=== PATIENT | female | born 1965 | race Caucasian/White ===

== ENCOUNTER 2019-06-12 09:33 | Emergency (ER) | payer BC, SELFPAY | END 2019-06-12 10:02 | LOC: ER 09:38 | PROVIDERS: Emergency Provider Physician Assistant; PCP Naturopath | DX: Z53.21 Procedure and treatment not carried out due to patient leaving prior to being seen by health care provider (principal) ==

== ENCOUNTER 2019-11-11 18:08 | Emergency (ER) | payer BC, SELFPAY ==
[2019-11-11 18:13] VITALS: BP 128/69; PULSE 74; RESP 18; TEMP 36.8; O2SAT 98
--- NOTE | 2019-11-11 18:30 | DI.RAD_ITS ---
EXAM: XR KNEE RT 3V AP,LAT,FELA CLINICAL HISTORY: swelling, pain, no trauma, ttp lateral. TECHNIQUE: 2D digital imaging was performed. COMPARISON: CR CHEST 2 VIEWS PA,LAT from 01/24/2014 FINDINGS: BONES: No acute fracture is present. No bony destructive lesion is seen. JOINTS: The knee is normally aligned. Trace joint effusion. Very mild degenerative changes character ized by mild periarticular spurring. SOFT TISSUE: Normal. IMPRESSION: No acute abnormality. DATA REPOSITORY: RADIATION DOSE DELIVERED:
[2019-11-11] MEDS: Acetaminophen 325 MG TAB 650 MG PO (18:50)
--- NOTE | 2019-11-11 18:51 | ED.GENADUL_ITS ---
Discharge Plan Disposition Patient Disposition: HOME Discharge Details Chief Complaint: Orthopedic Clinical Impression: Effusion of right knee, Pain in lateral portion of right knee Primary Care Provider: Herminio Hernandez ED Provider: Perfecto Kaba Home Meds and New Rx's Prescriptions: Continued metformin 500 mg tablet extended release 24 hr 500 mg PO BID RF: 0 magnesium glycinate 100 mg Tablet 100 mg PO DAILY RF: 0 thyroid (pork) [[place] Thyroid] 15 mg tablet 15 mg PO DAILY RF: 0 thyroid (pork) [[place] Thyroid] 30 mg tablet 30 mg PO DAILY RF: 0 omega 4-kxj-poz-fish oil [Fish Oil] 1,000 mg (120 mg-180 mg) Capsule 2 cap PO DAILY RF: 0 Lumigan 0.01 % drops 1 drp ophthalmic (eye) HS RF: 0 Discharge Instructions Instructions: Knee Pain (ED), Iliotibial Band Syndrome (ED) Additional Instructions: Wear knee splint and use crutches. Rest over the next 1 week. Please take acetaminophen (tylenol) - 650mg every 6 hours by mouth as needed for pain. If pain persist, please follow-up with orthopedics. Please contact your primary care physician to arrange follow-up. Return to the ER for any worsening or new concerning symptoms. Referrals: [facility] [Provider Group] Discharge Data Discharge Date/Time-TO BE ENTERED AT DEPARTURE: 11/11/19 20:05 Medical Decision Making 1899??54-year-old female here with 2 days of atraumatic right lateral knee pain and distal IT pain and tenderness. No inflammatory changes other than trace knee effusion present. Patient does have history remote meniscal tear requiring surgery. Suspect IT band syndrome. Patient declined NSAIDs noting prior side effects. I will give Tylenol 650 mg orally. Consider bony abnormality including potential arthritis status post remote meniscectomy and anomalous knee tendon removal. --X-ray of the right knee was reviewed and interpreted by radiology: IMPRESSION: Early degenerative changes with probable trace joint effusion. Knee brace applied. Crutches provided. Patient advised to rest over next week and if pain persists, follow-up orthopedics. HPI General Mode of arrival: ambulatory . Date/Time Provider Initiated Documentation: 11/11/19 18:22 . Limitations to Documentation: no limitations . Information obtained by: patient . HPI Narrative: 54-year-old female with history of remote meniscal tear and surgery presents with chief complaint of right knee pain. Patient notes that yesterday morning she woke up with pain in her lateral right knee. Pain was initially mild. She had no injury to the area. Pain persisted through the day and when she woke up this morning pain was much worse. Pain is moderate. Pain is worse with any movement of the knee. Pa in is localized to her lateral knee and spreads anteriorly and also lateral distal thigh. She has no associated fever or rash. Patient does note that her ankles feel swollen bilaterally the past couple days. No calf pain. Related Data Home Medications Medication Instructions Recorded Confirmed Lumigan 1 drp OPHTHALMIC (EYE) HS 11/11/19 11/11/19 magnesium glycinate 100 mg PO DAILY 11/11/19 11/11/19 metformin 500 mg PO BID 11/11/19 11/11/19 omega 6-voz-xur-fish oil [Fish Oil] 2 cap PO DAILY 11/11/19 11/11/19 thyroid (pork) [[place] Thyroid] 15 mg PO DAILY 11/11/19 11/11/19 thyroid (pork) [[place] Thyroid] 30 mg PO DAILY 11/11/19 11/11/19 Allergies Allergy/AdvReac Type Severity Reaction Status Date / Time ampicillin [Ampicillin] Allergy Severe Unverified 11/11/19 18:21 gluten AdvReac Unverified 07/25/12 15:28 dairy Allergy Mild Uncoded 07/25/12 15:28 General Stated Complaint: Orthopedic LEXI: 4 Review of Systems Constitutional Constitutional: Denies fever(s) Cardiovascular Cardiovascular: Denies dyspnea Respiratory Respiratory: Denies dyspnea Musculoskeletal Musculoskeletal: Reports as per HPI Integumentary/Breasts Skin/Breast: Denies rash [facility] Medical History (Updated 11/11/19 @ 20:02 by Perfceto Kaba MD) Sleep apnea (Acute) Social History Smoking/Tobacco Use Status: Former Tobacco Use Alcohol Intake: current Alcohol Intake frequency: a few times a week Alcohol type: hard liquor Drug use: Occasionally Details: diazapam/clonipine--old rxs Do you feel safe at home: Yes Do you feel safe in your relationship?: Yes Exam Const General: cooperative and no acute distress HENMT Mouth: moist mucous membranes Neck Neck: trachea midline and supple Resp Effort & Inspection: normal respiratory effort and no respiratory distress Cardio Jugular venous pressure: no JVD Rate: regular rate and not tachycardic Rhythm: regular rhythm GI Palpation: soft, not firm, no guarding, no masses, not rigid and nontender Skin General skin exam: no rashes or lesions noted Neuro General: patient alert, patient awake, patient oriented x3 and tone normal Extrem General: no calf tenderness and edema Laterality: bilateral (Trace nonpitting edema ankles) Right lower extremity: hip/thigh Details: tenderness Location: other (Lateral distal thigh); no swelling and no unusual warmth and knee Details: tenderness Location: of the lateral joint line and other (Tender lateral knee with trace effusion); no unusual warmth Psych Appearance: grossly normal Mental Status: mental status grossly normal Course Vital Signs Vital signs: Vital Signs Temperature 36.8 C 11/11/19 18:13 Pulse 74 11/11/19 18:13 Respiratory Rate 18 11/11/19 18:13 Blood Pressure 128/69 11/11/19 18:13 Pulse Oximetry 98 11/11/19 18:13 Temperature 36.8 C 11/11/19 18:13 Temperature Source Temporal Artery Scan 11/11/19 18:13 Pulse 74 11/11/19 18:13 Respiratory Rate 18 11/11/19 18:13 Respiratory Effort Non-Labored 11/11/19 18:19 Blood Pressure 128/69 11/11/19 18:13 Blood Pressure Position Supine 11/11/19 18:13 Pulse Oximetry 98 11/11/19 18:13 Oxygen Delivery Method Room Air 11/11/19 18:13 Oxygen Flow Rate 0 11/11/19 18:13 Pain Level 6 11/11/19 18:13
[2019-11-11 19:03] LABS: Anion Gap 7.1 mmol/L (3-11); BUN 19 mg/dL (7-18); CO2 27.9 mmol/L (21.0-32.0); Calcium 9.1 mg/dL (8.5-10.1); Chloride 104 mmol/L (98-107); Glucose 131 mg/dL (74-106); Potassium 3.7 mmol/L (3.5-5.1); Sodium 139 mmol/L (136-145)
--- NOTE | 2019-11-11 19:07 | DI.VRAD_ITS ---
PROCEDURE INFORMATION: Exam: XR Right Knee Exam date and time: 11/11/2019 7:00 PM Age: 54 years old Clinical indication: Other: Swelling, pain, no trauma, ttp lateral TECHNIQUE: Imaging protocol: XR Right knee. Views: 3 views. COMPARISON: No relevant prior studies available. FINDINGS: Bones/joints: Possible trace joint effusion. There are early degenerative changes with minimal hypertrophic spurring. Overall joint spaces appear well preserved. Soft tissues: Normal. IMPRESSION: Early degenerative changes with probable trace joint effusion. Dictated and Authenticated by: Letitia Jenkins MD. Ordering:ESTRELLITA Grove MD
[2019-11-11 19:16] LABS: TSH (W/Ref FT4) 1.66 uIU/mL (0.36-3.74)
[2019-11-11 19:39] VITALS: BP 123/81; PULSE 68; RESP 14; TEMP 36.2; O2SAT 99
== END 2019-11-11 20:05 | disposition home or self-care (01) ==
PROVIDERS: Emergency Provider Student in an Organized Health Care Education/Training Program; PCP Naturopath
DX: M25.461 Effusion, right knee (principal); M76.31 Iliotibial band syndrome, right leg
CPT/HCPCS: 29505; 36415; 73562; 80048; 99284; 84443; E0114; L1810

== ENCOUNTER 2019-12-03 08:26 | Outpatient (CLI) | payer BC, SELFPAY ==
[2019-12-05 17:04] LABS: Patient Race White; SARS-CoV-2 RNA Undetected (Undetected); SARS-CoV-2 Specimen Source Nasopharynx
== END 2019-12-03 08:46 ==
PROVIDERS: Naturopath; PCP Naturopath; Visit Provider Naturopath
DX: Z11.59 Encounter for screening for other viral diseases (principal)
CPT/HCPCS: U0003

== ENCOUNTER 2020-02-09 04:42 | Outpatient (CLI) | payer BC, SELFPAY ==
[2020-02-09 08:05] LABS: Hemoglobin A1C 5.4 % (<5.7)
[2020-02-09 08:50] LABS: ALT 49 U/L (14-59); AST 25 U/L (15-37); Albumin 3.9 g/dL (3.4-5.0); Alkaline Phosphatase 97 U/L (46-116); Anion Gap 7.5 mmol/L (3-11); BUN 14 mg/dL (7-18); Bilirubin, Total 0.5 mg/dL (0.2-1.0); CO2 30.5 mmol/L (21.0-32.0); CREATININE 0.74 mg/dL (0.55-1.02); Calculated LDL 107 mg/dL (<100); Chloride 105 mmol/L (98-107); Cholesterol 196 mg/dL (<200); Glucose 94 mg/dL (74-106); HDL Cholesterol 74 mg/dL (40-60); Potassium 4.4 mmol/L (3.5-5.1); Sodium 143 mmol/L (136-145); T4 7.6 ug/mL (4.7-13.3); TSH 1.62 uIU/mL (0.36-3.74); Total Protein 6.8 g/dL (6.4-8.2); Triglyceride 75 mg/dL (<150)
[2020-02-18 17:16] LABS: ANA Interpretation 0.3 U (Negative)
[2020-02-18 17:17] LABS: T3,Free 4.2 pg/mL (2.8-4.4)
[2020-02-18 17:24] LABS: Insulin 17.2 mcIU/mL (2.6-24.9)
== END 2020-02-09 05:02 ==
PROVIDERS: PCP Naturopath; Visit Provider Naturopath
DX: E03.9 Hypothyroidism, unspecified (principal); Z13.1 Encounter for screening for diabetes mellitus; Z13.220 Encounter for screening for lipoid disorders; R76.8 Other specified abnormal immunological findings in serum
CPT/HCPCS: 36415; 80053; 80061; 83036; 83525; 84436; 84443; 84481; 86038

== ENCOUNTER 2020-04-17 11:07 | Outpatient (CLI) | payer BC, SELFPAY ==
[2020-04-18 12:37] LABS: COVID-19 RT-PCR UVMMC Result Negative (Negative)
== END 2020-04-17 11:27 ==
PROVIDERS: PCP Naturopath; Visit Provider Naturopath
DX: Z20.822 Contact with and (suspected) exposure to COVID-19 (principal)
CPT/HCPCS: U0003

== ENCOUNTER 2020-05-01 04:26 | Outpatient (CLI) | payer BC, SELFPAY ==
[2020-05-01 18:00] LABS: Vitamin D 25 Total 75.6 ng/ml (30-100)
[2020-05-01 18:05] LABS: Vitamin B12 556 pg/mL (193-986)
== END 2020-05-01 04:46 ==
PROVIDERS: PCP Naturopath; Visit Provider Internal Medicine Sleep Medicine
DX: E67.3 Hypervitaminosis D (principal); R53.83 Other fatigue
CPT/HCPCS: 36415; 82306; 82607

== ENCOUNTER 2020-07-05 03:38 | Outpatient (CLI) | payer BC, SELFPAY ==
[2020-07-05 13:48] LABS: Iron 93 ug/dL (50-170); Total Iron Binding Capacity 336 ug/dL (250-450); Transferrin Sat 28 % (15-50)
[2020-07-05 14:00] LABS: Ferritin 72 ng/mL (8-252)
== END 2020-07-05 03:39 | disposition home or self-care (01) ==
LOC: LBO 03:38
PROVIDERS: PCP Naturopath; Visit Provider Naturopath
DX: E83.110 Hereditary hemochromatosis (principal)
CPT/HCPCS: 36415; 82728; 83540; 83550

== ENCOUNTER 2020-08-11 03:24 | Outpatient (CLI) | payer BC, SELFPAY ==
[2020-08-11 13:16] LABS: Abs Immature Grans 0.01 10^3/uL (0.0-0.06); Absolute Basophil Count 0.05 10^3/uL (0.0-0.2); Absolute Eosinophil Count 0.06 10^3/uL (0.0-0.7); Absolute Lymphocyte Count 1.37 10^3/uL (1.2-3.4); Absolute Monocyte Count 0.41 10^3/uL (0.1-0.8); Absolute Neutrophil Count 1.59 10^3/uL (1.2-6.7); Basophils % 1.4; Eosinophils % 1.7; HCT 44.4 % (36.0-46.0); HGB 14.4 g/dL (11.2-15.7); Immature Grans % 0.3; Lymphocytes % 39.3; MCHC 32.4 % (32.0-36.0); MCV 89.5 fL (80-95); MPV 12.3 fL (8.0-11.0); Monocytes % 11.7; Neutrophils % 45.6; Nucleated RBC 0 %; Platelet Count 240 10^3/uL (130-400); RBC 4.96 10^6/uL (3.93-5.22); RDW 13.1 % (11.7-14.6); RDW-SD 42.7 fL; WBC 3.49 10^3/uL (4.4-10.8)
[2020-08-11 14:19] LABS: Ferritin 45 ng/mL (8-252)
== END 2020-08-11 03:25 | disposition home or self-care (01) ==
LOC: LBO 03:29
PROVIDERS: PCP Naturopath; Visit Provider Internal Medicine Hematology & Oncology
DX: E83.110 Hereditary hemochromatosis (principal)
CPT/HCPCS: 36415; 82728; 85025

== ENCOUNTER 2020-10-11 03:39 | Outpatient (CLI) | payer BC, SELFPAY ==
[2020-10-11 10:43] LABS: Abs Immature Grans 0.01 10^3/uL (0.0-0.06); Absolute Basophil Count 0.03 10^3/uL (0.0-0.2); Absolute Eosinophil Count 0.04 10^3/uL (0.0-0.7); Absolute Lymphocyte Count 1.36 10^3/uL (1.2-3.4); Absolute Monocyte Count 0.32 10^3/uL (0.1-0.8); Absolute Neutrophil Count 2.17 10^3/uL (1.2-6.7); Basophils % 0.8; HGB 14.3 g/dL (11.2-15.7); Immature Grans % 0.3; Lymphocytes % 34.6; MCH 28.4 pg (27.0-33.0); MCHC 32.5 % (32.0-36.0); MCV 87.5 fL (80-95); MPV 12.3 fL (8.0-11.0); Monocytes % 8.1; Neutrophils % 55.2; Nucleated RBC 0 %; Platelet Count 185 10^3/uL (130-400); RBC 5.03 10^6/uL (3.93-5.22); RDW 13.2 % (11.7-14.6); RDW-SD 42.5 fL; WBC 3.93 10^3/uL (4.4-10.8)
[2020-10-11 11:57] LABS: Ferritin 47 ng/mL (8-252)
== END 2020-10-11 03:40 | disposition home or self-care (01) ==
LOC: LBO 03:40
PROVIDERS: PCP Naturopath; Visit Provider Internal Medicine Hematology & Oncology
DX: E83.110 Hereditary hemochromatosis (principal)
CPT/HCPCS: 36415; 82728; 85025

== ENCOUNTER 2020-12-06 04:07 | Outpatient (CLI) | payer BC, SELFPAY ==
[2020-12-06 10:38] LABS: Absolute Basophil Count 0.04 10^3/uL (0.0-0.2); Absolute Eosinophil Count 0.06 10^3/uL (0.0-0.7); Absolute Lymphocyte Count 1.26 10^3/uL (1.2-3.4); Absolute Monocyte Count 0.29 10^3/uL (0.1-0.8); Absolute Neutrophil Count 1.93 10^3/uL (1.2-6.7); Basophils % 1.1; Eosinophils % 1.7; HCT 43.8 % (36.0-46.0); HGB 14.2 g/dL (11.2-15.7); Lymphocytes % 35.2; MCH 28.2 pg (27.0-33.0); MCHC 32.4 % (32.0-36.0); MCV 87.1 fL (80-95); MPV 12.5 fL (8.0-11.0); Monocytes % 8.1; Neutrophils % 53.9; Nucleated RBC 0 %; Platelet Count 191 10^3/uL (130-400); RBC 5.03 10^6/uL (3.93-5.22); RDW 14.3 % (11.7-14.6); RDW-SD 45.3 fL; WBC 3.58 10^3/uL (4.4-10.8)
[2020-12-06 11:35] LABS: Ferritin 65 ng/mL (8-252)
== END 2020-12-06 04:08 | disposition home or self-care (01) ==
LOC: LBO 04:07
PROVIDERS: PCP Naturopath; Visit Provider Internal Medicine Hematology & Oncology
DX: E83.110 Hereditary hemochromatosis (principal)
CPT/HCPCS: 36415; 82728; 85025

== ENCOUNTER 2021-01-23 03:36 | Outpatient (CLI) | payer BC, SELFPAY ==
[2021-01-23 12:33] LABS: Abs Immature Grans 0.01 10^3/uL (0.0-0.06); Absolute Basophil Count 0.04 10^3/uL (0.0-0.2); Absolute Eosinophil Count 0.05 10^3/uL (0.0-0.7); Absolute Lymphocyte Count 1.23 10^3/uL (1.2-3.4); Absolute Monocyte Count 0.37 10^3/uL (0.1-0.8); Absolute Neutrophil Count 3.65 10^3/uL (1.2-6.7); Basophils % 0.7; Eosinophils % 0.9; HCT 42.6 % (36.0-46.0); HGB 13.7 g/dL (11.2-15.7); Immature Grans % 0.2; MCHC 32.2 % (32.0-36.0); MCV 90.3 fL (80-95); MPV 12.7 fL (8.0-11.0); Monocytes % 6.9; Neutrophils % 68.3; Nucleated RBC 0 %; Platelet Count 193 10^3/uL (130-400); RBC 4.72 10^6/uL (3.93-5.22); RDW 13.9 % (11.7-14.6); RDW-SD 46.5 fL; WBC 5.35 10^3/uL (4.4-10.8)
[2021-01-23 13:27] LABS: Ferritin 70 ng/mL (8-252)
== END 2021-01-23 03:37 | disposition home or self-care (01) ==
LOC: LBO 03:36
PROVIDERS: PCP Naturopath; Visit Provider Internal Medicine Hematology & Oncology
DX: E83.110 Hereditary hemochromatosis (principal)
CPT/HCPCS: 36415; 82728; 85025

== ENCOUNTER 2021-02-14 03:30 | Outpatient (CLI) | payer BC, SELFPAY ==
[2021-02-14 08:05] LABS: Absolute Basophil Count 0.04 10^3/uL (0.0-0.2); Absolute Lymphocyte Count 0.84 10^3/uL (1.2-3.4); Absolute Monocyte Count 0.47 10^3/uL (0.1-0.8); Absolute Neutrophil Count 2.42 10^3/uL (1.2-6.7); Eosinophils % 2.6; Lymphocytes % 21.7; MCHC 31.7 % (32.0-36.0); MCV 91.3 fL (80-95); MPV 12.2 fL (8.0-11.0); Monocytes % 12.1; Neutrophils % 62.6; Nucleated RBC 0 %; Platelet Count 175 10^3/uL (130-400); RBC 4.49 10^6/uL (3.93-5.22); RDW 13.7 % (11.7-14.6); RDW-SD 46.9 fL; WBC 3.87 10^3/uL (4.4-10.8)
[2021-02-14 09:01] LABS: Hemoglobin A1C 5.3 % (<5.7)
[2021-02-14 09:10] LABS: ALT 24 U/L (14-59); AST 15 U/L (15-37); Albumin 4.4 g/dL (3.4-5.0); Alkaline Phosphatase 118 U/L (46-116); Anion Gap 8.5 mmol/L (3-11); BUN 17 mg/dL (7-18); Bilirubin, Total 0.5 mg/dL (0.2-1.0); CO2 30.5 mmol/L (21.0-32.0); CREATININE 0.9 mg/dL (0.55-1.02); Calcium 9.1 mg/dL (8.5-10.1); Calculated LDL 90 mg/dL (<100); Chloride 103 mmol/L (98-107); Cholesterol 178 mg/dL (<200); Glucose 101 mg/dL (74-106); HDL Cholesterol 80 mg/dL (40-60); Potassium 4.4 mmol/L (3.5-5.1); Sodium 142 mmol/L (136-145); Total Protein 7.5 g/dL (6.4-8.2); Triglyceride 41 mg/dL (<150)
[2021-02-14 09:12] LABS: Ferritin 79 ng/mL (8-252)
[2021-02-14 17:09] LABS: Estradiol <12 pg/mL (See Note); Progesterone 0.4 ng/mL (See Table)
[2021-02-14 17:12] LABS: T3,Free 4.4 pg/mL (2.8-5.3)
[2021-02-14 17:33] LABS: LH 33.3 mIU/mL (See Note)
[2021-02-14 17:34] LABS: FSH 51.9 mIU/mL (See Note)
[2021-02-19 13:51] LABS: Estradiol, Mass Spectrometry <10 pg/mL; Estrone 29 pg/mL
[2021-02-19 14:42] LABS: ANA Interpretation Positive (Negative); ANA Titer Pattern 1:80 Homogeneous
== END 2021-02-14 03:31 | disposition home or self-care (01) ==
LOC: LBO 03:30
PROVIDERS: Internal Medicine Hematology & Oncology; PCP Naturopath; Visit Provider Naturopath
DX: E03.9 Hypothyroidism, unspecified (principal); Z13.1 Encounter for screening for diabetes mellitus; Z13.220 Encounter for screening for lipoid disorders; M25.50 Pain in unspecified joint; R61 Generalized hyperhidrosis; E88.81 Metabolic syndrome and other insulin resistance; E83.110 Hereditary hemochromatosis
CPT/HCPCS: 36415; 80053; 80061; 82670; 82679; 82728; 83001; 83002; 83036; 83525; 84144; 84436; 84443; 84481; 85025; 86038

== ENCOUNTER 2021-03-09 01:14 | Outpatient (CLI) | payer BC, SELFPAY ==
[2021-03-09 13:22] LABS: Abs Immature Grans 0.01 10^3/uL (0.0-0.06); Absolute Basophil Count 0.04 10^3/uL (0.0-0.2); Absolute Lymphocyte Count 1.58 10^3/uL (1.2-3.4); Absolute Monocyte Count 0.45 10^3/uL (0.1-0.8); Absolute Neutrophil Count 3.23 10^3/uL (1.2-6.7); Basophils % 0.7; Eosinophils % 1.8; HCT 43.1 % (36.0-46.0); HGB 13.8 g/dL (11.2-15.7); Immature Grans % 0.2; Lymphocytes % 29.2; MCH 29.1 pg (27.0-33.0); MCV 90.9 fL (80-95); MPV 11.9 fL (8.0-11.0); Monocytes % 8.3; Neutrophils % 59.8; Nucleated RBC 0 %; Platelet Count 223 10^3/uL (130-400); RBC 4.74 10^6/uL (3.93-5.22); WBC 5.41 10^3/uL (4.4-10.8)
[2021-03-09 15:23] LABS: Ferritin 38 ng/mL (8-252)
== END 2021-03-09 01:15 | disposition home or self-care (01) ==
LOC: LBO 01:14
PROVIDERS: PCP Naturopath; Visit Provider Internal Medicine Hematology & Oncology
DX: E83.110 Hereditary hemochromatosis (principal)
CPT/HCPCS: 36415; 82728; 85025

== ENCOUNTER 2021-04-18 02:09 | Outpatient (CLI) | payer BC, SELFPAY ==
[2021-04-18 08:00] LABS: Absolute Basophil Count 0.04 10^3/uL (0.0-0.2); Absolute Eosinophil Count 0.06 10^3/uL (0.0-0.7); Absolute Lymphocyte Count 1.34 10^3/uL (1.2-3.4); Absolute Monocyte Count 0.35 10^3/uL (0.1-0.8); Absolute Neutrophil Count 1.89 10^3/uL (1.2-6.7); Basophils % 1.1; Eosinophils % 1.6; HCT 39.3 % (36.0-46.0); HGB 12.7 g/dL (11.2-15.7); Lymphocytes % 36.4; MCH 28.7 pg (27.0-33.0); MCHC 32.3 % (32.0-36.0); MCV 88.7 fL (80-95); MPV 12.3 fL (8.0-11.0); Monocytes % 9.5; Neutrophils % 51.4; Nucleated RBC 0 %; Platelet Count 198 10^3/uL (130-400); RBC 4.43 10^6/uL (3.93-5.22); RDW 13.3 % (11.7-14.6); RDW-SD 43.8 fL; WBC 3.68 10^3/uL (4.4-10.8)
[2021-04-18 09:39] LABS: Ferritin 24 ng/mL (8-252)
== END 2021-04-18 02:10 | disposition home or self-care (01) ==
LOC: LBO 02:09
PROVIDERS: Internal Medicine Hematology & Oncology; PCP Naturopath; Visit Provider Naturopath
DX: E83.110 Hereditary hemochromatosis (principal)
CPT/HCPCS: 36415; 82728; 85025

== ENCOUNTER 2021-05-07 03:55 | Outpatient (CLI) | payer BC, SELFPAY ==
[2021-05-07 07:18] LABS: Absolute Basophil Count 0.04 10^3/uL (0.0-0.2); Absolute Eosinophil Count 0.06 10^3/uL (0.0-0.7); Absolute Lymphocyte Count 1.14 10^3/uL (1.2-3.4); Absolute Monocyte Count 0.31 10^3/uL (0.1-0.8); Basophils % 1.3; Lymphocytes % 37.4; MCH 28.3 pg (27.0-33.0); MCHC 31.7 % (32.0-36.0); MCV 89.3 fL (80-95); MPV 12.2 fL (8.0-11.0); Monocytes % 10.2; Neutrophils % 49.1; Nucleated RBC 0 %; Platelet Count 189 10^3/uL (130-400); RBC 4.59 10^6/uL (3.93-5.22); RDW 13.5 % (11.7-14.6); RDW-SD 44.2 fL; WBC 3.05 10^3/uL (4.4-10.8)
[2021-05-07 08:36] LABS: Ferritin 33 ng/mL (8-252)
== END 2021-05-07 03:56 | disposition home or self-care (01) ==
PROVIDERS: PCP Naturopath; Visit Provider Internal Medicine Hematology & Oncology
DX: E83.110 Hereditary hemochromatosis (principal)
CPT/HCPCS: 36415; 82728; 85025

== ENCOUNTER 2021-05-23 01:43 | Outpatient (CLI) | payer BC, SELFPAY ==
[2021-05-23 07:28] LABS: Abs Immature Grans 0.02 10^3/uL (0.0-0.06); Absolute Basophil Count 0.04 10^3/uL (0.0-0.2); Absolute Eosinophil Count 0.07 10^3/uL (0.0-0.7); Absolute Lymphocyte Count 1.17 10^3/uL (1.2-3.4); Absolute Monocyte Count 0.34 10^3/uL (0.1-0.8); Eosinophils % 1.8; HCT 41.8 % (36.0-46.0); HGB 13.6 g/dL (11.2-15.7); Immature Grans % 0.5; Lymphocytes % 30.5; MCH 28.9 pg (27.0-33.0); MCHC 32.5 % (32.0-36.0); MCV 88.9 fL (80-95); MPV 12.1 fL (8.0-11.0); Monocytes % 8.9; Neutrophils % 57.3; Nucleated RBC 0 %; Platelet Count 195 10^3/uL (130-400); RDW 13.7 % (11.7-14.6); RDW-SD 44.8 fL; WBC 3.84 10^3/uL (4.4-10.8)
[2021-05-23 17:37] LABS: Ferritin 22 ng/mL (10-291)
== END 2021-05-23 01:44 | disposition home or self-care (01) ==
LOC: LBO 01:43
PROVIDERS: Internal Medicine Hematology & Oncology; PCP Naturopath; Visit Provider Naturopath
DX: E83.110 Hereditary hemochromatosis (principal)
CPT/HCPCS: 36415; 82728; 85025

== ENCOUNTER 2021-07-23 13:07 | Outpatient (CLI) | payer BC, SELFPAY ==
[2021-07-23 11:52] LABS: Abs Immature Grans 0.01 10^3/uL (0.0-0.06); Absolute Basophil Count 0.04 10^3/uL (0.0-0.2); Absolute Eosinophil Count 0.06 10^3/uL (0.0-0.7); Absolute Lymphocyte Count 1.51 10^3/uL (1.2-3.4); Absolute Monocyte Count 0.35 10^3/uL (0.1-0.8); Absolute Neutrophil Count 1.78 10^3/uL (1.2-6.7); Basophils % 1.1; Eosinophils % 1.6; HCT 39.3 % (36.0-46.0); HGB 12.7 g/dL (11.2-15.7); Immature Grans % 0.3; Lymphocytes % 40.3; MCH 29.4 pg (27.0-33.0); MCHC 32.3 % (32.0-36.0); MPV 11.6 fL (8.0-11.0); Monocytes % 9.3; Neutrophils % 47.4; Platelet Count 186 10^3/uL (130-400); RBC 4.32 10^6/uL (3.93-5.22); RDW 14.2 % (11.7-14.6); RDW-SD 47.7 fL; WBC 3.75 10^3/uL (4.4-10.8)
[2021-07-23 13:04] LABS: Ferritin 82 ng/mL (8-252)
== END 2021-07-23 13:08 | disposition home or self-care (01) ==
LOC: LBO 13:08
PROVIDERS: PCP Naturopath; Visit Provider Internal Medicine Hematology & Oncology
DX: E83.110 Hereditary hemochromatosis (principal)
CPT/HCPCS: 36415; 82728; 85025

== ENCOUNTER 2021-09-05 03:45 | Outpatient (CLI) | payer BC, SELFPAY ==
[2021-09-05 12:41] LABS: Absolute Basophil Count 0.05 10^3/uL (0.0-0.2); Absolute Eosinophil Count 0.06 10^3/uL (0.0-0.7); Absolute Lymphocyte Count 1.31 10^3/uL (1.2-3.4); Absolute Monocyte Count 0.33 10^3/uL (0.1-0.8); Basophils % 1.4; Eosinophils % 1.7; HCT 43.2 % (36.0-46.0); HGB 14.2 g/dL (11.2-15.7); MCH 29.9 pg (27.0-33.0); MCHC 32.9 % (32.0-36.0); MCV 91 fL (80-95); Monocytes % 9.6; Neutrophils % 49.3; Platelet Count 189 10^3/uL (130-400); RBC 4.75 10^6/uL (3.93-5.22); RDW 13.2 % (11.7-14.6); RDW-SD 44.3 fL; WBC 3.45 10^3/uL (4.4-10.8)
[2021-09-05 13:06] LABS: Ferritin 64 ng/mL (8-252)
== END 2021-09-05 03:46 | disposition home or self-care (01) ==
LOC: LBO 03:45
PROVIDERS: PCP Naturopath; Visit Provider Naturopath
DX: E83.110 Hereditary hemochromatosis (principal)
CPT/HCPCS: 36415; 82728; 85025

== ENCOUNTER 2021-10-16 01:55 | Outpatient (CLI) | payer BC, SELFPAY ==
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
--- OUTSIDE RECORDS SUMMARY | 2021-10-16 02:00 | XMS_ITS | Encounter Summary ---
:[address] [facility] Address [address] [place] [address] Care Team Providers Name Role Phone Zaira Rodriguez MD Unavailable Charo Finn MD Unavailable Herminio Hernandez ND Primary Care Provider Reason for Visit Reason Comments Therapeutic Phlebotomy Phleb/Hydration Encounter Details Date Type Department Care Team Description 07/23/2021 Nurse Only [facility] - Heredit nagi hemochromatosis [facility] [place] (HCC-CMS) (HCC) (Primary Dx) Infusion [address] [place] [address] Social History Tobacco Use Types Packs/Day Years [...] making decisions? documented as of this encounter Progress Notes Patricia Escoto RN - 07/23/2021 1530 EDT Nabila is here for a phlebotomy today. Ferritin is currently 82. She has noticed some itching above hereyes but other than that is asymptomatic. One unit easily obtained from left AC. She was also hydrated with 500mls NS and took a bottle of water with her. She felt well upon leaving. She will return in6 weeks for a phlebotomy with labs prior. I encouraged her to call with any questions or concerns, PATRICIA ESCOTO RN documented in this encounter Plan of Treatment Upcoming Encounters Date Type Specialty Care Team Description 10/18/2021 Nurse Only Infusion Therapy documented as of this encounter Visit Diagnoses Diagnosis Hereditary hemochromatosis (HCC-CMS) (HC C) - Primary Hereditary hemochromatosis documented in this encounter Administered Medications Inactive Administered Medications - up to 3 most recent administrations Medication Order MAR Action Action Date Dose Rate Site sodium chloride 0.9 % (NS) New Bag 07/23/2021 16:00 EDT 500 mL 999 mL/hr infusion at 999 mL/hr, 500 mL, intravenous, CONTINUOUS, Starting on 07/23/21 at 1630, Until Fri07/23/21 at 1630, Routine documented in this encounter Orders Medications Ordered That Might Not Have Count Last Ord ered Date First Ordered Date Been Administered sodium chloride 0.9 % (NS) infusion 1 07/23/2021 documented in this encounter Care Teams Manager Relationship Relationship Specialty Start Date End Date Herminio Hernandez ND PCP - General 08/19/16 [address] [place] [address] Zaira Rodriguez MD Referring Provider Gynecology 07/29/16 [address] [facility] [address], [address] [place] [address] Charo Finn MD Medical Oncology 07/29/16 [address] [facility], [address] [place] [phone] documented as of this encounter
--- OUTSIDE RECORDS SUMMARY | 2021-10-16 02:00 | XMS_ITS | Encounter Summary ---
:1965 Author Organization [facility] Address [address] [place] [address] Care Team Providers Name Role Phone Zaira Rodriguez MD Unavailable Charo Finn MD Unavailable Herminio Hernandez ND Primary Care Provider Reason for Visit Reason Onset Date Comments Appointment Related 08/18/2020 Encounter Details Date Type Department Care Team Description 08/18/2020 Telephone [facility] - Charo Finn MD Appointment Related [facility] [place] & [address] [facility], Oncology [address] [facility] [address] [place] [address] [place], [place] [phone] (Wo rk) Social History Tobacco Use [...] this encounter Miscellaneous Notes Telephone Encounter - Macarena Diaz RN - 08/18/2020 1521 EDT Nabila has been scheduled to see Stephanie Huerta APRN on Monday 08/21, followed by infusion for a phlebotomy. Amenable to date/time. MACARENA DIAZ RN elephone Encounter - Bert Alcala RN - 08/18/2020 0935 EDT Ok to schedule with EO or SH (discussed with EO) elephone Encounter - Gloria Esteves - 08/18/2020 0911 EDT PT called and is scheduled with Aakash Leung on 09/20 and possible phelb, she just had blood work done and believes she need to be scheduled before then. Dr. Finn has nothing available before. Should she R/S with Mary or Stephanie? Please advise, thank you documented in this encounter Plan of Treatment Upcoming Encounters Date Type Specialty Care Team Description 10/18/2021 Nurse Only Infusion Therapy documented as of this encounter Visit Diagnoses Not on filedocumented in this encounter Care Teams Horticultural Manager Relationship Specialty Start Date End Date Herminio Hernandez ND PCP - General 08/19/16 [address] [place], [place] [address] Zaiar Rodriguez MD Referring Provider Gynecology 07/29/16 [address] [facility] [address]A, [address] [place] [address] Charo Finn MD Medical Oncology 07/29/[address] [place] [address], [address] [place] [phone] documented as of this encounter
--- OUTSIDE RECORDS SUMMARY | 2021-10-16 02:00 | XMS_ITS | Encounter Summary ---
:1965 Author Organization [facility] Address [address] [place] [address] Care Team Providers Name Role Phone Zaira Rodriguez MD Unavailable Charo Finn MD Unavailable Herminio Hernandez ND Primary Care Provider Reason for Visit Reason Comments Follow-up Therapeutic phlebotomy Encounter Details Date Type Department Care Team Description 01/31/2021 Office Visit [facility] - Lorena Vazquez history of breast cancer (Primary Dx); [facility] [place] [facility] Hereditary hemochromatosis (HCC-CMS) (HC C); Hematology & [address] [facility], Pruritus Oncology [address] [facility] [address] [place] [phone] Social History Tobacco Use Types Packs/Day Years [...] at Date Recorded Female 12/04/2020 9:27 EDT COVID-19 Exposure Response Date Recorded In the last month, have you been in contact with No / Unsure 01/31/2021 15:27 EDT someone who was confirmed or suspected to have Coronavirus / COVID-19? documented as of this encounter Last Filed Vital Signs Vital Sign Reading Time Taken Comments Blood Pressure 104/62 01/31/2021 1525 EDT Pulse 99 01/31/2021 1525 EDT Temperature - - Respiratory Rate - - Oxygen Saturation 78% 01/31/2021 1525 EDT Inhaled Oxygen Concentration - - Weight - - Height - - Body Mass Index - - documented in this encounter Functional Status Functional Status Response [...] documented as of this encounter Progress Notes Lorena Vazquez, LEILANI - 01/31/2021 1530 EDT CC: Chief Complaint Patient presents with ??? Follow-up Therapeutic phlebotomy Hematology History: Hemochromatosis. On phlebotomy treatments. ?? Oncology History: September 2013 Right breast cancer - 10/15 Mammo Right breast Cat 4; Left Cat 1. - 10/25 Right breast biopsy = adenocarcinoma. - 11/09 lumpectomy [id number], ER/IA +, Her2/joy amplified. - December 31, 2013: Chemotherapy with cyclophosphamide, Taxotere, and Herceptin every 3 weeks x4. - May 2014: Tamoxifen + Herceptin. Stop tamoxifen after completing 5 years. Hematology History: ?? Subjective: Nabila is here for a therapeutic phlebotomy in the setting of hemachromatosis. Review of Systems: All 10 systems have been reviewed and are negative except for the mentioned above. Medications: Current Outpatient Medications Medication ??? ARMOUR THYROID 15 mg tablet ??? bimatoprost (LUMIGAN) 0.01 % ophthalmic drops ??? buPROPion (WELLBUTRIN XL) 300 mg XL tablet ??? Magnesium Gluconate 27 mg magnesium (500 mg) tablet ??? Magnesium Glycinate 100 mg tablet ??? metFORMIN (GLUCOPHAGE-XR) 500 mg ER tablet ??? OMEGA 0-IRN-PGL-FISH OIL ORAL ??? thyroid, Pork, (ARMOUR THYROID) 30 mg tablet ??? travoprost (TRAVATAN Z) 0.004 % ophthalmic solution ??? TURMERIC (CURCUMIN MISC) No current facility-administered medications for this visit. Objective: VS: BP 104/62 Pulse 99 SpO2 (!) 78% Social History Socioeconomic History ??? Marital status: Spouse name: Not on file ??? Number of children: Not on file ??? Years of education: Not on file ??? Highest education level: Not on file Occupational History ??? Not on file Tobacco Use ??? Smoking status: Never Smoker ??? Smokeless tobacco: Never Used Vaping Use ??? Vaping Use: Never used Substance and Sexual Activity ??? Alcohol use: Yes ??? Drug use: Not Currently ??? Sexual activity: Not Currently Partners: Male Comment: - no IC for 17 years Other Topics Concern ??? Not on file Social History Narrative Feels safe at home. Social Determinants of Health Financial Resource Strain: ??? Difficulty of Paying Living Expenses: Not on file Food Insecurity: ??? Worried About Running Out of Food in the Last Year: Not on file ??? Ran Out of Food in the Last Year: Not on file Transportation Needs: ??? Lack of Transportation (Medical): Not on file ??? Lack of Transportation (Non-Medical): Not on file Physical Activity: ??? Days of Exercise per Week: Not on file ??? Minutes of Exercise per Session: Not on file Stress: ??? Feeling of Stress : Not on file Social Connections: ??? Frequency of Communication with Friends and Family: Not on file ??? Frequency of Social Gatherings with Friends and Family: Not on file ??? Attends Jainism Services: Not on file ??? Active Member of Clubs or Organizations: Not on file ??? Attends Club or Organization Meetings: Not on file ??? Marital Status: Not on file Physical Exam: General appearance: Adult female in NAD. Skin: Skin color, temperature normal. No rashes or lesions. HENT: Sclera anicteric. No facial pallor. Lungs: clear to auscultation bilaterally, good inspiratory effort Heart: regular rate and rhythm, S1, S2 normal, no murmur, click, rub or gallop. Abdomen: Extremities: Lymph nodes: No palpable cervical or supraclavicular adenopathy. Neuro: Alert and oriented x3. Normal affect. Normal gait. Performance Status:0 Data Review: Labs: Reviewed outside labs. Assessment/Plan: Nabila is a 55 yo female with hemachromatosis and h/o right breast cancer. She remains stable on therapeutic phlebotomies with a goal of Ferritin <50. Ferritin 70 and symptomatic with pruritis. Proceed with phlebotomy today. She will have labs q 6 weeks and provider visit q 3 months. 25 minutes in face to face contact with 20 minutes counseling side effect and treatment management. 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 documented in this encounter Plan of Treatment Upcoming Encounters Date Type Specialty Care Team Description 10/18/2021 Nurse Only Infusion Therapy documented as of this encounter Visit Diagnoses Diagnosis Personal history of breast cancer - Prim nagi Personal history of malignant neoplasm o f breast Hereditary hemochromatosis (HCC-CMS) (HC C) Hereditary hemochromatosis Pruritus Unspecified pruritic disorder documented in this encounter Care Teams Instructional Support Services Director Relationship Specialty Start Date End Date Herminio Hernandez ND PCP - General 08/19/16 [address] [place], [place] [id number] Zaira Rodriguez MD Referring Provider Gynecology 07/29/16 [address] [facility] [address] [place] [address] Charo Finn MD Medical Oncology 07/29/16 [address] [facility] [address] [place] [phone] documented as of this encounter
--- OUTSIDE RECORDS SUMMARY | 2021-10-16 02:00 | XMS_ITS | Encounter Summary ---
:1965 Author Organization [facility] Address [address] [place] [address] Care Team Providers Name Role Phone Zaira Rodriguez MD Unavailable Charo Finn MD Unavailable Herminio Hernandez ND Primary Care Provider Encounter Details Date Type Department Care Team Description 02/14/2021 Lab Requisition [facility] Outr Resulting Lab, Pathology & Laboratory Provider [facility] [address] [place] [address] Social History Tobacco Use Types Packs/Day Years [...] / COVID-19? documented as of this encounter Functional Status [...] making decisions? documented as of this encounter Plan of Treatment Upcoming Encounters Date Type Specialty Care Team Description 10/18/2021 Nurse Only Infusion Therapy documented as of this encounter Procedures Procedure Name Priority Date/Time Associated Comments Diagnosis PROGESTERONE Routine 02/14/2021 7:53 Results for this EST procedure are i n the results section. INSULIN Routine 02/14/2021 7:53 Results for this EST procedure are i n the results section. ESTRADIOL, ADULTS Routine 02/14/2021 7:53 Results for this EST procedure are i n the results section. ANTI NUCLEAR AB Routine 02/14/2021 7:53 Results f or this (ARCADIO), IFA EST procedure are i n the results section. T3 FREE Routine 02/14/2021 7:53 Results for this EST procedure are i n the results section. LH Routine 02/14/2021 7:53 Results for this EST procedure are i n the results section. FSH Routine 02/14/2021 7:53 Results for this EST procedure are i n the results section. documented in this encounter Results T3 FREE (02/14/2021 7:53 EST) Pathologist Sig nature T3, Free 4.4 2.8 - 5.3 pg/mL [facility] LABORA TORY SERVICES Specimen Blood - Venous blood (substance) Performing Organization Address City/State/ZIP Code Phon e Number [facility] [address] [place] [address] SERVICES LH (02/14/2021 7:53 EST) Luteinizing Hormone 33.3 See Note [facility] Comment: mIU/mL CENTER LABORATORY NOTE: SERVICES Female Reference Ranges: Pre-Pubertal: ?<6.0 mIU/mL Menstruating: Follicular Phase(-12 to -4 days: ??1.9 - 12.5 mIU/mL Midcycle(-3 to +2 days): ?8.7 - 76.3 mIU/ mL Luteal Phase(+4 to +12 days): ? 0.5 - 16.9 mIU/mL Post Menopausal: 15.9 - 54.0 mIU/mL Specimen Blood - Venous blood (substance) Performing Organization Address City/State/ZIP Code Phon e Number [facility] [address] [place] [address] SERVICES FSH (02/14/2021 7:53 EST) Pathologist Sig nature FSH 51.9 See Note mIU/mL [facility] [place] SERVICES Specimen Blood - Venous blood (substance) Narrative [facility] SERVICES - 02/14/2021 17:29 EST NOTE: Female FSH Reference Ranges (>= 13 Menst ruating): PHYSIOLOGICAL STATUS ? REFE RENCE RANGE ? ---- Follicular (-12 to -4 days): ?? 2.5 - 1 0.2 mIU/mL Midcycle (-3 to +2 days): ?3.4 - 33.4 mIU/mL Luteal (+4 to +12 days): ? 1.5 - 9.1 mIU/mL Postmenopausal: ? 23.0 - 116.3 mIU/mL Reference Ranges for female patients <13 years old have not been established. Performing Organization Address [facility]/ZIP Code Phon e Number [facility] [address] [place] [address] SERVICES PROGESTERONE (02/14/2021 7:53 EST) Progesterone 0.4 See Table [facility] Comment: ng/mL LABORATORY Female Reference Ranges: SERVICES PHYSIOLOGICAL STATUS ?EXPECTED RANGE ? >= 18 Yrs Menstruating: (Non-) Follicular Phase: ? <= 1.4 ng/mL Luteal Phase: ? 3.3 - 25.6 ng/mL Mid-luteal Phase: ? 4.4 - 28.0 ng/mL Postmenopausal: ? <= 0.7 ng/mL : -------- First Trimester: ?11.2 - 90.0 ng/mL Second Trimester: ? 25.6 - 89.4 ng/mL Third Trimester: ?48.4 - 422.5ng/mL For ectopic , consult a pathologist Reference Ranges for female patients <18 years o ld have not been established. Specimen Blood - Venous blood (substance) Performing Organization Address City/[facility] Code Phon e Number [facility] [address] [place] [address] SERVICES INSULIN (02/14/2021 7:53 EST) Pathologist Sig nature Insulin 9.0 <29.0 uIU/mL [facility] Comment: LABORATORY SERVICES Displayed Reference Range applies to fasting specimens only. Specimen Blood - Venous blood (substance) Performing Organization Address [facility]/ZIP [facility] Phon e Number [facility] [address] [place] [address] SERVICES ESTRADIOL, ADULTS (02/14/2021 7:53 EST) Estradiol <12 See Note pg/mL [facility] Comment: LABORATORY SERVICES NOTE: FEMALE REFERENCE RANGES: MENSTRUATING ? By cycle day relative to LH peak Follicular ?(-12 to -4 days) ??20-144 pg/mL Midcycle ?(-3 to +2 days) ?? 64-357 pg/mL Luteal ?(+4 t0 +12 days) ??56-214 pg/mL POSTMENOPAUSAL ?<32 pg/mL *Cross reactivity with Fulve strant could lead to a falsely elevated estradiol result in patients treated with this drug. Specimen Blood - Venous blood (substance) Performing Organization Address [facility] Phon e Number [facility] [address] [place] [address] SERVICES (ABNORMAL) ANTI NUCLEAR AB (ARCADIO), IFA (02/14/2021 7:53 EST) ARCADIO Interpretation Positive (A) Negative [facility] SERVICES ARCADIO Titer and Pattern 1:[address] Homogeneous [facility] [address] LABORATORY SERVICES Specimen Blood - Venous blood (substance) Narrative [facility] SERVICES - 02/19/2021 14:37 EST Results were obtained with the INOVA NOV A Lite HEp-2 ARCADIO Kit by indirect immunofluorescence. Performing Organization Address [facility] Phon e Number [facility] [address] [place] [address] SERVICES documented in this encounter Visit Diagnoses Not on filedocumented in this encounter Care Teams Molder Fitting Relationship Specialty Start Date End Date Herminio Hernandez ND PCP - General 08/19/16 [address] [place] [address] Zaira Rodriguez MD Referring Provider Gynecology 07/29/16 [address] [facility] [address] [place] [address] Charo Finn MD Medical Oncology 07/29/16 [address] [facility] [address] [place] [phone] documented as of this encounter
--- OUTSIDE RECORDS SUMMARY | 2021-10-16 02:00 | XMS_ITS | Encounter Summary ---
:1965 Author Organization [facility] Address [address] [place] [address] Care Team Providers Name Role Phone Zaira Rodriguez MD Unavailable Charo Finn MD Unavailable Herminio Hernandez ND Primary Care Provider Reason for Visit Reason Comments New Patient Visit FBSE, spot on left leg, left arm and scalp Encounter Details Date Type Department Care Team Description 09/13/2020 Office Visit [facility] Sridevi High MD Seborrheic keratoses (Primary Dx); Dermatology - Main [address] [place] [address] [place] [id number] [place] [address], [place] [phone] (Wo rk) Social History Tobacco Use Types [...] been in contact with No / Unsure 08/21/2020 15:00 EDT someone who was confirmed or suspected [...] making decisions? documented as of this encounter Patient Instructions Patient InstructionsShSridevi krueger MD - 09/13/2020 10:50 EDT SUN PROTECTION AND SUN SCREENS IF YOU OR YOUR CHILD IS GETTING A SUNTAN DESPITE USING SUNSCREEN, THEY ARE STILL GETTING TOO MUCH SUN! YOU WILL NEED TO USE COVER-UP CLOTHING AND KEEP THEM OUT OF THE SUN! Most of a person's lifetime sun exposure occurs before the age of 18. Skin cancer can be prevented. Protect yourself and your child from the sun. Avoiding the sun is the best protection. Repeated and prolonged exposure to sunlight greatly increases your risk of all types of skin cancer.In addition, chronic sun exposure is the major cause of wrinkles, spotty, and unhealthy appearing skin. It???s important to have a healthy and active lifestyle and we encourage you to continue this. However, some common sense guidelines will help to keep your skin safe. ?? Avoid the hot mid-day sun (10 AM to 2 PM). Try to schedule your outdoor activities for mobility specialist or early evening. ?? Make clothing a regular part of protection. Keep your shirt on - wear long sleeves and a wide brimmed hat. ?? Be especially careful when on the water, snow, or sand, as sunlight is reflected upwards from these surfaces. ?? Don???t forget your eyes and lips! Wear sunglasses - sun exposure increases your risk for cataracts. Wear lip balm with an SPF. ?? Make sure your children practice good sun protection. Early sun damage increases their risk of developing skin cancer. ?? Wear a sunscreen. We recommend using a sunscreen with both UVA and UVB protection and a SPF of atleast 30. If you sunburn more easily or are in more intense sun, you will need a higher SPF. A ???waterproof?? sunscreen is usually good for about 2 hours, even if you???re swimming. A sunscreen should be reapplied every 2 hours and after swimming. Remember to put sunscreen on your ears and lips. There are many lip balms available with sunscreen. For more information about sun protection, skin cancer, and all skin topics, visit: www.skincancer.org and www.aad.org Sunscreens: Sunlight is made up of different wavelengths, some of which we can see as the various colors of therainbow, or ???visible?? light. UVA and UVB are invisible wavelengths, which penetrate into the skin and in excess amounts, cause injury. When the injury is severe, skin cells and become inflamed and we see sunburn. UVB causes sunburn more quickly than UVA and most sunscreens are targeted towardsthis wavelength. Tanning while wearing sunscreen may mean that primarily UVA light is reaching the skin. This is the same UVA light that is used in tanning beds and is responsible for causing wrinkles,brown spots and melanoma. For this reason, we recommend that you don???t use tanning beds and that you use sunscreen with both UVA and UVB protection (Broad Spectrum). Some recommended sunscreen brands: --THERE ARE MANY GOOD SUNSCREEN BRANDS. MAKE SURE YOUR SUNSCREEN IS LABELED BROAD SPECTRUM AND HASAN SPF 30 OR HIGHER. --For sensitive skin, babies, lupus, dermatomyositis, and porphyria cutanea tarda, look for sunscreens that contain Zinc Oxide & Titanium Dioxide. These are often labeled baby or sensitive. They will apply whiter but are more gentle. Some specific sunscreen brands: ?? Blue Lizard ?? Coppertone ?? Neutrogena ?? Bull Frog ?? Banana Boat ?? Aveeno ?? Tizo ?? Kayla MADRIGAL Recommended resources for sun protective clothing and hats: ?? http://www.Binfire.Apps4All ?? http://www.[employer]atus [employer]aceuticals.Apps4All ?? Http://www.ShareMeme.Apps4All ?? Https://[employer] Enterprises.Apps4All ?? Https://ListRunner.Apps4All documented in this encounter Progress Notes Sridevi High MD - 09/13/2020 1050 EDT Dermatology Outpatient Visit Note Dermatologic History: No specialty comments available. Last Dermatology office visit: New patient visit SUBJECTIVE Ms. Evans is a 55 y.o. female who presents for Chief Complaint Patient presents with ??? New Patient Visit FBSE, spot on left leg, left arm and scalp She says that she has a spot on her right parietal scalp that she frequently scratches while she watches TV. She also has two spots on her left arm that are new. She also has a spot on her left leg which is new. She has family history of skin cancer but is unsure if anyone has had melanoma. She has noother concerns today with her skin. OBJECTIVE Ms. Evans has fair skin, Brown hair. Cutaneous Cutaneous full body examination was performed. was performed. The examination was significant for: - Trunk/extremities: sparse garcia to brown waxy stuck-on papules Photo-distribution: diffuse actinic injury, mottled pigmentation and many 1-3 mm garcia-colored symmetric macules ASSESSMENT/PLAN - Seborrheic keratoses: Patient was reassured of the benign nature of these lesions and that no treatment is required (including her areas of concern on the left arm and the left leg). The spot on the right scalp is also probably an seborrheic keratosis but could be a nevus. Either way, it is benign in appearance. - Sun-damaged skin: The nature of sun-induced photo-aging and skin cancers is discussed. Sun avoidance, protective clothing, and the use of at least 50-SPF, broad-spectrum OTC sunscreens is advised. Recommended that the patient observe closely for non-healing, painful, growing, or otherwise changing skin lesions and to call if such occurs. The ABCDEs and ugly duckling rule of melanoma screening were reviewed with the patient. Problem(s): Low: (2 or more self-limited or minor problems) Data: Straightforward. Minimal or none Risk: Low. Low risk of morbidity from additional diagnostic testing or treatment. OTC drugs. Final based on 2 of 3 from the above elements. MDM: Low 40083/31616 She will f/u as planned or in the interim should problems arise. Return for the development of new or changing skin lesions or skin check in about 3 years. Sridevi High MD 09/13/2020 11:06 Monica hendricks MA - 09/13/2020 1050 EDT Review of Systems Constitutional: Negative for fatigue, fever and unexpected weight change. HENT: Negative for mouth sores. Eyes: Negative for pain. Respiratory: Negative for cough and shortness of breath. Cardiovascular: Negative for chest pain and palpitations. Gastrointestinal: Negative for abdominal pain, blood in stool, constipation, diarrhea, nausea and vomiting. Genitourinary: Negative for dysuria, frequency and hematuria. Musculoskeletal: Negative for myalgias, joint swelling, arthralgias and muscle stiffness in the morning. Skin: Negative for rash. Neurological: Negative for numbness and headaches. Endo/Heme/Allergies: Does not bruise/bleed easily. Psychiatric/Behavioral: Negative for sleep disturbance. The patient is not nervous/anxious. MONICA BARRETT MA 09/13/2020 11:00 documented in this encounter Plan of Treatment Upcoming Encounters Date Type Specialty Care Team Description 10/18/2021 Nurse Only Infusion Therapy documented as of this encounter Visit Diagnoses Diagnosis Seborrheic keratoses - Primary Sun-damaged skin Other dermatitis due to solar radiation documented in this encounter Care Teams Photolithographic Stripper Relationship Specialty Start Date End Date Herminio Hernandez ND PCP - General 08/19/16 [address] [place], [place] [id number] Zaira Rodriguez MD Referring Provider Gynecology 07/29/[address] [place] [address]-[address], [address] [place] [address] Charo Finn MD Medical Oncology 07/29/[address] [place] [address], [facility] [address] [place] [address] documented as of this encounter
--- OUTSIDE RECORDS SUMMARY | 2021-10-16 02:00 | XMS_ITS | Encounter Summary ---
:[address] [facility] Address [address] [place] [address] Care Team Providers Name Role Phone Zaira Rodriguez MD Unavailable Charo Finn MD Unavailable Herminio Hernandez ND Primary Care Provider Encounter Details Date Type Department Care Team Description 05/24/2021 Phlebotomy Only [facility], [facility] Phlebotomy hemochroma [facility] - ([facility]) ( [facility]) Outpatient Phlebotomy Drawing [address] [place] [address] Social History Tobacco Use Types [...] encounter Procedures Procedure Name Priority Date/Time Associated Diagnosis Comme nts FERRITIN Routine 05/24/2021 14:27 Hereditary Results for this EST hemochromatosis procedure ar e in ([facility] (HCC) the results section. documented in this encounter Results FERRITIN (05/24/2021 14:27 EST) Pathologist Sig nature Ferritin 22 11 - 264 ng/mL [facility] Specimen Blood - Venous blood (substance) Narrative [facility] - 022 16:29 EST The results of this assay can be falsely lowered due to the consumption of Biotin. Performing Organization Address City/State/ZIP Code Phon e Number [facility] [address] [place] [address] documented in this encounter Visit Diagnoses Diagnosis Hereditary hemochromatosis (HCC-CMS) (HC C) Hereditary hemochromatosis documented in this encounter Care Teams Securities Adviser Relationship Specialty Start Date End Date Herminio Hernandez ND PCP - General 08/19/16 [address] [place], [place] [address] Zaira Rodriguez MD Referring Provider Gynecology 07/29/16 [address] [facility], [address] [place] [address] Charo Finn MD Medical Oncology 07/29/16 [address] [facility], [facility] [address] [place] [phone] documented as of this encounter
--- OUTSIDE RECORDS SUMMARY | 2021-10-16 02:00 | XMS_ITS | Encounter Summary ---
:[address] [facility] Address [address] [place] [address] Care Team Providers Name Role Phone Zaira Rodriguez MD Unavailable Charo Finn MD Unavailable Herminio Hernandez ND Primary Care Provider Reason for Visit Reason Comments Laser Treatment Encounter Details Date Type Department Care Team Description 10/13/2020 Office Visit [facility] Jonatan Thurston Telangi ectasia Dermatology - [facility] MD Malvin (Primary Dx) [place] [address] [place] [address] [facility] [address] [place] [address] (Wo rk) Social History Tobacco Use Types [...] as of this encounter Patient Instructions Patient InstructionsJonatan Thurston MD - 10/13/2020 11:00 EDT VASCULAR LASER (VBEAM) PATIENT INSTRUCTIONS Care instructions are to be followed throughout the course of your treatment. Failure to follow these instructions may diminish the effectiveness of your laser treatment or lead to an adverse outcome. WHAT DOES THE VBEAM TREAT? The Vbeam (vascular) laser is ideal for treating blood vessels and unwanted redness. This includes port wine stains, broken blood vessels (telangiectasia), angiomas and rosacea. WHAT IS THE PROCEDURE LIKE? Treatments are mildly to moderately uncomfortable. There is no lingering pain with this procedure. The laser does not break the surface of the skin. The skin cannot be numbed prior to treatment as thisdiminishes the effectiveness of the laser. WHAT SHOULD BE AVOIDED BEFORE AND AFTER THE LASER TREATMENT? You cannot have treatment if you are garcia, as the garcia will block the laser, and it will not work. Youshould not garcia or go in the sun for one week after the treatment as this can result in unwanted discoloration. Avoid saunas, hot tubs, or any form of high heat on the face for 24 hours after your procedure. HOW OFTEN WILL I NEED TREATMENT? Most patients receive 1-3 treatments, by 4-6 weeks and then receive a single, maintenance treatment every 6-12 months. EXPECTATIONS AND CARE OF THE LASER TREATED AREA: ??? BRUISING is common for treatment of port wine stains, flushing and angiomas. It will resolve in 7-10 days. This is called purpura. ??? SWELLING is common for treatment of blood vessels and rosacea. This is worst for the first threedays and on the face can make the eyes very puffy. ??? Apply Vaseline to the treated area 2-3 times a day for 7-10 days. ??? After showering gently pat the area dry. Do not rub with a towel or washcloth. ??? Use Tylenol as per auto phone installer recommendations for discomfort. ??? Use an ice pack or frozen vegetables wrapped in a soft cloth and applied to the treated area for10 minutes per hour if needed. PRECAUTIONS TO TAKE FOLLOWING YOUR LASER TREATMENT: ??? Avoid pressure from tight clothes. Example: if the treated area is on the neck, do not wear a turtleneck while purpura is present. ??? Avoid contact sports or excessive sweating during the time the purpura is present. ??? Avoid rubbing the treated area with a face cloth. Gently pat the area dry promptly after washing. CONTACT YOUR LASER PHYSICIAN IF ANY OF THE FOLLOWING OCCUR: ?? The treated area has purulent drainage (pus containing discharge) ?? The treated area becomes tender/painful ?? You develop a fever and/or chills Please call our office [phone] or if you have any questions or concerns documented in this encounter Progress Notes Jonatan Thurston MD - 10/13/2020 1100 EDT V-BEAM PULSED DYE LASER OPERATIVE REPORT Laser ID# [id number] PATIENT INFORMATION: Nabila Evans : MRN: [id number] SURGEON: Jonatan Thurston MD I personally performed the procedure CAPTAIN ASSISTANT: Cathi The risks and benefits of treatment with the pulsed dye laser were discussed carefully with the patient or patient???s guardian. Risks of pulsed dye laser treatment including but not limited to pain, immediate purpura, transient and prolonged hyperpigmentation, hypopigmentation, the need for multiple treatments, a slight risk of scarring, and inadequate cosmetic result were discussed prior to proceeding with treatment. The patient or guardian voiced an understanding of these risks and, following formal written consent, underwent the procedure as described below: DETAILS: LASER SITE A DIAGNOSIS: Telangectasia PROCEDURE: V-beam Pulse Dye Laser 595 nm LOCATION: right and left cheek, nose and chin ANESTHESIA: None Treatment Number: 1 Procedure: The patient was brought to the laser suite. Protective eyewear was utilized at all times. Following appropriate anesthesia, as indicated, the lesion was treated with the January V-beam pulsed dye [id number] with the following settings, using dynamic cooling: Spot Size: 3x10 mm Fluence: 14 . 0 Joules / cm2 Pulse Duration: 20 miliseconds Pulse Stacking: No Surface area treated: 50.0 cm2 Following the procedure, the treated area was lightly covered with petrolatum. Appropriate absorption noted Jonatan Thurston MD Chief of Dermatology [facility] documented in this encounter Plan of Treatment Upcoming Encounters Date Type Specialty Care Team Description 10/18/2021 Nurse Only Infusion Therapy documented as of this encounter Visit Diagnoses Diagnosis Telangiectasia - Primary Other and unspecified capillary diseases documented in this encounter Care Teams Drafting Clerk Relationship Specialty Start Date End Date Herminio Hernandez ND PCP - General 08/19/16 [facility] [place], [place] [address] Zaira Rodriguez MD Referring Provider Gynecology 07/29/[address] [place] [address] [facility], [address] [place] [address] Charo Finn MD Medical Oncology 07/29/[address] [place] [address], [facility] [place] [address] documented as of this encounter
--- OUTSIDE RECORDS SUMMARY | 2021-10-16 02:00 | XMS_ITS | Encounter Summary ---
:1965 Author Organization [facility] Address [address] [place] [address] Care Team Providers Name Role Phone Zaira Rodriguez MD Unavailable Charo Finn MD Unavailable Herminio Hernandez ND Primary Care Provider Reason for Visit Reason Comments Follow-up Encounter Details Date Type Department Care Team Description 10/12/[address] [facility] - Adela Finn neoplasm of upper-inner quadrant of right breast in female, estrogen receptor positive (HCC- CMS) (Primary Dx); [facility] Adult MD Charo Hereditary hemochromatosis (HCC-CMS) Hematology & [address] [facility], Oncology MOB-B [address] [facility] [address] [place], [place] [phone] Social History Tobacco Use Types Packs/Day Years [...] 9:27 EDT documented as of this encounter Last Filed Vital Signs Vital Sign Reading Time Taken Comments Blood Pressure 118/80 10/12/2020 1413 EDT Pulse 65 10/12/2020 1413 EDT Temperature - - Respiratory Rate - - Oxygen Saturation 98% 10/12/2020 1413 EDT Inhaled Oxygen Concentration - - Weight [...] documented as of this encounter Progress Notes Charo Finn MD - 10/12/2020 1400 EDT Follow up Note Hematology History: Hemochromatosis. On phlebotomy treatments. Oncology History: September 2013 Right breast cancer - 10/15 Mammo Right breast Cat 4; Left Cat 1. - 10/25 Right breast biopsy = adenocarcinoma. - 11/09 lumpectomy [id number], ER/WA +, Her2/joy amplified. - December 31, 2013: Chemotherapy with cyclophosphamide, Taxotere, and Herceptin every 3 weeks x4. - May 2014: Tamoxifen + Herceptin. Stop tamoxifen after completing 5 years. Interim History: Patient returns for follow-up. She denies any complaints today. Had blood work at [facility] yesterday. Review of Systems: Tenderness in the axilla and inferior aspect of the breast since surgeryAll 10 systems have been reviewed and are negative except for the mentioned above. Medications: Current Outpatient Medications Medication Sig Dispense Refill Last Dose ??? ARMOUR THYROID 15 mg tablet Take 15 mg by mouth daily. Taking ??? bimatoprost (LUMIGAN) 0.01 % ophthalmic drops Apply to eye. Taking ??? buPROPion (WELLBUTRIN XL) 150 mg XL tablet Take 150 mg by mouth daily. Taking ??? buPROPion (WELLBUTRIN XL) 300 mg XL tablet Take 300 mg by mouth every morning. Taking ??? Magnesium Gluconate 27 mg magnesium (500 mg) tablet Take 1 Tab by mouth 2 times daily as needed for Muscle Spasms. Taking ??? Magnesium Glycinate 100 mg tablet Take 100 mg by mouth. Taking ??? metFORMIN (GLUCOPHAGE-XR) 500 mg ER tablet Take 1 Tab by mouth 2 times daily. Taking ??? OMEGA 7-YED-GMT-FISH OIL ORAL Take 2 Caps by mouth. Taking ??? thyroid, Pork, (ARMOUR THYROID) 30 mg tablet Take 45 mg by mouth daily. Reported on 08/20/2016 Taking ??? travoprost (TRAVATAN Z) 0.004 % ophthalmic solution INSTILL 1 DROP IN BOTH EYES EVERY EVENING Taking ??? TURMERIC (CURCUMIN MISC) by misc (non-drug; combo route) route. Taking No current facility-administered medications for this visit. Objective: VS: No data found. Physical Exam: General appearance: Awake, alert, oriented x3, NAD. Skin: Skin color, temperature, turgor normal. Head: Normocephalic, without obvious abnormality Eyes: sclerae anicteric Neck: supple, symmetrical Extremities: extremities warm, atraumatic Lymph nodes: No palpable adenopathy in cervical, supraclavicular or axillary regions. Assessment: 1. Hereditary hemochromatosis. Ferritin level from yesterday was 47. Last phlebotomy was on 08/21/20.Currently on approximately every 2-month phlebotomy schedule. 2. 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 S/p completion of 5 years of tamoxifen in May 2019. Due for mammogram in November. Plan: 1. Proceed with 1 unit phlebotomy today. 2. Return for follow-up in 2 months. No orders of the defined types were placed in this encounter. Charo Finn MD Clinical Practice Physician Division of Hematology/Oncology [facility] documented in this encounter Plan of Treatment Upcoming Encounters Date Type Specialty Care Team Description 10/18/2021 Nurse Only Infusion Therapy documented as of this encounter Visit Diagnoses Diagnosis Malignant neoplasm of upper-inner quadra nt of right breast in female, estrogen receptor positive (HCC-CMS) (HCC) - Prim nagi Hereditary hemochromatosis (HCC-CMS) (HC C) Hereditary hemochromatosis documented in this encounter Care Teams Manager Audio Relationship Specialty Start Date End Date Herminio Hernandez ND PCP - General 08/19/16 [address] [place], [place] [address] Zaira Rodriguez MD Referring Provider Gynecology 07/29/[address] [place] [address] [address]A, [address] [place] [address] Charo Finn MD Medical Oncology 07/29/[address] [place] [address], [address] [place] [address] documented as of this encounter
--- OUTSIDE RECORDS SUMMARY | 2021-10-16 02:00 | XMS_ITS | Encounter Summary ---
:1965 Author Organization [facility] Address [address] [place] [address] Care Team Providers Name Role Phone Zaira Rodriguez MD Unavailable Charo Finn MD Unavailable Herminio Hernandez ND Primary Care Provider Reason for Visit Reason Onset Date Comments Pre-visit Orders 10/10/2020 Encounter Details Date Type Department Care Team Description 10/10/2020 Telephone [facility] Katty Garcia RN Pre-visit Orders Adult Hematology & O ncology [address], [facility] [address] [place] [address] Social History Tobacco Use Types [...] this encounter Miscellaneous Notes Telephone Encounter - Katty Garcia RN - 10/10/2020 1415 EDT Standing lab order entered. Faxed to [phone] signed by Katty Garcia RN at 10/10/2020 14:20 EDTTelephone Encounter - Katty Garcia RN - 10/10/2020 1200 EDT Ivon from [facility] called - Pt. Coming in tomorrow for labs. Pt. Indicated she should having standing orders for CBC / Ferritin as previously ordered by ET. Fax new standing order to Ivon at [facility] [phone] ESWAR - OK to enter standing order CBC/Ferritin every 6 weeks x 1 year? Please advise. documented in this encounter Plan of Treatment Upcoming Encounters Date Type Specialty Care Team Description 10/18/2021 Nurse Only Infusion Therapy documented as of this encounter Visit Diagnoses Diagnosis Hereditary hemochromatosis (HCC-CMS) (HC C) - Primary Hereditary hemochromatosis documented in this encounter Care Teams Rotary Drum Dyer Relationship Specialty Start Date End Date Herminio Hernandez ND PCP - General 08/19/[address] [place] [address] Zaira Rodriguez MD Referring Provider Gynecology 07/29/16 [address] [facility] [address]A, [address] [place] [address] Charo Finn MD Medical Oncology 07/29/16 [address] [facility], [address] [place] [address] documented as of this encounter
--- OUTSIDE RECORDS SUMMARY | 2021-10-16 02:00 | XMS_ITS | Encounter Summary ---
:1965 Author Organization [facility] Address [address] [place] [address] Care Team Providers Name Role Phone Zaira Rodriguez MD Unavailable Charo Finn MD Unavailable Herminio Hernandez ND Primary Care Provider Reason for Visit Reason Comments Therapeutic Phlebotomy Encounter Details Date Type Department Care Team Description 10/12/2020 Nurse Only [facility] - Heredit nagi hemochromatosis [facility] Adult Hem Onc (HCC-CMS) (Primary Dx) Infusion [address] [place] [address] Social History Tobacco Use Types [...] encounter Progress Notes Patricia Escoto RN - 10/12/2020 1430 EDT Nabila comes in for a phlebotomy. Recent Ferritin 47. She offers no complaints to me at this time. One unit easily obtained. She hydrated with two bottles of water and felt well upon leaving. She will return in two months with labs prior. I encouraged her to call with any questions or concerns, PATRICIA ESCOTO RN documented in this encounter Plan of Treatment Upcoming Encounters Date Type Specialty Care Team Description 10/18/2021 Nurse Only Infusion Therapy documented as of this encounter Visit Diagnoses Diagnosis Hereditary hemochromatosis (HCC-CMS) (HC C) - Primary Hereditary hemochromatosis documented in this encounter Care Teams Manager Group Home Relationship Specialty Start Date End Date Herminio Hernandez ND PCP - General 08/19/16 [facility] [place], [place] [address] Zaira Rodriguez MD Referring Provider Gynecology 07/29/[address] [place] [address] [address]A, [address] [place] [address] Charo Finn MD Medical Oncology 07/29/[address] [place] [address], [address] [place] [address] documented as of this encounter
--- OUTSIDE RECORDS SUMMARY | 2021-10-16 02:00 | XMS_ITS | Encounter Summary ---
:1965 Author Organization [facility] Address [address] [place] [address] Care Team Providers Name Role Phone Zaira Rodriguez MD Unavailable Charo Finn MD Unavailable Herminio Hernandez ND Primary Care Provider Reason for Visit Reason Comments Laser Treatment telangiectasias Encounter Details Date Type Department Care Team Description 11/24/2020 Office Visit [facility] Jonatan Thurston Telangi ectasia Dermatology - [facility] MD Malvin (Primary Dx) [place] [address] [place] [address] [facility] [address] [place] [address] (Wo rk) Social History Tobacco [...] documented as of this encounter Progress Notes Sonya Hand - 11/24/2020 0945 EDT V-BEAM PULSED DYE LASER OPERATIVE REPORT Laser ID# [id number] PATIENT INFORMATION: Nabila Evans : MRN: [id number] SURGEON: Jonatan Thurston MD I personally performed the procedure DRIVER MEDIC: Cathi The risks and benefits of treatment [...] nose and chin ANESTHESIA: None Treatment Number: 2 Procedure: The patient was brought to the laser suite. Protective eyewear was utilized at all times. Following appropriate anesthesia, as indicated, the lesion was treated with the January V-beam pulsed dye [id number] with the following settings, using dynamic cooling: Spot Size: 3x10 mm Fluence: 14 . 0 Joules / cm2 Pulse Duration: 20 miliseconds Pulse Stacking: No Surface area treated: 50.0 cm2 Following the procedure, the treated area was lightly covered with petrolatum. 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
--- OUTSIDE RECORDS SUMMARY | 2021-10-16 02:00 | XMS_ITS | Encounter Summary ---
:1965 Author Organization [facility] Address [address] [place] [address] Care Team Providers Name Role Phone Zaira Rodriguez MD Unavailable Charo Finn MD Unavailable Herminio Hernandez ND Primary Care Provider Reason for Visit Reason Onset Date Comments Appointment Related 04/20/2021 Encounter Details Date Type Department Care Team Description 04/20/2021 Telephone [facility] Avril Blackman, Appointment Related Adult Hem Onc Infusi on RN [address] [place] [address] Social History Tobacco Use Types [...] Telephone Encounter - Dona Blackman RN - 04/20/2021 1017 EST Pt called to report she had labs done at outside lab as per her usual routine, she reports her Ferritin is 28 so she doesn't need a therapeutic phleb. She requested to cancel today and r/s. See her new appt. She denies other needs. documented in this encounter Plan of Treatment Upcoming Encounters Date Type Specialty Care Team Description 10/18/2021 Nurse Only Infusion Therapy documented as of this encounter Visit Diagnoses Not on filedocumented in this encounter Care Teams Food Taster Relationship Specialty Start Date End Date Herminio Hernandez ND PCP - General 08/19/16 [facility] [place] [address] Zaira Rodriguez MD Referring Provider Gynecology 07/29/16 [address] [facility] [address]OB[address]A, [address] [place] [address] Charo Finn MD Medical Oncology 07/29/16 [address] [facility], [address]OB[address] [place] [phone] documented as of this encounter
--- OUTSIDE RECORDS SUMMARY | 2021-10-16 02:00 | XMS_ITS | Encounter Summary ---
:1965 Author Organization [facility] Address [address] [place] [address] Care Team Providers Name Role Phone Zaira Rodriguez MD Unavailable Charo Finn MD Unavailable Herminio Hernandez ND Primary Care Provider Reason for Visit Reason Comments Follow-up Encounter Details Date Type Department Care Team Description 03/13/2021 Office Visit [facility] - Missael Finn nagi hemochromatosis (HCC-CMS) (HCC) (Primary Dx); [facility] Adult MD Charo Malignant neoplasm of upper-inner quadra nt of right breast in female, estrogen receptor positive (HCC-CMS) (HCC) Hematology & [address] [facility], Oncology MOB-B [address] [facility] [address] [place] [phone] Social History Tobacco Use Types Packs/Day Years [...] Sign Reading Time Taken Comments Blood Pressure 120/80 03/13/2021 1530 EST Pulse 84 03/13/2021 1530 EST Temperature - - Respiratory Rate - - Oxygen Saturation 98% 03/13/2021 1530 EST Inhaled Oxygen Concentration - - Weight - [...] encounter Progress Notes Charo Finn MD - 03/13/2021 1530 EST Follow up Note Hematology History: Hemochromatosis. On phlebotomy treatments. Oncology History: September 2013 Right breast cancer - 10/15 Mammo Right breast Cat 4; Left Cat 1. - 10/25 Right breast biopsy = adenocarcinoma. - 11/09 lumpectomy [id number], ER/ME +, Her2/joy amplified. - December 31, 2013: Chemotherapy with cyclophosphamide, Taxotere, and Herceptin every 3 weeks x4. - May 2014: Tamoxifen + Herceptin. Stop tamoxifen after completing 5 years. Interim History: Patient returns for follow-up. She plans on leaving to [place] this winter and from there she is leaving to [place]. She is leaving towards end of May and will be returning beginning of June. States that she has restless leg symptoms whenever her ferritin level goes high. Her ferritin was 79 on blood work from January. She underwent a phlebotomy but this was felt to be secondary to Covid shot. Review of Systems: Tenderness in the axilla [...] to eye. Taking ??? buPROPion (WELLBUTRIN XL) 300 mg [...] mouth 2 times daily. Taking ??? OMEGA 2-ZAD-WVU-FISH OIL ORAL Take 2 Caps by mouth. Taking ??? thyroid, Pork, (ARMOUR THYROID) 30 mg tablet Take 45 mg by mouth daily. Reported on 08/20/2016 Taking ??? travoprost (TRAVATAN Z) 0.004 % ophthalmic solution INSTILL 1 DROP IN BOTH EYES EVERY EVENING Taking ??? TURMERIC (CURCUMIN MISC) by misc (non-drug; combo route) route. Taking No current facility-administered medications for this visit. Objective: VS: Patient Vitals for the past 24 hrs: BP Pulse SpO2 03/13/21 1530 120/80 84 98 % Physical Exam: Not performed. Assessment: 1. Hereditary hemochromatosis. Ferritin level from last week was 38. Last phlebotomy was on 02/16/2021. Ferritin was 79 prior to that. Currently on approximately every 6-week phlebotomy schedule. 2. 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 S/p completion of 5 years of tamoxifen in May 2019. Mammogram from December was unremarkable. Plan: 1. Proceed with 1 unit phlebotomy today. 2. Return for follow-up in 6 weeks. Other Orders Placed This Visit Procedures ??? Complete Blood Count and Differential ??? Ferritin Charo Finn MD Clinical Practice Physician Division of Hematology/Oncology [facility] documented in this encounter Plan of Treatment Upcoming Encounters Date Type Specialty Care Team Description 10/18/2021 Nurse Only Infusion Therapy Scheduled Orders Name Type Priority Associated Diagnoses Order S chedule COMPLETE BLOOD COUNT AND Lab STAT Hereditary hemoc hromatosis Ordered: 03/13/2021 DIFFERENTIAL (HCC-CMS) (HCC) FERRITIN Lab STAT Hereditary hemochromatosis O rdered: 03/13/2021 (HCC-CMS) (HCC) documented as of this encounter Visit Diagnoses Diagnosis Hereditary hemochromatosis (HCC-CMS) (HC C) - Primary Hereditary hemochromatosis Malignant neoplasm of upper-inner quadra nt of right breast in female, estrogen receptor positive (HCC-CMS) (HCC) documented in this encounter Care Teams Art Gallery Director Relationship Specialty Start Date End Date Herminio Hernandez ND PCP - General 08/19/16 [address] [place] [address] Zaira Rodriguez MD Referring Provider Gynecology 07/29/[address] [place] [address], [address] [place] [phone] Charo Finn MD Medical Oncology 07/29/[address] [place] [address], [address] [place] [phone] documented as of this encounter
--- OUTSIDE RECORDS SUMMARY | 2021-10-16 02:00 | XMS_ITS | Encounter Summary ---
:1965 Author Organization [facility] Address [address] [place] [address] Care Team Providers Name Role Phone Zaira Rodriguez MD Unavailable Charo Finn MD Unavailable Herminio Hernandez ND Primary Care Provider Reason for Visit Reason Comments Laser Treatment Telangiectasia Encounter Details Date Type Department Care Team Description 01/05/2021 Office Visit [facility] Jonatan Thurston Telangi ectasia Dermatology - [facility] MD Malvin (Primary Dx) [place] [address] [place] [address] [facility] [address] [place] [address] (Wo rk) Social History Tobacco [...] this encounter Progress Notes Sonya Hand - 01/05/2021 0800 EDT V-BEAM PULSED DYE LASER OPERATIVE REPORT Laser ID# [id number] PATIENT INFORMATION: Nabila Evans : MRN: [id number] SURGEON: Jonatan Thurston MD I personally performed the procedure SUPERVISOR TYPE PHOTOGRAPHY: Sonya Hand The risks and benefits of treatment with [...] nose and chin ANESTHESIA: None Treatment Number: 3 Procedure: The patient was brought to the laser suite. Protective eyewear was utilized at all times. Following appropriate anesthesia, as indicated, the lesion was treated with the January V-beam pulsed dye [id number] with the following settings, using dynamic cooling: Spot Size: 3x10 mm Fluence: 15 . 0 Joules / cm2 Pulse Duration: 20 miliseconds Pulse Stacking: No Surface area treated: 50.0 cm2 Following the procedure, the treated area was lightly covered with petrolatum. Note: The patient was not charged for her procedure today. Attestation statement: I performed or was present during the light or critical portions of the visit and participated in the management of the patient. I agree with the findings and plan of care documented in the resident's/fellow's note. 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
--- OUTSIDE RECORDS SUMMARY | 2021-10-16 02:00 | XMS_ITS | Encounter Summary ---
:1965 Author Organization [facility] Address [address] [place] [address] Care Team Providers Name Role Phone Zaira Rodriguez MD Unavailable Charo Finn MD Unavailable Herminio Hernandez ND Primary Care Provider Encounter Details Date Type Department Care Team Description 01/19/2021 Results Only [facility] Imaging [facility] Radiology Resul ts [id number] [place] [address] [phone] Social History Tobacco Use Types Packs/Day Years [...] Name Priority Date/Time Associated Diagnosis Comme nts MA BREAST SCREENING 01/19/2021 12:18 Resu lts for this CLINT BILATERAL EDT procedure are in the results section. documented in this encounter Results MA BREAST SCREENING CLINT BILATERAL (01/19/2021 12:18 EDT) Specimen Narrative [facility] - 01/19/2021 12:18 EDT ? EXAM: MAMMOGRAM/MAMMO BILATERAL SCREEN W ??EX. D/ (1524) ? CLINICAL INFORMATION: ? Z12.31 SCREENING ? INDICATION: Z12.31 SCREENING SCRE ENING ?? Dec 21 ? COMPARISON: ??Comparison has been made to previous images. ? TECHNIQUE: ??Full field digital w hole breast 2D (C-view) and 3D CC and ? MLO views of both breasts were ob tained. CAD technology was utilized. ? FINDINGS: ??The fibroglandular pa tterns of the breasts are normal. ? There has been no change when com pared to previous mammograms and ? there is no mammographic evidence of cancer. ??There are ? post-therapeutic changes in the r ight breast. There are scattered ? areas of fibroglandular density. ? FINAL ASSESSMENT: ??BILATERAL YANETH AST - Category 1 - Negative. Routine ? mammographic follow-up is recomme nded. ? These results will be communicate d to your patient via a lay letter ? from Radiology. ??If any addition al imaging is needed we will contact ? your patient directly. ? REPORT SIGNED IN OTHER VENDOR SYSTEM 01/19/2021 ?Reported B y: Bolivar Escobar MD ? CC: Charo Finn MD ? Transcribed Date/Time: 01/19/2021 (1218) ? Disposal Worker: R ? Printed Date/Time: 01/19/2021 (14 28) ? PAGE 1 ? Addie d Report ? Procedure Note Bolivar Escobar MD - EXAM: MAMMOGRAM/MAMMO BILATERAL SCREEN W EX. D/ (1524) CLINICAL INFORMATION: Z12.31 SCREENING INDICATION: Z12.31 SCREENING SCREENING Dec 21 COMPARISON: Comparison has been made to previous images. TECHNIQUE: Full field digital whole yaneth ast 2D (C-view) and 3D CC and MLO views of both breasts were obtained . CAD technology was utilized. FINDINGS: The fibroglandular patterns o f the breasts are normal. There has been no change when compared to previous mammograms and there is no mammographic evidence of ca ncer. There are post-therapeutic changes in the right b reast. There are scattered areas of fibroglandular density. FINAL ASSESSMENT: BILATERAL BREAST - Ca tegory 1 - Negative. Routine mammographic follow-up is recommended. These results will be communicated to y our patient via a lay letter from Radiology. If any additional imagi ng is needed we will contact your patient directly. REPORT SIGNED IN OTHER VENDOR SYSTEM 01/19/2021 Reported By: Bolivar Escobar MD CC: Charo Finn MD Transcribed Date/Time: 01/19/2021 (9046 ) Disposal Worker: Printed Date/Time: 01/19/2021 (7530) PAGE 1 Signed Report Performing Organization Address City/State/ZIP Code Phon e Number [facility] documented in this encounter Visit Diagnoses Not on filedocumented in this encounter Care Teams Chip Silo Tender Relationship Specialty Start Date End Date Herminio Hernandez ND PCP - General 08/19/16 [employer] [place], [place] [id number] Zaira Rodriguez MD Referring Provider Gynecology 07/29/16 [address] [facility] [address], [address] [place] [address] Charo Finn MD Medical Oncology 07/29/[address] [place] [address], [address] [place] [address] documented as of this encounter
--- OUTSIDE RECORDS SUMMARY | 2021-10-16 02:00 | XMS_ITS | Encounter Summary ---
:1965 Author Organization [facility] Address [address] [place] [address] Care Team Providers Name Role Phone Zaira Rodriguez MD Unavailable Charo Finn MD Unavailable Herminio Hernandez ND Primary Care Provider Reason for Visit Reason Onset Date Comments Other 02/15/2021 Appointment Encounter Details Date Type Department Care Team Description 02/15/2021 Telephone [facility] Macarena Diaz Other (Appointment ) Adult Hem Onc Infusi on RN [address] [place] [address] Social History Tobacco Use Types [...] Telephone Encounter - Macarena Diaz RN - 02/15/2021 0936 EST 02/15/21 9:37 Nabila calls this morning, requesting a phlebotomy appointment. Reports feeling unwell, and went to have her labs checked. Ferritin 79. Last phlebotomy 01/31/21. Reviewed with Mary Vazquez NP. Ok to schedule a phlebotomy, no provider visit needed. Nabila has been scheduled for tomorrow 02/16/21 at 1500, amenable. MACARENA DIAZ RN documented in this encounter Plan of Treatment Upcoming Encounters Date Type Specialty Care Team Description 10/18/2021 Nurse Only Infusion Therapy documented as of this encounter Visit Diagnoses Not on filedocumented in this encounter Care Teams Tape Recorder Mechanic Relationship Specialty Start Date End Date Herminio Hernandez ND PCP - General 08/19/16 [address] [place], [place] [phone] Zaira Rodriguez MD Referring Provider Gynecology 07/29/16 [address] [facility], [address] [place] [address] Charo Finn MD Medical Oncology 07/29/[address] [place] [address] [address] [place] [phone] documented as of this encounter
--- OUTSIDE RECORDS SUMMARY | 2021-10-16 02:00 | XMS_ITS | Encounter Summary ---
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, estrogen receptor positive (HCC-CMS) (Primary Dx); [facility] Adult CYCLE SPECIALIST Hereditary hemochromatosis (HCC-CMS) Hematology & [address] [facility], Oncology [address] [place], [place] [address] Social History Tobacco Use Types Packs/Day [...] Reading Time Taken Comments Blood Pressure 120/80 12/11/2020 1533 EDT Pulse 86 12/11/2020 1533 EDT Temperature - - Respiratory Rate - - Oxygen Saturation 98% 12/11/2020 1533 EDT Inhaled Oxygen Concentration - - Weight [...] documented as of this encounter Progress Notes Stephanie Huerta APRN - 12/11/2020 1530 EDT Oncology/Hematology Follow Up Nabila Qureshi Cristina 1965 Date of service: 12/11/2020 REASON FOR OFFICE VISIT: Hereditary hemochromatosis presents for therapeutic phlebotomy Interim History: Nabila returns today in follow-up of her hemochromatosis. The last 2 weeks she has hadan increase in BAKER, pruritis and restless legs all symptoms she associates with a rising ferritin. She also thinks the headaches are compounded by the fact that she has started grinding her teeth again.At one time she had an appliance that she stopped using because she no longer had trouble with nighttime teeth grinding but more recently has started once again. She has follow-up with her dental office in the near future. She has no areas of focal pain that concern her at this time. Denies shortness of breath, chest pain/palpitations, abdominal pain/cramping, no swelling of extremities. Of note, she has had 2 laser treatments for telangiectasia of her face. Performance Status: (0) Fully active, able to carry on all predisease performance without restriction Laboratory: She had labs drawn last week at [facility] her ferritin is noted to be 65 and her hemoglobin is 14.2 Imaging: Mammogram scheduled for November Assessment: Increase ferritin is above her goal of 50 and she is symptomatic. She will receive a therapeutic phlebotomy today. Plan: Diagnoses and all orders for this visit: Malignant neoplasm of upper-inner quadrant of right breast in female, estrogen receptor positive (HCC-CMS) - COMPREHENSIVE METABOLIC PANEL (ONCOLOGY USE ONLY-INC MG) - THYROID CASCADE Hereditary hemochromatosis (HCC-CMS) - FERRITIN 1. Therapeutic phlebotomy today: Order signed 2. She is instructed to call for any concerns 3. She will have her annual screening mammogram in December 02. She will return in 7 weeks for follow-up with labs drawn prior at [facility] Oncology Follow Up 7-week provider visit and labs for therapeutic phlebotomy Oncology History: as noted in Problem List Review of Systems Constitutional: Positive for fatigue. HENT: Negative. Eyes: Negative. Respiratory: Negative. Cardiovascular: Negative. Gastrointestinal: Negative. Negative for blood in stool and diarrhea. Endocrine: Negative. Genitourinary: Negative. Negative for hematuria. Musculoskeletal: Negative. Skin: Negative. Neurological: Negative. Negative for dizziness, headaches and speech difficulty. Hematological: Negative. Does not bruise/bleed easily. Psychiatric/Behavioral: Negative. Negative for sleep disturbance. The patient is not nervous/anxious. Current Outpatient Medications Medication Sig Dispense Refill [...] mouth 2 times daily. Taking ??? OMEGA 9-EVR-QYL-FISH OIL ORAL Take 2 Caps by mouth. Taking ??? thyroid, Pork, (ARMOUR THYROID) 30 mg tablet Take 45 mg by mouth daily. Reported on 08/20/2016 Taking ??? travoprost (TRAVATAN Z) 0.004 % ophthalmic solution INSTILL 1 DROP IN BOTH EYES EVERY EVENING Taking ??? TURMERIC (CURCUMIN MISC) by misc (non-drug; combo route) route. Taking No current facility-administered medications for this visit. Allergies Allergen Reactions ??? Ampicillin Anaphylaxis ??? Gluten ??? Grass Pollen Other reaction(s): itchiness unraised pink area on skin ??? Latex Rash ??? Nsaids (Non-Steroidal Anti-Inflammatory Drug) Doesn't take d/- lymphocytic colitis Other reaction(s): Doesn't take d/t lymphocitic colitis ??? Other - See Comments Environmental - grass - itchiness - un raised pink area on skin ??? Protein In Dairy ??? Cheese ??? Dairy Products [Milk] GI upset Other reaction(s): Unknown Vitals: 12/11/20 1533 BP: 120/80 Pulse: 86 SpO2: 98% Wt Readings from Last 3 Encounters: 04/29/19 84.8 kg (187 lb) 08/20/16 84.8 kg (187 lb) 08/08/15 84.8 kg (187 lb) Physical Exam Constitutional: She is oriented to person, place, and time. No distress. Eyes: Conjunctivae are normal. Pulmonary/Chest: Effort normal. Abdominal: There is no guarding. Musculoskeletal: General: Normal range of motion. Neurological: She is oriented to person, place, and time. Coordination and gait normal. Skin: Skin is warm and dry. Psychiatric: She has a normal mood and affect. Her behavior is normal. Judgment and thought content normal. Nursing note and vitals reviewed. I spent a total of 20 minutes on the date of this encounter meeting with the patient and reviewing documentation/coordinating care as described in the above note. Stephanie Huerta, LEILANI, AOCN, ACHPN Hematology/Oncology [facility] This note was created using voice recognition software. It was reviewed for major content. However, there may be multiple small discrepancies and errors due to the voice recognition aspects of the software. CC:Primary Care Provider: Herminio Hernandez [address] [facility] [address] Referring Provider: No referring provider defined for this encounter. Phone: N/A Fax: documented in this encounter Plan of Treatment Upcoming Encounters Date Type Specialty Care Team Description 10/18/2021 Nurse Only Infusion Therapy Scheduled Orders Name Type Priority Associated Diagnoses Order S chedule FERRITIN Lab Routine Hereditary hemochromatosis O rdered: 12/10/2020 (HCC-CMS) COMPREHENSIVE METABOLIC Lab Routine Malignant neoplas m of Ordered: 12/10/2020 PANEL (ONCOLOGY USE upper-inner quadrant of ONLY-INC MG) right breast in female, estrogen receptor positive (HCC-CMS) THYROID CASCADE Lab Routine Malignant neoplasm of Ord ered: 12/10/2020 upper-inner quadrant of right breast in female, estrogen receptor positive (HCC-CMS) documented as of this encounter Visit Diagnoses Diagnosis Malignant neoplasm of upper-inner quadra nt of right breast in female, estrogen receptor positive (HCC-CMS) (HCC) - Prim nagi Hereditary hemochromatosis (HCC-CMS) (HC C) Hereditary hemochromatosis documented in this encounter Discontinued Medications Medication Sig Discontinue Reason Start Date End Date buPROPion (WELLBUTRIN XL) Take 150 mg by Therapy completed 05/13/19 21 12/11/2020 150 mg XL tablet mouth daily. documented as of this encounter Care Teams Fishing Floats Assembler Relationship Specialty Start Date End Date Herminio Hernandez ND PCP - General 08/19/16 [address] [place], [place] [phone] Zaira Rodriguez MD Referring Provider Gynecology 07/29/[address] [place] [address] [address], [address] [place] [address] Charo Finn MD Medical Oncology 07/29/[address] [place] [address], [address] [place] [address] documented as of this encounter
--- OUTSIDE RECORDS SUMMARY | 2021-10-16 02:00 | XMS_ITS | Encounter Summary ---
:[address] [facility] Address [address] [place] [address] Care Team Providers Name Role Phone Zaira Rodriguez MD Unavailable Charo Finn MD Unavailable Herminio Hernandez ND Primary Care Provider Reason for Visit Reason Comments Therapeutic Phlebotomy Encounter Details Date Type Department Care Team Description 08/21/2020 Nurse Only [facility] - Heredit nagi hemochromatosis [facility] Adult Hem Onc (HCC-CMS) (Primary Dx) Infusion [address] [place] [address] Social History Tobacco Use Types [...] encounter Progress Notes Patricia Escoto RN - 08/21/2020 1530 EDT Nabila comes in for a phlebotomy. Ferritin is 45. She does notice some itching. One unit easily obtained from left AC. She hydrated with a bottle of water and felt well upon leaving. She will return to see Dr. Finn with labs prior the second week in September. I encouraged her to call with any questions or concerns, PATRICIA ESCOTO RN documented in this encounter Plan of Treatment Upcoming Encounters Date Type Specialty Care Team Description 10/18/2021 Nurse Only Infusion Therapy documented as of this encounter Visit Diagnoses Diagnosis Hereditary hemochromatosis (HCC-CMS) (HC C) - Primary Hereditary hemochromatosis documented in this encounter Care Teams Solar Applications Development Engineer Relationship Specialty Start Date End Date Herminio Hernandez ND PCP - General 08/19/16 [address] [place] [address] Zaira Rodriguez MD Referring Provider Gynecology 07/29/16 [address] [facility], [address] [place] [phone] Charo Finn MD Medical Oncology 07/29/[address] [place] [address] [address] [place] [address] documented as of this encounter
--- OUTSIDE RECORDS SUMMARY | 2021-10-16 02:00 | XMS_ITS | Encounter Summary ---
:1965 Author Organization [facility] Address [address] [place] [address] Care Team Providers Name Role Phone Zaira Rodriguez MD Unavailable Charo Finn MD Unavailable Herminio Hernandez ND Primary Care Provider Reason for Visit Radiology Services (Routine/Next Available) - Authorization Not Required Specialty Diagnoses / Procedures Referred By Contact Refer red To Contact Diagnoses Neck pain Cervicalgia Herminio Hernandez ND [facility] Procedures XR CERVICAL SPINE 2-3 VIEWS XR CERVICAL SPINE 2-3 VIEWS [address] [place] [address] Referral ID Status Reason Start Expiration Visits Visits Date Date Requested Authorized [id number] Authorization Not 04/05/2021 1 1 Required Encounter Details Date Type Department Care Team Description 04/05/2021 [facility] Xray Neck pain; Outpatient - Main Ca mpus Cervicalgia [address] [place], [place] [address] Social History Tobacco Use Types Packs/Day Years [...] making decisions? documented as of this encounter Medications at Time of Discharge Medication Sig Dispensed Refills Start Date End Date ARMOUR THYROID 15 mg Take 15 mg by mouth 0 2019 tablet daily. bimatoprost (LUMIGAN) Apply to eye. 0 11/11/2019 0.01 % ophthalmic drops buPROPion (WELLBUTRIN XL) Take 300 mg by mouth 0 06/14/2020 300 mg XL tablet every morning. Magnesium Gluconate 27 mg Take 1 Tab by mouth 2 0 magnesium (500 mg) tablet times daily as needed for Muscle Spasms. Magnesium Glycinate 100 Take 100 mg by mouth. 0 0 11/11/2019 mg tablet metFORMIN (GLUCOPHAGE-XR) Take 1 Tab by mouth 2 0 12/15/2019 500 mg ER tablet times daily. OMEGA 1-CCN-FWS-FISH OIL Take 2 Caps by mouth. 0 11/11/2019 ORAL thyroid, Pork, (ARMOUR Take 45 mg by mouth 0 THYROID) 30 mg tablet daily. Reported on 08/20/2016 travoprost (TRAVATAN Z) INSTILL 1 DROP IN BOTH 0 05/05/2020 0.004 % ophthalmic EYES EVERY EVENING solution TURMERIC (CURCUMIN MISC) by misc (non-drug; 0 combo route) route. documented as of this encounter Discharge Disposition Disposition Code Departure Means Destination Home or Self Care documented in this encounter Plan of Treatment Upcoming Encounters Date Type Specialty Care Team Description 10/18/2021 Nurse Only Infusion Therapy documented as of this encounter Procedures Procedure Name Priority Date/Time Associated Diagnosis Comme nts XR CERVICAL SPINE Routine 04/05/2021 12:17 Neck pain Results for this 2-3 VIEWS EST Cervicalgia procedure are i n the results section. documented in this encounter Results XR CERVICAL SPINE 2-3 VIEWS (04/05/2021 12:17 EST) Anatomical Region Laterality Modality Computed Radiography Specimen Impressions [facility] - 04/05/2021 12:36 EST FINDINGS / IMPRESSION: Flexion and extension views of the cervi marcello spine were obtained. There is mild degenerative disc disease and facet arthrosis. Slight dynamic instability is demonstrated at C5-C6, with minimal retrolisth esis noted on the extension view and min imal anterolisthesis noted on the flexion view at this level. Narrative [facility] - 04/05/2021 12:36 EST EXAM/TECHNIQUE: XR CERVICAL SPINE 2-3 VIEWS ??04/05/2021 1 2:00 PM HISTORY: ?? Neck pain COMPARISON: None. Procedure Note Cristobal Logan DO - 04/05/2021 EXAM/TECHNIQUE: XR CERVICAL SPINE 2-3 VIEWS 04/05/2021 12: 00 PM HISTORY: Neck pain COMPARISON: None. IMPRESSION FINDINGS / IMPRESSION: Flexion and extension views of the cervi marcello spine were obtained. There is mild degenerative disc disease and facet arthrosis. Slight dynamic instability is demonstrated at C5-C6, with minimal retrolisthesis noted on the extension view and minimal anterolis thesis noted on the flexion view at this level. Performing Organization Address City/State/ZIP Code Phon e Number [facility] documented in this encounter Visit Diagnoses Diagnosis Neck pain Cervicalgia Cervicalgia documented in this encounter Care Teams Forging Roll Operator Relationship Specialty Start Date End Date Herminio Hernandez ND PCP - General 08/19/[address] [place] [address] Zaira Rodriguez MD Referring Provider Gynecology 07/29/[address] [place] [address] [address], [address] [place] [address] Charo Finn MD Medical Oncology 07/29/[address] [place] [address], [address] [place] [address] documented as of this encounter
--- OUTSIDE RECORDS SUMMARY | 2021-10-16 02:00 | XMS_ITS | Encounter Summary ---
:1965 Author Organization [facility] Address [address] [place] [address] Care Team Providers Name Role Phone Zaira Rodriguez MD Unavailable Charo Finn MD Unavailable Herminio Hernandez ND Primary Care Provider Reason for Referral Laboratory Services (Routine/Next Available) - New Request Specialty Diagnoses / Procedures Referred By Contact Refer red To Contact Diagnoses Hereditary hemochromatosis (HCC-CMS) (HCC) Charo Finn MD Procedures FERRITIN [address] [facility] [address] [place] [address] Referral ID Status Reason Start Date Expiration Date Visits V isits Requested Authorized [id number] New Request 10/15/2021 5 5 aboratory Services (STAT) - New Request Specialty Diagnoses / Procedures Referred By Contact Refer red To Contact Diagnoses Hereditary hemochromatosis (HCC-CMS) (HCC) Charo Finn MD Procedures COMPLETE BLOOD COUNT AND DIFFERENTIAL [address] [facility], [facility] [address] [place] [address] Referral ID Status Reason Start Date Expiration Date Visits V isits Requested Authorized [id number] New Request 10/15/2021 5 5 Reason for Visit Reason Onset Date Comments Labs Only 10/12/2021 Encounter Details Date Type Department Care Team Description 10/12/2021 Telephone [facility] Charo Drake MD Labs Only Adult Hematology & O ncology [address] [facility], [facility] [address] [facility] [address] [facility] [address] [place], [place] [address] [place] [phone] (Wo rk) Social History Tobacco Use Types [...] this encounter Miscellaneous Notes Telephone Encounter - Margarita Barlow RN - 10/15/2021 1106 EDT Orders completed and faxed to above number. elephone Encounter - Margarita Barlow RN - 10/15/2021 0932 EDT Please advise what standing orders you would like ordered, and frequency? elephone Encounter - Ayana Gray - 10/12/2021 1511 EDT Michelle from [facility] called and needs a new standing lab order. They need to have it sent to them for her appt on 10/16/21. Their fax #[phone]. documented in this encounter Plan of Treatment Upcoming Encounters Date Type Specialty Care Team Description 10/18/2021 Nurse Only Infusion Therapy Scheduled Orders Name Type Priority Associated Diagnoses Order S chedule COMPLETE BLOOD COUNT Lab STAT Hereditary hemochrom atosis Every 3 months for 5 AND DIFFERENTIAL (HCC-CMS) (HCC) Occurren lenore starting 10/15/2021 unti l 10/15/2022 FERRITIN Lab Routine Hereditary hemochromatosis E very 3 months for 5 (HCC-CMS) (HCC) Occurrences starting 10/15/2021 unti l 10/15/2022 documented as of this encounter Visit Diagnoses Diagnosis Hereditary hemochromatosis (HCC-CMS) (HC C) - Primary Hereditary hemochromatosis documented in this encounter Care Teams Bridge Maintenance Worker Relationship Specialty Start Date End Date Herminio Hernandez ND PCP - General 08/19/16 [address] [place] [address] Zaira Rodriguez MD Referring Provider Gynecology 07/29/16 [address] [facility], [address] [place] [address] Charo Finn MD Medical Oncology 07/29/[address] [place] [address] [address] [place] [phone] documented as of this encounter
--- OUTSIDE RECORDS SUMMARY | 2021-10-16 02:00 | XMS_ITS | Encounter Summary ---
:1965 Author Organization [facility] Address [address] [place] [address] Care Team Providers Name Role Phone Zaira Rodriguez MD Unavailable Charo Finn MD Unavailable Herminio Hernandez ND Primary Care Provider Reason for Visit Reason Comments Therapeutic Phlebotomy Encounter Details Date Type Department Care Team Description 09/06/[address] [facility] - Heredit nagi hemochromatosis [facility] Adult Hem Onc (HCC-CMS) (HCC) (Primary Dx) Infusion [address] [place] [address] Social History Tobacco Use [...] encounter Progress Notes Patricia Escoto RN - 09/06/2021 1500 EDT Nabila is here for a phlebotomy today ordered by Stephanie Huerta APRN. Ferritin 64. She states she is tired today but otherwise is feeling fine. One unit obtained from left arm. She hydrated with a bottle of water and felt well upon leaving. Shewill return in 6 weeks with labs prior. I encouraged her to call with any questions or concerns, PATRICIA ESCOTO RN documented in this encounter Plan of Treatment Upcoming Encounters Date Type Specialty Care Team Description 10/18/2021 Nurse Only Infusion Therapy documented as of this encounter Visit Diagnoses Diagnosis Hereditary hemochromatosis (HCC-CMS) (HC C) - Primary Hereditary hemochromatosis documented in this encounter Care Teams Crm Manager Relationship Specialty Start Date End Date Herminio Hernandez ND PCP - General 08/19/16 [address] [place] [address] Zaira Rodriguez MD Referring Provider Gynecology 07/29/[address] [place] [address]-A, [address] [place] [phone] Charo Finn MD Medical Oncology 07/29/[address] [place] [address], [facility] [address] [place] [address] documented as of this encounter
--- OUTSIDE RECORDS SUMMARY | 2021-10-16 02:00 | XMS_ITS | Encounter Summary ---
:1965 Author Organization [facility] Address [address] [place] [address] Care Team Providers Name Role Phone Zaira Rodriguez MD Unavailable Charo Finn MD Unavailable Herminio Hernandez ND Primary Care Provider Reason for Visit Reason Comments Follow-up Phlebotomy Encounter Details Date Type Department Care Team Description 07/23/2021 Office Visit [facility] - Lorena Vazquez tarhuan hemochromatosis (HCC-CMS) (HCC) (Primary Dx); [facility] Adult VAMSI Koch Personal history of breast cancer Hematology & [address] [facility], Oncology MOB-B [address] [place] [address] [place] [phone] Social History Tobacco Use Types Packs/Day Years [...] Sign Reading Time Taken Comments Blood Pressure 104/60 07/23/2021 1513 EDT Pulse 87 07/23/2021 1513 EDT Temperature - - Respiratory Rate - - Oxygen Saturation 97% 07/23/2021 1513 EDT Inhaled Oxygen Concentration - - Weight [...] as of this encounter Progress Notes Lorena Vazquez NP - 07/23/2021 1500 EDT CC: Chief Complaint Patient presents with ??? Follow-up Phlebotomy Hematology History: Hemochromatosis. On phlebotomy treatments. ?? Oncology History: September 2013 Right breast cancer - 10/15 Mammo Right breast Cat 4; Left Cat 1. - 10/25 Right breast biopsy = adenocarcinoma. - 11/09 lumpectomy [id number], ER/VA +, Her2/joy amplified. - December 31, 2013: Chemotherapy with cyclophosphamide, Taxotere, and Herceptin every 3 weeks x4. - May 2014: Tamoxifen + Herceptin. Stop tamoxifen after completing 5 years. Hematology History: ?? Subjective: Nabila is here for a therapeutic phlebotomy in the setting of hemachromatosis. She just returned from along trip with family which was relaxing. She denies pruritis, BAKER, cough or SOB. Review of Systems: All 10 systems have [...] (GLUCOPHAGE-XR) 500 mg ER tablet ??? OMEGA 9-OZA-WEU-FISH OIL ORAL ??? thyroid, Pork, (ARMOUR THYROID) 30 mg tablet ??? travoprost (TRAVATAN Z) 0.004 % ophthalmic solution ??? TURMERIC (CURCUMIN MISC) No current facility-administered medications for this visit. Objective: VS: BP 104/60 Pulse 87 SpO2 97% Social History Socioeconomic History ??? Marital status: [...] Social Determinants of Health Financial Resource Strain: Not on file Food Insecurity: Not on file Transportation Needs: Not on file Physical Activity: Not on file Stress: Not on file Social Connections: Not on file Physical Exam: General appearance: Adult female in NAD. Skin: Skin color, temperature normal. No rashes or lesions. HENT: Sclera anicteric. No facial pallor. Lungs: clear to auscultation bilaterally, good inspiratory effort Heart: regular rate and rhythm, S1, S2 normal, no murmur, click, rub or gallop. Abdomen: Extremities: Lymph nodes: Neuro: Alert and oriented x3. Normal affect. Normal gait. Performance Status:0 Data Review: Labs: Reviewed outside labs. Assessment/Plan: Nabila is a 55 yo female with hemachromatosis and h/o right breast cancer. She remains stable on therapeutic phlebotomies with a goal of Ferritin <50. Ferritin 82. Proceed with phlebotomy today. She will have labs q 6 weeks and provider visit q 3 months. 30 minutes in face to face contact with 25 minutes counseling side effect and treatment management. Lorena Vazquez ANP/HEALTHCARE NETWORK PRICING CONSULTANT documented in this encounter Plan of Treatment Upcoming Encounters Date Type Specialty Care Team Description 10/18/2021 Nurse Only Infusion Therapy documented as of this encounter Visit Diagnoses Diagnosis Hereditary hemochromatosis (HCC-CMS) (HC C) - Primary Hereditary hemochromatosis Personal history of breast cancer Personal history of malignant neoplasm o f breast documented in this encounter Care Teams Director Of Sustainable Design Relationship Specialty Start Date End Date Herminio Hernandez ND PCP - General 08/19/16 [address] [place], [place] [address] Zaria Rodriguez MD Referring Provider Gynecology 07/29/[address] [place] [address] MOB-A, [address] [place] [address] Charo Finn MD Medical Oncology 07/29/[address] [place] [address], MOB-B [address] [place] [phone] documented as of this encounter
--- OUTSIDE RECORDS SUMMARY | 2021-10-16 02:00 | XMS_ITS | Encounter Summary ---
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, estrogen receptor positive (HCC-CMS); Hematology & [address] [facility], Screening b reast examination Oncology MOB-[facility] [address] [place] [address] [place] [phone] Social History Tobacco Use Types Packs/Day Years [...] Reading Time Taken Comments Blood Pressure 104/60 08/21/2020 1458 EDT Pulse 73 08/21/2020 1458 EDT Temperature - - Respiratory Rate - - Oxygen Saturation 98% 08/21/2020 1458 EDT Inhaled Oxygen Concentration - - Weight [...] as of this encounter Progress Notes Stephanie Huerta, LEILANI - 08/21/2020 1500 EDT Oncology/Hematology Follow Up Nabila Qureshi Rast 1965 Date of service: 08/21/2020 REASON FOR OFFICE VISIT: Hemochromatosis follow-up and breast cancer follow-up Interim History: Nabila returns today for phlebotomy. She experiences occasional itching especially at night when her ferritin is over 40. She has no other new concerns to report. Denies headache, shortness of breath, chest pain/palpitations, abdominal pain/cramping, no swelling of extremities. Performance Status: (0) Fully active, able to carry on all predisease performance without restriction Laboratory: Results for orders placed or performed in visit on 04/17/20 COVID-19 TESTING Specimen: Swab Result Value Ref Range COVID-19 rt-PCR Result Negative Negative Performing Lab [facility] [address] [facility] Lab Imaging: DUE for mammogram after 12/23/2019 Assessment: Nabila will have a therapeutic phlebotomy today. She will return in 6 weeks for follow-up of her hemochromatosis Nabila has no clinical evidence of recurrent breast cancer. She is due for her screening mammogram in November. Plan: Diagnoses and all orders for this visit: Hereditary hemochromatosis (HCC-CMS) Malignant neoplasm of upper-inner quadrant of right breast in female, estrogen receptor positive (HCC-CMS) Screening breast examination - ID BREAST SCREENING CLINT BILATERAL 1. Therapeutic phlebotomy for today: Order signed 2. She was instructed to call for any concerns 3. She will return in 6 weeks after follow-up labs at her local hospital Oncology Follow Up 6-week provider visit and phlebotomy Oncology History: as noted in Problem List Review of Systems Constitutional: Negative. HENT: Negative. Eyes: Negative. Respiratory: Negative. Cardiovascular: Positive for palpitations. Gastrointestinal: Negative. Negative for blood in stool [...] mouth 2 times daily. Taking ??? OMEGA 2-AZU-HKD-FISH OIL ORAL Take 2 Caps by mouth. [...] [Milk] GI upset Other reaction(s): Unknown Vitals: 08/21/20 1458 BP: 104/60 Pulse: 73 SpO2: 98% Wt Readings from Last 3 Encounters: 04/29/19 84.8 kg (187 lb) 08/20/16 84.8 kg (187 lb) 08/08/15 84.8 kg (187 lb) Physical Exam Constitutional: She is oriented to person, place, and time. No distress. HENT: Mouth/Throat: No posterior oropharyngeal erythema. Eyes: Conjunctivae are normal. Pulmonary/Chest: Effort normal. Right breast exhibits no inverted nipple, no mass, no nipple discharge, no skin change and no tenderness. Left breast exhibits no mass, no nipple discharge, no skin change and no tenderness. Abdominal: Soft. Bowel sounds are normal. There is no splenomegaly or hepatomegaly. There is no guarding. Musculoskeletal: Normal range of motion. Lymphadenopathy: She has no cervical adenopathy. She has no axillary adenopathy. Neurological: She is oriented to person, place, and time. She has normal strength. Coordination and gait normal. Skin: Skin is warm and dry. Psychiatric: She has a normal mood and affect. Her behavior is normal. Judgment and thought content normal. Cognition and memory are normal. Nursing note and vitals reviewed. I spent a total of 30 minutes on the date of this encounter meeting with the patient and reviewing documentation/coordinating care as described in the above note. Stephanie Huerta APRN, AOVLADIMIR, [facility] Hemat[facility]/Oncology [facility] This note was created using voice recognition software. It was reviewed for major content. However, there may be multiple small discrepancies and errors due to the voice recognition aspects of the software. CC:Primary Care Provider: Herminio Hernandez [address] [facility] [address] Referring Provider: No referring provider defined for [...] in female, estrogen receptor positive (HCC-CMS) (HCC) Screening breast examination Breast screening, unspecified documented in this encounter Care Teams Bee Farmer Relationship Specialty Start Date End Date Herminio HernandezREBEL PCP - General 08/19/16 [address] [place], [place] [address] Zaira Rodriguez MD Referring Provider Gynecology 07/29/[address] [place] [address] MOB-A, [address] [place] [address] Charo Finn MD Medical Oncology 07/29/16 [address] [facility], MOB-B [address] [place] [phone] documented as of this encounter
--- OUTSIDE RECORDS SUMMARY | 2021-10-16 02:00 | XMS_ITS | Encounter Summary ---
:1965 Author Organization [facility] Address [address] [place] [address] Care Team Providers Name Role Phone Zaira Rodriguez MD Unavailable Charo Finn MD Unavailable Herminio Hernandez ND Primary Care Provider Reason for Visit Reason Comments Therapeutic Phlebotomy Encounter Details Date Type Department Care Team Description 01/31/2021 Nurse Only [facility] - Heredit nagi hemochromatosis [facility] Adult Hem Onc (HCC-CMS) (HCC) (Primary Dx) Infusion [address] [place], [place] [address] Social History Tobacco Use Types Packs/Day Years [...] documented as of this encounter Progress Notes Dona Blackman RN - 01/31/2021 1600 EDT Pt amb in to appt for therapeutic phlebotomy after visit with MAINTENANCE AND CUSTODIAN SUPERVISOR Taylor. 1 unit to be let, oral hydration for replacement. Pt drank 8oz water. Pt lara procedure well. 16G phleb needle/bag combo used in L AC. Pressure held on site manually for 1 min then gauze and coban applied. Pt aware to RTC in 6 weeks. Amb out of appt. documented in this encounter Plan of Treatment Upcoming Encounters Date Type Specialty Care Team Description 10/18/2021 Nurse Only Infusion Therapy documented as of this encounter Visit Diagnoses Diagnosis Hereditary hemochromatosis (HCC-CMS) (HC C) - Primary Hereditary hemochromatosis documented in this encounter Care Teams Utility Locator Relationship Specialty Start Date End Date Herminio Hernandez ND PCP - General 08/19/16 [address] [place] [address] Zaira Rodriguez MD Referring Provider Gynecology 07/29/[address] MOB-A, [address] [place] [address] Charo Finn MD Medical Oncology 07/29/16 [address] [facility], MOB-B [address] [place] [phone] documented as of this encounter
--- OUTSIDE RECORDS SUMMARY | 2021-10-16 02:00 | XMS_ITS | Encounter Summary ---
:1965 Author Organization [facility] Address [address] [place] [address] Care Team Providers Name Role Phone Zaira Rodriguez MD Unavailable Charo Finn MD Unavailable Herminio Hernandez ND Primary Care Provider Encounter Details Date Type Department Care Team Description 05/23/2021 Lab Requisition [facility] Outr Resulting Lab, Pathology & Laboratory Provider [facility] [address] [place] [address] Social History Tobacco Use Types [...] Date/Time Associated Diagnosis Comme nts FERRITIN Routine 05/23/2021 7:10 EST Results for this procedure are i n the results section . documented in this encounter Results FERRITIN (05/23/2021 7:10 EST) Pathologist Sig nature Ferritin 22 10 - 291 ng/mL [facility] Specimen Blood - Venous blood (substance) Performing Organization Address City/State/ZIP Code Phon e Number [facility] [address] [place] [address] SERVICES documented in this encounter Visit Diagnoses Not on filedocumented in this encounter Care Teams Canvas Cutter Relationship Specialty Start Date End Date Herminio Hernandez ND PCP - General 08/19/16 [facility] [place], [place] [address] Zaira Rodriguez MD Referring Provider Gynecology 07/29/16 [address] [facility] MOB-A, [address] [place] [address] Charo Finn MD Medical Oncology 07/29/16 [address] [facility], MOB-B [address] [place] [address] documented as of this encounter
--- OUTSIDE RECORDS SUMMARY | 2021-10-16 02:00 | XMS_ITS | Encounter Summary ---
:1965 Author Organization [facility] Address [address] [place] [address] Care Team Providers Name Role Phone Zaira Rodriguez MD Unavailable Charo Finn MD Unavailable Herminio Hernandez ND Primary Care Provider Reason for Visit Reason Onset Date Comments Appointment Related 05/08/2021 Encounter Details Date Type Department Care Team Description 05/08/2021 Telephone [facility] Aziza Mann, Appointment Related Adult Hem Onc Infusi on RN [address] [place] [address] Social History Tobacco Use Types [...] this encounter Miscellaneous Notes Telephone Encounter - Hannah Mann RN - 05/08/2021 0832 EST Nabila called wanting to cancel her appt this . She had labs recently which showed a Ferritin of 33. I have rescheduled her for a phlebotomy in two weeks if needed. She will have labs drawn again prior. documented in this encounter Plan of Treatment Upcoming Encounters Date Type Specialty Care Team Description 10/18/2021 Nurse Only Infusion Therapy documented as of this encounter Visit Diagnoses Not on filedocumented in this encounter Care Teams Broke Beater Machine Operator Relationship Specialty Start Date End Date Herminio Hernandez ND PCP - General 08/19/16 [facility] [place], [place] [address] Zaira Rodriguez MD Referring Provider Gynecology 07/29/16 [address] [facility] MOB-A, [address] [place] [address] Charo Finn MD Medical Oncology 07/29/16 [address] [facility], MOB-B [address] [place] [phone] documented as of this encounter
--- OUTSIDE RECORDS SUMMARY | 2021-10-16 02:00 | XMS_ITS | Encounter Summary ---
:1965 Author Organization [facility] Address [address] [place] [address] Care Team Providers Name Role Phone Zaira Rodriguez MD Unavailable Charo Finn MD Unavailable Herminio Hernandez ND Primary Care Provider Reason for Visit Reason Comments Therapeutic Phlebotomy Encounter Details Date Type Department Care Team Description 03/13/2021 Nurse Only [facility] - Heredit nagi hemochromatosis [facility] [place] Hem Onc (HCC-CMS) (HCC) (Primary Dx) Infusion [address] [place], [place] [address] Social History Tobacco Use Types Packs/Day Years [...] encounter Progress Notes Patricia Escoto RN - 03/13/2021 1600 EST Nabila comes in for a phlebotomy today. Recent Ferritin was [address] Finn okay to have a phlebotomy. One unit obtained from left AC without issues. She hydrated with a bottle of water and took a second bottle with her. She felt well upon leaving. She will return in 5-6 weeks with labs prior. I encouraged her to call with any questions or concerns, PATRICIA ESCOTO RN documented in this encounter Plan of Treatment Upcoming Encounters Date Type Specialty Care Team Description 10/18/2021 Nurse Only Infusion Therapy documented as of this encounter Visit Diagnoses Diagnosis Hereditary hemochromatosis (HCC-CMS) (HC C) - Primary Hereditary hemochromatosis documented in this encounter Care Teams Leasing Associate Relationship Specialty Start Date End Date Herminio Hernandez ND PCP - General 08/19/16 [address] [place], [place] [phone] Zaira Rodriguez MD Referring Provider Gynecology 07/29/16 [facility] [address] [place] [phone] Charo Finn MD Medical Oncology 07/29/16 [address] [facility], [facility] [address] [place] [phone] documented as of this encounter
--- OUTSIDE RECORDS SUMMARY | 2021-10-16 02:00 | XMS_ITS | Encounter Summary ---
:[address] [facility] Address [address] [place] [address] Care Team Providers Name Role Phone Zaira Rodriguez MD Unavailable Charo Finn MD Unavailable Herminio Hernandez ND Primary Care Provider Reason for Visit Reason Onset Date Comments Abnormal Lab 05/24/2021 Encounter Details Date Type Department Care Team Description 05/24/2021 Telephone [facility] - [facility] Avril Blackman RN Abnormal Lab Adult Hem Onc Infusi on [address] [place] [address] Social History Tobacco Use Types [...] Telephone Encounter - Dona Blackman RN - 05/25/2021 0803 EST Pt notified of Iron level of 22, which is consistent with level from [facility] lab drawn a few days ago. Pt does not need phleb, she is aware and agreeable. She will go on vacation and come back for F/u 07/11/21. No further needs. elephone Encounter - Dona Blackman RN - 05/24/2021 0840 EST Call to pt to check most recent Ferritin level, 05/23/21 it was 22. Pt had questions about the validity of the value so headline writer conferenced with LEILANI Huerta. LEILANI Huerta offered two options, get a new ferritin level drawn, or believe current result. Pt is going on vacation and won't have opportunity for labs or phleb until into June at sched appt so she has opted to have lab redrawn. She will come in today to have draw and results will be eval to see if she needs a phleb. She is aware of and agreeable to plan. No further needs. documented in this encounter Plan of Treatment Upcoming Encounters Date Type Specialty Care Team Description 10/18/2021 Nurse Only Infusion Therapy documented as of this encounter Results FERRITIN (05/24/2021 14:27 EST) [...] [facility] [address] [place] [address] documented in this encounter Visit Diagnoses Diagnosis Hereditary hemochromatosis (HCC-CMS) (HC C) - Primary Hereditary hemochromatosis documented in this encounter Care Teams Cable Way Operator Relationship Specialty Start Date End Date Herminio Hernandez ND PCP - General 08/19/16 [facility] [place], [place] [phone] Zaira Rodriguez MD Referring Provider Gynecology 07/29/[address] [place] [address] MOB-A, [address] [place] [address] Charo Finn MD Medical Oncology 07/29/[address] [place] [address], MOB-B [address] [place] [phone] documented as of this encounter
--- OUTSIDE RECORDS SUMMARY | 2021-10-16 02:00 | XMS_ITS | Encounter Summary ---
:1965 Author Organization [facility] Address [address] [place] [address] Care Team Providers Name Role Phone Zaira Rodriguez MD Unavailable Charo Finn MD Unavailable Herminio Hernandez ND Primary Care Provider Reason for Visit Reason Comments Therapeutic Phlebotomy Encounter Details Date Type Department Care Team Description 02/16/2021 Nurse Only [facility] - Heredit nagi hemochromatosis [facility] Adult Hem Onc (HCC-CMS) (HCC) (Primary Dx) Infusion [address] [place], [place] [address] Social History Tobacco Use Types Packs/Day Years [...] encounter Progress Notes Dona Blackman RN - 02/16/2021 1530 EST Pt amb in to appt for therapeutic phlebotomy after review by LEILANI Huerta. 1 unit to be let, 500ml IV hydration for replacement. 2nd phleb since 01/31/21. Pt lara procedure well. PIV in R FA 22G 1 attempt, lara well, canula intact at d/c. NS 500ml IVF in over 20mins, Start: 1545,Stop: 1405. 16G phleb needle/bag combo used in L AC. Pressure held on site manually for 1 min then gauze and coban applied. Pt aware to RTC on 03/13/21. Amb out of appt. documented in this encounter Plan of Treatment Upcoming Encounters Date Type Specialty Care Team Description 10/18/2021 Nurse Only Infusion Therapy documented as of this encounter Visit Diagnoses Diagnosis Hereditary hemochromatosis (HCC-CMS) (HC C) - Primary Hereditary hemochromatosis documented in this encounter Orders Medications Ordered That Might Not Have Count Last Ord ered Date First Ordered Date Been Administered sodium chloride 0.9 % (NS) infusion 1 02/16/2021 documented in this encounter Care Teams Sawmill Production Worker Relationship Specialty Start Date End Date Mary REBEL Durham PCP - General 08/19/16 [address] [place] [address] Zaira Rodriguez MD Referring Provider Gynecology 07/29/16 [address] [facility], [address] [place] [address] Charo Finn MD Medical Oncology 07/29/16 [address] [facility], MOB-B [address] [place] [address] documented as of this encounter
--- OUTSIDE RECORDS SUMMARY | 2021-10-16 02:00 | XMS_ITS | Encounter Summary ---
:1965 Author Organization [facility] Address [address] [place] [address] Care Team Providers Name Role Phone Zaira Rodriguez MD Unavailable Charo Finn MD Unavailable Herminio Hernandez ND Primary Care Provider Encounter Details Date Type Department Care Team Description 08/21/2020 Travel Social History Tobacco Use Types Packs/Day Years [...] on filedocumented in this encounter Care Teams Bundling Machine Operator Relationship Specialty Start Date End Date Herminio Hernandez ND PCP - General 08/19/16 [facility] [place] [address] Zaira Rodriguez MD Referring Provider Gynecology 07/29/[address] [place] [address] [address], [address] [place] [address] Charo Finn MD Medical Oncology 07/29/[address] [place] [address], [address] [place] [address] documented as of this encounter
--- OUTSIDE RECORDS SUMMARY | 2021-10-16 02:00 | XMS_ITS | Clinical Summary ---
:1965 Author Organization [facility] Address [address] [place] [address] Care Team Providers Name Role Phone Zaira Rodriguez MD Unavailable Charo Finn MD Unavailable Herminio Hernandez ND Primary Care Provider Allergies Active Allergy Reactions Severity Noted Date Comments Ampicillin Anaphylaxis High 12/23/2013 Cheese Low 07/25/2012 Milk GI upset Low 11/19/2018 Other reaction( s): Unknown Gluten 07/25/2012 Grass Pollen 11/19/2018 Other reaction( s): itchiness unraised pink a dahlia on skin Latex Rash 08/06/2016 Nsaids (Non-Steroidal 08/06/2016 Doesn' t take d/- lymphocytic Anti-Inflammatory Drug) coli tis Other reaction( s): Doesn't take d/t lympho citic colitis Other - See Comments 08/06/2016 Environ mental - grass - itchiness - un raised pink area on skin Protein 08/06/2016 In Dairy Medications Medication Sig Dispensed Refills Start Date End Date Status thyroid, Pork, (ARMOUR Take 45 mg by 0 Active THYROID) 30 mg tablet mouth daily. Reported on 08/20/2016 TURMERIC (CURCUMIN by misc (non-drug; 0 Active MISC) combo route) route. ARMOUR THYROID 15 mg Take 15 mg by 0 04/20/2019 Active tablet mouth daily. Magnesium Gluconate 27 Take 1 Tab by 0 Active mg magnesium (500 mg) mouth 2 times tablet daily as needed for Muscle Spasms. metFORMIN Take 1 Tab by 0 12/15/2019 Activ e (GLUCOPHAGE-XR) 500 mg mouth 2 times ER tablet daily. travoprost (TRAVATAN INSTILL 1 DROP IN 0 05/05/2020 Active Z) 0.004 % ophthalmic BOTH EYES EVERY solution EVENING Magnesium Glycinate Take 100 mg by 0 11/11/2019 Active 100 mg tablet mouth. buPROPion (WELLBUTRIN Take 300 mg by 0 06/14/2020 Active XL) 300 mg XL tablet mouth every morning. bimatoprost (LUMIGAN) Apply to eye. 0 11/11/2019 Active 0.01 % ophthalmic drops OMEGA [id number] Take 2 Caps by 0 11/11/2019 Active OIL ORAL mouth. Active Problems Problem Noted Date Abnormal uterine bleeding 04/29/2019 Drug-induced neutropenia (HCC-CMS) 04/29/2019 Hereditary hemochromatosis ([facility]) 04/29/2019 Overview: 01/22/17 Positive for H63D/C282Y. 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) Overview: Problem 28 September 2013 Right Breast cancer -10/15/2013 Mammo Right breast Cat 4; Lef t Cat 1 -10/25/2013 Right breast biopsy = adenoca rcinoma -11/09/2013 lumpectomy [id number], [place] + , Her2/joy amplified - December 31, 2013: Chemotherapy with cyc lophosphamide, Taxotere, and Herceptin every 3 weeks x4. -May 2014: Tamoxifen + Herceptin -May 2019 Tamoxifen completed Encounters Date Type Specialty Care Team Description 10/12/2021 Telephone Hematology and [facility] Only Oncology MD Charo 09/21/2021 Office Visit Dermatology Jonatan Thurston Actinic kerat osis (Primary Dx); MD Malvin Telangiectasia 09/06/2021 Nurse Only Infusion Therapy Hereditary hemochromatosis (HCC-CMS) (HCC) (Primary Dx) 07/23/2021 Nurse Only Infusion Therapy Hereditary hemochromatosis (HCC-CMS) (HCC) (Primary Dx) 07/23/2021 Office Visit Hematology and Lorena Vazquez Hereditary h emochromatosis (HCC-CMS) (HCC) (Primary Dx); Oncology VAMSI Koch Personal histor y of breast cancer from Last 3 Months Immunizations Name Administration Dates Next Due Covid-19 mRNA Vaccine (MODERNA COVID-19) 02/12/2021, 021, 06/27/2020 PF 0.5 ml IM (12 yrs+) Influenza Vaccine Quad (AFLURIA) PF 0.5 02/03/2018, 01/11/20 16 ml IM (3 yrs+) Influenza Vaccine Quad PF 0.5 ml IM (6 01/13/2020 mos+) Surgical History Surgery Date Site/Laterality Comments KNEE SURGERY 03/31/1992 - 03/30/1993 DILATION AND CURETTAGE OF 03/31/1988 - 03/30/1989 UTERUS DILATION AND CURETTAGE OF 05/29/2016 - 06/28/2016 h ysteroscopy D&C UTERUS Medical History Medical History Date Comments Migraine headache Insomnia Breast cancer (HCC-CMS) (HCC) invasive d uctal carcinoma - right breast H/O seasonal allergies Hemochromatosis Heart murmur benign Insulin resistance Family History Medical History Relation Name Comments *Other(comment) Brother prediabetes Cervical Cancer Cousin Heart Disease Father Breast Cancer Maternal Aunt Diabetes Maternal Grandfather Kidney Failure Maternal Grandfather Heart Attack Maternal Grandmother Hemochromatosis Maternal Uncle Lymphoma Maternal Uncle Breast Cancer Mother COPD Mother Diabetes Mother Stroke Paternal Grandfather Cancer Paternal Grandmother lung cancer ; never smoker Heart Disease Paternal Uncle Heart Disease Paternal Uncle Leukemia Sister Relation Name Status Comments Brother Alive Cousin Father Alive Maternal Aunt Maternal Grandfather Maternal Grandmother Maternal Uncle Maternal Uncle Alive Mother Alive Paternal Grandfather Paternal Grandmother Paternal Uncle Paternal Uncle Sister Alive Social History Tobacco Use Types Packs/Day Years [...] at Date Recorded Female 12/04/2020 9:27 EDT Obstetrics History Grav Para Term Pre Abrt (TAB) (SAB) (Ect) Mult Lvng Comments 1 1 1 Date Outcome GA Total Labor/2nd/3rd Weight Sex Delivery Anes PTL Tanvi A 1 A5 Name Clin Labor TAB Last Filed Vital Signs Vital Sign Reading Time Taken Comments Blood Pressure 104/60 07/23/2021 1513 EDT Pulse 87 07/23/2021 1513 EDT Temperature 36.5 ??C (97.7 ??F) 04/12/2020 1501 EST Respiratory Rate 16 12/22/2019 1425 EDT Oxygen Saturation 97% 07/23/2021 1513 EDT Inhaled Oxygen Concentration - - Weight 84.8 kg (187 lb) 04/29/2019 1557 EST Height 172.7 cm (5' 7.99) 12/22/2019 1425 EDT Body Mass Index 28.44 04/29/2019 1557 EST Plan of Treatment Upcoming Encounters Date Type Specialty Care Team Description 10/18/2021 Nurse Only Infusion Therapy Health Maintenance Due Date Last Done Comments Hepatitis C Screen 1965 COVID-19 Vaccine (4 - Booster for 05/15/2021 02/12/2021, , Moderna series) 06/27/2020 Insurance Payer Benefit Plan / Subscriber ID Effective Phone Address T ype Group Dates [facility] [id number] 2019-Prese [phone] [address] [facility] [employer] [address] [place] [address] Abt,Nabila S Personal/Family Self 1965 [address] [place] [address] Abt,Nabila S Personal/Family Self 1965 [address] [place] [address] Rast,Nabila S Personal/Family Self 1965 [address] [place] [address] Abt,Nabila S Personal/Family Self 1965 [address] [place] [address] Abt,Nabila S Personal/Family Self 1965 [address] [place] [address] Rast,Nabila S Personal/Family Self 1965 [address] [place] [address] Abt,Nabila S Personal/Family Self 1965 [address] [place] [address] Advance Directives For more information, please contact: [phone] Documents on File Type Date Recorded Patient Florist'S Decorator Explanati on Advance Directives and Living Will Power of Hot Mill Tin Roller Care Teams Collar Cutter Relationship Specialty Start Date End Date Herminio Hernandez ND PCP - General 08/19/16 [address] [place] [address] Zaira Rodriguez MD Referring Provider Gynecology 07/29/[address] [place] [address]-[address], [address] [place] [address] Charo Finn MD Medical Oncology 07/29/[address] [place] [address], [facility] [address] [place] [address]
--- OUTSIDE RECORDS SUMMARY | 2021-10-16 02:00 | XMS_ITS | Encounter Summary ---
:1965 Author Organization [facility] Address [address] [place] [address] Care Team Providers Name Role Phone Zaira Rodriguez MD Unavailable Charo Finn MD Unavailable Herminio Hernandez ND Primary Care Provider Encounter Details Date Type Department Care Team Description 01/31/2021 Travel Social History Tobacco Use Types Packs/Day [...] on filedocumented in this encounter Care Teams Project Account Manager Relationship Specialty Start Date End Date Herminio Hernandez ND PCP - General 08/19/16 [facility] [place] [address] Zaira Rodriguez MD Referring Provider Gynecology 07/29/[address] [place] [address] [address], [address] [place] [address] Charo Finn MD Medical Oncology 07/29/[address] [place] [address], [address] [place] [address] documented as of this encounter
--- OUTSIDE RECORDS SUMMARY | 2021-10-16 02:00 | XMS_ITS | Encounter Summary ---
:1965 Author Organization [facility] Address [address] [place] [address] Care Team Providers Name Role Phone Zaira Rodriguez MD Unavailable Charo Finn MD Unavailable Herminio Hernandez ND Primary Care Provider Reason for Visit Reason Comments Therapeutic Phlebotomy Encounter Details Date Type Department Care Team Description 12/11/2020 Nurse Only [facility] nagi hemochromatosis [facility] [place] Hem Onc (HCC-CMS) (Primary Dx) Infusion [address] [place] [address] Social History Tobacco Use Types [...] encounter Progress Notes Patricia Escoto RN - 12/11/2020 1600 EDT Nabila comes in for a phlebotomy. Recent Ferritin 65 and she is symptomatic with itching. One unit easily obtained. She hydrated with a bottle of water and felt well upon leaving. She will return in 7 weeks with labs prior. I encouraged her to call with any questions or concerns, PATRICIA ESCOTO RN documented in this encounter Plan of Treatment Upcoming Encounters Date Type Specialty Care Team Description 10/18/2021 Nurse Only Infusion Therapy documented as of this encounter Visit Diagnoses Diagnosis Hereditary hemochromatosis (HCC-CMS) (HC C) - Primary Hereditary hemochromatosis documented in this encounter Care Teams Watchguard Relationship Specialty Start Date End Date Herminio Hernandez ND PCP - General 08/19/16 [facility] [place], [place] [address] Zaira Rodriguez MD Referring Provider Gynecology 07/29/[address] [place] [address] [address], [address] [place] [address] Charo Finn MD Medical Oncology 07/29/[address] [place] [address], [address] [place] [address] documented as of this encounter
--- OUTSIDE RECORDS SUMMARY | 2021-10-16 02:00 | XMS_ITS | Encounter Summary ---
:1965 Author Organization [facility] Address [address] [place] [address] Care Team Providers Name Role Phone Zaira Rodriguez MD Unavailable Charo Finn MD Unavailable Herminio Hernandez ND Primary Care Provider Reason for Visit Reason Comments Laser Treatment face Encounter Details Date Type Department Care Team Description 09/21/2021 Office Visit [facility] Jonatan Thurston Actinic keratosis (Primary Dx); Dermatology - [facility] MD Malvin Telangiectasia [address] [phone] [facility] [address] [place] [address] (Wo rk) Social History Tobacco [...] Patient Instructions Patient InstructionsJonatan Thurston MD - 09/21/2021 11:30 EDT VASCULAR LASER (VBEAM) PATIENT INSTRUCTIONS Care [...] or washcloth. ??? Use Tylenol as per property handler recommendations for discomfort. ??? Use an ice [...] fever and/or chills Please call our office [phone] or if you have any questions or concerns documented in this encounter Progress Notes Sonya Hand - 09/21/2021 1130 EDT V-BEAM PULSED DYE LASER OPERATIVE REPORT Laser ID# [id number] PATIENT INFORMATION: Nabila Evans : MRN: [id number] SURGEON: Jonatan Thurston MD I personally performed the procedure CLIENT PROJECT COORDINATOR: The risks and benefits of treatment with [...] treated with the January V-beam pulsed dye with the following settings, using dynamic cooling: Spot Size: 3x10 mm Fluence: 15 . 0 Joules / cm2 Pulse Duration: 20 miliseconds Pulse Stacking: No Surface area treated: 50.0 cm2 Following the procedure, the treated area was lightly covered with petrolatum. Note: The patient was not charged for her procedure today. There is an AK of the right forehead On exam 4 mm gritty macule that flakes / bleeds when picked Classic actinic keratosis CRYOSURGERY PROCEDURE NOTE PATIENT INFORMATION: Nabila Qureshi Rast [id number] 1965 [id number] 1965 DATE OF PROCEDURE: 09/21/2021 SURGEON: Jonatan Thurston MD I personally performed the procedure Jonatan Thurston MD Chief of Dermatology [facility] CLIENT PROJECT COORDINATOR: Cathi Puckett INDICATIONS: SITE/LESION TYPE/DIAGNOSIS: Lesion(s) A: Location: right lateral forehead Lesion Type/Diagnosis: 1 actinic keratosis(es) Liquid nitrogen cryosurgery was applied to a total of 1 lesion(s) on the above stated locations. Theexpected reaction and healing course were discussed, as well as the possibility of incomplete resolution and/or permanent dyspigmentation. The indication, risks, benefits and alternatives to this proced ure were discussed in detail with the patient and all questions were answered. Verbal wound care instructions were given. COMPLICATIONS: none NOTE: Jonatan Thurston MD 09/21/2021 12:09 documented in this encounter Plan of Treatment Upcoming Encounters Date Type Specialty Care Team Description 10/18/2021 Nurse Only Infusion Therapy documented as of this encounter Visit Diagnoses Diagnosis Actinic keratosis - Primary Telangiectasia Other and unspecified capillary diseases documented in this encounter Care Teams Associate Professor Of Economics Relationship Specialty Start Date End Date Herminio Hernandez ND PCP - General 08/19/16 [address] [place], [place] [address] Zaira Rodriguez MD Referring Provider Gynecology 07/29/[address] [place] [address]-A, [address] [place] [address] Charo Finn MD Medical Oncology 07/29/[address] [place] [address], [address] [place] [address] documented as of this encounter
--- OUTSIDE RECORDS SUMMARY | 2021-10-16 02:01 | XMS_ITS | Encounter Summary ---
:1965 Author Organization [facility] Address [address] [place] [address] Care Team Providers Name Role Phone Zaira Rodriguez MD Unavailable Charo Finn MD Unavailable Herminio Hernandez ND Primary Care Provider Encounter Details Date Type Department Care Team Description 01/13/2020 Travel Social History Tobacco Use Types Packs/Day [...] been in contact with No / Unsure 01/13/2020 15:02 EDT someone who was confirmed or suspected [...] on filedocumented in this encounter Care Teams Chemist Steroids Relationship Specialty Start Date End Date Herminio Hernandez ND PCP - General 08/19/16 [facility] [place] [address] Zaira Rodriguez MD Referring Provider Gynecology 07/29/[address] [place] [address] [address], [address] [place] [address] Charo Finn MD Medical Oncology 07/29/[address] [place] [address], [address] [place] [address] documented as of this encounter
--- OUTSIDE RECORDS SUMMARY | 2021-10-16 02:01 | XMS_ITS | Encounter Summary ---
:1965 Author Organization [facility] Address [address] [place] [address] Care Team Providers Name Role Phone Zaira Rodriguez MD Unavailable Charo Finn MD Unavailable Herminio Hernandez ND Primary Care Provider Encounter Details Date Type Department Care Team Description 12/23/2019 Lab Requisition [facility] Agnieszka Lechuga for Pathology & KAITLIN Gates screening for Laboratory Medicine [address] malignant neoplasm of [facility] [address], [address] cervix [address] [place] [phone] Social History Tobacco Use Types Packs/Day Years [...] been in contact with No / Unsure 12/22/2019 14:33 EDT someone who was confirmed or suspected [...] Procedure Name Priority Date/Time Associated Comments Diagnosis PAP TEST Today 12/22/2019 11:39 Results for this EDT procedure are i n the results section. HUMAN PAPILLOMAVIRUS Today 12/22/2019 11:39 Res ults for this (HPV) DETECTION-HIGH EDT procedu re are in RISK TYPES the results section. documented in this encounter Results HUMAN PAPILLOMAVIRUS (HPV) DETECTION-HIGH RISK TYPES (12/22/2019 11:39 EDT) Human Papillomavirus NegativeComment: No Negative [facility] (HPV) Detection-High E6 or E7 mRNA is CENTER LABORATOR Y Types detected from HPV SERVICES types 16,18,31,33,35,39,45 ,51,52,56,58,59,66, and 68 by flash designer mediated amplification. Specimen Pap Test - Cervix and/or Endocervix Performing Organization Address City/State/ZIP Code Phon e Number [facility] [address] [place] [address] SERVICES PAP TEST (12/22/2019 11:39 EDT) Specimens A. Cervix and/or [facility] Endocervix , ThinPrep CENTER Imaging System with LABORATORY Manual Evaluation SERVICES Specimen Adequacy Satisfactory for [facility] Evaluation - CENTER transformation zone LABORATORY component present SERVICES General Negative for [facility] Categorization intraepithelial ANTLERS lesion or malignancy LABORATORY SERVICES Attestation . [facility] Electronically CENTER signed by [facility] hernandez, LABORATORY FRANKI Quiroz(ASC P) SERVICES on 01/03/2020 at 1505 Clinical History Clinical History, Signs, Sym ptoms, Chief Complaint, Pertaining to This Order: See below [facility] Last Menstral Period: POSTMENOPAUSAL CENT ER Prior Gynecologic Pathology?: Yes LABORAT ORY SERVICES HPV The result for the Human Pap illomavirus (HPV) Detection-High Risk Types is Negative. No E6 or E7 mRNA is detected from HPV types 16,18,31,33,35,39,45,51,52,56,58,59,66, and 68 by flash designer mediated [facility] amplification.Testing was pe rformed on specimen [id number] and was resulted on 01/03/2020 1454 EDT by LEANA, LAB INSTRUMENT RESULTS IN [facility] SERVICES Performing Lab [facility] Scanned Images [facility] SERVICES Specimen Pap Test - Cervix and/or Endocervix Performing Organization Address City/State/ZIP Code Phon e Number [facility] [address] [place] [address] SERVICES documented in this encounter Visit Diagnoses Diagnosis Encounter for screening for malignant ne oplasm of cervix Screening for malignant neoplasm of the cervix documented in this encounter Care Teams Sales And Service Advisor Relationship Specialty Start Date End Date Herminio Hernandez ND PCP - General 08/19/16 [facility] [place], [place] [id number] Zaira Rodriguez MD Referring Provider Gynecology 07/29/16 [address] [facility] [address], [address] [place] [address] Charo Finn MD Medical Oncology 07/29/16 [address] [facility], [address] [place] [address] documented as of this encounter
--- OUTSIDE RECORDS SUMMARY | 2021-10-16 02:01 | XMS_ITS | Encounter Summary ---
:1965 Author Organization [facility] Address [address] [place] [address] Care Team Providers Name Role Phone Zaira Rodriguez MD Unavailable Charo Finn MD Unavailable Herminio Hernandez ND Primary Care Provider Encounter Details Date Type Department Care Team Description 04/08/[address] [facility] - [facility] Charo Drake MD Adult Hematology & O ncology [address] [facility] [address] [facility] [address] [place], [place] [id number] [place] [phone] (Wo rk) Social History Tobacco Use [...] Procedure Name Priority Date/Time Associated Comments Diagnosis COMPLETE BLOOD COUNT Routine 04/08/2020 9:20 Resu lts for this WITH DIFFERENTIAL EST procedure are in (AUTO) the results section. FERRITIN Routine 04/08/2020 9:20 Results for this EST procedure are i n the results section. documented in this encounter Results FERRITIN (04/08/2020 9:20 EST) FERRITIN - [facility] 53 11.1 - 264.0 [facility] Comment: ng/mL [facility] The results of this assay can be falsely lowered due t o the consumption of Biotin. Specimen Narrative [facility] - 021 10:54 EST Does PT Have a Latex Allergy? YES Performing Organization Address City/State/ZIP Code Phon e Number [facility] [address] [place] [address] (ABNORMAL) COMPLETE BLOOD COUNT WITH DIFFERENTIAL (AUTO) (04/08/2020 9:20 EST) Pathologist Sig nature ABSOLUTE NEUTROPHIL 1.9 (L) 2.2 - 8.85 [facility] COUN - [facility] 10e3/uL CENTER LAB BASO # - [facility] 0.06 0.01 - 0.11 [facility] 10e/uL [facility] BASO % - 2 0 - 2 % [facility] EOS # - [facility] 0.14 0.03 - 0.61 [facility] 10e3/ul [facility] EOS % - CV 4 0 - 5 % [facility] GRAN % - [facility] 52.1 40 - 80 % [facility] HEMATOCRIT - [facility] 40.2 34.9 - 44.4 % [facility] HEMOGLOBIN - [facility] 13.0 11.6 - 15.2 [facility] g/dl CENTER LAB IG# - [facility] 0.01 0 - 0.7 10e3/uL [facility] IG% - [facility] 0.3 0 - 0.9 % [facility] LYMPH # - [facility] 1.1 1.09 - 3.3 [facility] 10e3/ul [facility] LYMPH% - [facility] 30.6 20 - 40 % [facility] MEAN CORPUSCULAR HGB - 29.0 26.7 - 33.3 pg [facility] MEAN CORPUSCULAR HGB 32.3 32.1 - 35.9 [facility] CONC - [facility] g/dL CENTER LAB MEAN CELL VOLUME - 89.7 81 - 98 fl [facility] MONO # - [facility] 0.4 0.1 - 0.8 [facility] 10e3/uL [facility] MONO% - [facility] 11.4 0 - 12 % [facility] PLATELET COUNT 198 141 - 377 [facility] 10e3/ul [facility] RED BLOOD COUNT - [facility] 4.48 3.86 - 5.04 [facility] ME D 10e3/ul [facility] RED CELL DISTRI WIDTH 12.9 <14.7 % [facility] WHITE BLOOD COUNT - 3.6 (L) 4.0 - 12.4 [facility] 10e3/ul [facility] Specimen Narrative [facility] - 021 10:09 EST Does PT Have a Latex Allergy? YES Performing Organization Address City/State/ZIP Code Phon e Number [facility] [address] [place] [address] documented in this encounter Visit Diagnoses Not on filedocumented in this encounter Care Teams Packing Machine Pilot Can Router Relationship Specialty Start Date End Date Herminio Hernandez ND PCP - General 08/19/16 [address] [place] [address] Zaira Rodriguez MD Referring Provider Gynecology 07/29/[address] [place] [address]-A, [address] [place] [address] Charo Finn MD Medical Oncology 07/29/[address] [place] [address], [facility] [address] [place] [address] documented as of this encounter
--- OUTSIDE RECORDS SUMMARY | 2021-10-16 02:01 | XMS_ITS | Encounter Summary ---
:1965 Author Organization [facility] Address [address] [place] [address] Care Team Providers Name Role Phone Zaira Rodriguez MD Unavailable Charo Finn MD Unavailable Herminio Hernandez ND Primary Care Provider Encounter Details Date Type Department Care Team Description 07/22/2019 Travel Social History Tobacco Use Types Packs/Day Years Used Date Never Smoker Smokeless Tobacco: Never Used Alcohol Habits Answer Date Recorded How often [...] been in contact with No / Unsure 07/22/2019 14:59 EDT someone who was confirmed or suspected to have Coronavirus / COVID-19? documented as of this encounter Plan of Treatment Upcoming Encounters Date Type Specialty Care Team Description 10/18/2021 Nurse Only Infusion Therapy documented as of this encounter Visit Diagnoses Not on filedocumented in this encounter Care Teams Associate Professor Of Music Relationship Specialty Start Date End Date Herminio Hernandez ND PCP - General 08/19/16 [address] [place], [place] [address] Zaira Rodriguez MD Referring Provider Gynecology 07/29/16 [address] [facility], [address] [place] [address] Charo Finn MD Medical Oncology 07/29/[address] [place] [address], [facility] [address] [place] [address] documented as of this encounter
--- OUTSIDE RECORDS SUMMARY | 2021-10-16 02:01 | XMS_ITS | Encounter Summary ---
:1965 Author Organization [facility] Address [address] [place] [address] Care Team Providers Name Role Phone Zaira Rodriguez MD Unavailable Charo Finn MD Unavailable Herminio Hernandez ND Primary Care Provider Reason for Visit Reason Onset Date Comments Other 06/17/2019 question Encounter Details Date Type Department Care Team Description 06/17/2019 Telephone [facility] Charo Drake MD Other (question) Adult Hematology & [address], Oncology [facility] [address] [facility] [address] [place] [address] [place] [address] (Wo rk) Social History Tobacco Use [...] 9:27 EDT documented as of this encounter Miscellaneous Notes Telephone Encounter - Suni Dexter LPN - 06/18/2019 0832 EDT Patient had called asking about coming in for phlebotomy. Per Dr. Finn patient was advised to delay x 4 weeks. Patient is rescheduled to See Stephanie 07/21 with labs and infusion to follow if needed SUNI DEXTER LPN 06/18/19 8:33 elephone Encounter - Charo Finn MD - 06/17/2019 1614 EDT It might be better to delay this by 4 weeks or so. elephone Encounter - Hannah Youngblood - 06/17/2019 1541 EDT Patient would like a call back. documented in this encounter Plan of Treatment Upcoming Encounters Date Type Specialty Care Team Description 10/18/2021 Nurse Only Infusion Therapy documented as of this encounter Visit Diagnoses Not on filedocumented in this encounter Care Teams Check Writing Machine Operator Relationship Specialty Start Date End Date Herminio Hernandez ND PCP - General 08/19/16 [address] [place], [place] [id number] Zaira Rodriguez MD Referring Provider Gynecology 07/29/16 130 [facility], [address] [place] [address] Charo Finn MD Medical Oncology 07/29/[address] [facility] [address] [place] [phone] documented as of this encounter
--- OUTSIDE RECORDS SUMMARY | 2021-10-16 02:01 | XMS_ITS | Encounter Summary ---
:1965 Author Organization [facility] Address [address] [place] [address] Care Team Providers Name Role Phone Zaira Rodriguez MD Unavailable Charo Finn MD Unavailable Herminio Gao ND Primary Care Provider Encounter Details Date Type Department Care Team Description 02/07/2019 Results Only [facility] - [facility] Herminio Oquendo ND Lab - Main [place] [address] [facility] [address] [place], [place] [address] [place] [address] [phone] Social History Tobacco Use Types Packs/Day Years Used Date Never Smoker Alcohol Habits Answer Date Recorded How often [...] 9:27 EDT documented as of this encounter Plan of Treatment Upcoming Encounters Date Type Specialty Care Team Description 10/18/2021 Nurse Only Infusion Therapy documented as of this encounter Procedures Procedure Name Priority Date/Time Associated Diagnosis Comme nts ESTROGENS, ESTRONE Routine 02/07/2019 17:29 Resul ts for this (E1) AND ESTRADIOL EST procedure are in (E2), FRACTIONATED, the resu lts SERUM section. documented in this encounter Results ESTROGENS, ESTRONE (E1) AND ESTRADIOL (E2), FRACTIONATED, SERUM (02/07/2019 17:29 EST) ESTRADIOL,E2 - <10 () pg/mL [facility] Comment: [facility] REFERENCE VALUE ------ Premenopausal: 15-350 (E2 levels vary widely through t he menstrual cycle.) Postmenopausal: <10 ADDITIONAL INFORMATION ------ This test was developed and its performance characteri stics determined by [facility] in a manner consistent with CLIA requirements. This test has not been cleared or approv ed by the U.S. Food and Drug Administration. Test Performed by: [facility] [place] [facility] [address] [place] [address] Weight Count Operator: Herminio Roberto M.D. Ph.D.; CLIA# [id number] ESTRONE,E1 - [facility] 27 () pg/mL [facility] Comment: [facility] REFERENCE VALUE ------ Premenopausal :17-200 Postmenopausal : 7-40 ADDITIONAL INFORMATION ------ This test was developed and its performance characteri stics determined by [facility] in a manner consistent with CLIA requirements. This test has not been cleared or approv ed by the U.S. Food and Drug Administration. Specimen Narrative [facility] - 019 16:51 EST Does PT Have a Latex Allergy? YES Instructions? FAX ATTENTION: DR GAO NUMBER: [phone] Performing Organization Address City/State/ZIP Code Phon e Number [facility] [address] [place] [address] [facility] documented in this encounter Visit Diagnoses Not on filedocumented in this encounter Care Teams Supervisor Cap And Hat Production Relationship Specialty Start Date End Date Herminio Gao ND PCP - General 08/19/16 [facility] [place] [address] Zaira Rodriguez MD Referring Provider Gynecology 07/29/[address] [place] [address] [facility], [address] [place] [address] Charo Finn MD Medical Oncology 07/29/[address] [place] [address], [facility] [address] [place] [address] documented as of this encounter
--- OUTSIDE RECORDS SUMMARY | 2021-10-16 02:01 | XMS_ITS | Encounter Summary ---
:1965 Author Organization [facility] Address [address] [place] [address] Care Team Providers Name Role Phone Zaira Rodriguez MD Unavailable Charo Finn MD Unavailable Herminio Hernandez ND Primary Care Provider Reason for Visit Reason Comments Therapeutic Phlebotomy Encounter Details Date Type Department Care Team Description 04/29/2019 Nurse Only [facility] - Hemochr omatosis, unspecified [facility] Adult Hem Onc hemochrom atosis type (Primary Infusion Dx) [address] [place] [address] Social History Tobacco Use [...] 9:27 EDT documented as of this encounter Progress Notes Patricia Escoto RN - 04/29/2019 1600 EST Nabila comes in for a phlebotomy. Ferritin 49. One unit easily obtained. Rehydrated with 3 bottles of water and felt well upon leaving. She will have labs drawn in 2 months. She knows to call with any issues, PATRICIA ESCOTO RN 04/29/19 16:27 documented in this encounter Plan of Treatment Upcoming Encounters Date Type Specialty Care Team Description 10/18/2021 Nurse Only Infusion Therapy documented as of this encounter Visit Diagnoses Diagnosis Hemochromatosis, unspecified hemochromat osis type - Primary documented in this encounter Care Teams Assembler Wet Wash Relationship Specialty Start Date End Date Herminio Hernandez ND PCP - General 08/19/16 [facility] [place] [address] Zaira Rodriguez MD Referring Provider Gynecology 07/29/[address] [place] [address]A, [address] [place] [phone] Charo Finn MD Medical Oncology 07/29/[address] [place] [address], [facility] [address] [place] [phone] documented as of this encounter
--- OUTSIDE RECORDS SUMMARY | 2021-10-16 02:01 | XMS_ITS | Encounter Summary ---
:1965 Author Organization [facility] Address [address] [place] [address] Care Team Providers Name Role Phone Zaira Rodriguez MD Unavailable Charo Finn MD Unavailable Herminio Hernandez ND Primary Care Provider Reason for Visit Reason Comments Cosmetic Consult PDL/ sun protection Encounter Details Date Type Department Care Team Description 07/03/2020 Initial consult [facility] Cathi Puckett E lective procedure Dermatology - [facility] for [facility] [address] [facility] cosmetic appearance [address] [place], [place] (Primary Dx) [place] [phone] Social History Tobacco Use Types Packs/Day Years [...] documented as of this encounter Progress Notes Cathi Puckett MA - 07/03/2020 1400 EDT Dermatology Cosmetic Consult Outpatient Visit Note Chief Complaint Patient presents with ??? Cosmetic Consult Problem List: 1. Telangiectasia's 2. Sun protection SUBJECTIVE Ms. Evans is a 55y.o. female who presents for new evaluation and treatment for telangiectasia's. Patient reports that the broken vessels on her nose are visually displeasing and she would liketo discuss her options.Patient expressed that she is also interested in sun protection options. For full Medical, Surgical, Family, and Social histories, please see the History section of this encounter in the electronic chart which I have personally reviewed. For Review of Systems, Medications and Allergies, please see those sections of this encounter in theelectronic chart which I have also reviewed. OBJECTIVE/ASSESSMENT VS: There were no vitals taken for this visit. Ms. Evans is healthy female with a normal affect. She is alert and interactive. She has a FitzpatrickII skin phenotype. She has cosmetic concerns regarding the telangiectasia's that appear over her nasal creases, on the side of her right columella, chin, and two mild small patches over her bilateral cheeks. PLAN 1. Vascular laser- We discussed the need to stay out of the sun 1 month prior and 2 months followingthe procedure to reduce the chance of pigmentary changes. We discussed there is a less than 1% chance of scarring. We discussed that there is immediate bruising following the procedure that typically fades within 7 to 10 days. Photographs were shown. I highlighted the need to avoid shearing trauma to the skin after the procedure to reduce the chance of scarring. I recommended a 15-minute vascular laser appointment and quoted a ortega of $250. 2. Sun protection- I advised the patient to try the following products or products similar to Kayla MADRIGAL SPF 44 tinted sunscreen. I taught the patient how to apply and remove all products. The patient wasvery happy with the results in clinic with the products tested. The patient had no reaction to any of the products tested during the duration of her visit with me. 3. Skin check- Ms. Evans also had some spots of concern, including 1 in her scalp. I advised a skin check and she would like to set up a FBSE the same day as her laser appointment. Patient Education Topic: PDL/ sun protection Method: Verbal Taught to: Patient Barriers: None Outcomes: independent PIN [id number] Ms. Evans will f/u as planned or in the interim should problems arise. I was supervised by Dr. Patel who was present and immediately available in the office suite. Cathi Puckett MA, ASHLEE 07/04/2020 11:34 documented in this encounter Plan of Treatment Upcoming Encounters Date Type Specialty Care Team Description 10/18/2021 Nurse Only Infusion Therapy documented as of this encounter Visit Diagnoses Diagnosis Elective procedure for unacceptable cosm etic appearance - Primary Other plastic surgery for unacceptable c osmetic appearance documented in this encounter Care Teams Cookie Mixer Helper Relationship Specialty Start Date End Date Herminio Hernandez ND PCP - General 08/19/16 [address] [place], [place] [phone] Zaira Rodriguez MD Referring Provider Gynecology 07/29/[address] [place] [address]-A, [address] [place] [phone] Charo Finn MD Medical Oncology 07/29/[address] [place] [address], [facility] [place] [place] [address] [place] [address] documented as of this encounter
--- OUTSIDE RECORDS SUMMARY | 2021-10-16 02:01 | XMS_ITS | Encounter Summary ---
:1965 Author Organization [facility] Address [address] [place] [address] Care Team Providers Name Role Phone Zaira Rodriguez MD Unavailable Charo Finn MD Unavailable Herminio Hernandez ND Primary Care Provider Encounter Details Date Type Department Care Team Description 02/26/[address] [facility] - [facility] Herminio Oquendo ND Lab - Main [place] [address] [facility] [address] [place], [place] [address] [place] [address] [phone] Social History Tobacco Use Types Packs/Day Years [...] Procedure Name Priority Date/Time Associated Comments Diagnosis HIGH SENSITIVITY Routine 02/26/2019 10:31 Results for this C-REACTIVE PROTEIN EST procedure are in (CARDIOVASCULAR the results DISEASE) section. documented in this encounter Results HIGH SENSITIVITY C-REACTIVE PROTEIN (CARDIOVASCULAR DISEASE) (02/26/2019 10:31 EST) CRP HIGH SENSITIVITY 0.54 mg/L [facility] Comment: CENTER LAB Risk ? hsCRP (mg/L) Low: ?< 1.0 Average: ?1.0-3.0 High: ? > 3.0 - 10.0 Indeterminant: ??> 10.0 Specimen Narrative [facility] - 019 11:58 EST Does PT Have a Latex Allergy? YES Performing Organization Address City/State/ZIP Code Phon e Number [facility] [address] [place] [address] [facility] documented in this encounter Visit Diagnoses Not on filedocumented in this encounter Care Teams Senior Professional Services Consultant Relationship Specialty Start Date End Date Herminio Hernandez ND PCP - General 08/19/[address] [place] [phone] Zaira Rodriguez MD Referring Provider Gynecology 07/29/16 130 [facility], [address] [place] [address] Charo Finn MD Medical Oncology 07/29/[address] [place] [address], [facility] [address] [place] [address] documented as of this encounter
--- OUTSIDE RECORDS SUMMARY | 2021-10-16 02:01 | XMS_ITS | Encounter Summary ---
:1965 Author Organization [facility] Address [address] [place] [address] Care Team Providers Name Role Phone Zaira Rodriguez MD Unavailable Charo Finn MD Unavailable Herminio Hernandez ND Primary Care Provider Reason for Visit Reason Comments Other Phlebotomy Encounter Details Date Type Department Care Team Description 10/28/2019 Nurse Only [facility] - [facility] nagi hemochromatosis [facility] Adult Hem Onc (HCC-CMS) (Primary Dx) Infusion [address] [place] [address] Social History Tobacco Use [...] Sign Reading Time Taken Comments Blood Pressure 124/76 10/28/2019 0821 EDT Pulse 76 10/28/2019 0821 EDT Temperature 36.2 ??C (97.1 ??F) 10/28/2019 0821 EDT Respiratory Rate - - Oxygen Saturation 97% 10/28/2019 0821 EDT Inhaled Oxygen Concentration - - Weight - - Height - - Body Mass Index - - documented in this encounter Progress Notes Patricia Escoto RN - 10/28/2019 0800 EDT Nabila comes in for a phlebotomy. Recent Ferritin 43%. D/W Dr. Finn- jose eay for patient to receive aphleb today. She offers no complaints to me at this time. One unit (450mls) easily obtained. She wasrehydrated with a bottle of water and took an additional one with her. She felt well upon leaving. Repeat BP 116/68. She will return in three months to see Dr. Finn with labs prior. I encouraged her to call with any questions or concerns, PATRICIA ESCOTO RN documented in this encounter Plan of Treatment Upcoming Encounters Date Type Specialty Care Team Description 10/18/2021 Nurse Only Infusion Therapy documented as of this encounter Visit Diagnoses Diagnosis Hereditary hemochromatosis (HCC-CMS) (HC C) - Primary Hereditary hemochromatosis documented in this encounter Care Teams Warehouse And Receiving Supervisor Relationship Specialty Start Date End Date Herminio Hernandez ND PCP - General 08/19/16 [address] [place], [place] [phone] Zaira Rodriguez MD Referring Provider Gynecology 07/29/16 130 [facility], [address] [place] [address] Charo Finn MD Medical Oncology 07/29/16 130 [facility], [facility] [address] [place] [address] documented as of this encounter
--- OUTSIDE RECORDS SUMMARY | 2021-10-16 02:01 | XMS_ITS | Encounter Summary ---
:[address] [facility] Address [address] [place] [address] Care Team Providers Name Role Phone Zaira Rodriguez MD Unavailable Charo Finn MD Unavailable Herminio Hernandez ND Primary Care Provider Reason for Visit Reason Comments Follow-up Encounter Details Date Type Department Care Team Description 01/13/2020 Office Visit [facility] - Missael Finn nagi hemochromatosis (HCC-CMS) (Primary Dx); [facility] [place] Charo Need for vaccination Hematology & [address] [facility], Oncology MOB-B [address] [place] [address] [place] [phone] Social History Tobacco Use Types Packs/Day Years [...] Sign Reading Time Taken Comments Blood Pressure 100/70 01/13/2020 1502 EDT Pulse 76 01/13/2020 1502 EDT Temperature 36.6 ??C (97.9 ??F) 01/13/2020 1502 EDT Respiratory Rate - - Oxygen Saturation 98% 01/13/2020 1502 EDT Inhaled Oxygen Concentration - - Weight [...] encounter Progress Notes Charo Finn MD - 01/13/2020 1500 EDT Hematology Follow up Note Hematology History: Hemochromatosis. On phlebotomy treatments. Oncology History: September 2013 Right breast cancer - 10/15 Mammo Right breast Cat 4; Left Cat 1. - 10/25 Right breast biopsy = adenocarcinoma. - 11/09 lumpectomy [id number], ER/WI +, Her2/joy amplified. - December 31, 2013: Chemotherapy with cyclophosphamide, Taxotere, and Herceptin every 3 weeks x4. - May 2014: Tamoxifen + Herceptin. Stop tamoxifen after completing 5 years. Interim History: Patient returns for follow-up. She is doing generally well today with no new complaints. States that she still has some tenderness in the axilla and inferior aspect of the breast sincesurgery. Also mentions that she has gained weight as she has been working from home. Review of Systems: All 10 systems have been reviewed and are negative except for the mentioned above. Medications: Current Outpatient Medications Medication Sig Dispense Refill Last Dose ??? ARMOUR THYROID 15 mg tablet Take 15 mg by mouth daily. Taking ??? Magnesium Gluconate 27 mg magnesium (500 mg) tablet Take 1 Tab by mouth 2 times daily as needed for Muscle Spasms. Taking ??? metFORMIN (GLUCOPHAGE-XR) 500 mg ER tablet Take 1 Tab by mouth 2 times daily. Taking ??? thyroid, Pork, (ARMOUR THYROID) 30 mg tablet Take 45 mg by mouth daily. Reported on 08/20/2016 Taking ??? TURMERIC (CURCUMIN MISC) by misc (non-drug; combo route) route. No current facility-administered medications for this visit. Objective: VS: Patient Vitals for the past 24 hrs: BP Temp Pulse SpO2 01/13/20 1502 100/70 36.6 ??C (97.9 ??F) 76 98 % Weight: Physical Exam: General appearance: Awake, alert, oriented x3, NAD. Skin: Skin color, temperature, turgor normal. Head: Normocephalic, without obvious abnormality Eyes: sclerae anicteric Neck: supple, symmetrical Lungs: clear to auscultation bilaterally Heart: regular rate and rhythm, Abdomen: soft, non-tender; bowel sounds normal Extremities: extremities warm, atraumatic Data Review: Labs: Component Ferritin Latest Ref Rng & Units 11.1 - 264.0 ng/mL 01/16/2017 344 (H) 08/01/2017 41 08/26/2017 58 10/10/2017 62 11/28/2017 65 01/09/2018 47 01/29/2018 73 04/01/2018 74 05/15/2018 45 05/25/2018 55 07/06/2018 46 08/25/2018 33 09/10/2018 41 10/07/2018 46 11/18/2018 63 12/31/2018 36 01/28/2019 59 04/24/2019 49 07/22/2019 49 10/23/2019 43 Assessment & Plan: 1. Hereditary hemochromatosis. Currently on every 3 month phlebotomy schedule. Ferritin from today pending. Has been at goal with this schedule. Will proceed with phlebotomy today. 2. 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 S/p completion of 5 years of tamoxifen in May 2019. Mammogram from last month was unremarkable. Plan: 1. Proceed with 1 unit phlebotomy today. 2. Return for blood work and phlebotomy in 3 months. Other Orders Placed This Visit Procedures ??? [id number] - Influenza Vaccine Quad (FLUARIX) PF 0.5 ml IM (6 mos+) ??? Ferritin ??? Complete Blood Count and Differential Charo Finn MD Clinical Practice Physician Division of Hematology/Oncology [facility] documented in this encounter Plan of Treatment Upcoming Encounters Date Type Specialty Care Team Description 10/18/2021 Nurse Only Infusion Therapy documented as of this encounter Visit Diagnoses Diagnosis Hereditary hemochromatosis (HCC-CMS) (HC C) - Primary Hereditary hemochromatosis Need for vaccination Need for prophylactic vaccination and in oculation against unspecified single disease documented in this encounter Discontinued Medications Medication Sig Discontinue Reason Start Date End Date ascorbic acid (VITAMIN C) Take 500 mg by 01/13/2020 500 mg tablet mouth daily. ascorbic acid, vitamin C, Take 1 Tab by 1 1,000 mg tablet mouth 2 times daily. ASHWAGANDHA ROOT by Answer.To (non-drug; 01/12 EXTRACT,BULK, MISC combo route) route. B Complex Vitamins (B Take by mouth 01/12 COMPLEX 1) tablet daily. BERB MCCLOUD/HERBAL COMPLEX Take by mouth. NO.18 (BERBERINE-HERBAL COMB NO.18 ORAL) clonazePAM (KLONOPIN) 0.5 Take 0.5 mg by 01/13/2020 mg tablet mouth as needed. DIAZepam (VALIUM) 5 mg Take 1 Tab by 12/29 tablet mouth at bedtime as needed. folic acid (FOLVITE) 1 mg Take 1 mg by mouth 01/13/2020 tablet daily. gabapentin (NEURONTIN) 300 Take 300 mg by 01/13/2020 mg capsule mouth at bedtime. Reported on 08/20/2016 KATI ESTRADAA HERB ORAL Take 950 mg by 2019 mouth daily. heparin sodium,porcine . 12/27/201401/12 (HEPARIN LOCK FLUSH INTRAVENOUS) IODINE MISC Take 1 Tab by 01/13/2020 mouth 2 times daily as needed. IODINE ORAL Take by mouth 2 01/13/2020 times daily. isuf-wnmlzmf-P57-C-biot-Zn Take by mouth 01/13/2020 -dss 160 mg iron-1 mg-60 daily. mcg tablet ketotifen fumarate (ALAWAY Place into both 01/13/2020 OPHTHALMIC) eyes daily as needed. L.acid,gas,plan,rhm/B.ani/ daily. 1 cran (UP4 PROBIOTICS WOMEN'S ORAL) levomefolate/algal oil Take 2.5 mg by (L-METHYLFOLATE FORMULA mouth daily. ORAL) LORazepam (ATIVAN) 0.5 mg Take 0.5 mg by 01/13/2020 tablet mouth daily as needed. LORazepam (ATIVAN) 1 mg Take 1 mg by mouth 01/13/2020 tablet 3 times daily. LUMIGAN 0.01 % ophthalmic Place 1 Drop into 06/14/2019 01/13/2020 drops both eyes. MAGNESIUM GLYCINATE ORAL Take 400 mg by 1 mouth. melatonin 10 mg tablet Take 20 mg by 12/29 mouth. melatonin 5 mg tablet Take 5 mg by mouth 01/13/2020 at bedtime. naltrexone-bupropion 8-90 Take by mouth 1 mg tablet extended release daily. omega 7-kka-mio-fish oil Take 5 Caps by 1 (FISH OIL) 60-90-500 mg mouth daily. capsule OMEGA-3S/DHA/EPA/FISH OIL Take by mouth. 01/13/2020 (OMEGA 3 ORAL) ondansetron (ZOFRAN) 4 mg Take 4 mg by mouth 4 01/13/2020 tablet 2 times daily. For three days after chemo to prevent nausea prochlorperazine Take 10 mg by 12/28/2013 01/13/2020 (COMPAZINE) 10 mg tablet mouth 3 times daily as needed for Nausea. raloxifene (EVISTA) 60 mg Take 60 mg by 07/17/2017 1 tablet mouth daily. tamoxifen (NOLVADEX) 20 mg Take 20 mg by 01/13/2020 tablet mouth daily. UNABLE TO FIND 2,025 mg. Med 01/13/2020 Name:zinc chelate UNABLE TO FIND Med Name: Vitamin 01/13/20 20 ADK Zinc Acetate, Oral, 50 mg Take 1 Cap by 1 (zinc) capsule mouth daily. documented as of this encounter Orders Immunization/Injection Count Last Ordered Date First O rdered Date INFLUENZA VACCINE QUAD PF 0.5 ML IM (6 1 0 MOS+) documented in this encounter Care Teams Pharmacist Technician Relationship Specialty Start Date End Date Herminio Hernandez ND PCP - General 08/19/16 [address] [place], [place] [address] Zaira Rodriguez MD Referring Provider Gynecology 07/29/[address] [place] [address] [address]A, [address] [place] [address] Charo Finn MD Medical Oncology 07/29/[address] [place] [address], [address] [place] [address] documented as of this encounter
--- OUTSIDE RECORDS SUMMARY | 2021-10-16 02:01 | XMS_ITS | Encounter Summary ---
:1965 Author Organization [facility] Address [address] [place] [address] Care Team Providers Name Role Phone Zaira Rodriguez MD Unavailable Charo Finn MD Unavailable Herminio Hernandez ND Primary Care Provider Reason for Visit Reason Comments Procedure phleb Encounter Details Date Type Department Care Team Description 01/13/2020 Nurse Only [facility] - Heredit nagi hemochromatosis [facility] [place] [place] Adult Hem Onc (HCC-CMS) (Primary Dx) Infusion [address] [place] [address] Social History Tobacco Use Types [...] encounter Progress Notes Dona Blackman RN - 01/13/2020 1530 EDT Pt amb in to appt for therapeutic phlebotomy after visit with MD Magallon. 1 unit to be let, oral hydration for replacement. Pt drank 16oz water and took crackers when she left. Pt lara procedure well with cold spray on site before phleb. 16G phleb needle/bag combo used in L AC. Pressure held on site manually for 1 min then gauze and coban applied. Pt aware to RTC in 3 months. Pt will attempt to get labs done within 1 week before appt. Amb out of appt. documented in this encounter Plan of Treatment Upcoming Encounters Date Type Specialty Care Team Description 10/18/2021 Nurse Only Infusion Therapy documented as of this encounter Visit Diagnoses Diagnosis Hereditary hemochromatosis (HCC-CMS) (HC C) - Primary Hereditary hemochromatosis documented in this encounter Care Teams Manager Communication Relationship Specialty Start Date End Date Herminio Hernandez ND PCP - General 08/19/16 [facility] [place] [address] Zaira Rodriguez MD Referring Provider Gynecology 07/29/16 [address] [facility] [address]A, [address] [place] [address] Charo Finn MD Medical Oncology 07/29/16 [address] [facility], [address] [place] [address] documented as of this encounter
--- OUTSIDE RECORDS SUMMARY | 2021-10-16 02:01 | XMS_ITS | Encounter Summary ---
:1965 Author Organization [facility] Address [address] [place] [address] Care Team Providers Name Role Phone Zaira Rodriguez MD Unavailable Charo Finn MD Unavailable Herminio Hernandez ND Primary Care Provider Encounter Details Date Type Department Care Team Description 12/22/2019 Results Only [facility] - [facility] Manuela Colbert MD [facility] 130 [facility] 130 [facility] [address]OB[address]A, [address] [place] [address] [place] [address] (Wo rk) Social History Tobacco Use Types [...] Name Priority Date/Time Associated Diagnosis Comme nts [facility] CYTOLOGY - Routine 12/22/2019 11:39 Result s for this [facility] EDT procedure are i n the results section. documented in this encounter Results [facility] CYTOLOGY CONSULT - [facility] (12/22/2019 11:39 EDT) [facility] CYTOLOGY (See below) () [facility] CONSULT - [facility] Comment: [facility] Disclaimers: 1)Reports generated via electronic interface contain o riginal data; however they are lacking the format of the original re port. Caution should be taken when reading/interpreting unfo rmatted reports. 2) ??Please reference the paper report if the text (En d of Report) is not displayed. PAP SPECIMENS A. Cervix and/or Endocervix , ThinPrep Imaging System with Manual Evaluation COMPUTER NETWORKING INSTRUCTOR 2 SPECIMEN ADEQUACY Satisfactory for Evaluation - transformation zone comp onent present COMPUTER NETWORKING INSTRUCTOR 2 GENERAL CATEGORIZATION Negative for intraepithelial lesion or malignancy CYTOLOGY ATTESTATION . Electronically signed by Richie Landers CT(ASCP) o n 01/03/2020 at 1505 CLINICAL HISTORY Clinical History, Signs, Symptoms, Chief Complaint, Pe rtaining to This Order: ??See below Last Menstral Period: POSTMENOPAUSAL Prior Gynecologic Pathology?: Yes HPV REFLEX The result for the Human Papillomavirus (HPV) Detectio n-High Risk Types is Negative. No E6 or E7 mRNA is detected from HPV types 16,18,31,33,35,39,45,51,52,56,58,59,66, and 68 by tillman scription mediated amplification.Testing was performed on specimen ??[id number] and was resulted on 01/03/2020 1454 EDT by LEANA, LAB INSTRUMENT RESULTS IN AP PERFORMING LAB RUST LAB SCANNED IMAGES End of Report Test performed or referred by The [address] [id number] Specimen Performing Organization Address City/State/ZIP Code Phon e Number [facility] [address] [place] [id number] documented in this encounter Visit Diagnoses Not on filedocumented in this encounter Care Teams Cigar Wrapper Relationship Specialty Start Date End Date Herminio Hernandez ND PCP - General 08/19/16 [facility] [place], [place] [address] Zaira Rodriguez MD Referring Provider Gynecology 07/29/[address] [place] [address] [address]A, [address] [place] [address] Charo Finn MD Medical Oncology 07/29/[address] [place] [address], [address] [place] [address] documented as of this encounter
--- OUTSIDE RECORDS SUMMARY | 2021-10-16 02:01 | XMS_ITS | Encounter Summary ---
:1965 Author Organization [facility] Address [address] [place] [address] Care Team Providers Name Role Phone Zaira Rodriguez MD Unavailable Charo Finn MD Unavailable Herminio Hernandez ND Primary Care Provider Encounter Details Date Type Department Care Team Description 04/12/2020 Travel Social History Tobacco Use Types Packs/Day [...] been in contact with No / Unsure 04/12/2020 15:01 EST someone who was confirmed or suspected to [...] on filedocumented in this encounter Care Teams Insole And Outsole Splitter Relationship Specialty Start Date End Date Herminio Hernandez ND PCP - General 08/19/16 [facility] [place] [address] Zaira Rodriguez MD Referring Provider Gynecology 07/29/[address] [place] [address] [address]A, [address] [place] [address] Charo Finn MD Medical Oncology 07/29/[address] [place] [address], [address] [place] [address] documented as of this encounter
--- OUTSIDE RECORDS SUMMARY | 2021-10-16 02:01 | XMS_ITS | Encounter Summary ---
:1965 Author Organization [facility] Address [address] [place] [address] Care Team Providers Name Role Phone Zaira Rodriguez MD Unavailable Charo Finn MD Unavailable Herminio Hernandez ND Primary Care Provider Encounter Details Date Type Department Care Team Description 06/11/2019 Lab Requisition [facility] Unknown, Provider, Pathology & Laboratory [facility] [address] [facility] [place] [address] Social History Tobacco Use Types Packs/Day Years [...] Name Priority Date/Time Associated Diagnosis Comme nts INSULIN Routine 06/11/2019 7:16 EDT Results for this procedure are i n the results section. ANTI NUCLEAR AB Routine 06/11/2019 7:16 EDT Resul ts for this (ARCADIO), IFA procedure are i n the results section. documented in this encounter Results (ABNORMAL) ANTI NUCLEAR AB (ARCADIO), IFA (06/11/2019 7:16 EDT) ARCADIO Interpretation Positive (A) Negative [facility] Comment: CENTER LABORATORY For titers greater than or e qual to 1:160 (except the centromere and nucleolar patterns) it is recommended that specific follow-up autoantibody testing ??(such as for dsDNA and Extractable Nuclear Antig SERVICES ens) be performed on all diffuse and/or speckled patterns NOTE: For add-on testing dsD NA is stable for 7 days refrigerated while Extractable Nuclear Antigens are only stable for 48 hours refrigerated. ARCADIO Titer and Pattern 1:[address] LABORATORY SERVICES Specimen Blood - Venous blood (substance) Narrative [facility]ORY SERVICES - 06/14/2019 13:57 EDT Results were obtained with the INOVA NOV A Lite HEp-2 ARCADIO Kit by indirect immunofluorescence. Performing Organization Address City/State/ZIP Code Phon e Number [facility] [address] [place] [address] SERVICES INSULIN (06/11/2019 7:16 EDT) Pathologist Sig nature Insulin 14.7 <29.0 uIU/mL [facility] Comment: LABORATORY SERVICES Displayed Reference Range applies to fasting specimens only. Specimen Blood - Venous blood (substance) Performing Organization Address City/[facility]/ZIP Code Phon e Number [facility] [address] [place] [address] SERVICES documented in this encounter Visit Diagnoses Not on filedocumented in this encounter Care Teams Software Applications Specialist Relationship Specialty Start Date End Date Herminio Hernandez ND PCP - General 08/19/16 [address] [place], [place] [address] Zaira Rodriguez MD Referring Provider Gynecology 07/29/[address] [place] [address]-[address], [address] [place] [address] Charo Finn MD Medical Oncology 07/29/[address] [place] [address], [facility] [place] [place] [address] [place] [address] documented as of this encounter
--- OUTSIDE RECORDS SUMMARY | 2021-10-16 02:01 | XMS_ITS | Encounter Summary ---
:1965 Author Organization [facility] Address [address] [place] [address] Care Team Providers Name Role Phone Zaira Rodriguez MD Unavailable Charo Finn MD Unavailable Herminio Hernandez ND Primary Care Provider Encounter Details Date Type Department Care Team Description 02/02/2019 Hospital Encounter [facility] [place] [place] [address] [phone] Social History Tobacco Use Types Packs/Day Years [...] 9:27 EDT documented as of this encounter Discharge Diagnoses Diagnosis E83.110 Hereditary hemochromatosis-E83.1 10[ICD-10-CM] G47.00 Insomnia, unspecified-G47.00[ICD- 10-CM] documented in this encounter Medications at Time of Discharge Medication Sig Dispensed Refills Start Date End Date thyroid, Pork, (ARMOUR Take 45 mg by 0 THYROID) 30 mg tablet mouth daily. Reported on 08/20/2016 TURMERIC (CURCUMIN MISC) by misc (non-drug; 0 combo route) route. ascorbic acid (VITAMIN C) Take 500 mg by 0 01/13/2020 500 mg tablet mouth daily. ASHWAGANDHA ROOT by misc (non-drug; 0 01/13/2020 EXTRACT,BULK, MISC combo route) route. B Complex Vitamins (B Take by mouth 0 01/13/2020 COMPLEX 1) tablet daily. BERB MCCLOUD/HERBAL COMPLEX Take by mouth. 0 01/13/2020 NO.18 (BERBERINE-HERBAL COMB NO.18 ORAL) gabapentin (NEURONTIN) 300 Take 300 mg by 0 01/13/2020 mg capsule mouth at bedtime. Reported on 08/20/2016 GOTU BERNADINE HERB ORAL Take by mouth. 0 0 07/19/2019 heparin sodium,porcine . 0 12/27/2014 (HEPARIN LOCK FLUSH INTRAVENOUS) IODINE ORAL Take by mouth 2 0 01/13/20 20 times daily. ikwj-smepuwn-X57-C-biot-Zn- Take by mouth 0 01/13/2020 dss 160 mg iron-1 mg-60 mcg daily. tablet LORazepam (ATIVAN) 1 mg Take 1 mg by mouth 0 01/13/2020 tablet 3 times daily. MAGNESIUM GLYCINATE ORAL Take 400 mg by 0 01/13/2020 mouth. melatonin 10 mg tablet Take 20 mg by 0 01/13/2020 mouth. OMEGA-3S/DHA/EPA/FISH OIL Take by mouth. 0 01/13/2020 (OMEGA 3 ORAL) ondansetron (ZOFRAN) 4 mg Take 4 mg by mouth 0 01/13/2020 tablet 2 times daily. For three days after chemo to prevent nausea prochlorperazine Take 10 mg by 0 12/28/201301/12 (COMPAZINE) 10 mg tablet mouth 3 times daily as needed for Nausea. raloxifene (EVISTA) 60 mg Take 60 mg by 0 018 01/13/2020 tablet mouth daily. tamoxifen (NOLVADEX) 20 mg Take 20 mg by 0 01/13/2020 tablet mouth daily. UNABLE TO FIND Med Name: Vitamin 0 ADK UNABLE TO FIND 2,025 mg. Med 0 020 Name:zinc chelate documented as of this encounter Discharge Disposition Disposition Code Departure Means Destination Home or Self Care documented in this encounter Plan of Treatment Upcoming Encounters Date Type Specialty Care Team Description 10/18/2021 Nurse Only Infusion Therapy documented as of this encounter Visit Diagnoses Not on filedocumented in this encounter Care Teams Sericulturist Relationship Specialty Start Date End Date Herminio Hernandez ND PCP - General 08/19/16 [facility] [place] [address] Zaira Rodriguez MD Referring Provider Gynecology 07/29/[address] [place] [address] [address]A, [address] [place] [phone] Charo Finn MD Medical Oncology 07/29/[address] [place] [address], [address] [place] [phone] documented as of this encounter
--- OUTSIDE RECORDS SUMMARY | 2021-10-16 02:01 | XMS_ITS | Encounter Summary ---
:1965 Author Organization [facility] Address [address] [place] [address] Care Team Providers Name Role Phone Zaira Rodriguez MD Unavailable Charo Finn MD Unavailable Herminio Hernandez ND Primary Care Provider Reason for Visit Reason Onset Date Comments Appointment Related 10/21/2019 Encounter Details Date Type Department Care Team Description 10/21/2019 Telephone [facility] - [facility] [place] Aziza Mann, Appointment Related Adult Hem Onc Infusi on RN [address] [place] [address] Social History Tobacco Use Types [...] Telephone Encounter - Hannah Mann RN - 10/21/2019 9165 EDT Nabila called- she never made a f/u appt after her last visit which was in June. She is due for labs and possible phlebotomy. She will have labs drawn on Friday (new order entered) and is scheduled fora possible phlebotomy on , 10/27. I will call her with results on Friday. documented in this encounter Plan of Treatment Upcoming Encounters Date Type Specialty Care Team Description 10/18/2021 Nurse Only Infusion Therapy documented as of this encounter Visit Diagnoses Diagnosis Other hemochromatosis - Primary documented in this encounter Care Teams Mathematical Statistician Relationship Specialty Start Date End Date Herminio Hernandez ND PCP - General 08/19/16 [address] [place], [place] [address] Zaira Rodriguez MD Referring Provider Gynecology 07/29/[address] [place] [address]-[address], [address] [place] [phone] Charo Finn MD Medical Oncology 07/29/[address] [place] [address], [address] [place] [phone] documented as of this encounter
--- OUTSIDE RECORDS SUMMARY | 2021-10-16 02:01 | XMS_ITS | Encounter Summary ---
:1965 Author Organization [facility] Address [address] [place] [address] Care Team Providers Name Role Phone Zaira Rodriguez MD Unavailable Charo Finn MD Unavailable Herminio Hernandez ND Primary Care Provider Encounter Details Date Type Department Care Team Description 01/28/2019 Results Only [facility] - [facility] Stephanie Huerta, [facility] Lab - Main [place] 130 [facility], [place]OB-[facility] [address] [place] [address] [address] [place] [address] [place] [phone] (Wo rk) Social History Tobacco Use Types [...] Associated Comments Diagnosis COMPLETE BLOOD COUNT Routine 01/28/2019 7:39 Resu lts for this WITH DIFFERENTIAL EDT procedure are in (AUTO) the results section. FERRITIN Routine 01/28/2019 7:39 Results for this EDT procedure are i n the results section. documented in this encounter Results FERRITIN (01/28/2019 7:39 EDT) FERRITIN - [facility] 59 11.1 - 264.0 [facility] Comment: ng/mL [facility] The results of this assay can be falsely lowered due t o the consumption of Biotin. Specimen Narrative [facility] - 019 9:58 EDT Does PT Have a Latex Allergy? YES Performing Organization Address City/State/ZIP Code Phon e Number [facility] [address] LAB (ABNORMAL) COMPLETE BLOOD COUNT WITH DIFFERENTIAL (AUTO) (01/28/2019 7:39 EDT) Pathologist Sig nature ABSOLUTE NEUTROPHIL 1.8 (L) 2.2 - 8.85 [facility] COUN - [facility] 10e3/uL CENTER LAB BASO # - [facility] 0.03 0.01 - 0.11 [facility] MED 10e/uL CENTER LAB BASO % - [facility] 1 0 - 2 % [facility] EOS # - [facility] 0.07 0.03 - 0.61 [facility] 10e3/ul CENTER LAB EOS % - [facility] 2 0 - 5 % [facility] GRAN % - [facility] 53.1 40 - 80 % [facility] HEMATOCRIT - [facility] 40.9 34.9 - 44.4 % [facility] HEMOGLOBIN - [facility] 13.6 11.6 - 15.2 [facility] g/dl CENTER LAB IG# - [facility] 0.01 0 - 0.7 10e3/uL [facility] IG% - [facility] 0.3 0 - 0.9 % [facility] LYMPH # - [facility] 1.1 1.09 - 3.3 [facility] 10e3/ul CENTER LAB LYMPH% - [facility] 33.6 20 - 40 % [facility] MEAN CORPUSCULAR HGB - 30.0 26.7 - 33.[address] [facility] LAB MEAN CORPUSCULAR HGB 33.3 32.1 - 35.9 [facility] CONC - [facility] g/dL CENTER LAB MEAN CELL VOLUME - 90.1 81 - 98 fl [facility] MONO # - [facility] 0.3 0.1 - 0.8 [facility] 10e3/uL [facility] MONO% - [facility] 10.0 0 - 12 % [facility] PLATELET COUNT 153 141 - 377 [facility] 10e3/ul [facility] RED BLOOD COUNT - [facility] 4.54 3.86 - 5.04 [facility] ME D 10e3/ul [facility] RED CELL DISTRI WIDTH 12.5 <14.7 % [facility] WHITE BLOOD COUNT - 3.3 (L) 4.0 - 12.4 [facility] 10e3/ul [facility] Specimen Narrative [facility] - 019 9:06 EDT Does PT Have a Latex Allergy? YES Performing Organization Address City/State/ZIP Code Phon e Number [facility] [address] [place] [address] [facility] documented in this encounter Visit Diagnoses Not on filedocumented in this encounter Care Teams Administrative Accountant Relationship Specialty Start Date End Date Herminio Hernandez ND PCP - General 08/19/16 [address] [place], [place] [address] Zaira Rodriguez MD Referring Provider Gynecology 07/29/16 130 [facility]-A, [address] [place] [phone] Charo Finn MD Medical Oncology 07/29/16 130 [facility], [place] [address] [place] [address] documented as of this encounter
--- OUTSIDE RECORDS SUMMARY | 2021-10-16 02:01 | XMS_ITS | Encounter Summary ---
:1965 Author Organization [facility] Address [address] [place] [address] Care Team Providers Name Role Phone Zaira Rodriguez MD Unavailable Charo Finn MD Unavailable Herminio Hernandez ND Primary Care Provider Reason for Visit Reason Comments Follow-up Encounter Details Date Type Department Care Team Description 07/11/2020 Office Visit [facility] - Neeru Finn history of breast cancer (Primary Dx); [facility] [place] MD Charo Hereditary hemochromatosis (HCC-[facility]) Hematology & 130 [facility], Oncology [place] [address] [facility] [address] [place] [phone] Social History Tobacco Use Types Packs/Day Years [...] Sign Reading Time Taken Comments Blood Pressure 112/70 07/11/2020 1605 EDT Pulse 88 07/11/2020 1605 EDT Temperature - - Respiratory Rate - - Oxygen Saturation 97% 07/11/2020 1605 EDT Inhaled Oxygen Concentration - - Weight [...] documented as of this encounter Progress Notes Shantelle Rodriguez RN - 07/11/2020 1530 EDT Suspicion of Abuse: no - If yes, please document evidence: - Assessed on: 07/11/20 16:22 - Assessed by: SHANTELLE RODRIGUEZ RN Charo Spann MD - 07/11/2020 1530 EDT Follow up Note Hematology History: Hemochromatosis. On phlebotomy treatments. Oncology History: September 2013 Right breast cancer - 10/15 Mammo Right breast Cat 4; Left Cat 1. - 10/25 Right breast biopsy = adenocarcinoma. - 11/09 lumpectomy [id number], ER/FL +, Her2/joy amplified. - December 31, 2013: Chemotherapy with cyclophosphamide, Taxotere, and Herceptin every 3 weeks x4. - May 2014: Tamoxifen + Herceptin. Stop tamoxifen after completing 5 years. Interim History: Patient returns for follow-up. States that she is feeling short of breath lately and questions if this is from her weight gain. Thinks she gained approximately 30 to 40 pounds over thelast 1 year. She has been working from home and her new job has been stressful. Review of Systems: Tenderness in the axilla [...] mouth 2 times daily. Taking ??? OMEGA 0-JYU-QGB-FISH OIL ORAL Take 2 Caps by mouth. [...] the past 24 hrs: BP Pulse SpO2 07/11/20 1605 112/70 88 97 % Weight: Physical Exam: General appearance: Awake, alert, oriented x3, NAD. Skin: Skin color, temperature, turgor normal. Head: Normocephalic, without obvious abnormality Eyes: sclerae anicteric Neck: supple, symmetrical Lungs: clear to auscultation bilaterally Heart: regular rate and rhythm, Extremities: extremities warm, atraumatic Lymph nodes: No palpable adenopathy in cervical, supraclavicular or axillary regions. Data Review: Labs: Component Ferritin Latest Ref Rng & Units 11.1 - 264.0 ng/mL 01/16/2017 344 (H) 08/01/2017 41 08/26/2017 58 10/10/2017 62 11/28/2017 65 01/09/2018 47 01/29/2018 73 04/01/2018 74 05/15/2018 45 05/25/2018 55 07/06/2018 46 08/25/2018 33 09/10/2018 41 10/07/2018 46 11/18/2018 63 12/31/2018 36 01/28/2019 59 04/24/2019 49 07/22/2019 49 10/23/2019 43 01/13/2020 36 04/08/2020 53 Assessment: 1. Hereditary hemochromatosis. Currently on every 3 month phlebotomy schedule. She had labs in [facility] and ferritin was 72. Previous ferritin was 53. Will proceed with phlebotomy today and willadjust the schedule to every 10 weeks instead of 12 weeks. 2. 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 S/p completion of 5 years of tamoxifen in May 2019. Mammogram from November was unremarkable. Plan: 1. Proceed with 1 unit phlebotomy today. 2. Return for blood work and phlebotomy in 10 weeks. I will plan on doing a breast exam when she comes in for next follow-up visit. No orders of the defined types were placed in this encounter. Charo Finn MD Clinical Practice Physician Division of Hematology/Oncology [facility] documented in this encounter Plan of Treatment Upcoming Encounters Date Type Specialty Care Team Description 10/18/2021 Nurse Only Infusion Therapy documented as of this encounter Visit Diagnoses Diagnosis Personal history of breast cancer - Prim nagi Personal history of malignant neoplasm o f breast Hereditary hemochromatosis (HCC-CMS) (HC C) Hereditary hemochromatosis documented in this encounter Historical Medications This list may reflect changes made after this encounter. Medication Sig Dispensed Refills Start Date End Date OMEGA 5-TJO-UNC-FISH OIL Take 2 Caps by 0 020 ORAL mouth. bimatoprost (LUMIGAN) Apply to eye. 0 11/11/2019 0.01 % ophthalmic drops buPROPion (WELLBUTRIN XL) Take 300 mg by mouth 0 06/14/2020 300 mg XL tablet every morning. Magnesium Glycinate 100 Take 100 mg by 0 11/11/19 20 mg tablet mouth. travoprost (TRAVATAN Z) INSTILL 1 DROP IN 0 05/05 0.004 % ophthalmic BOTH EYES EVERY solution EVENING buPROPion (WELLBUTRIN XL) Take 150 mg by mouth 0 05/13/2020 12/11/2020 150 mg XL tablet daily. added in this encounter Care Teams Information Technology Auditor Relationship Specialty Start Date End Date Herminio Hernandez ND PCP - General 08/19/16 [address] [place], [place] [address] Zaira Rodriguez MD Referring Provider Gynecology 07/29/[address] [place] [address]-A, [address] [place] [address] Charo Finn MD Medical Oncology 07/29/[address] [place] [address], [address]B [address] [place] [phone] documented as of this encounter
--- OUTSIDE RECORDS SUMMARY | 2021-10-16 02:01 | XMS_ITS | Encounter Summary ---
:1965 Author Organization [facility] Address [address] [place] [address] Care Team Providers Name Role Phone Zaira Rodriguez MD Unavailable Charo Finn MD Unavailable Herminio Hernandez ND Primary Care Provider Reason for Visit Reason Onset Date Comments Results 01/05/2020 Encounter Details Date Type Department Care Team Description 01/05/2020 Telephone [facility] Agnieszka Lechuga, [facility] [address] [place] [address] [facility], [address] [place] [address] (Wo rk) Social History Tobacco Use Types [...] this encounter Miscellaneous Notes Telephone Encounter - Agnieszka Lechuga CNM - 01/05/2020 1632 EDT Spoke with patient and gave Neg pap/hpv results. documented in this encounter Plan of Treatment Upcoming Encounters Date Type Specialty Care Team Description 10/18/2021 Nurse Only Infusion Therapy documented as of this encounter Visit Diagnoses Not on filedocumented in this encounter Care Teams Senior Geologist Relationship Specialty Start Date End Date Herminio Hernandez ND PCP - General 08/19/16 [address] [place], [place] [phone] Zaira Rodriguez MD Referring Provider Gynecology 07/29/16 130 [facility], [address] [place] [address] Charo Finn MD Medical Oncology 07/29/16 130 [facility] [place], [facility] [address] [place] [phone] documented as of this encounter
--- OUTSIDE RECORDS SUMMARY | 2021-10-16 02:01 | XMS_ITS | Encounter Summary ---
:1965 Author Organization [facility] Address [address] [place] [address] Care Team Providers Name Role Phone Zaira Rodriguez MD Unavailable Charo Finn MD Unavailable Herminio Hernandez ND Primary Care Provider Encounter Details Date Type Department Care Team Description 12/21/2018 Hospital Encounter [facility]- Jeronimo Romero ND [address] [phone] Social History Tobacco Use Types Packs/Day Years [...] as of this encounter Discharge Diagnoses Diagnosis E03.9 Hypothyroidism, unspecified-E03.9[ ICD-10-CM] R07.9 Chest pain, unspecified-R07.9[ICD- 10-CM] documented in this encounter Medications at [...] mouth 2 0 01/13/20 20 times daily. wycy-bymijxy-W04-C-biot-Zn- Take by mouth 0 01/13/2020 dss 160 [...] mg Take 4 mg by mouth 0 09 / 01/13/2020 tablet 2 times daily. For three [...] on filedocumented in this encounter Care Teams Journeyman Pipefitter Relationship Specialty Start Date End Date Herminio Hernandez ND PCP - General 08/19/16 [facility] [place] [address] Zaira Rodriguez MD Referring Provider Gynecology 07/29/[address] [place] [address] [address]A, [address] [place] [address] Charo Finn MD Medical Oncology 07/29/[address] [place] [address], [address] [place] [phone] documented as of this encounter
--- OUTSIDE RECORDS SUMMARY | 2021-10-16 02:01 | XMS_ITS | Encounter Summary ---
:1965 Author Organization [facility] Address [address] [place] [address] Care Team Providers Name Role Phone Zaira Rodriguez MD Unavailable Charo Finn MD Unavailable Herminio Hernandez ND Primary Care Provider Encounter Details Date Type Department Care Team Description 04/29/2019 Travel Social History Tobacco Use Types Packs/Day [...] on filedocumented in this encounter Care Teams Multifold Operator Relationship Specialty Start Date End Date Herminio Hernandez ND PCP - General 08/19/16 [address] [place], [place] [phone] Zaira Rodriguez MD Referring Provider Gynecology 07/29/16 130 [facility], [address] [place] [phone] Charo Finn MD Medical Oncology 07/29/[address] [place] [address], [facility] [address] [place] [phone] documented as of this encounter
--- OUTSIDE RECORDS SUMMARY | 2021-10-16 02:01 | XMS_ITS | Encounter Summary ---
:1965 Author Organization [facility] Address [address] [place] [address] Care Team Providers Name Role Phone Zaira Rodriguez MD Unavailable Charo Finn MD Unavailable Herminio Hernandez ND Primary Care Provider Encounter Details Date Type Department Care Team Description 01/29/2019 Results Only [facility] - [facility] Herminio Oquendo ND Lab - Main [place] [address] [facility] 130 [place], [place] [address] [place] [address] [phone] Social History Tobacco Use Types Packs/Day Years [...] Procedure Name Priority Date/Time Associated Comments Diagnosis HEMOGLOBIN A1C Routine 01/29/2019 7:00 EDT Result s for this procedure are i n the results section. LIPID PROFILE Routine 01/29/2019 7:00 EDT Results for this (INCLUDES procedure are i n CHOLESTEROL, the results TRIGLYCERIDES, HDL, section. LDL) documented in this encounter Results HEMOGLOBIN A1C (01/29/2019 7:00 EDT) Hemoglobin A1c 5.4 4.0 - 6.0 % [facility] Comment: [facility] > or =18 years: ??Increased risk for diabetes (prediabetes): 5.7-6.4% Diabetes: > or =6.5% Therapeutic goals for glycemic control (ADA) Adults: - Goal of therapy: <7.0% HbA1c - Action suggested: >8.0% HbA1c Pediatric patients: - Toddlers and preschoolers: <8.5% (but >7.5%) - School age (6-12 years): <8% - Adolescents and young adults (13-19 years): <7.5% Est Avg Glucose 108 mg/dL [facility] Specimen Narrative [facility] - 019 12:01 EDT Does PT Have a Latex Allergy? YES Performing Organization Address City/State/ZIP Code Phon e Number [facility] [address] LAB LIPID PROFILE (INCLUDES CHOLESTEROL, TRIGLYCERIDES, HDL, LDL) (01/29/2019 7:00 EDT) Triglyceride 128 <150 mg/dL [facility] Comment: [facility] Adult: Normal: ?<150 mg/dl ? Borderline High: 150-199 mg/dl ? High: ?200-499 mg/dl ? Very High: >xd=224 Cholesterol 171 <200 mg/dL [facility] Comment: [facility] Acceptable: ??<200 Borderline: ??200-239 High: ?> or = 240 Chol/HDL Ratio 3.2 0 - 4.5 [facility] Comment: [facility] DESIRABLE RATIO IS LESS THAN 4.1 PATIENTS ARE CONSIDERED AT RISK: WOMEN RATIO >5 MEN RATIO >6 FASTING? - [facility] Unknown [facility] HDL 52 40 - 60 mg/dL [facility] Comment: [facility] ?? Reference Range Low: ? < 40 ??mg/dL Normal: ??40-60 mg/dL High: ?>= 60 mg/dL LDL CHOLESTEROL - 93 60 - 100 [facility] mg/dL [facility] Non HDL Cholesterol 119 mg/dl [facility] Comment: [facility] Desirable: ?Less than 130 Borderline High: ??130-159 High: ? 160-189 Very High: ?Greater than or equal to 190 Specimen Narrative [facility] [place] [facility] - 019 9:50 EDT Does PT Have a Latex Allergy? YES Performing Organization Address City/State/ZIP Code Phon e Number [facility] [address] [place] [address] [facility] documented in this encounter Visit Diagnoses Not on filedocumented in this encounter Care Teams Color Technician Relationship Specialty Start Date End Date Herminio Hernandez ND PCP - General 08/19/16 [facility] [place], [place] [phone] Zaira Rodriguez MD Referring Provider Gynecology 07/29/[address] [place] [address] [place]OB-A, [address] [place] [address] Charo Finn MD Medical Oncology 07/29/[address] [place] [address], [address] [place] [address] documented as of this encounter
--- OUTSIDE RECORDS SUMMARY | 2021-10-16 02:01 | XMS_ITS | Encounter Summary ---
:1965 Author Organization [facility] Address [address] [place] [address] Care Team Providers Name Role Phone Zaira Rodriguez MD Unavailable Charo Finn MD Unavailable Herminio Hernandez ND Primary Care Provider Reason for Visit Reason Comments Other Phlebotomy Encounter Details Date Type Department Care Team Description 04/12/2020 Nurse Only [facility] - Heredit nagi hemochromatosis [facility] Adult Hem Onc (HCC-CMS) (Primary Dx) Infusion [address] [place] [address] Social History Tobacco Use Types [...] encounter Progress Notes Patricia Escoto RN - 04/12/2020 1530 EST Nabila comes in for a phlebotomy today. Ferritin 53. She is starting to itch. One unit easily obtained.She hydrated with a bottle of water and ate a pack of peanut butter crackers. She felt well upon leaving. She will have repeat labs in 6 weeks and we will call her once we receive the results. I encouraged her to call with any questions or concerns, PATRICIA ESCOTO RN documented in this encounter Plan of Treatment Upcoming Encounters Date Type Specialty Care Team Description 10/18/2021 Nurse Only Infusion Therapy documented as of this encounter Visit Diagnoses Diagnosis Hereditary hemochromatosis (HCC-CMS) (HC C) - Primary Hereditary hemochromatosis documented in this encounter Care Teams Hardboard Grinder Relationship Specialty Start Date End Date Herminio Hernandez ND PCP - General 08/19/16 [address] [place], [place] [phone] Zaira Rodriguez MD Referring Provider Gynecology 07/29/16 130 [facility], [address] [place] [phone] Charo Finn MD Medical Oncology 07/29/[address] [place] [address] [address] [place] [phone] documented as of this encounter
--- OUTSIDE RECORDS SUMMARY | 2021-10-16 02:01 | XMS_ITS | Encounter Summary ---
:1965 Author Organization [facility] Address [address] [place] [address] Care Team Providers Name Role Phone Zaira Rodriguez MD Unavailable Charo Finn MD Unavailable Herminio Hernandez ND Primary Care Provider Encounter Details Date Type Department Care Team Description 06/11/2019 Results Only [facility] - [facility] Herminio Oquendo ND Lab - Main [place] [address] [facility] 130 [place], [place] [address] [place] [address] [phone] Social History Tobacco Use Types Packs/Day Years [...] Date/Time Associated Comments Diagnosis HIGH SENSITIVITY Routine 06/11/2019 7:16 Results for this C-REACTIVE PROTEIN EDT procedure are in (CARDIOVASCULAR the results DISEASE) section. documented in this encounter Results HIGH SENSITIVITY C-REACTIVE PROTEIN (CARDIOVASCULAR DISEASE) (06/11/2019 7:16 EDT) CRP HIGH SENSITIVITY 1.86 mg/L [facility] Comment: CENTER LAB Risk ? hsCRP (mg/L) Low: ?< 1.0 Average: ?1.0-3.0 High: ? > 3.0 - 10.0 Indeterminant: ??> 10.0 Specimen Narrative [facility] - 020 8:01 EDT Does PT Have a Latex Allergy? YES Performing Organization Address City/State/ZIP Code Phon e Number [facility] [address] [place] [address] [facility] documented in this encounter Visit Diagnoses Not on filedocumented in this encounter Care Teams Contact Center Team Lead Relationship Specialty Start Date End Date Herminio Hernandez ND PCP - General 08/19/16 [facility]4 [place], [place] [phone] Zaira Rodriguez MD Referring Provider Gynecology 07/29/[address] [place] [address] MOB-A, [address] [place] [address] Charo Finn MD Medical Oncology 07/29/[address] [place] [address], [address] [place] [address] documented as of this encounter
--- OUTSIDE RECORDS SUMMARY | 2021-10-16 02:01 | XMS_ITS | Encounter Summary ---
:1965 Author Organization [facility] Address [address] [place] [address] Care Team Providers Name Role Phone Zaira Rodriguez MD Unavailable Charo Finn MD Unavailable Herminio Hernandez ND Primary Care Provider Reason for Visit Reason Onset Date Comments Medication Reaction 04/16/2019 Encounter Details Date Type Department Care Team Description 04/16/2019 Telephone [facility] - Charo Finn MD Medication Reaction [facility] Adult Hematology & 130 [facility], Oncology [place]-B [address] [place] [address] [facility] 1-2 [address] [place] [address] [place] [phone] (Wo rk) Social History Tobacco Use [...] this encounter Miscellaneous Notes Telephone Encounter - Bert Alcala RN - 04/19/2019 1120 EST Spoke with pt, informed her of above, as requested. She verbalized her understanding. documented in this encounter Plan of Treatment Upcoming Encounters Date Type Specialty Care Team Description 10/18/2021 Nurse Only Infusion Therapy documented as of this encounter Visit Diagnoses Not on filedocumented in this encounter Care Teams Weaver Wire Loom Relationship Specialty Start Date End Date Herminio Hernandez ND PCP - General 08/19/16 [facility] [place], [place] [address] Zaira Rodriguez MD Referring Provider Gynecology 07/29/[address] [place] [address]A, [address] [place] [phone] Charo Finn MD Medical Oncology 07/29/[address] [place] [address], [address] [place] [phone] documented as of this encounter
--- OUTSIDE RECORDS SUMMARY | 2021-10-16 02:01 | XMS_ITS | Encounter Summary ---
:1965 Author Organization [facility] Address [address] [place] [address] Care Team Providers Name Role Phone Zaira Rodriguez MD Unavailable Charo Finn MD Unavailable Herminio Hernandez ND Primary Care Provider Encounter Details Date Type Department Care Team Description 12/22/2019 Travel Social History Tobacco Use Types Packs/Day [...] on filedocumented in this encounter Care Teams Care Taker Relationship Specialty Start Date End Date Herminio eHrnandez ND PCP - General 08/19/16 [facility] [place] [address] Zaira Rodriguez MD Referring Provider Gynecology 07/29/[address] [place] [address] [address]OB[address]A, [address] [place] [address] Charo Finn MD Medical Oncology 07/29/[address] [place] [address], [address] [place] [phone] documented as of this encounter
--- OUTSIDE RECORDS SUMMARY | 2021-10-16 02:01 | XMS_ITS | Encounter Summary ---
:1965 Author Organization [facility] Address [address] [place] [address] Care Team Providers Name Role Phone Zaira Rodriguez MD Unavailable Charo Finn MD Unavailable Herminio Gao ND Primary Care Provider Encounter Details Date Type Department Care Team Description 03/12/2019 Results Only [facility] Herminio Oquendo ND Lab - Main [place] [address] [facility] [address] [place], [place] [id number] [place] [address] [phone] Social History Tobacco Use Types Packs/Day Years [...] Procedure Name Priority Date/Time Associated Comments Diagnosis ANTI SARAI ANTIBODIES Routine 03/12/2019 9:50 EST R esults for this - [facility] procedure are i n the results section. documented in this encounter Results ANTI SARAI ANTIBODIES - CV (03/12/2019 9:50 EST) Pathologist Elida LERMA 1 AB IGG, S - <0.2 () [facility] Comment: [facility] REFERENCE VALUE ------ <1.0 (Negative) Test Performed by: [facility] - [facility] [address] [place] [address] Night Time Nanny: Herminio Roberto M.D. Ph.D.; CLIA# [id number] MANAGER NUCLEAR AB IGG,S - 0.3 () [facility] Comment: [facility] LAB REFERENCE VALUE ------ <1.0 (Negative) SCL 70 AB, IGG,S - <0.2 () [facility] Comment: [facility] LAB REFERENCE VALUE ------ <1.0 (Negative) LORENZO AB IGG - <0.2 () [facility] Comment: [facility] LAB REFERENCE VALUE ------ <1.0 (Negative) SS-A/RO AB, IGG,S <0.2 () [facility] Comment: [facility] LAB REFERENCE VALUE ------ <1.0 (Negative) SS-B/LA AB,IGG,S - <0.2 () [facility] Comment: [facility] REFERENCE VALUE ------ <1.0 (Negative) Specimen Narrative [facility] - 019 22:19 EST COMMENT: CELSA NOVA Does PT Have a Latex Allergy? YES Instructions? FAX ATTENTION: HERMINIO GAO NUMBER: [phone] Performing Organization Address City/State/[facility] Code Phon e Number [facility] [address] [place] [id number] [place] [address] LAB documented in this encounter Visit Diagnoses Not on filedocumented in this encounter Care Teams Vegetable Grader Relationship Specialty Start Date End Date Herminio Gao ND PCP - General 08/19/[address] [place] [address] [phone] Zaira Rodriguez MD Referring Provider Gynecology 07/29/[address] [place] [address] [address], [address] [place] [address] Charo Finn MD Medical Oncology 07/29/[address] [place] [address], [address] [place] [address] documented as of this encounter
--- OUTSIDE RECORDS SUMMARY | 2021-10-16 02:01 | XMS_ITS | Encounter Summary ---
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, estrogen receptor positive (HCC-CMS) Hematology & [address] [facility], Oncology MOB-B [address] [place] [address] [place] [phone] Social History Tobacco Use Types Packs/Day [...] Sign Reading Time Taken Comments Blood Pressure 110/70 04/12/2020 1501 EST Pulse 72 04/12/2020 1501 EST Temperature 36.5 ??C (97.7 ??F) 04/12/2020 1501 EST Respiratory Rate - - Oxygen Saturation 98% 04/12/2020 1501 EST Inhaled Oxygen Concentration - - Weight [...] as of this encounter Progress Notes Shantelle Rodriguez, RN - 04/12/2020 1500 EST Suspicion of Abuse: no - If yes, please document evidence: - Assessed on: 04/12/20 15:25 - Assessed by: SHANTELLE RODRIGUEZ RN Lorena Hanna APRN - 04/12/2020 1500 EST CC: Chief Complaint Patient presents with ??? Follow-up Hematology/Oncology Problem List: Hematology History: Hemochromatosis. On phlebotomy treatments. ?? Oncology History: September 2013 Right breast cancer - 10/15 Mammo Right breast Cat 4; Left Cat 1. - 10/25 Right breast biopsy = adenocarcinoma. - 11/09 lumpectomy [id number], [place] +, Her2/joy amplified. - December 31, 2013: Chemotherapy with cyclophosphamide, Taxotere, and Herceptin every 3 weeks x4. - May 2014: Tamoxifen + Herceptin. Stop tamoxifen after completing 5 years. Subjective: Nabila is here for a therapeutic phlebotomy in the setting of hemachromatosis. She notes generalized pruritis which typically occurs when due for a phlebotomy. She has no other new symptoms to report. Review of Systems: All 10 systems have been reviewed and are negative except for the mentioned above. Medications: Current Outpatient Medications Medication ??? ARMOUR THYROID 15 mg tablet ??? Magnesium Gluconate 27 mg magnesium (500 mg) tablet ??? metFORMIN (GLUCOPHAGE-XR) 500 mg ER tablet ??? thyroid, Pork, (ARMOUR THYROID) 30 mg tablet ??? TURMERIC (CURCUMIN MISC) No current facility-administered medications for this visit. Objective: VS: BP 110/70 Pulse 72 Temp 36.5 ??C (97.7 ??F) SpO2 98% Social History Socioeconomic History ??? Marital status: Spouse name: Not on file ??? Number of children: Not on file ??? Years of education: Not on file ??? Highest education level: Not on file Occupational History ??? Not on file Social Needs ??? Financial resource strain: Not on file ??? Food insecurity Worry: Not on file Inability: Not on file ??? Transportation needs Medical: Not on file Non-medical: Not on file Tobacco Use ??? Smoking status: Never Smoker ??? Smokeless tobacco: Never Used Substance and Sexual Activity ??? Alcohol use: Yes Frequency: 2-4 times a month Drinks per session: 1 or 2 Binge frequency: Never ??? Drug use: Not Currently ??? Sexual activity: Not Currently Partners: Male Comment: - no IC for 17 years Lifestyle ??? Physical activity Days per week: Not on file Minutes per session: Not on file ??? Stress: Not on file Relationships ??? Social connections Talks on phone: Not on file Gets together: Not on file Attends samaritan service: Not on file Active member of club or organization: Not on file Attends meetings of clubs or organizations: Not on file Relationship status: Not on file ??? Intimate partner violence Fear of current or ex partner: No Emotionally abused: No Physically abused: No Forced sexual activity: No Other Topics Concern ??? Not on file Social History Narrative Feels safe at home. Physical Exam: General appearance: Adult female in [...] Normal gait. Performance Status:0 Data Review: Labs: Results for orders placed or performed in visit on 04/08/20 COMPLETE BLOOD COUNT WITH DIFFERENTIAL (AUTO) Result Value Ref Range ABSOLUTE NEUTROPHIL COUN - [facility] 1.9 (L) 2.2 - 8.85 10e3/uL BASO # - [facility] 0.06 0.01 - 0.11 10e/uL BASO % - [facility] 2 0 - 2 % EOS # - [facility] 0.14 0.03 - 0.61 10e3/ul EOS % - [facility] 4 0 - 5 % GRAN % - [facility] 52.1 40 - 80 % HEMATOCRIT - [facility] 40.2 34.9 - 44.4 % HEMOGLOBIN - [facility] 13.0 11.6 - 15.2 g/dl IG# - [facility] 0.01 0 - 0.7 10e3/uL IG% - [facility] 0.3 0 - 0.9 % LYMPH # - [facility] 1.1 1.09 - 3.3 10e3/ul LYMPH% - [facility] 30.6 20 - 40 % MEAN CORPUSCULAR HGB - [facility] 29.0 26.7 - 33.3 pg MEAN CORPUSCULAR HGB CONC - [facility] 32.3 32.1 - 35.9 g/dL MEAN CELL VOLUME - [facility] 89.7 81 - 98 fl MONO # - [facility] 0.4 0.1 - 0.8 10e3/uL MONO% - [facility] 11.4 0 - 12 % PLATELET COUNT 198 141 - 377 10e3/ul RED BLOOD COUNT - CV 4.48 3.86 - 5.04 10e3/ul RED CELL DISTRI WIDTH - CV 12.9 <14.7 % WHITE BLOOD COUNT - CV 3.6 (L) 4.0 - 12.4 10e3/ul FERRITIN Result Value Ref Range FERRITIN - CV 53 11.1 - 264.0 ng/mL Assessment/Plan: Nabila is a 55 yo female with hemachromatosis and h/o right breast cancer. She remains stable on therapeutic phlebotomies with a goal of Ferritin <50. Ferritin 53 and symptomatic with pruritis. Proceed with a therapeutic phlebotomy for approximately 450 cc RBC. She will have labs q 6 weeks and provider visit q 3 months. 25 minutes in face to face contact with 20 minutes counseling side effect and treatment management. 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
--- OUTSIDE RECORDS SUMMARY | 2021-10-16 02:01 | XMS_ITS | Encounter Summary ---
:1965 Author Organization [facility] Address [address] [place] [address] Care Team Providers Name Role Phone Zaira Rodriguez MD Unavailable Charo Finn MD Unavailable Herminio Hernandez ND Primary Care Provider Encounter Details Date Type Department Care Team Description 02/02/2019 Results Only [facility]- [facility] Livier Romero ND [phone] [address] [place], [place] [phone] Social History Tobacco Use Types Packs/Day Years [...] Name Priority Date/Time Associated Diagnosis Comme nts CYNTHIA-WARREN PANEL Routine 02/02/2019 9:13 EST Re sults for this procedure are i n the results section. PROLACTIN Routine 02/02/2019 9:13 EST Results for this procedure are i n the results section. ESTRADIOL, ADULTS Routine 02/02/2019 9:13 EST Res ults for this procedure are i n the results section. LH Routine 02/02/2019 9:13 EST Results for this procedure are i n the results section. FSH Routine 02/02/2019 9:13 EST Results for this procedure are i n the results section. documented in this encounter Results LH (02/02/2019 9:13 EST) Pathologist Sig nature LH 12.2 mIU/ml [facility] Comment: LABORATORY SERVICES Follicular: ??1.9-12.5 Midcycle Peak: ??8.7-76.3 Luteal: ??0.5-16.9 Postmenopausal: ??15.9-54.0 Specimen Blood Performing Organization Address City/[facility] Code Phon e Number [facility]OR[facility] [address] [place] [address] SERVICES CYNTHIA-WARREN PANEL (02/02/2019 9:13 EST) EBNA IgG PositiveComment: [facility] Presence of LABORATORY detectable EBNA IgG SERVICES antibodies. VCA IgM NegativeComment: [facility] Absence of LABORATORY detectable V[facility] IgM SERVICES antibodies. VCA IgG PositiveComment: [facility] Presence of LABORATORY detectable V[facility] IgG SERVICES antibodies. EBV Interpretation Results would [facility] indicate past LABORATORY infection SERVICES withComment: Cynthia-Warren Virus. Specimen Blood Performing Organization Address City/[facility] Phon e Number [facility] [address] [place] [address] SERVICES ESTRADIOL, ADULTS (02/02/2019 9:13 EST) Pathologist Sig nature Estradiol 13 pg/ml [facility] Comment: LABORATORY SERVICES By day in cycle relative to LH peak: Follicular Phase (-12 to -4 days): ??20-144 Midcycle (-3 to +2 days): ? 64-357 Luteal Phase (+4 to +12 days): ??56-214 Postmenopausal: ??0 - 32 Cross reactivity with fulvestrant could lead to falsely elevated estradiol results in patients treated with this drug. Specimen Blood Performing Organization Address [facility] e [facility] LABORATORY [address] [place] [address] SERVICES PROLACTIN (02/02/2019 9:13 EST) Pathologist Sig nature Prolactin 6.7 ng/ml [facility] Comment: LABORATORY SERVICES Non-: 2.8-29.2 : 9.7-208.5 Post Menopausal: 1.8-20.3 Specimen Blood Performing Organization Address [facility] e [facility] LABORATORY [address] [place] [address] SERVICES FSH (02/02/2019 9:13 EST) Pathologist Sig nature FSH 21.0 mIU/ml [facility] Comment: LABORATORY SERVICES Follicular: ??2.5-10.2 Mid-Cycle Peak: ??3.4-33.4 Luteal: ??1.5-9.1 Postmenopausal: ??23.0-116.3 Specimen Blood Performing Organization Address [facility] LABORATORY [address] [place] [address] SERVICES documented in this encounter Visit Diagnoses Not on filedocumented in this encounter Care Teams Rigging Loft Mechanic Relationship Specialty Start Date End Date Herminio Hernandez ND PCP - General 08/19/[address] [place] [address] Zaira Rodriguez MD Referring Provider Gynecology 07/29/[address] [place] [address] [address], [address] [place] [address] Charo Finn MD Medical Oncology 07/29/[address] [place] [address], [address] [place] [address] documented as of this encounter
--- OUTSIDE RECORDS SUMMARY | 2021-10-16 02:01 | XMS_ITS | Encounter Summary ---
:1965 Author Organization [facility] Address [address] [place] [address] Care Team Providers Name Role Phone Zaira Rodriguez MD Unavailable Charo Finn MD Unavailable Herminio Gao ND Primary Care Provider Encounter Details Date Type Department Care Team Description 06/11/2019 Results Only [facility] - [facility] Herminio Oquendo ND Lab - Main [place] [address] [facility] [address] [place], [place] [address] [place] [address] [phone] Social History Tobacco Use Types Packs/Day Years [...] Priority Date/Time Associated Diagnosis Comme nts INSULIN FASTING - Routine 06/11/2019 7:16 EDT Res ults for this [facility] procedure are i n the results section. ANTI NUCLEAR AB Routine 06/11/2019 7:16 EDT Resul ts for this (ARCADIO), IFA procedure are i n the results section. GLUCOSE, SERUM Routine 06/11/2019 7:16 EDT Result s for this procedure are i n the results section. documented in this encounter Results INSULIN FASTING - [facility] (06/11/2019 7:16 EDT) INSULIN FASTING - 14.7 <29.0 uIU/mL [facility] Comment: [facility] Displayed Reference Range applies to fasting specimens only. Test performed or referred by The [address] [address] Specimen Narrative [facility] - 020 16:42 EDT Does PT Have a Latex Allergy? YES Instructions? FAX ATTENTION: DR GAO NUMBER: [id number] Performing Organization Address City/State/ZIP Code Phon e Number [facility] [address] [place], [place] [address] [place] [address] LAB (ABNORMAL) ANTI NUCLEAR AB (ARCADIO), IFA (06/11/2019 7:16 EDT) [place]IO Interpretation Positive (A) Negative [facility] Comment: [facility] For titers greater than or equal to 1:160 (except the centromere and nucleolar patterns) it is recommended t hat specific follow-up autoantibody testing ??(such as for dsDNA and Extractable Nuclear Antigens) be performed on all diffuse and/or speckled patterns NOTE: For add-on testing dsDNA is stable for 7 days refrigerated while Extractable Nuclear Antigens are on ly stable for 48 hours refrigerated. ARCADIO Titer and Pattern 1:160 Nucleolar () [facility] 1 Comment: [facility]ENTER LAB Results were obtained with the [employer] NOVA Lite HEp-2 A NA Kit by indirect immunofluorescence. Test performed or referred by The [address] [address] Specimen Narrative [facility] - 020 16:42 EDT Does PT Have a Latex Allergy? YES Instructions? FAX ATTENTION: DR GAO NUMBER: [id number] Performing Organization Address City/[facility] Code Phon e Number [facility] [address] [place] [address] [facility] GLUCOSE, SERUM (06/11/2019 7:16 EDT) Pathologist [facility] nature GLUCOSE - [facility] 97 70 - 100 mg/dL [facility] Specimen Narrative [facility] - 020 8:01 EDT Does PT Have a Latex Allergy? YES Performing Organization Address City/[facility] Phon e Number [facility] [address] [place] [address] [facility] documented in this encounter Visit Diagnoses Not on filedocumented in this encounter Care Teams Formulator Compounder Relationship Specialty Start Date End Date Herminio Gao ND PCP - General 08/19/16 [address] [place], [place] [address] Zaira Rodriguez MD Referring Provider Gynecology 07/29/[address] [place] [address] [address]A, [address] [place] [address] Charo Finn MD Medical Oncology 07/29/[address] [place] [address], [address] [place] [address] documented as of this encounter
--- OUTSIDE RECORDS SUMMARY | 2021-10-16 02:01 | XMS_ITS | Encounter Summary ---
:1965 Author Organization [facility] Address [address] [place] [address] Care Team Providers Name Role Phone Zaira Rodriguez MD Unavailable Charo Finn MD Unavailable Herminio Hernandez ND Primary Care Provider Reason for Visit Reason Comments Other Phlebotomy Encounter Details Date Type Department Care Team Description 07/11/2020 Nurse Only [facility] - Heredit nagi hemochromatosis [facility] Adult Hem Onc (HCC-CMS) (Primary Dx) Infusion [address] [place] [address] Social History Tobacco Use Types [...] encounter Progress Notes Patricia Escoto RN - 07/11/2020 1600 EDT Nabila is here for a phlebotomy today. Recent Ferritin 72. She states she has been itching and twitching which typically means she is due for a phlebotomy. One unit easily obtained. She was hydrated with a bottle and took an additional bottle with her. She will return in 10 weeks with labs prior. I encouraged her to call with any questions or concerns, PATRICIA ESCOTO RN documented in this encounter Plan of Treatment Upcoming Encounters Date Type Specialty Care Team Description 10/18/2021 Nurse Only Infusion Therapy documented as of this encounter Visit Diagnoses Diagnosis Hereditary hemochromatosis (HCC-CMS) (HC C) - Primary Hereditary hemochromatosis documented in this encounter Care Teams [employer] Pilot Relationship Specialty Start Date End Date Herminio Hernandez ND PCP - General 08/19/16 [address] [place], [place] [address] Zaira Rodriguez MD Referring Provider Gynecology 07/29/[address] [place] [address] [address], [address] [place] [phone] Charo Finn MD Medical Oncology 07/29/[address] [place] [address], [address] [place] [address] documented as of this encounter
--- OUTSIDE RECORDS SUMMARY | 2021-10-16 02:01 | XMS_ITS | Encounter Summary ---
:1965 Author Organization [facility] Address [address] [place] [address] Care Team Providers Name Role Phone Zaira Rodriguez MD Unavailable Charo Finn MD Unavailable Herminio Gao ND Primary Care Provider Encounter Details Date Type Department Care Team Description 02/26/2019 Results Only [facility] - [facility] Herminio Oquendo ND Lab - Main [place] [address] [facility] 130 [place], [place] [address] [place] [address] [phone] Social History Tobacco Use Types Packs/Day Years [...] Diagnosis Comme nts INSULIN FASTING - Routine 02/26/2019 10:31 Result s for this [facility] EST procedure are i n the results section. ANTI NUCLEAR AB Routine 02/26/2019 10:31 Results for this (ARCADIO), IFA EST procedure are i n the results section. GLUCOSE, SERUM Routine 02/26/2019 10:31 Results f or this EST procedure are i n the results section. documented in this encounter Results INSULIN FASTING - [facility] (02/26/2019 10:31 EST) INSULIN FASTING - 9.3 <29.0 uIU/mL [facility] Comment: [facility] LAB Displayed Reference Range applies to fasting specimens only. Test performed [place] [address] Specimen Narrative [facility] - 019 12:20 EST Does PT Have a Latex Allergy? YES Instructions? FAX ATTENTION: DR GAO NUMBER: [id number] Performing Organization Address City/State/ZIP Code Phon e Number [facility] [address] LAB (ABNORMAL) ANTI NUCLEAR AB (ARCADIO), IFA (02/26/2019 10:31 EST) [place] Interpretation Positive (A) Negative [facility] Comment: [facility] LAB For titers greater than or equal to 1:160 (except the centromere and nucleolar patterns) it is recommended t hat specific follow-up autoantibody testing ??(such as for dsDNA and Extractable Nuclear Antigens) be performed on all diffuse and/or speckled patterns NOTE: For add-on testing dsDNA is cristy for 7 days refrigerated while Extractable Nuclear Antigens are on ly stable for 48 hours refrigerated. AR[place]IO Titer and Pattern 1:160 Nucleolar () [facility] 1 Comment: [facility] LAB Results were obtained with the [employer] NOVA Lite HEp-2 A NA Kit by indirect immunofluorescence. Test performed or referred by The [address] [address] Specimen Narrative [facility] - 019 12:20 EST Does PT Have a Latex Allergy? YES Instructions? FAX ATTENTION: DR GAO NUMBER: [id number] Performing Organization Address City/[facility]/ZIP Code Phon e Number [facility] [address] [place] [address] [facility] GLUCOSE, SERUM (02/26/2019 10:31 EST) Pathologist Sig nature GLUCOSE - [facility] 100 70 - 100 mg/dL [facility] Specimen Narrative [facility] - 019 11:58 EST Does PT Have a Latex Allergy? YES Performing Organization Address City/[facility]/ZIP Code Phon e Number [facility] [address] [place], [place] [id number] [place] [address] LAB documented in this encounter Visit Diagnoses Not on filedocumented in this encounter Care Teams Vice President Regulatory Relationship Specialty Start Date End Date Herminio Gao ND PCP - General 08/19/16 [address] [place], [place] [id number] Zaira Rodriguez MD Referring Provider Gynecology 07/29/[address] [place] [address]-[address], [address] [place] [phone] Charo Finn MD Medical Oncology 07/29/[address] [place] [address], [address] [place] [phone] documented as of this encounter
--- OUTSIDE RECORDS SUMMARY | 2021-10-16 02:01 | XMS_ITS | Encounter Summary ---
:1965 Author Organization [facility] Address [address] [place] [address] Care Team Providers Name Role Phone Zaira Rodriguez MD Unavailable Charo Finn MD Unavailable Herminio Hernandez ND Primary Care Provider Reason for Visit Reason Comments Gynecologic Exam Pt recently stopped taking t amoxifen in May 2019 - took it for 5 years after surviving breast cancer. Pt is worried about possible polyp and changes to her vag inal discharge, which have been spurred from menopause. Discharge is pasty and thick. Pt denies odor or itching. Pt has not been sex ually active for 17 years. Encounter Details Date Type Department Care Team Description 12/22/2019 Office Visit [facility] - Agnieszka Lechuga'bhakti annual routine gynecological examination (Primary Dx); [facility] KAITLIN Gates Vaginal dryness, menopausal; [address] [place] [address] [address], [address] [place] [address] Social History Tobacco Use Types Packs/Day Years [...] Sign Reading Time Taken Comments Blood Pressure 118/72 12/22/2019 1425 EDT Pulse - - Temperature - - Respiratory Rate 16 12/22/2019 1425 EDT Oxygen Saturation - - Inhaled Oxygen Concentration - - Weight - - Height 172.7 cm (5' 7.99) 12/22/2019 1425 EDT Body Mass Index - - documented in [...] documented as of this encounter Progress Notes Agnieszka Lechuga CNM - 12/22/2019 1400 EDT Chief Complaint Patient presents with ??? Gynecologic Exam Pt recently stopped taking tamoxifen in May 2019 - took it for 5 years after surviving breast cancer. Pt is worried about possible polyp and changes to her vaginal discharge, which have been spurredfrom menopause. Discharge is pasty and thick. Pt denies odor or itching. Pt has not been sexually active for 17 years. No LMP recorded. Patient is postmenopausal. Since she was 48 years old - states chemo put her in menopause A decision support analyst was offered in case of need for pelvic, breast or rectal exam today and the patient has declined a decision support analyst. Last pap/hpv: negative in 05/2016 - desires a three year pap due to history with breast cancer Last mammo: 10/2018 - getting another mammo today 12/22/19 and will defer clinical breast exam Colonoscopy: unavailable Had colonoscopy three years ago lymphocytiic colitis - repeat in 10 years per patient Dexa scan: unavailable GC/CT: unavailable declines STD tesitng Subjective: HPI: Nabila Evans is a 54 y.o. who presents for annual knotter hand exam. Desires a pap now due to her previoushistory of breast cancer. Declines STD screening. Declines wellness labs as everything is managed byPCP. Does not take daily vitamin or ca supplement. Has not been sexually active for 17 years. C/O vaginal dryness. Denies vaginal bleeding or spotting. ROS: All pertinent systems negative except as noted in HPI. OB History Para Term AB Living 1 1 SAB TAB Ectopic Multiple Live Births 1 # Outcome Date GA Lbr Placido/2nd Weight Sex Delivery Anes PTL Lv 1 TAB Menses: No LMP recorded. Patient is postmenopausal. Cervical cancer screening: No results found for: PAP Collected today Last mammogram: No components found for: MAMMOGRAM Mammogram today Contraception: none - menopausal STI screening: Declines Current Outpatient Medications Medication ??? ARMOUR THYROID 15 mg tablet ??? ascorbic acid (VITAMIN C) 500 mg tablet ??? ascorbic acid, vitamin C, 1,000 mg tablet ??? ASHWAGANDHA ROOT EXTRACT,BULK, MISC ??? B Complex Vitamins (B COMPLEX 1) tablet ??? BERB MCCLOUD/HERBAL COMPLEX NO.18 (BERBERINE-HERBAL COMB NO.18 ORAL) ??? clonazePAM (KLONOPIN) 0.5 mg tablet ??? DIAZepam (VALIUM) 5 mg tablet ??? folic acid (FOLVITE) 1 mg tablet ??? gabapentin (NEURONTIN) 300 mg capsule ??? GOTU BERNADINE HERB ORAL ??? heparin sodium,porcine (HEPARIN LOCK FLUSH INTRAVENOUS) ??? IODINE MISC ??? IODINE ORAL ??? [id number]-Ct-[id number] 160 mg iron-1 mg-60 mcg tablet ??? ketotifen fumarate (ALAWAY OPHTHALMIC) ??? L.acid,gas,plan,rhm/B.ani/cran (UP4 PROBIOTICS WOMEN'S ORAL) ??? levomefolate/algal oil (L-METHYLFOLATE FORMULA ORAL) ??? LORazepam (ATIVAN) 0.5 mg tablet ??? LORazepam (ATIVAN) 1 mg tablet ??? LUMIGAN 0.01 % ophthalmic drops ??? Magnesium Gluconate 27 mg magnesium (500 mg) tablet ??? MAGNESIUM GLYCINATE ORAL ??? melatonin 10 mg tablet ??? melatonin 5 mg tablet ??? metFORMIN (GLUCOPHAGE-XR) 500 mg ER tablet ??? naltrexone-bupropion 8-90 mg tablet extended release ??? omega 7-ypy-qsj-fish oil (FISH OIL) 60-90-500 mg capsule ??? OMEGA-3S/DHA/EPA/FISH OIL (OMEGA 3 ORAL) ??? ondansetron (ZOFRAN) 4 mg tablet ??? prochlorperazine (COMPAZINE) 10 mg tablet ??? raloxifene (EVISTA) 60 mg tablet ??? tamoxifen (NOLVADEX) 20 mg tablet ??? thyroid, Pork, (ARMOUR THYROID) 30 mg tablet ??? TURMERIC (CURCUMIN MISC) ??? UNABLE TO FIND ??? UNABLE TO FIND ??? Zinc Acetate, Oral, 50 mg (zinc) capsule No current facility-administered medications for this visit. Allergies Allergen Reactions ??? Ampicillin Anaphylaxis ??? Grass Pollen Other reaction(s): itchiness unraised pink area on skin ??? Latex Rash ??? Nsaids (Non-Steroidal Anti-Inflammatory Drug) Doesn't take d/- lymphocytic colitis Other reaction(s): Doesn't take d/t lymphocitic colitis ??? Other - See Comments Environmental - grass - itchiness - un raised pink area on skin ??? Protein In Dairy ??? Dairy Products [Milk] GI upset Other reaction(s): Unknown Social History Occupational History ??? Not on file Tobacco Use ??? Smoking status: Never Smoker ??? Smokeless tobacco: Never Used Substance and Sexual Activity ??? Alcohol use: Yes Frequency: 2-4 times a month Drinks per session: 1 or 2 Binge frequency: Never ??? Drug use: Not Currently ??? Sexual activity: Not Currently Partners: Male Comment: - no IC for 17 years Social History Social History Narrative Feels safe at home. Past Medical History: Diagnosis Date ??? Breast cancer ([facility]) invasive ductal carcinoma - right breast ??? H/O seasonal allergies ??? Heart murmur benign ??? Hemochromatosis ??? Insomnia ??? Insulin resistance ??? Migraine headache Past Surgical History: Procedure Laterality Date ??? DILATION AND CURETTAGE OF UTERUS 1988 ??? DILATION AND CURETTAGE OF UTERUS 05/2016 hysteroscopy D&C ??? KNEE SURGERY 1992 Family History Problem Relation Age of Onset ??? Stroke Paternal Grandfather ??? Cancer Paternal Grandmother lung cancer; never smoker ??? Heart Attack Maternal Grandmother ??? Diabetes Maternal Grandfather ??? Kidney Failure Maternal Grandfather ??? Heart Disease Father ??? Breast Cancer Mother ??? COPD Mother ??? Diabetes Mother ??? *Other(comment) Brother prediabetes ??? Leukemia Sister ??? Breast Cancer Maternal Aunt ??? Hemochromatosis Maternal Uncle ??? Lymphoma Maternal Uncle ??? Heart Disease Paternal Uncle ??? Heart Disease Paternal Uncle ??? Cervical Cancer Cousin Objective: BP 118/72 (BP Cuff Location: Right arm, BP Patient Position: Sitting) Resp 16 Ht 172.7 cm (67.99) BMI 28.44 kg/m?? General - Well appearing, no acute distress, bright affect HEENT - eyes clear Neck - supple, no cervical or clavicular nodes. No Tmegaly CV - Regular rate and rhythm, slight murmur auscultated Lungs - Clear to auscultation bilaterally, no wheeze Breasts - deferred - mammogram today and hx of double masectomy Abdomen - soft non-distended. No HSM, non-tender. ELECTRIC RANGE PREPARER - Normal appearing external genitalia with no lesions. Cervix smooth with no lesions. No CMT. Atrophic vagina english Uterus non-tender with no masses. Adnexa - non-tender B-L with no adnexal masses Extremities - no edema Skin - warm, dry with no suspicious rashes or moles. Assessment & Plan: 1. Women's annual routine knotter hand exam 2. Vaginal Dryness, menopausal 3. Screening for cervical cancer Discussed routine age appropriate wellness recommendations. Encourage daily weight bearing exercise (goal 30 min exercise daily), heart healthy diet, CA 1000 mgdaily intake with Vitamin D3 2000 mu daily. Patient to try Replense OTC pearls every three days to see if that helps with vaginal dryness. Follow up in 1 year for annual ELECTRIC RANGE PREPARER wellness visit, see sooner PRN documented in this encounter Plan of Treatment Upcoming Encounters Date Type Specialty Care Team Description 10/18/2021 Nurse Only Infusion Therapy Scheduled Orders Name Type Priority Associated Diagnoses Order S chedule PAP TEST Pathology Routine Screening for Ordered: cervical cancer 12/22/2019 HUMAN PAPILLOMAVIRUS Microbiology Routine Screening for Ordere d: (HPV) DETECTION-HIGH RISK cervical cancer 12/22/2019 TYPES documented as of this encounter Visit Diagnoses Diagnosis Women's annual routine gynecological exa mination - Primary Vaginal dryness, menopausal Symptomatic menopausal or female climact zuleika states Screening for cervical cancer Screening for malignant neoplasm of the cervix documented in this encounter Discontinued Medications Medication Sig Discontinue Reason Start Date End Date metFORMIN (GLUCOPHAGE) Take 1,000 mg by Duplicate order 12/22/2019 500 mg tablet mouth 2 times daily. documented as of this encounter Historical Medications This list may reflect changes made after this encounter. Medication Sig Dispensed Refills Start Date End Date metFORMIN (GLUCOPHAGE-XR) Take 1 Tab by mouth 2 0 12/15/2019 500 mg ER tablet times daily. added in this encounter Care Teams Internal Control Analyst Relationship Specialty Start Date End Date Herminio Hernandez ND PCP - General 08/19/16 [facility] [place], [place] [address] Zaira Rodriguez MD Referring Provider Gynecology 07/29/[address] [place] [address] [address], [address] [place] [address] Charo Finn MD Medical Oncology 07/29/[address] [place] [address], [address] [place] [address] documented as of this encounter
--- OUTSIDE RECORDS SUMMARY | 2021-10-16 02:01 | XMS_ITS | Encounter Summary ---
:1965 Author Organization [facility] Address [address] [place] [address] Care Team Providers Name Role Phone Zaira Rodriguez MD Unavailable Charo Finn MD Unavailable Herminio Hernandez ND Primary Care Provider Reason for Visit Reason Comments Follow-up Encounter Details Date Type Department Care Team Description 04/29/2019 Office Visit [facility] - Shonda Finn omatosis, [facility] Adult MD Charo unspecified Hematology & [address], hemochromat osis type Oncology [address] (Primary Dx) [address] [place] [address] [place] [phone] Social History Tobacco Use Types Packs/Day Years [...] Sign Reading Time Taken Comments Blood Pressure 122/64 04/29/2019 1557 EST Pulse 80 04/29/2019 1557 EST Temperature - - Respiratory Rate - - Oxygen Saturation 98% 04/29/2019 1557 EST Inhaled Oxygen Concentration - - Weight 84.8 kg (187 lb) 04/29/2019 1557 EST Height 172.7 cm (5' 7.99) 04/29/2019 1557 EST Body Mass Index 28.44 04/29/2019 1557 EST documented in this encounter Progress Notes Charo Finn MD - 04/29/2019 1530 EST Hematology Follow up Note Hematology History: Hemochromatosis. On phlebotomy treatments. Oncology History: September 2013 Right breast cancer - 10/15 Mammo Right breast Cat 4; Left Cat 1. - 10/25 Right breast biopsy = adenocarcinoma. - 11/09 lumpectomy [id number], ER/MN +, Her2/joy amplified. - December 31, 2013: Chemotherapy with cyclophosphamide, Taxotere, and Herceptin every 3 weeks x4. - May 2014: Tamoxifen + Herceptin. Interim History: Patient returns for follow-up. She is doing generally well today with no new complaints. Is taking Tamoxifen. Reports having hot flashes. Mentions that she has a skin crawling feeling when her ferritin levels increase. Has a pelvic exam scheduled in May 2019. Review of Systems: All 10 systems have been reviewed and are negative except for the mentioned above. Medications: Current Outpatient Medications Medication Sig Dispense Refill Last Dose ??? ascorbic acid (VITAMIN C) 500 mg tablet Take 500 mg by mouth daily. Taking ??? ASHWAGANDHA ROOT EXTRACT,BULK, MISC by misc (non-drug; combo route) route. Not Taking ??? B Complex Vitamins (B COMPLEX 1) tablet Take by mouth daily. Taking ??? BERB MCCLOUD/HERBAL COMPLEX NO.18 (BERBERINE-HERBAL COMB NO.18 ORAL) Take by mouth. Not Taking ??? bimatoprost (LUMIGAN) 0.03 % ophthalmic drops Place 1 Drop into both eyes daily. ??? gabapentin (NEURONTIN) 300 mg capsule Take 300 mg by mouth at bedtime. Reported on 08/20/2016 NotTaking ??? GOTU BERNADINE HERB ORAL Take by mouth. Not Taking ??? IODINE ORAL Take by mouth 2 times daily. Not Taking ??? mfkq-xtdyudm-[id number]-saru-Gx-neg 160 mg iron-1 mg-60 mcg tablet Take by mouth daily. Not Taking ??? LORazepam (ATIVAN) 1 mg tablet Take 1 mg by mouth 3 times daily. Taking ??? MAGNESIUM GLYCINATE ORAL Take 400 mg by mouth. Taking ??? melatonin 10 mg tablet Take 20 mg by mouth. Not Taking ??? naltrexone-bupropion 8-90 mg tablet extended release Take by mouth daily. ??? OMEGA-3S/DHA/EPA/FISH OIL (OMEGA 3 ORAL) Take by mouth. Taking ??? tamoxifen (NOLVADEX) 20 mg tablet Take 20 mg by mouth daily. Taking ??? thyroid, Pork, (ARMOUR THYROID) 30 mg tablet Take 45 mg by mouth daily. Reported on 08/20/2016 Taking ??? TURMERIC (CURCUMIN MISC) by misc (non-drug; combo route) route. Not Taking ??? UNABLE TO FIND Med Name: Vitamin ADK Taking ??? UNABLE TO FIND 2,025 mg. Med Name:zinc chelate Not Taking No current facility-administered medications for this visit. Objective: VS: No data found. Weight: Weight : 84.8 kg (187 lb) Physical Exam: General appearance: Awake, alert, oriented x3, NAD. Skin: Skin color, temperature, turgor normal. Head: Normocephalic, without obvious abnormality Eyes: sclerae anicteric Neck: supple, symmetrical Lungs: clear to auscultation bilaterally Heart: regular rate and rhythm, Abdomen: soft, non-tender; bowel sounds normal Extremities: extremities warm, atraumatic Data Review: Labs: Results for orders placed or performed in visit on 04/24/19 COMPLETE BLOOD COUNT WITH DIFFERENTIAL (AUTO) Result Value Ref Range Gran # 1.7 (L) 2.2 - 8.85 10e3/uL BASO # - [facility] 0.04 0.01 - 0.11 10e/uL BASO % - [facility] 1 0 - 2 % EOS # - [facility] 0.07 0.03 - 0.61 10e3/ul EOS % - [facility] 2 0 - 5 % GRAN % - [facility] 50.6 40 - 80 % HEMATOCRIT - [facility] 39.6 34.9 - 44.4 % HEMOGLOBIN - [facility] 12.8 11.6 - 15.2 g/dl IG# - [facility] 0 0 - 0.7 10e3/uL IG% - [facility] 0 0 - 0.9 % LYMPH # - [facility] 1.2 1.09 - 3.3 10e3/ul LYMPH% - [facility] 35.6 20 - 40 % MEAN CORPUSCULAR HGB - [facility] 29.8 26.7 - 33.3 pg MEAN CORPUSCULAR HGB CONC - [facility] 32.3 32.1 - 35.9 g/dL MEAN CELL VOLUME - [facility] 92.1 81 - 98 fl MONO # - [facility] 0.4 0.1 - 0.8 10e3/uL MONO% - [facility] 10.5 0 - 12 % PLATELET COUNT - [facility] 150 141 - 377 10e3/ul RED BLOOD COUNT - [facility] 4.30 3.86 - 5.04 10e3/ul RED CELL DISTRI WIDTH - [facility] 13.3 <14.7 % WHITE BLOOD COUNT - [facility] 3.3 (L) 4.0 - 12.4 10e3/ul FERRITIN Result Value Ref Range FERRITIN - [facility] 49 11.1 - 264.0 ng/mL Assessment & Plan: 1. Hereditary hemochromatosis. Blood work from 04/24/19 reviewed. Ferritin was 49. Will proceed with phlebotomy today. 2. 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 Currently on tamoxifen. Tolerating this relatively well other than having hot flashes. She will complete 5 years on hormonal therapy in May 2019. Discussed pros and cons of extended endocrine therapy. This might be of more benefit in patients with large tumors or lymph node positive tumors. There is an approximately 2% decrease in risk of recurrence with 10 years of tamoxifen. There is increased incidence of blood clots and endometrial cancer. She is understandably hesitant about stopping treatments and expressed wanting to decide this at a later time. Plan: 1. Proceed with 1 unit phlebotomy today. 2. She will have blood work in 2 months and depending on these results I will schedule a follow-up. Other Orders Placed This Visit Procedures ??? Ferritin ??? Complete Blood Count and Differential Charo Finn MD Clinical Practice Physician Division of Hematology/Oncology [facility] Scribe attestation: By time stamping my name below, I attest that this documentation has been prepared under the direction and in the presence of the provider listed as the provider on this encounter, Monique Easley 05/03/19 9:46 documented in this encounter Plan of Treatment Upcoming Encounters Date Type Specialty Care Team Description 10/18/2021 Nurse Only Infusion Therapy Scheduled Orders Name Type Priority Associated Diagnoses Order S chedule COMPLETE BLOOD COUNT AND Lab Routine Hemochromatosis, Ordered: 04/29/2019 DIFFERENTIAL unspecified hemochromatosis type documented as of this encounter Visit Diagnoses Diagnosis Hemochromatosis, unspecified hemochromat osis type - Primary documented in this encounter Historical Medications This list may reflect changes made after this encounter. Medication Sig Dispensed Refills Start Date End Date bimatoprost (LUMIGAN) 0.03 Place 1 Drop into 0 07/19/2019 % ophthalmic drops both eyes daily. naltrexone-bupropion 8-90 Take by mouth 0 01/13/2020 mg tablet extended release daily. added in this encounter Care Teams El Teacher Relationship Specialty Start Date End Date Herminio Hernandez ND PCP - General 08/19/16 [address] [place], [place] [id number] Zaira Rodriguez MD Referring Provider Gynecology 07/29/[address] [place] [address] [address], [address] [place] [phone] Charo Finn MD Medical Oncology 07/29/[address] [place] [address], [address] [place] [address] documented as of this encounter
--- OUTSIDE RECORDS SUMMARY | 2021-10-16 02:01 | XMS_ITS | Encounter Summary ---
:1965 Author Organization [facility] Address [address] [place] [address] Care Team Providers Name Role Phone Zaira Rodriguez MD Unavailable Charo Finn MD Unavailable Herminio Hernandez ND Primary Care Provider Reason for Visit Reason Comments Other phlebotomy Encounter Details Date Type Department Care Team Description 07/22/2019 Nurse Only [facility] hemochromatosis [facility] Adult Hem Onc (HCC-CMS) (Primary Dx) Infusion [address] [place] [address] Social History Tobacco Use Types [...] / COVID-19? documented as of this encounter Progress Notes Patricia Escoto, RN - 07/22/2019 1530 EDT Nabila comes in for a phlebotomy today. She had labs drawn prior to this appt but we did not have her Ferritin back. Okay for a phlebotomy today per Stephanie. One unit (about 350 mls) was obtained today. She hydrated with a bottle of water and felt well upon leaving, PATRICIA ESCOTO RN documented in this encounter Plan of Treatment Upcoming Encounters Date Type Specialty Care Team Description 10/18/2021 Nurse Only Infusion Therapy documented as of this encounter Procedures Procedure Name Priority Date/Time Associated Diagnosis Comme nts IBC Routine 07/22/2019 14:35 Hereditary Results for this EDT hemochromatosis procedure ar e in ([facility]) the results section. IRON Routine 07/22/2019 14:35 Hereditary Results for this EDT hemochromatosis procedure ar e in ([facility]) the results section. FERRITIN Routine 07/22/2019 14:35 Hereditary Results for this EDT hemochromatosis procedure ar e in ([facility]) the results section. documented in this encounter Results IBC (07/22/2019 14:35 EDT) Pathologist Sig nature IRON BINDING CAPACITY 349 261 - 462 ug/dL [facility] - [facility] LAB Specimen Narrative [facility] - 020 16:44 EDT Does PT Have a Latex Allergy? YES Performing Organization Address City/State/ZIP Code Phon e Number [facility] [address] [place] [address] [facility] FERRITIN (07/22/2019 14:35 EDT) FERRITIN - [facility] 49 11.1 - 264.0 [facility] Comment: ng/mL [facility] The results of this assay can be falsely lowered due t o the consumption of Biotin. Specimen Narrative [facility] - 16:44 EDT Does PT Have a Latex Allergy? YES Performing Organization Address City/[facility]/ZIP Code Phon e Number [facility] [address] [place] [address] [facility] IRON (07/22/2019 14:35 EDT) Pathologist Sig nature SERUM IRON - [facility] 107 37 - 170 ug/dL [facility] Specimen Narrative [facility] - 16:44 EDT Does PT Have a Latex Allergy? YES Performing Organization Address City/[facility]/ZIP Code Phon e Number [facility] [address] [place] [address] [facility] documented in this encounter Visit Diagnoses Diagnosis Hereditary hemochromatosis (HCC-CMS) (HC C) - Primary Hereditary hemochromatosis documented in this encounter Care Teams Loader Operator/Ground Leader Relationship Specialty Start Date End Date Herminio Hernandez ND PCP - General 08/19/16 [address] [place], [place] [id number] Zaira Rodriguez MD Referring Provider Gynecology 07/29/[address] [place] [address] [address], [address] [place] [phone] Charo Finn MD Medical Oncology 07/29/[address] [place] [address], [address] [place] [address] documented as of this encounter
--- OUTSIDE RECORDS SUMMARY | 2021-10-16 02:01 | XMS_ITS | Encounter Summary ---
:1965 Author Organization [facility] Address [address] [place] [address] Care Team Providers Name Role Phone Zaira Rodriguez MD Unavailable Charo Finn MD Unavailable Herminio Hernandez ND Primary Care Provider Reason for Visit Reason Onset Date Comments Other 08/04/2020 questions Encounter Details Date Type Department Care Team Description 08/04/2020 Telephone [facility] Charo Drake MD Other (questions) Adult Hematology & [address], Oncology [address] [address] [facility] [address] [place] [address] [place] [address] (Wo rk) Social History Tobacco [...] Telephone Encounter - Katty Garcia RN - 08/07/2020 0909 EDT 08/07/20 9:09 Pt. Notified. She requested that orders be sent to [facility] in [facility]. She will have them done innear future. Orders faxed to [facility] lab [phone] elephone Encounter - Katty Garcia RN - 08/07/[address] Finn - Please advise what you would like ordered for labs? elephone Encounter - Hannah Youngblood - 08/04/2020 1615 EDT Patient had a phleb on 07/11/20. She is not feeling well having some of the same symptoms that brought her to have a phleb. She would like to have labs draw to see if she needs another phleb. Please give her a call. She said next week is fine for you to call her back. Thanks. documented in this encounter Plan of Treatment Upcoming Encounters Date Type Specialty Care Team Description 10/18/2021 Nurse Only Infusion Therapy Scheduled Orders Name Type Priority Associated Diagnoses Order S chedule COMPLETE BLOOD COUNT AND Lab Routine Hereditary hemoc hromatosis Ordered: 08/07/2020 DIFFERENTIAL (HCC-CMS) FERR[facility] Lab Routine Hereditary hemochromatosis O rdered: 08/07/2020 (HCC-CMS) documented as of this encounter Visit Diagnoses Diagnosis Malignant neoplasm of upper-inner quadra nt of female breast, unspecified estrogen receptor status, unspecified laterality (HCC-CMS) (HCC) - Primary Hereditary hemochromatosis (HCC-CMS) (HC C) Hereditary hemochromatosis documented in this encounter Care Teams Restaurant Crew Person Relationship Specialty Start Date End Date Herminio Hernandez ND PCP - General 08/19/16 [address] [place], [place] [address] Zaira Rodriguez MD Referring Provider Gynecology 07/29/[address] [place] [address], [address] [place] [address] Charo Finn MD Medical Oncology 07/29/[address] [place] [address], [address] [place] [phone] documented as of this encounter
--- OUTSIDE RECORDS SUMMARY | 2021-10-16 02:01 | XMS_ITS | Encounter Summary ---
:1965 Author Organization [facility] Address [address] [place] [address] Care Team Providers Name Role Phone Zaira Rodriguez MD Unavailable Charo Finn MD Unavailable Herminio Hernandez ND Primary Care Provider Encounter Details Date Type Department Care Team Description 12/31/2018 Results Only [facility] - [facility] Charo Drake MD Lab - [address], [address] [place] [address] [place] [phone] (Wo rk) Social History Tobacco Use Types [...] Associated Comments Diagnosis COMPLETE BLOOD COUNT Routine 12/31/2018 12:48 Res ults for this WITH DIFFERENTIAL EDT procedure are in (AUTO) the results section. ESTRADIOL, ADULTS Routine 12/31/2018 12:48 Result s for this EDT procedure are i n the results section. FSH Routine 12/31/2018 12:48 Results for this EDT procedure are i n the results section. FERRITIN Routine 12/31/2018 12:48 Results for this EDT procedure are i n the results section. documented in this encounter Results FSH (12/31/2018 12:48 EDT) Pathologist Sig nature FSH - [facility] 17.3 () mIU/ml [facility] Comment: CENTER LAB Follicular: ??2.5-10.2 Mid-Cycle Peak: ??3.4-33.4 Luteal: ??1.5-9.1 Postmenopausal: ??23.0-116.3 Test performed or referred by The [address] [address] Specimen Narrative [facility] - 019 12:34 EDT AOT: 01/01/19 0856: ESTRADIOL, FSH Performing Organization Address City/State/[facility] Code Phon e Number [facility] [address] [place], [place] [phone] [place] [address] LAB ESTRADIOL, ADULTS (12/31/2018 12:48 EDT) Pathologist Sig nature Estradiol 16 () pg/ml [facility] Comment: CENTER [facility] By day in cycle relative to LH peak: Follicular Phase (-12 to -4 days): ??20-144 Midcycle (-3 to +2 days): ? 64-357 Luteal Phase (+4 to +12 days): ??56-214 Postmenopausal: ??0 - 32 ?? Cross reactivity with fulvestrant could lead to falsely elevated estradiol results in patients treated with this drug. Test performed or referred by The [address] [address] Specimen Narrative [facility] - 12:34 EDT AOT: 01/01/19 0856: ESTRADIOL, FSH Performing Organization Address [facility] Phon e Number [facility] [address] LAB FERRITIN (12/31/2018 12:48 EDT) FERRITIN - [facility] 36 11.1 - 264.0 [facility] Comment: ng/mL [facility] The results of this assay can be falsely lowered due t o the consumption of Biotin. Specimen Narrative [facility] - 14:57 EDT Does PT Have a Latex Allergy? YES Performing Organization Address [facility] Phon e Number [facility] [address] [place] [phone] [facility] (ABNORMAL) COMPLETE BLOOD COUNT WITH DIFFERENTIAL (AUTO) (12/31/2018 12:48 EDT) Pathologist Sig nature ABSOLUTE NEUTROPHIL 1.4 (L) 2.2 - 8.85 [facility] COUN - [facility] 10e3/uL [facility]ENTER [facility] BASO # - [facility] 0.03 0.01 - 0.11 [facility] 10e/uL [facility] BASO % - [facility] 1 0 - 2 % [facility] EOS # - [facility] 0.05 0.03 - 0.61 [facility] 10e3/ul [facility] EOS % - [facility] 2 0 - 5 % [facility] GRAN % - [facility] 45.5 40 - 80 % [facility] HEMATOCRIT - [facility] 41.4 34.9 - 44.4 % [facility] HEMOGLOBIN - [facility] 13.7 11.6 - 15.2 [facility] g/dl [facility] IG# - [facility] 0 0 - 0.7 10e3/uL [facility] IG% - [facility] 0 0 - 0.9 % [facility] LYMPH # - [facility] 1.2 1.09 - 3.3 [facility] 10e3/ul [facility] LYMPH% - [facility] 39.6 20 - 40 % [facility] MEAN CORPUSCULAR HGB 31.0 26.7 - 33.3 pg [facility] ME D - [facility] MEAN CORPUSCULAR HGB 33.1 32.1 - 35.9 [facility] CONC - [facility] g/dL [facility] MEAN CELL VOLUME - 93.7 81 - 98 fl [facility] MONO # - [facility] 0.4 0.1 - 0.8 [facility] 10e3/uL [facility] MONO% - [facility] 12.3 (H) 0 - 12 % [facility] PLATELET COUNT 154 141 - [address] [place] [id number] [facility] RED BLOOD COUNT - 4.42 3.86 - 5.04 [facility] 10e3/ul [facility] RED CELL DISTRI WIDTH 12.8 <14.7 % [facility] WHITE BLOOD COUNT - 3.1 (L) 4.0 - 12.4 [facility] 10e3/ul [facility] Specimen Narrative [facility] - 019 14:13 EDT Does PT Have a Latex Allergy? YES Performing Organization Address City/State/ZIP Code Phon e Number [facility] [address] [place] [address] [facility] documented in this encounter Visit Diagnoses Not on filedocumented in this encounter Care Teams Assistant Media Planner Relationship Specialty Start Date End Date Herminio Hernandez ND PCP - General 08/19/[address] [place] [phone] Zaira Rodriguez MD Referring Provider Gynecology 07/29/16 [address] [facility] [address] [place] [address] Charo Finn MD Medical Oncology 07/29/16 [address] [facility], [address] [place] [address] documented as of this encounter
--- OUTSIDE RECORDS SUMMARY | 2021-10-16 02:01 | XMS_ITS | Encounter Summary ---
:1965 Author Organization [facility] Address [address] [place] [address] Care Team Providers Name Role Phone Zaira Rodriguez MD Unavailable Charo Finn MD Unavailable Herminio Hernandez ND Primary Care Provider Encounter Details Date Type Department Care Team Description 01/13/2020 Results Only [facility] - [facility] Herminio Oquendo ND Lab - Main [place] [address] [facility] [address] [place], [place] [phone] [place] [address] [phone] Social History Tobacco Use Types Packs/Day Years [...] Date/Time Associated Diagnosis Comme nts IBC Routine 01/13/2020 14:55 EDT Results for this procedure are i n the results section . IRON Routine 01/13/2020 14:55 EDT Results for this procedure are i n the results section . FERRITIN Routine 01/13/2020 14:55 EDT Results for this procedure are i n the results section . documented in this encounter Results IBC (01/13/2020 14:55 EDT) Pathologist Sig nature IRON BINDING CAPACITY 343 261 - 462 ug/dL [facility]ENTER [facility] Specimen Narrative [facility] - 020 16:04 EDT Does PT Have a Latex Allergy? YES Performing Organization Address City/State/ZIP Code Phon e Number [facility] [address] [place] [address] FERRITIN (01/13/2020 14:55 EDT) FERRITIN - [facility] 36 11.1 - 264.0 [facility] Comment: ng/mL [facility] The results of this assay can be falsely lowered due t o the consumption of Biotin. Specimen Narrative [facility] - 020 16:04 EDT Does PT Have a Latex Allergy? YES Performing Organization Address City/[facility]/ZIP Code Phon e Number [facility] [address] [place] [address] IRON (01/13/2020 14:55 EDT) Pathologist Sig nature SERUM IRON - [facility] 118 37 - 170 ug/dL [facility] Specimen Narrative [facility] - 020 16:04 EDT Does PT Have a Latex Allergy? YES Performing Organization Address City/[facility]/ZIP Code Phon e Number [facility] [address] [place] [address] documented in this encounter Visit Diagnoses Not on filedocumented in this encounter Care Teams Oxidation Operator Relationship Specialty Start Date End Date Herminio Hernandez ND PCP - General 08/19/16 [address] [place], [place] [phone] Zaira Rodriguez MD Referring Provider Gynecology 07/29/[address] [place] [address] [address] [place] [address] Charo Finn MD Medical Oncology 07/29/[address] [place] [address], [address] [place] [phone] documented as of this encounter
--- OUTSIDE RECORDS SUMMARY | 2021-10-16 02:01 | XMS_ITS | Encounter Summary ---
:[address] [facility] Address [address] [place] [address] Care Team Providers Name Role Phone Zaira Rodriguez MD Unavailable Charo Finn MD Unavailable Herminio Hernandez ND Primary Care Provider Encounter Details Date Type Department Care Team Description 04/17/2020 Lab Requisition [facility] Outr Resulting Lab, Pathology & Laboratory Provider [facility] [address] [place] [address] Social History Tobacco Use Types [...] Name Priority Date/Time Associated Diagnosis Comme nts COVID-19 TEST [facility] Today 04/17/2020 11:37 LAB PCR EST COVID-19 TESTING Routine 04/17/2020 11:37 Results for this EST procedure are i n the results section. documented in this encounter Results COVID-19 TEST [facility] LAB PCR (04/17/2020 11:37 EST) Specimen Swab - Entire nasopharynx (body structur e) Performing Organization Address City/State/ZIP Code Phon e Number [facility] [address] [place] [address] SERVICES COVID-19 TESTING (04/17/2020 11:37 EST) COVID-19 rt-PCR Negative Negative [facility] Result Comment: CENTER LABORATORY This test has not been FDA c leared or approved. This test has been authorized by FDA under an EUA for use by authorized laboratories. This test has been authorized only for detection of nucleic acid fro SERVICES m 2018-nCo, not for any oth er viruses or pathogens. This test is only authorized for the duration of the declaration that circumstances exist justifying the authorization of emergency use of in vitro d iagnostic tests for detectio n and/or diagnosis of 2019-nCoV under section 564(b)(1) of Act, 21 U.S.C ?? 360bbb-3(b) (1), unless the authorization is terminated or revoked sooner. Negative results do not prec lude 2019-nCoV infection and should not be used as the sole basis for treatment or other patient management decisions. Negative results must be combined with clinical observa tions, patient history, and epidemiological informatio n. Testing was performed using the hany SARS-CoV-2 assay ([employer] on the Hany 6800 System Performing Lab Hany [address] [facility] Lab [facility] SERVICES Specimen Swab Performing Organization Address City/State/ZIP Code Phon e Number [facility] [address] [place] [address] SERVICES documented in this encounter Visit Diagnoses Not on filedocumented in this encounter Care Teams Manager Of Customer Billing Relationship Specialty Start Date End Date Herminio Hernandez ND PCP - General 08/19/16 [facility] [place], [place] [phone] Zaira Rodriguez MD Referring Provider Gynecology 07/29/[address] [place] [address] [address] [place] [address] Charo Finn MD Medical Oncology 07/29/[address] [place] [address], [address] [place] [address] documented as of this encounter
--- OUTSIDE RECORDS SUMMARY | 2021-10-16 02:01 | XMS_ITS | Encounter Summary ---
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 -01/16/17 Ferritin 344 Therapeutic phlebotomies initiated to goal of maintaining ferritin below 50 - 08/2017 [place] to have [place] [facility] [place]12[place] Ferritin checked q 3 months -04/24/19 ferritin 49; hct 39.6%; phlebotomy -07/22/19 ferritin 49; hct 39.6%; phlebotomy Interim History: Nabila is here today for another phlebotomy. She is feeling well and has no new concerns to report. Sheis not experiencing any fevers, chills or sweats. 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 Denies headache, shortness of breath, chest pain/palpitations, abdominal pain/cramping, no swelling of extremities. Review of Systems Constitutional: Negative. HENT: Negative. [...] 15 mg by mouth daily. Taking ??? ascorbic acid (VITAMIN C) 500 mg tablet Take 500 mg by mouth daily. Taking ??? ascorbic acid, vitamin C, 1,000 mg tablet Take 1 Tab by mouth 2 times daily. Taking ??? ASHWAKENNETHDHA ROOT EXTRACT,BULK, MISC by misc (non-drug; combo route) route. Taking ??? B Complex Vitamins (B COMPLEX 1) tablet Take by mouth daily. Taking ??? BERB MCCLOUD/HERBAL COMPLEX NO.18 (BERBERINE-HERBAL COMB NO.18 ORAL) Take by mouth. Taking ??? clonazePAM (KLONOPIN) 0.5 mg tablet Take 0.5 mg by mouth as needed. Taking ??? DIAZepam (VALIUM) 5 mg tablet Take 1 Tab by mouth at bedtime as needed. Taking ??? folic acid (FOLVITE) 1 mg tablet Take 1 mg by mouth daily. Taking ??? gabapentin (NEURONTIN) 300 mg capsule Take 300 mg by mouth at bedtime. Reported on 08/20/2016 Taking ??? GOTU BERNADINE HERB ORAL Take 950 mg by mouth daily. Taking ??? heparin sodium,porcine (HEPARIN LOCK FLUSH INTRAVENOUS) . Taking ??? IODINE MISC Take 1 Tab by mouth 2 times daily as needed. Taking ??? IODINE ORAL Take by mouth 2 times daily. Taking ??? antv-jdilvbd-[id number]-O-cbyz-Fo-saq 160 mg iron-1 mg-60 mcg tablet Take by mouth daily. Taking ??? ketotifen fumarate (ALAWAY OPHTHALMIC) Place into both eyes daily as needed. Taking ??? L.acid,gas,plan,rhm/B.ani/cran (UP4 PROBIOTICS WOMEN'S ORAL) daily. Taking ??? levomefolate/algal oil (L-METHYLFOLATE FORMULA ORAL) Take 2.5 mg by mouth daily. Taking ??? LORazepam (ATIVAN) 0.5 mg tablet Take 0.5 mg by mouth daily as needed. Taking ??? LORazepam (ATIVAN) 1 mg tablet Take 1 mg by mouth 3 times daily. Taking ??? LUMIGAN 0.01 % ophthalmic drops Place 1 Drop into both eyes. Taking ??? Magnesium Gluconate 27 mg magnesium (500 mg) tablet Take 1 Tab by mouth 2 times daily as needed for Muscle Spasms. Taking ??? MAGNESIUM GLYCINATE ORAL Take 400 mg by mouth. Taking ??? melatonin 10 mg tablet Take 20 mg by mouth. Taking ??? melatonin 5 mg tablet Take 5 mg by mouth at bedtime. Taking ??? metFORMIN (GLUCOPHAGE) 500 mg tablet Take 1,000 mg by mouth 2 times daily. Taking ??? naltrexone-bupropion 8-90 mg tablet extended release Take by mouth daily. Taking ??? omega 8-lya-hcd-fish oil (FISH OIL) 60-90-500 mg capsule Take 5 Caps by mouth daily. Taking ??? OMEGA-3S/DHA/EPA/FISH OIL (OMEGA 3 ORAL) Take by mouth. Taking ??? ondansetron (ZOFRAN) 4 mg tablet Take 4 mg by mouth 2 times daily. For three days after chemo toprevent nausea Taking ??? prochlorperazine (COMPAZINE) 10 mg tablet Take 10 mg by mouth 3 times daily as needed for Nausea. Taking ??? raloxifene (EVISTA) 60 mg tablet Take 60 mg by mouth daily. Taking ??? tamoxifen (NOLVADEX) 20 mg tablet Take 20 mg by mouth daily. Not Taking ??? thyroid, Pork, (ARMOUR THYROID) 30 mg tablet Take 45 mg by mouth daily. Reported on 08/20/2016 Taking ??? TURMERIC (CURCUMIN MISC) by misc (non-drug; combo route) route. Taking ??? UNABLE TO FIND Med Name: Vitamin ADK Taking ??? UNABLE TO FIND 2,025 mg. Med Name:zinc chelate Taking ??? Zinc Acetate, Oral, 50 mg (zinc) capsule Take 1 Cap by mouth daily. Taking No current facility-administered medications for this visit. Allergies Allergen Reactions ??? Ampicillin ??? Dairy Products [Milk] Other reaction(s): Unknown ??? Grass Pollen Other reaction(s): itchiness unraised pink area on skin ??? Latex Rash ??? Nsaids (Non-Steroidal Anti-Inflammatory Drug) Doesn't take d/- lymphocytic colitis Other reaction(s): Doesn't take d/t lymphocitic colitis ??? Other - See Comments Environmental - grass - itchiness - un raised pink area on skin ??? Protein In Dairy There were no vitals filed for this visit. Wt Readings from Last 3 Encounters: 04/29/19 84.8 kg (187 lb) 08/20/16 84.8 kg (187 lb) 08/08/15 84.8 kg (187 lb) Physical Exam Constitutional: She is oriented to person, place, and time. She appears well-nourished. HENT: Mouth/Throat: Oropharynx is clear and moist. No posterior oropharyngeal erythema. Eyes: Conjunctivae are normal. Pulmonary/Chest: Effort normal. Abdominal: There is no guarding. Musculoskeletal: Normal range of motion. Neurological: She is alert and oriented to person, place, and time. She has normal strength. Skin: Skin is warm and dry. Psychiatric: She has a normal mood and affect. Her behavior is normal. Judgment normal. Cognition and memory are normal. Nursing note and vitals reviewed. Performance Status: (0) Fully active, able to carry on all predisease performance without restriction Laboratory: Results for orders placed or performed in visit on 07/22/19 COMPLETE BLOOD COUNT WITH DIFFERENTIAL (AUTO) Result Value Ref Range Gran # 1.6 (L) 2.2 - 8.85 10e3/uL BASO # - [facility] 0.04 0.01 - 0.11 10e/uL BASO % - [facility] 1 0 - 2 % EOS # - [facility] 0.05 0.03 - 0.61 10e3/ul EOS % - [facility] 1 0 - 5 % GRAN % - [facility] 46.0 40 - 80 % HEMATOCRIT - [facility] 39.6 34.9 - 44.4 % HEMOGLOBIN - [facility] 13.1 11.6 - 15.2 g/dl IG# - [facility] 0 0 - 0.7 10e3/uL IG% - [facility] 0 0 - 0.9 % LYMPH # - [facility] 1.5 1.09 - 3.3 10e3/ul LYMPH% - [facility] 42.2 (H) 20 - 40 % MEAN CORPUSCULAR HGB - [facility] 30.2 26.7 - 33.3 pg MEAN CORPUSCULAR HGB CONC - [facility] 33.1 32.1 - 35.9 g/dL MEAN CELL VOLUME - [facility] 91.2 81 - 98 fl MONO # - [facility] 0.3 0.1 - 0.8 10e3/uL MONO% - [facility] [place] 9.3 0 - 12 % PLATELET COUNT - [facility] [place] 174 141 - 377 10e3/ul RED BLOOD COUNT - [facility] [place] 4.34 3.86 - 5.04 10e3/ul RED CELL DISTRI WIDTH - [facility] [place] 12.9 <14.7 % WHITE BLOOD COUNT - [facility] [place] 3.5 (L) 4.0 - 12.4 10e3/ul Assessment: Nabila is tolerating her phlebotomies WNL. She will receive 1 today to maintain a ferritin goal of below 50. Plan: Diagnoses and all orders for this visit: Hereditary hemochromatosis ([facility]) - COMPLETE BLOOD COUNT WITH DIFFERENTIAL (AUTO) 1. Therapeutic phlebotomy today 2. She was instructed to call for any concerns 3. She will return in 3 months for another phlebotomy. Oncology Follow Up 3-month provider visit and labs Stephanie Huerta APRN, LEWIS, KWABENA Hematology/Oncology [facility] CC:Primary Care Provider: Herminio Hernandez [address] [place] [address] Referring Provider: No referring provider defined for this encounter. Phone: N/A Fax: documented in this encounter Plan of Treatment Upcoming Encounters Date Type Specialty Care Team Description 10/18/2021 Nurse Only Infusion Therapy documented as of this encounter Procedures Procedure Name Priority Date/Time Associated Diagnosis Comme nts COMPLETE BLOOD COUNT Routine 07/22/2019 14:35 Hereditary Res ults for this WITH DIFFERENTIAL EDT hemochromatosis procedu re are in (AUTO) ([facility]) the results section. documented in this encounter Results (ABNORMAL) COMPLETE BLOOD COUNT WITH DIFFERENTIAL (AUTO) (07/22/2019 14:35 EDT) Pathologist Sig nature Gran # 1.6 (L) 2.2 - 8.85 [facility] 10e3/uL CENTER LAB BASO # - [facility] [place] 0.04 0.01 - 0.11 [facility] 10e/uL CENTER LAB BASO % - [facility] [place] 1 0 - 2 % [facility] EOS # - CV 0.05 0.03 - 0.61 [facility] 10e3/ul CENTER LAB EOS % - [facility] [place] 1 0 - 5 % [facility] GRAN % - [facility] [place] 46.0 40 - 80 % [facility] HEMATOCRIT - [facility] [place] 39.6 34.9 - 44.4 % [facility] HEMOGLOBIN - [facility] [place] 13.1 11.6 - 15.2 [facility] g/dl [facility] IG# - [facility] [place] 0 0 - 0.7 10e3/uL [facility] IG% - [facility] [place] 0 0 - 0.9 % [facility] LYMPH # - [facility] [place] 1.5 1.09 - 3.3 [facility] 10e3/ul [facility] LYMPH% - [facility] [place] 42.2 (H) 20 - 40 % [facility] MEAN CORPUSCULAR HGB 30.2 26.7 - 33.3 pg [facility] ME D - [facility] [place] [facility] LAB MEAN CORPUSCULAR HGB 33.1 32.1 - 35.9 [facility] CONC - [facility] [place] g/dL [facility] LAB MEAN CELL VOLUME - 91.2 81 - 98 fl [facility] CENTER LAB MONO # - [facility] [place] 0.3 0.1 - 0.8 [facility] 10e3/uL [facility] MONO% - [facility] [place] 9.3 0 - 12 % [facility] PLATELET COUNT 174 141 - 377 [facility] 10e3/ul [facility] RED BLOOD COUNT - 4.34 3.86 - 5.04 [facility] 10e3/ul [facility] RED CELL DISTRI WIDTH 12.9 <14.7 % [facility] WHITE BLOOD COUNT - 3.5 (L) 4.0 - 12.4 [facility] 10e3/ul [facility] Specimen Narrative [facility] - 020 15:31 EDT Does PT Have a Latex Allergy? YES Performing Organization Address City/State/ZIP Code Phon e Number [facility] [address] [place], [place] [id number] [place] [address] LAB documented in this encounter Visit Diagnoses Diagnosis Hereditary hemochromatosis (HCC-CMS) ([facility] C) - Primary Hereditary hemochromatosis documented in this encounter Discontinued Medications Medication Sig Discontinue Reason Start Date End Date bimatoprost (LUMIGAN) Place 1 Drop into Duplicate order 07/19/2019 0.03 % ophthalmic drops both eyes daily. Berb Mccloud/herbal complex daily. Duplicate order no.18 (BERBERINE-HERBAL COMB NO.18 ORAL) GOTU BERNADINE HERB ORAL Take by mouth. Duplicate order turmeric (CURCUMIN MISC) as directed Duplicate order 07/19/2019 vitamin B complex Take 1 Cap by mouth Duplicate order 07/19/2019 (VITAMIN B-100 COMPLEX daily. ORAL) documented as of this encounter Historical Medications This list may reflect changes made after this encounter. Medication Sig Dispensed Refills Start Date End Date Magnesium Gluconate 27 mg Take 1 Tab by 0 magnesium (500 mg) tablet mouth 2 times daily as needed for Muscle Spasms. ARMOUR THYROID 15 mg tablet Take 15 mg by 0 04/20 mouth daily. metFORMIN (GLUCOPHAGE) 500 Take 1,000 mg by 0 12/22/2019 mg tablet mouth 2 times daily. ketotifen fumarate (ALAWAY Place into both 0 01/13/2020 OPHTHALMIC) eyes daily as needed. turmeric (CURCUMIN MISC) as directed 0 07/19/2019 GOTU BERNADINE HERB ORAL Take 950 mg by 0 1 mouth daily. heparin sodium,porcine . 0 12/27/2014 (HEPARIN LOCK FLUSH INTRAVENOUS) IODINE MISC Take 1 Tab by 0 01/13/2020 mouth 2 times daily as needed. levomefolate/algal oil Take 2.5 mg by 0 01/13/2020 (L-METHYLFOLATE FORMULA mouth daily. ORAL) Berb Mccloud/herbal complex daily. 0 no.18 (BERBERINE-HERBAL COMB NO.18 ORAL) L.acid,gas,plan,rhm/B.ani/c daily. 0 01/13/2020 ran (UP4 PROBIOTICS WOMEN'S ORAL) vitamin B complex (VITAMIN Take 1 Cap by 0 07/19/2019 B-100 COMPLEX ORAL) mouth daily. Zinc Acetate, Oral, 50 mg Take 1 Cap by 0 01/13/2020 (zinc) capsule mouth daily. clonazePAM (KLONOPIN) 0.5 Take 0.5 mg by 0 01/13/2020 mg tablet mouth as needed. DIAZepam (VALIUM) 5 mg Take 1 Tab by 0 01/13/2020 tablet mouth at bedtime as needed. folic acid (FOLVITE) 1 mg Take 1 mg by mouth 0 01/13/2020 tablet daily. omega 2-den-apq-fish oil Take 5 Caps by 0 01/13/2020 (FISH OIL) 60-90-500 mg mouth daily. capsule ondansetron (ZOFRAN) 4 mg Take 4 mg by mouth 0 01/13/2020 tablet 2 times daily. For three days after chemo to prevent nausea prochlorperazine Take 10 mg by 0 12/28/201301/12 (COMPAZINE) 10 mg tablet mouth 3 times daily as needed for Nausea. raloxifene (EVISTA) 60 mg Take 60 mg by 0 018 01/13/2020 tablet mouth daily. ascorbic acid, vitamin C, Take 1 Tab by 0 01/13/2020 1,000 mg tablet mouth 2 times daily. LUMIGAN 0.01 % ophthalmic Place 1 Drop into 0 01/13/2020 drops both eyes. LORazepam (ATIVAN) 0.5 mg Take 0.5 mg by 0 01/13/2020 tablet mouth daily as needed. melatonin 5 mg tablet Take 5 mg by mouth 0 01/13/2020 at bedtime. added in this encounter Care Teams Automatic Silk Screen Printer Relationship Specialty Start Date End Date Herminio Hernandez ND PCP - General 08/19/16 [facility] [place] [address] Zaira Rodriguez MD Referring Provider Gynecology 07/29/[address] [place] [address] [address], [address] [place] [address] Charo Finn MD Medical Oncology 07/29/[address] [place] [address], [address] [place] [address] documented as of this encounter
--- OUTSIDE RECORDS SUMMARY | 2021-10-16 02:01 | XMS_ITS | Encounter Summary ---
:1965 Author Organization [facility] Address [address] [place] [address] Care Team Providers Name Role Phone Zaira Rodriguez MD Unavailable Charo Finn MD Unavailable Herminio Hernandez ND Primary Care Provider Encounter Details Date Type Department Care Team Description 04/24/2019 Results Only [facility] Charo Drake MD Adult Hematology & O ncology [address] [facility] [address] [facility] [address] [place] [address] [place] [address] (Wo rk) Social History Tobacco [...] Associated Comments Diagnosis COMPLETE BLOOD COUNT Routine 04/24/2019 10:41 Res ults for this WITH DIFFERENTIAL EST procedure are in (AUTO) the results section. FERRITIN Routine 04/24/2019 10:41 Results for this EST procedure are i n the results section. documented in this encounter Results FERRITIN (04/24/2019 10:41 EST) FERRITIN - [facility] 49 11.1 - 264.0 [facility] Comment: ng/mL [facility] The results of this assay can be falsely lowered due t o the consumption of Biotin. Specimen Narrative [facility] - 020 12:26 EST Does PT Have a Latex Allergy? YES Performing Organization Address City/State/ZIP Code Phon e Number [facility] [address] LAB (ABNORMAL) COMPLETE BLOOD COUNT WITH DIFFERENTIAL (AUTO) (04/24/2019 10:41 EST) Pathologist Sig nature Gran # 1.7 (L) 2.2 - 8.85 [facility] 10e3/uL CENTER LAB BASO # - [facility] 0.04 0.01 - 0.11 [facility] 10e/uL [facility]ENTER LAB BASO % - [facility] 1 0 - 2 % [facility] EOS # - [facility] 0.07 0.03 - 0.61 [facility] 10e3/ul CENTER LAB EOS % - [facility] 2 0 - 5 % [facility] GRAN % - [facility] 50.6 40 - 80 % [facility] HEMATOCRIT - [facility] 39.6 34.9 - 44.4 % [facility] HEMOGLOBIN - [facility] 12.8 11.6 - 15.2 [facility] g/dl [place] [facility] IG# - [facility] 0 0 - 0.7 10e3/uL [facility] IG% - [facility] 0 0 - 0.9 % [facility] LYMPH # - [facility] 1.2 1.09 - 3.3 [facility] 10e3/ul CENTER LAB LYMPH% - [facility] 35.6 20 - 40 % [facility] MEAN CORPUSCULAR HGB - 29.8 26.7 - 33.3 pg [facility] CENTER LAB MEAN CORPUSCULAR HGB 32.3 32.1 - 35.9 [facility] CONC - [facility] g/dL CENTER LAB MEAN CELL VOLUME - 92.1 81 - 98 fl [facility] CENTER LAB MONO # - [facility] 0.4 0.1 - 0.8 [facility] 10e3/uL [place] [facility] MONO% - [facility] 10.5 0 - 12 % [facility] PLATELET COUNT 150 141 - 377 [facility] 10e3/ul [place] [facility] RED BLOOD COUNT - [facility] 4.30 3.86 - 5.04 [facility] ME D 10e3/ul [place] [facility] RED CELL DISTRI WIDTH 13.3 <14.7 % [facility] LAB WHITE BLOOD COUNT - 3.3 (L) 4.0 - 12.4 [facility] 10e3/ul [place] [facility] Specimen Narrative [facility] - 020 11:22 EST Does PT Have a Latex Allergy? YES Performing Organization Address City/State/ZIP Code Phon e Number [facility] [address] [place] [address] [facility] documented in this encounter Visit Diagnoses Not on filedocumented in this encounter Care Teams Molecular Pathologist Relationship Specialty Start Date End Date Herminio Hernandez ND PCP - General 08/19/16 [address] [place] [address] Zaira Rodriguez MD Referring Provider Gynecology 07/29/[address] [place] [address], [address] [place] [phone] Charo Finn MD Medical Oncology 07/29/[address] [place] [address], [facility] [address] [place] [address] documented as of this encounter
--- OUTSIDE RECORDS SUMMARY | 2021-10-16 02:01 | XMS_ITS | Encounter Summary ---
:1965 Author Organization [facility] Address [address] [place] [address] Care Team Providers Name Role Phone Zaira Rodriguez MD Unavailable Charo Finn MD Unavailable Herminio Hernandez ND Primary Care Provider Encounter Details Date Type Department Care Team Description 12/23/2019 Results Only Imaging [facility] [place] O[place] [facility] Radiology Resul ts MD John [address] [place] [address] [place], [place] [phone] (Wo rk) Social History Tobacco Use Types [...] Associated Diagnosis Comme nts MA BREAST SCREENING 12/23/2019 16:03 Resu lts for this CLINT BILATERAL EDT procedure are in the results section. documented in this encounter Results MA BREAST SCREENING CLINT BILATERAL (12/23/2019 16:03 EDT) Specimen Narrative [facility] RADIOLOGY - 12/23/2019 16:03 EDT ? EXAM: MAMMOGRAM/MAMMO BILATERAL SCREEN W ??EX. D/ (1526) ? CLINICAL INFORMATION: ? 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 INDICATION: Z12.31 SCREENING BILA TERAL; C50.211 DUCTAL CA, OF RIGHT ? UIQ BREAST S/P TREATMENT SCREENIN G ? COMPARISON: ??Comparison has been made to [...] post-therapeutic changes in the r ight breast. The breast tissue is of ? heterogeneous density, which may obscure small masses. ? FINAL ASSESSMENT: ??BILATERAL YANETH AST - Category 1 - Negative. Routine ? mammographic follow-up is recomme nded. ? These results will be communicate d to your patient via a lay letter ? from Radiology. ??If any addition al imaging is needed we will contact ? your patient directly. ? REPORT SIGNED IN OTHER VENDOR SYSTEM 12/23/2019 ?Reported B y: Master Ding MD ? CC: ? Transcribed Date/Time: 12/23/2019 (1603) ? Biology Instructor: ? Printed Date/Time: 12/23/2019 (20 48) ? PAGE 1 ? Addie d Report ? Procedure Note Master Ding MD - 12/23/2019 EXAM: MAMMOGRAM/MAMMO BILATERAL SCREEN W EX. 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 The breast tissue is of heterogeneous density, which may obscur e small masses. FINAL ASSESSMENT: BILATERAL BREAST - Ca tegory 1 - Negative. Routine mammographic follow-up is recommended. These results will be communicated to y our patient via a lay letter from Radiology. If any additional imagi ng is needed we will contact your patient directly. REPORT SIGNED IN OTHER VENDOR SYSTEM 12/23/2019 Reported By: Master Ding MD CC: Transcribed Date/Time: 12/23/2019 (0490 ) Biology Instructor: Printed Date/Time: 12/23/2019 (1012) PAGE 1 Signed Report Performing Organization Address City/State/ZIP Code Phon e Number [facility] RADIOLOGY documented in this encounter Visit Diagnoses Not on filedocumented in this encounter Care Teams Rolled Ham Lacer Relationship Specialty Start Date End Date Herminio Hernandez ND PCP - General 08/19/16 [facility] [place], [place] [address] Zaira Rodriguez MD Referring Provider Gynecology 07/29/[address] [place] [address] [address], [address] [place] [address] Charo Finn MD Medical Oncology 07/29/[address] [place] [address], [address] [place] [address] documented as of this encounter
--- OUTSIDE RECORDS SUMMARY | 2021-10-16 02:01 | XMS_ITS | Encounter Summary ---
:1965 Author Organization Health system Address [address] [place] [address] Care Team Providers Name Role Phone Zaira Rodriguez MD Unavailable Charo Finn MD Unavailable Herminio Hernandez ND Primary Care Provider Encounter Details Date Type Department Care Team Description 02/26/2019 Lab Requisition [facility] Unknown, Provider, Pathology & Laboratory [facility] [address] [facility] [place] [address] Social History Tobacco Use Types Packs/Day Years [...] Date/Time Associated Diagnosis Comme nts INSULIN Routine 02/26/2019 10:31 Results for this EST procedure are i n the results section. ANTI NUCLEAR AB Routine 02/26/2019 10:31 Results for this (ARCADIO), IFA EST procedure are i n the results section. documented in this encounter Results (ABNORMAL) ANTI NUCLEAR AB (ARCADIO), IFA (02/26/2019 10:31 EST) ARCADIO Interpretation Positive (A) Negative [facility] MEDICAL Comment: CENTER LABORATORY For titers greater than or e qual to 1:160 (except the centromere and nucleolar patterns) it is recommended that specific follow-up autoantibody testing ??(such as for dsDNA and Extractable Nuclear Antig SERVICES ens) be performed on all diffuse and/or speckled patterns NOTE: For add-on testing dsD NA is cristy for 7 days refrigerated while Extractable Nuclear Antigens are only stable for 48 hours refrigerated. ARCADIO Titer and Pattern 1:[address] LABORATORY SERVICES Specimen Blood - Venous blood (substance) Narrative [facility]OR[facility] SERVICES - 03/01/2019 14:40 EST Results were obtained with the INOVA NOV A Lite HEp-2 ARCADIO Kit by indirect immunofluorescence. Performing Organization Address City/State/ZIP Code Phon e Number [facility] [address] [place] [phone] SERVICES INSULIN (02/26/2019 10:31 EST) Pathologist Sig nature Insulin 9.3 <29.0 uIU/mL [facility] Comment: LABORATORY SERVICES Displayed Reference Range applies to fasting specimens only. Specimen Blood - Venous blood (substance) Performing Organization Address City/[facility]/ZIP Code Phon e Number [facility] [address] [place] [address] SERVICES documented in this encounter Visit Diagnoses Not on filedocumented in this encounter Care Teams Earth Burner Relationship Specialty Start Date End Date Herminio Hernandez ND PCP - General 08/19/[address] [place] [address] Zaira Rodriguez MD Referring Provider Gynecology 07/29/[address] [place] [address]-A, [address] [place] [address] Charo Finn MD Medical Oncology 07/29/[address] [place] [address], [facility] [address] [place] [address] documented as of this encounter
--- OUTSIDE RECORDS SUMMARY | 2021-10-16 02:01 | XMS_ITS | Encounter Summary ---
:[address] [facility] Address [address] [place] [address] Care Team Providers Name Role Phone Zaira Rodriguez MD Unavailable Charo Finn MD Unavailable Herminio Hernandez ND Primary Care Provider Encounter Details Date Type Department Care Team Description 10/23/2019 Results Only [facility] - [facility] Charo Drake MD Adult Hematology & O ncology 130 [facility] [address] [facility] [address] [place], [place] [phone] [place] [phone] (Wo rk) Social History Tobacco Use [...] Associated Comments Diagnosis COMPLETE BLOOD COUNT Routine 10/23/2019 11:00 Res ults for this WITH DIFFERENTIAL EDT procedure are in (AUTO) the results section. IBC Routine 10/23/2019 11:00 Results for this EDT procedure are i n the results section. IRON Routine 10/23/2019 11:00 Results for this EDT procedure are i n the results section. FERRITIN Routine 10/23/2019 11:00 Results for this EDT procedure are i n the results section. documented in this encounter Results FERRITIN (10/23/2019 11:00 EDT) FERRITIN - [facility] 43 11.1 - 264.0 [facility] Comment: ng/mL [facility] The results of this assay can be falsely lowered due t o the consumption of Biotin. Specimen Narrative [facility] - 020 12:59 EDT Does PT Have a Latex Allergy? YES Performing Organization Address City/[facility]/ZIP Code Phon e Number [facility] [address] [place] [address] IBC (10/23/2019 11:00 EDT) Pathologist Sig nature IRON BINDING CAPACITY 332 261 - 462 ug/dL [facility] LAB Specimen Narrative [facility] - 020 12:37 EDT Does PT Have a Latex Allergy? YES Performing Organization Address City/[facility] Code Phon e Number [facility] [address] [place] [address] IRON (10/23/2019 11:00 EDT) Pathologist Sig nature SERUM IRON - [facility] 107 37 - 170 ug/dL [facility] Specimen Narrative [facility] - 07/25/2 020 12:37 EDT Does PT Have a Latex Allergy? YES Performing Organization Address City/State/ZIP Code Phon e Number [facility] [address] [place] [address] (ABNORMAL) COMPLETE BLOOD COUNT WITH DIFFERENTIAL (AUTO) (10/23/2019 11:00 EDT) Pathologist Sig nature Gran # 2.0 (L) 2.2 - 8.85 [facility] 10e3/uL CENTER LAB BASO # - [facility] 0.04 0.01 - 0.11 [facility] 10e/uL [place] [facility] BASO % - [facility] 1 0 - 2 % [facility] EOS # - [facility] 0.05 0.03 - 0.61 [facility] 10e3/ul [place] [facility] EOS % - [facility] 1 0 - 5 % [facility] GRAN % - [facility] 53.1 40 - 80 % [facility] HEMATOCRIT - [facility] 41.7 34.9 - 44.4 % [facility] HEMOGLOBIN - [facility] 13.7 11.6 - 15.2 [facility] g/dl [facility] LAB IG# - [facility] 0.01 0 - 0.7 10e3/uL [facility] IG% - [facility] 0.3 0 - 0.9 % [facility] LYMPH # - [facility] 1.2 1.09 - 3.3 [facility] 10e3/ul [facility] LAB LYMPH% - [facility] 32.1 20 - 40 % [facility] MEAN CORPUSCULAR HGB 29.7 26.7 - 33.3 pg [facility] ME D - [facility] CENTER LAB MEAN CORPUSCULAR HGB 32.9 32.1 - 35.9 [facility] CONC - [facility] g/dL CENTER LAB MEAN CELL VOLUME - 90.3 81 - 98 fl [facility] LAB MONO # - [facility] 0.5 0.1 - 0.8 [facility] 10e3/uL [place] [facility] MONO% - [facility] 12.1 (H) 0 - 12 % [facility] PLATELET COUNT 193 141 - 377 [facility] 10e3/ul CENTER LAB RED BLOOD COUNT - 4.62 3.86 - 5.04 [facility] 10e3/ul CENTER LAB RED CELL DISTRI WIDTH 12.8 <14.7 % [facility] - [facility] CENTER LAB WHITE BLOOD COUNT - 3.7 (L) 4.0 - 12.4 [facility] 10e3/ul CENTER LAB Specimen Narrative [facility] - 020 11:59 EDT Does PT Have a Latex Allergy? YES Performing Organization Address City/State/ZIP Code Phon e Number [facility] [address] [place] [address] documented in this encounter Visit Diagnoses Not on filedocumented in this encounter Care Teams Vending Machine Collector Relationship Specialty Start Date End Date Herminio Hernandez ND PCP - General 08/19/16 [address] [place], [place] [address] Zaira Rodriguez MD Referring Provider Gynecology 07/29/[address] [place] [address] MOB-A, [address] [place] [phone] Charo Finn MD Medical Oncology 07/29/[address] [place] [address], [facility] [address] [place] [phone] documented as of this encounter
--- OUTSIDE RECORDS SUMMARY | 2021-10-16 02:02 | XMS_ITS | Encounter Summary ---
:1965 Author Organization Address [address] [place] [address] Care Team Providers Name Role Phone Zaira Rodriguez MD Unavailable Charo Finn MD Unavailable Herminio Hernandez ND Primary Care Provider Encounter Details Date Type Department Care Team Description 10/27/2017 Historical Results [facility] - Berezy Orellana Only [facility] Resul ts MD John [address] [place], [place] [address] [place] [address] [phone] Social History Tobacco Use Types Packs/Day Years [...] Associated Diagnosis Comme nts MA BREAST SCREENING 10/27/2017 10:02 Resu lts for this CLINT BILATERAL EDT procedure are in the results section. documented in this encounter Results MA BREAST SCREENING CLINT BILATERAL (10/27/2017 10:02 EDT) Specimen Narrative [facility] RADIOLOGY - 10/27/2017 10:02 EDT ? EXAM: MAMMOGRAM/MAMMO BILATERAL SCREEN W ??EX. D/ (1529) ? CLINICAL INFORMATION: ? Z12.31 SCREENING ? H/O (R) BREAST CA ? MAMMO BILATERAL SCREEN W CLINT ? SIGNS AND SYMPTOMS/COMMENTS: ??Z1 2.31 SCREENING, H/O (R) BREAST CA. In ? addition, the patient reports a n ew palpable lump in the right ? axillary region on her intake for m. ? COMPARISONS: MAMMOGRAPHY - 2016, 04/26/2016, 10/20/2015, ? 05/25/2015, 10/17/2014, 4, 06/19/2010, 06/14/2009. ? FINDINGS: ? RIGHT BREAST MAMMOGRAPHY: 2-D and 3-D CC and MLO views, and a spot ? compression 3-D tangential view, were obtained. CAD technology was ? utilized. ? The breast tissue is of scattered density. Stable post-therapeutic ? changes are present in the upper breast. A triangular marker has been ? placed over the palpable abnormal ity, overlying the right axillary ? region. No underlying mammographi c abnormality is visible. No ? suspicious mass, calcifications, or architectural distortion is ? identified. ? LEFT BREAST MAMMOGRAPHY: Full fie ld digital whole breast 2-D (C-view) ? and 3-D CC and MLO views of the l eft breast were obtained. CAD ? technology was utilized. ? The breast tissue is of scattered density. No suspicious mass, ? calcifications, or architectural distortion is identified. ? RIGHT BREAST IMPRESSION: BI-RADS Category 0: Additional imaging ? required. ? Unremarkable screening mammogram, however the patient reports a new ? palpable lump in the right axilla ry region. Additional imaging ? required. ? LEFT BREAST IMPRESSION: BI-RADS C ategory 1: Normal. ? Normal. ? RECOMMENDATION: Additional imagin g of the right breast required. ? FINAL ASSESSMENT: ??RIGHT BREAST - BI-RADS Category 0 - Incomplete; ? additional imaging evaluation nee ded. ? FINAL ASSESSMENT: ??LEFT BREAST - BI-RADS Category 1 - Negative. ? These results will be communicate d to your patient via a lay letter ? PAGE 1 ? Addie d Report ? (CONTINUED) ? from Radiology. ??If any addition al imaging is needed we will contact ? your patient directly. ? REPORT SIGNED IN OTHER VENDOR SYSTEM 10/27/2017 ?Reported B y: Jarred Woodruff MD ? CC: Jewel Enriquez MD; Gordon Finn MD; Herminio Hernandez ND ? Transcribed Date/Time: 10/27/2017 (1002) ? Shirt Hemmer: JEFFRY ? Printed Date/Time: 09/18/2018 (18 05) ? PAGE 2 ? Addie d Report ? Procedure Note Jarred Woodruff MD - 02/04/2019 EXAM: MAMMOGRAM/MAMMO BILATERAL SCREEN W EX. D/ (1529) CLINICAL INFORMATION: Z12.31 SCREENING H/O (R) BREAST CA MAMMO BILATERAL SCREEN W CLINT SIGNS AND SYMPTOMS/COMMENTS: Z12.31 SCR EENING, H/O (R) BREAST CA. In addition, the patient reports a new pal pable lump in the right axillary region on her intake form. COMPARISONS: MAMMOGRAPHY - 10/22/2016, 04/26/2016, 10/20/2015, 05/25/2015, 10/17/2014, 10/15/2013, , 06/14/2009. FINDINGS: RIGHT BREAST MAMMOGRAPHY: 2-D and 3-D C C and MLO views, and a spot compression 3-D tangential view, were o btained. CAD technology was utilized. The breast tissue is of scattered densi ty. Stable post-therapeutic changes are present in the upper breast . A triangular marker has been placed over the palpable abnormality, o verlying the right axillary region. No underlying mammographic abno rmality is visible. No suspicious mass, calcifications, or arc hitectural distortion is identified. LEFT BREAST MAMMOGRAPHY: Full field dig ital whole breast 2-D (C-view) and 3-D CC and MLO views of the left br east were obtained. CAD technology was utilized. The breast tissue is of scattered densi ty. No suspicious mass, calcifications, or architectural distor tion is identified. RIGHT BREAST IMPRESSION: BI-RADS Catego ry 0: Additional imaging required. Unremarkable screening mammogram, howev er the patient reports a new palpable lump in the right axillary reg ion. Additional imaging required. LEFT BREAST IMPRESSION: BI-RADS Categor y 1: Normal. Normal. RECOMMENDATION: Additional imaging of t he right breast required. FINAL ASSESSMENT: RIGHT BREAST - BI-RAD S Category 0 - Incomplete; additional imaging evaluation needed. FINAL ASSESSMENT: LEFT BREAST - BI-RADS Category 1 - Negative. These results will be communicated to y our patient via a lay letter PAGE 1 Signed Report (CONTINUED) from Radiology. If any additional imagi ng is needed we will contact your patient directly. REPORT SIGNED IN OTHER VENDOR SYSTEM 10/27/2017 Reported By: Jarred Woodruff MD CC: Jewel Enriquez MD; Charo Finn MD; Herminio Hernandez ND Transcribed Date/Time: 10/27/2017 (1002 ) Shirt Hemmer: Printed Date/Time: 09/18/2018 (1934) PAGE 2 Signed Report Performing Organization Address City/State/ZIP Code Phon e Number [facility] RADIOLOGY documented in this encounter Visit Diagnoses Not on filedocumented in this encounter Care Teams Chief Of Harbor Patrol Relationship Specialty Start Date End Date Herminio Hernandez ND PCP - General 08/19/16 [facility] [place], [place] [address] Zaira Rodriguez MD Referring Provider Gynecology 07/29/[address] [place] [address] [place]OB[place]A, [address] [place] [address] Charo Finn MD Medical Oncology 07/29/[address] [place] [address], [facility] [address] [place] [phone] documented as of this encounter
--- OUTSIDE RECORDS SUMMARY | 2021-10-16 02:02 | XMS_ITS | Encounter Summary ---
:1965 Author Organization [facility] Address [address] [place] [address] Care Team Providers Name Role Phone Zaira Rodriguez MD Unavailable Charo Finn MD Unavailable Herminio Hernandez ND Primary Care Provider Encounter Details Date Type Department Care Team Description 10/07/2018 Historical Results [facility] - [place] Finn ar, Only [facility] [place] [address] [place] [address] [facility] [phone] [address] [place] [address] Social History Tobacco Use Types Packs/Day [...] Associated Comments Diagnosis COMPLETE BLOOD COUNT Routine 10/07/2018 7:59 Resu lts for this WITH DIFFERENTIAL EDT procedure are in (AUTO) the results section. FERRITIN Routine 10/07/2018 7:59 Results for this EDT procedure are i n the results section. documented in this encounter Results FERRITIN (10/07/2018 7:59 EDT) FERRITIN - [facility] 46 11.1 - 264.0 [facility] Comment: ng/mL [facility] LAB The results of this assay can be falsely lowered due t o the consumption of Biotin. Specimen Narrative [facility] - 019 9:30 EDT Does PT Have a Latex Allergy? YES Performing Organization Address City/State/ZIP Code Phon e Number [facility] [address] LAB (ABNORMAL) COMPLETE BLOOD COUNT WITH DIFFERENTIAL (AUTO) (10/07/2018 7:59 EDT) Pathologist Sig nature ABSOLUTE NEUTROPHIL 2.0 (L) 2.2 - 8.85 [facility] COUN - [facility] 10e3/uL [facility] LAB BASO # - [facility] 0.04 0.01 - 0.11 [facility] MED 10e/uL [facility]ENTER LAB BASO % - [facility] 1 0 - 2 % [facility] EOS # - [facility] 0.07 0.03 - 0.61 [facility] MED 10e3/ul [facility] LAB EOS % - [facility] 2 0 - 5 % [facility] GRAN % - [facility] 52.7 40 - 80 % [facility] HEMATOCRIT - [facility] 40.6 34.9 - 44.4 % [facility] HEMOGLOBIN - [facility] 13.4 11.6 - 15.2 [facility] g/dl [facility]ENTER LAB IG# - [facility] 0.01 0 - 0.7 10e3/uL [facility] IG% - [facility] 0.3 0 - 0.9 % [facility] LYMPH # - CV 1.3 1.09 - 3.3 [facility] 10e3/ul CENTER LAB LYMPH% - [facility] 35.5 20 - 40 % [facility] MEAN CORPUSCULAR HGB - 30.6 26.7 - 33.3 pg [facility] MEAN CORPUSCULAR HGB 33.0 32.1 - 35.9 [facility] CONC - [facility] g/dL CENTER LAB MEAN CELL VOLUME - 92.7 81 - 98 fl [facility] MONO # - [facility] 0.3 0.1 - 0.8 [facility] 10e3/uL [place] [facility] MONO% - [facility] 8.5 0 - 12 % [facility] LAB PLATELET COUNT 167 141 - 377 [facility] 10e3/ul [place] [facility] RED BLOOD COUNT - [facility] 4.38 3.86 - 5.04 [facility] ME D 10e3/ul [place] [facility] RED CELL DISTRI WIDTH 13.4 <14.7 % [facility] LAB WHITE BLOOD COUNT - 3.8 (L) 4.0 - 12.4 [facility] 10e3/ul [place] [facility] Specimen Narrative [facility] - 019 8:33 EDT Does PT Have a Latex Allergy? YES Performing Organization Address City/State/ZIP Code Phon e Number [facility] [address] [place] [address] [facility] documented in this encounter Visit Diagnoses Not on filedocumented in this encounter Care Teams Group Rooms Coordinator Relationship Specialty Start Date End Date Herminio Hernanedz ND PCP - General 08/19/16 [address] [place], [place] [address] Zaira Rodriguez MD Referring Provider Gynecology 07/29/16 [address] [facility] [place]OB-A, [address] [place] [phone] Charo Finn MD Medical Oncology 07/29/16 130 [facility], [facility] [address] [place] [phone] documented as of this encounter
--- OUTSIDE RECORDS SUMMARY | 2021-10-16 02:02 | XMS_ITS | Encounter Summary ---
:1965 Author Organization [facility] Address [address] [place] [address] Care Team Providers Name Role Phone Zaira Rodriguez MD Unavailable Charo Finn MD Unavailable Herminio Hernandez ND Primary Care Provider Encounter Details Date Type Department Care Team Description 01/09/2018 Historical Results [facility] - Lico Finn ar, Only [facility] [place] [address] [place] [address] [facility] [phone] [address] [place] [address] Social History Tobacco Use Types [...] Associated Comments Diagnosis COMPLETE BLOOD COUNT Routine 01/09/2018 8:56 Resu lts for this WITH DIFFERENTIAL EDT procedure are in (AUTO) the results section. FERRITIN Routine 01/09/2018 8:56 Results for this EDT procedure are i n the results section. documented in this encounter Results FERRITIN (01/09/2018 8:56 EDT) FERRITIN - [facility] 47 11.1 - 264.0 [facility] Comment: ng/mL [facility] The results of this assay can be falsely lowered due t o the consumption of Biotin. Specimen Narrative [facility] - 018 11:07 EDT Does PT Have a Latex Allergy? YES Performing Organization Address City/State/ZIP Code Phon e Number [facility] [address] LAB (ABNORMAL) COMPLETE BLOOD COUNT WITH DIFFERENTIAL (AUTO) (01/09/2018 8:56 EDT) Pathologist Sig nature ABSOLUTE NEUTROPHIL 5.47 1.7 - 7.0 [facility] COUN - [facility] 10e3/ul CENTER LAB BASO # - [facility] 0.03 0.0 - 0.3 [facility] MED 10e3/uL [facility] LAB BASO % - [facility] 0 0 - 2 % [facility] EOS # - [facility] 0.07 0.05 - 0.5 [facility] 10e3/uL [facility] EOS % - [facility] 1 0 - 5 % [facility] GRAN % - [facility] 78 40 - 80 % [facility] HEMATOCRIT - [facility] 43.0 34.0 - 47.0 % [facility] HEMOGLOBIN - [facility] 13.8 11.2 - 15.7 [facility] g/dl [place] [facility] IG# - [facility] 0.01 0 - 0.07 [facility] 10e3/uL [place] [facility] IG% - [facility] 0.1 0 - 0.9 % [facility] LYMPH # - [facility] 0.95 0.9 - 2.9 [facility] 10e3/uL CENTER LAB LYMPH% - [facility] 14 (L) 20 - 40 % [facility] MEAN CORPUSCULAR HGB - 30.1 26 - 34 pg [facility] D [facility] CENTER LAB MEAN CORPUSCULAR HGB 32.1 31 - 36 g/dL [facility] CONC - [facility] CENTER LAB MEAN CELL VOLUME - 93.7 77 - 100 fl [facility] MONO # - [facility] 0.53 0.3 - 0.9 [facility] 10e3/uL [place] [facility] MONO% - [facility] 8 0 - 12 % [facility] PLATELET COUNT 139 (L) 150 - 400 [facility] 10e3/ul [place] [facility] RED BLOOD COUNT - [facility] 4.59 3.8 - 5.2 [facility] 10e6/ul [place] [facility] RED CELL DISTRI WIDTH 13.6 11.8 - 15.6 % [facility] D - [facility] CENTER LAB WHITE BLOOD COUNT - 7.1 3.5 - 10.5 [facility] 10e3/ul [place] [facility] Specimen Narrative [facility] - 018 9:42 EDT Does PT Have a Latex Allergy? YES Performing Organization Address City/State/ZIP Code Phon e Number [facility] [address] [place] [address] [facility] documented in this encounter Visit Diagnoses Not on filedocumented in this encounter Care Teams Information Assistant Relationship Specialty Start Date End Date Herminio Hernandez ND PCP - General 08/19/16 [address] [place] [address] Zaira Rodriguez MD Referring Provider Gynecology 07/29/[address] [place] [address]-A, [address] [place] [phone] Charo Finn MD Medical Oncology 07/29/[address] [place] [address], [place] [address] [place] [address] documented as of this encounter
--- OUTSIDE RECORDS SUMMARY | 2021-10-16 02:02 | XMS_ITS | Encounter Summary ---
:1965 Author Organization [facility] Address [address] [place] [address] Care Team Providers Name Role Phone Zaira Rodriguez MD Unavailable Charo Finn MD Unavailable Herminio Hernandez ND Primary Care Provider Encounter Details Date Type Department Care Team Description 04/01/[address] [facility] - [place] Finn ar, Only [facility] Lab - [place] [address] [place] [address] [facility] [phone] [address] [place] [address] Social History Tobacco Use Types [...] Associated Comments Diagnosis COMPLETE BLOOD COUNT Routine 04/01/2018 9:12 Resu lts for this WITH DIFFERENTIAL EST procedure are in (AUTO) the results section. FERRITIN Routine 04/01/2018 9:12 Results for this EST procedure are i n the results section. documented in this encounter Results FERRITIN (04/01/2018 9:12 EST) FERRITIN - [facility] 74 11.1 - 264.0 [facility] Comment: ng/mL [facility] The results of this assay can be falsely lowered due t o the consumption of Biotin. Specimen Narrative [facility] - 019 11:49 EST Does PT Have a Latex Allergy? YES Performing Organization Address City/State/ZIP Code Phon e Number [facility] [address] LAB (ABNORMAL) COMPLETE BLOOD COUNT WITH DIFFERENTIAL (AUTO) (04/01/2018 9:12 EST) Pathologist Sig nature ABSOLUTE NEUTROPHIL 1.56 (L) 1.7 - 7.0 [facility] MED COUN - [facility] 10e3/ul CENTER LAB BASO # - [facility] 0.03 0.0 - 0.3 [facility] MED 10e3/uL CENTER LAB BASO % - [facility] 1 0 - 2 % [facility] EOS # - [facility] 0.06 0.05 - 0.5 [facility] MED 10e3/uL CENTER LAB EOS % - [facility] 2 0 - 5 % [facility] GRAN % - [facility] 50 40 - 80 % [facility] HEMATOCRIT - [facility] 40.3 34.0 - 47.0 % [facility] HEMOGLOBIN - [facility] 13.0 11.2 - 15.7 [facility] g/dl [place] [facility] IG# - [facility] 0 0 - 0.07 [facility] 10e3/[facility] LAB IG% - [facility] 0 0 - 0.9 % [facility] LYMPH # - [facility] 1.18 0.9 - 2.9 [facility] 10e3/uL [place] [facility] LYMPH% - [facility] 38 20 - 40 % [facility] MEAN CORPUSCULAR HGB 29.7 26 - 34 pg [facility] MED [facility] LAB MEAN CORPUSCULAR HGB 32.3 31 - 36 g/dL [facility] CONC [facility] MEAN CELL VOLUME - 92.0 77 - 100 fl [facility] LAB MONO # - [facility] 0.28 (L) 0.3 - 0.9 [facility] 10e3/uL [place] [facility] MONO% - [facility] 9 0 - 12 % [facility] PLATELET COUNT 140 (L) 150 - 400 [facility] 10e3/ul [place] [facility] RED BLOOD COUNT - 4.38 3.8 - 5.2 [facility] 10e6/ul [place] [facility] RED CELL DISTRI WIDTH 13.0 11.8 - 15.6 % [facility] D - [facility] CENTER LAB WHITE BLOOD COUNT - 3.1 (L) 3.5 - 10.5 [facility] 10e3/[facility] LAB Specimen Narrative [facility] - 019 10:44 EST Does PT Have a Latex Allergy? YES Performing Organization Address City/State/ZIP Code Phon e Number [facility] [address] [place] [address] [facility] documented in this encounter Visit Diagnoses Not on filedocumented in this encounter Care Teams Director Of District Office Relationship Specialty Start Date End Date Herminio Hernandez ND PCP - General 08/19/16 [address] [place] [address] Zaira Rodriguez MD Referring Provider Gynecology 07/29/16 130 [facility] [address], [address] [place] [phone] Charo Finn MD Medical Oncology 07/29/[address] [place] [address], [address] [place] [phone] documented as of this encounter
--- OUTSIDE RECORDS SUMMARY | 2021-10-16 02:02 | XMS_ITS | Encounter Summary ---
:1965 Author Organization [facility] Address [address] [place] [address] Care Team Providers Name Role Phone Zaira Rodriguez MD Unavailable Charo Finn MD Unavailable Herminio Hernandez ND Primary Care Provider Encounter Details Date Type Department Care Team Description 11/12/[address] [facility] - Breezy Orellana Only [facility] Radiology Resul ts MD John [address] [place], [place] [address] [place] [address] [phone] Social History Tobacco Use Types Packs/Day [...] Associated Diagnosis Comme nts MA BREAST SCREENING 11/12/2018 8:56 EDT R esults for this CLINT BILATERAL procedure are in the results section. documented in this encounter Results MA BREAST SCREENING CLINT BILATERAL (11/12/2018 8:56 EDT) Specimen Narrative [facility] RAD[facility] - 11/12/2018 8:56 EDT ? EXAM: MAMMOGRAM/MAMMO BILATERAL SCREEN W ??EX. D/ (1506) ? CLINICAL INFORMATION: ? 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 INDICATION: Z12.31 SCREENING, KELSEY ATERAL; C50.211 DUCTAL , CANCER OF ? RIGHT UIQ BREAST SCREENING Oct 24 ? COMPARISON: Comparison is made to prior images. ? TECHNIQUE: ??Full field digital w hole breast 2D (C-view) and 3D CC and ? MLO views of both breasts were ob tained. CAD technology was utilized. ? RIGHT BREAST: There are scattered areas of fibroglandular density. No ? dominant mass or suspicious micro calcification is seen. ? LEFT BREAST: There are scattered areas of fibroglandular density. ? There is a focal density asymmetr y within the lateral aspect of the ? left breast on the CC projection, for which additional imaging is ? recommended. No suspicious microc alcification. ? FINAL ASSESSMENT: ??LEFT BREAST - BI-RADS Category 0 - Incomplete; ? additional imaging evaluation nee ded. ? FINAL ASSESSMENT: ??RIGHT BREAST - BI-RADS Category 1 - Negative. ? These results will be communicate d to your patient via a lay letter ? from Radiology. ??If any addition al imaging is needed we will contact ? your patient directly. ? REPORT SIGNED IN OTHER VENDOR SYSTEM 11/12/2018 ?Reported B y: Bolivar Escobar MD ? CC: ? Transcribed Date/Time: 11/12/2018 (0856) ? Taxicab Dispatcher: ? Printed Date/Time: 12/17/2018 (06 16) ? PAGE 1 ? Addie d Report ? Procedure Note Bolivar Escobar MD - 02/02/2019 EXAM: MAMMOGRAM/MAMMO BILATERAL SCREEN W EX. D/ (1506) CLINICAL INFORMATION: Z12.31 SCREENING, BILATERAL; C50.211 DU CTAL CANCER OF RIGHT UIQ BREAST INDICATION: Z12.31 SCREENING, BILATERAL ; C50.211 DUCTAL , CANCER OF RIGHT UIQ BREAST SCREENING Gilberto , 18 COMPARISON: Comparison is made to prior images. TECHNIQUE: Full field digital whole ho ast 2D (C-view) and 3D CC and MLO views of both breasts were obtained . CAD technology was utilized. RIGHT BREAST: There are scattered areas of fibroglandular density. No dominant mass or suspicious microcalcif ication is seen. LEFT BREAST: There are scattered areas of fibroglandular density. There is a focal density asymmetry with in the lateral aspect of the left breast on the CC projection, for w hich additional imaging is recommended. No suspicious microcalcifi cation. FINAL ASSESSMENT: LEFT BREAST - BI-RADS Category 0 - Incomplete; additional imaging evaluation needed. FINAL ASSESSMENT: RIGHT BREAST - BI-RAD S Category 1 - Negative. These results will be communicated to y our patient via a lay letter from Radiology. If any additional imagi ng is needed we will contact your patient directly. REPORT SIGNED IN OTHER VENDOR SYSTEM 11/12/2018 Reported By: Bolivar Escobar MD CC: Transcribed Date/Time: 11/12/2018 (0856 ) Taxicab Dispatcher: Printed Date/Time: 12/17/2018 (0319) PAGE 1 Signed Report Performing Organization Address City/State/ZIP Code Phon e Number [facility] RADIOLOG[facility] documented in this encounter Visit Diagnoses Not on filedocumented in this encounter Care Teams Retail Pos Specialist Relationship Specialty Start Date End Date Herminio Hernandez ND PCP - General 08/19/[address] [place] [id number] Zaira Rodriguez MD Referring Provider Gynecology 07/29/[address] [place] [address] [address], [address] [place] [address] Charo Finn MD Medical Oncology 07/29/[address] [place] [address], [address] [place] [address] documented as of this encounter
--- OUTSIDE RECORDS SUMMARY | 2021-10-16 02:02 | XMS_ITS | Encounter Summary ---
:1965 Author Organization [facility] Address [address] [place] [address] Care Team Providers Name Role Phone Zaira Rodriguez MD Unavailable Charo Finn MD Unavailable Herminio Hernandez ND Primary Care Provider Encounter Details Date Type Department Care Team Description 01/07/2017 Results Only [facility]- [facility] Herminio Hernandez ND [phone] [address] [place] [address] (Wo rk) Social History Tobacco Use Types [...] on filedocumented in this encounter Care Teams Data Warehouse Specialist Relationship Specialty Start Date End Date Herminio Hernandez ND PCP - General 08/19/[address] [place] [address] Zaira Rodriguez MD Referring Provider Gynecology 07/29/[address] [place] [address]-A, [address] [place] [phone] Charo Finn MD Medical Oncology 07/29/[address] [place] [address], [address] [place] [phone] documented as of this encounter
--- OUTSIDE RECORDS SUMMARY | 2021-10-16 02:02 | XMS_ITS | Encounter Summary ---
:1965 Author Organization [facility] Address [address] [place] [address] Care Team Providers Name Role Phone Sasha Arvizu MD Primary Care Provider Unavailable Zaira Rodriguez MD Unavailable Charo Finn MD Unavailable Encounter Details Date Type Department Care Team Description 07/29/2016 Results Only [facility] Jaun Clifford MD Imaging Gynecologic Oncology - 111 [facility], [address], [address] [place], [place] [address] [place] [address] [phone] (Wo rk) Social History Tobacco Use [...] Team Description 10/18/2021 Nurse Only Infusion Therapy Pending Results Name Type Priority Associated Diagnoses Date/Ti me OUTSIDE IMAGES - US BODY Imaging 03/2016 11:52 EDT OUTSIDE IMAGES - US BODY Imaging 03/2016 11:52 EDT documented as of this encounter Visit Diagnoses Not on filedocumented in this encounter Care Teams Patient Biller Relationship Specialty Start Date End Date Sasha Arvizu MD PCP - General 10/20/13 08/18/16 Zaira Rodriguez MD Referring Provider Gynecology 07/29/[address] [place] [address]-A, [address] [place] [phone] Charo Finn MD Medical Oncology 07/29/[address] [place] [address], [address] [place] [phone] documented as of this encounter
--- OUTSIDE RECORDS SUMMARY | 2021-10-16 02:02 | XMS_ITS | Encounter Summary ---
:1965 Author Organization [facility] Address [address] [place] [address] Care Team Providers Name Role Phone Zaira Rodriguez MD Unavailable Charo Finn MD Unavailable Herminio Hernandez ND Primary Care Provider Encounter Details Date Type Department Care Team Description 09/10/2018 Historical Results [facility] - [place] Finn ar, Only [facility] [place] [place] Lab - [place] [address] [place] [address] [facility] [phone] [address] [place] [address] Social History Tobacco Use Types [...] Associated Comments Diagnosis COMPLETE BLOOD COUNT Routine 09/10/2018 7:26 Resu lts for this WITH DIFFERENTIAL EDT procedure are in (AUTO) the results section. FERRITIN Routine 09/10/2018 7:26 Results for this EDT procedure are i n the results section. documented in this encounter Results FERRITIN (09/10/2018 7:26 EDT) FERRITIN - [facility] [place] [place] 41 11.1 - 264.0 [facility] Comment: ng/mL [facility] The results of this assay can be falsely lowered due t o the consumption of Biotin. Specimen Narrative [facility] - 019 9:45 EDT Does PT Have a Latex Allergy? YES Performing Organization Address City/State/ZIP Code Phon e Number [facility] [address] LAB (ABNORMAL) COMPLETE BLOOD COUNT WITH DIFFERENTIAL (AUTO) (09/10/2018 7:26 EDT) Pathologist Sig nature ABSOLUTE NEUTROPHIL 1.5 (L) 2.2 - 8.85 [facility] MED COUN - [facility] 10e3/uL CENTER LAB BASO # - [facility] 0.04 0.01 - 0.11 [facility] MED 10e/uL CENTER LAB BASO % - [facility] 1 0 - 2 % [facility] EOS # - [facility] 0.08 0.03 - 0.61 [facility] MED 10e3/ul CENTER LAB EOS % - [facility] 3 0 - 5 % [facility] GRAN % - [facility] 48.5 40 - 80 % [facility] HEMATOCRIT - [facility] [place] 39.8 34.9 - 44.4 % [facility] HEMOGLOBIN - [facility] [place] [place] 13.4 11.6 - 15.2 [facility] g/dl CENTER LAB IG# - [facility] 0 0 - 0.7 10e3/uL [facility] IG% - [facility] [place] 0 0 - 0.9 % [facility] LYMPH # - CV 1.1 1.09 - 3.3 [facility] 10e3/ul CENTER LAB LYMPH% - [facility] [place] [place] 36.8 20 - 40 % [facility] MEAN CORPUSCULAR HGB - 30.4 26.7 - 33.3 pg [facility] CENTER LAB MEAN CORPUSCULAR HGB 33.7 32.1 - 35.9 [facility] CONC - [facility] [place] [place] g/dL CENTER LAB MEAN CELL VOLUME - 90.2 81 - 98 fl [facility]ENTER LAB MONO # - [facility] [place] [place] 0.3 0.1 - 0.8 [facility] 10e3/uL [facility] MONO% - CV 10.7 0 - 12 % [facility] PLATELET COUNT 142 141 - 377 [facility] 10e3/ul [facility] RED BLOOD COUNT - [facility] [place] [place] 4.41 3.86 - 5.04 [facility] ME D 10e3/ul [facility] RED CELL DISTRI WIDTH 12.9 <14.7 % [facility] LAB WHITE BLOOD COUNT - 3.0 (L) 4.0 - 12.4 [facility] 10e3/ul [facility] Specimen Narrative [facility] - 019 9:01 EDT Does PT Have a Latex Allergy? YES Performing Organization Address City/State/ZIP Code Phon e Number [facility] [address] [place] [address] [facility] documented in this encounter Visit Diagnoses Not on filedocumented in this encounter Care Teams Straight Pin Making Machine Operator Relationship Specialty Start Date End Date Herminio Hernandez ND PCP - General 08/19/16 [address] [place], [place] [phone] Zaira Rodriguez MD Referring Provider Gynecology 07/29/16 130 [facility] [address], [address] [place] [phone] Charo Finn MD Medical Oncology 07/29/16 130 [facility], [facility] [address] [place] [address] documented as of this encounter
--- OUTSIDE RECORDS SUMMARY | 2021-10-16 02:02 | XMS_ITS | Encounter Summary ---
:1965 Author Organization [facility] Address [address] [place] [address] Care Team Providers Name Role Phone Zaira Rodriguez MD Unavailable Charo Finn MD Unavailable Herminio Hernandez ND Primary Care Provider Encounter Details Date Type Department Care Team Description 11/03/2017 Historical Results [facility] - Breezy Orellana Only [facility] Radiology Resul ts MD John [address] [place], [place] [address] [place] [address] [phone] Social History Tobacco Use Types Packs/Day [...] Procedure Name Priority Date/Time Associated Comments Diagnosis MA BREAST DIAGNOSTIC 11/03/2017 12:10 Res ults for this UNILATERAL CLINT EDT procedure ar e in the results section. US BREAST LIMITED 11/03/2017 12:10 Result s for this UNILATERAL EDT procedure are i n the results section. documented in this encounter Results US BREAST LIMITED UNILATERAL (11/03/2017 12:10 EDT) Specimen Narrative [facility] - 11/03/2017 12:10 EDT ? EXAM: ULTRASOUND/UNILAT BREAST CALL BACK ??EX. D/ ([id number]) ? CLINICAL INFORMATION: ? RIGHT BREAST, CYSTIC VS SOLID ? INDICATION: RIGHT BREAST, CYSTIC VS SOLID SUSP AREA FOUND ON INITIAL ? FILMS RT ? COMPARISON: ??- 10/24/2017, 10/22,04/26/2016, 10/20/2015, ? 05/25/2015, 10/17/2014. ? TECHNIQUE: DIAGNOSTIC RIGHT BREAS T MAMMOGRAM/ULTRASOUND ? RIGHT BREAST MAMMOGRAM: 3-D whole breast ML and exaggerated CC and ? compression spot MLO views. CAD t echnology was utilized. ? The breast tissue is of scattered density. Post-therapeutic changes ? within the upper outer quadrant o f the right breast are unchanged ? compared to prior studies. No new dominant mass or suspicious ? microcalcification is identified. ? RIGHT BREAST ULTRASOUND: ??Sonogr aphic examination of the right breast ? palpable lump at 10 o'clock was p erformed. ? Normal-appearing fibroglandular a nd fatty tissue is present at the ? site of palpable complaint. No so lid mass, cyst or abnormal posterior ? shadowing is identified. ? The decision to biopsy any clinic ally suspicious palpable abnormality ? should not be altered by the resu lts of this examination. ? The findings were communicated to the patient by the repairing calibrator ? at the time of the examination. ? FINAL ASSESSMENT: ??DIAGNOSTIC RI GHT BREAST MAMMOGRAM/ULTRASOUND - ? BI-RADS Category 1 - Negative. ? These results will be communicate d to your patient via a lay letter ? from Radiology. ??If any addition al imaging is needed we will contact ? your patient directly. ? REPORT SIGNED IN OTHER VENDOR SYSTEM 11/03/2017 ?Reported B y: Bolivar Escobar MD ? CC: ? Transcribed Date/Time: 11/03/2017 (1210) ? Clearance Representative: ? Printed Date/Time: 09/19/2018 (16 52) ? PAGE 1 ? Addie d Report ? Procedure Note Bolivar Escobar MD - 02/04/2019 EXAM: ULTRASOUND/UNILAT BREAST CALL ENRIQUE K EX. D/ ([id number]) CLINICAL INFORMATION: RIGHT BREAST, CYSTIC VS SOLID INDICATION: RIGHT BREAST, CYSTIC VS ELPIDIO ID SUSP AREA FOUND ON INITIAL FILMS RT COMPARISON: - 10/24/2017, 10/22/2016,, 10/20/2015, 05/25/2015, 10/17/2014. TECHNIQUE: DIAGNOSTIC RIGHT BREAST MAMM OGRAM/ULTRASOUND RIGHT BREAST MAMMOGRAM: 3-D whole breas t ML and exaggerated CC and compression spot MLO views. CAD technol ogy was utilized. The breast tissue is of scattered densi ty. Post-therapeutic changes within the upper outer quadrant of the right breast are unchanged compared to prior studies. No new domin ant mass or suspicious microcalcification is identified. RIGHT BREAST ULTRASOUND: Sonographic ex amination of the right breast palpable lump at 10 o'clock was perform ed. Normal-appearing fibroglandular and fat ty tissue is present at the site of palpable complaint. No solid ma ss, cyst or abnormal posterior shadowing is identified. The decision to biopsy any clinically s uspicious palpable abnormality should not be altered by the results of this examination. The findings were communicated to the p atient by the repairing calibrator at the time of the examination. FINAL ASSESSMENT: DIAGNOSTIC RIGHT [address] ST MAMMOGRAM/ULTRASOUND - BI-RADS Category 1 - Negative. These results will be communicated to y our patient via a lay letter from Radiology. If any additional imagi ng is needed we will contact your patient directly. REPORT SIGNED IN OTHER VENDOR SYSTEM 11/03/2017 Reported By: Bolivar Escobar MD CC: Transcribed Date/Time: 11/03/2017 (6440 ) Clearance Representative: Printed Date/Time: 09/19/2018 (2462) PAGE 1 Signed Report Performing Organization Address City/State/ZIP Code Phon e Number [facility] MA BREAST DIAGNOSTIC UNILATERAL CLINT (11/03/2017 12:10 EDT) Specimen Narrative [facility] - 11/03/2017 12:10 EDT ? EXAM: MAMMOGRAM/MAMMO DX CALL BACK UNI W/ EX. D/ (0825) ? CLINICAL INFORMATION: ? RIGHT BREAST, SUSP FINDINGS ON IN ITIAL ? INDICATION: RIGHT BREAST, CYSTIC VS SOLID SUSP AREA FOUND ON INITIAL ? FILMS RT ? COMPARISON: ??- 10/24/2017, 10/22,04/26/2016, 10/20/2015, ? 05/25/2015, 10/17/2014. ? TECHNIQUE: DIAGNOSTIC RIGHT BREAS T MAMMOGRAM/ULTRASOUND ? RIGHT BREAST MAMMOGRAM: 3-D whole breast ML and exaggerated CC and ? compression spot MLO views. CAD t echnology was utilized. ? The breast tissue is of scattered density. Post-therapeutic changes ? within the upper outer quadrant o f the right breast are unchanged ? compared to prior studies. No new dominant mass or suspicious ? microcalcification is identified. ? RIGHT BREAST ULTRASOUND: ??Sonogr aphic examination of the right breast ? palpable lump at 10 o'clock was p erformed. ? Normal-appearing fibroglandular a nd fatty tissue is present at the ? site of palpable complaint. No so lid mass, cyst or abnormal posterior ? shadowing is identified. ? The decision to biopsy any clinic ally suspicious palpable abnormality ? should not be altered by the resu lts of this examination. ? The findings were communicated to the patient by the repairing calibrator ? at the time of the examination. ? FINAL ASSESSMENT: ??DIAGNOSTIC RI GHT BREAST MAMMOGRAM/ULTRASOUND - ? BI-RADS Category 1 - Negative. ? These results will be communicate d to your patient via a lay letter ? from Radiology. ??If any addition al imaging is needed we will contact ? your patient directly. ? REPORT SIGNED IN OTHER VENDOR SYSTEM 11/03/2017 ?Reported B y: Bolivar Ecsobar MD ? CC: ? Transcribed Date/Time: 11/03/2017 (1210) ? Clearance Representative: ? Printed Date/Time: 09/19/2018 (16 52) ? PAGE 1 ? Addie d Report ? Procedure Note Bolivar Escobar MD - 02/04/2019 EXAM: MAMMOGRAM/MAMMO DX CALL BACK UNI W/ EX. D/ (0825) CLINICAL INFORMATION: RIGHT BREAST, SUSP FINDINGS ON INITIAL INDICATION: RIGHT BREAST, CYSTIC VS ELPIDIO ID SUSP AREA FOUND ON INITIAL FILMS RT COMPARISON: - 10/24/2017, 10/22/2016,, 10/20/2015, 05/25/2015, 10/17/2014. TECHNIQUE: DIAGNOSTIC RIGHT BREAST MAMM OGRAM/ULTRASOUND RIGHT BREAST MAMMOGRAM: 3-D whole breas t ML and exaggerated CC and compression spot MLO views. CAD technol ogy was utilized. The breast tissue is of scattered densi ty. Post-therapeutic changes within the upper outer quadrant of the right breast are unchanged compared to prior studies. No new domin ant mass or suspicious microcalcification is identified. RIGHT BREAST ULTRASOUND: Sonographic ex amination of the right breast palpable lump at 10 o'clock was perform ed. Normal-appearing fibroglandular and fat ty tissue is present at the site of palpable complaint. No solid ma ss, cyst or abnormal posterior shadowing is identified. The decision to biopsy any clinically s uspicious palpable abnormality should not be altered by the results of this examination. The findings were communicated to the p atient by the repairing calibrator at the time of the examination. FINAL ASSESSMENT: DIAGNOSTIC RIGHT WILFR[address] ST MAMMOGRAM/ULTRASOUND - BI-RADS Category 1 - Negative. These results will be communicated to y our patient via a lay letter from Radiology. If any additional imagi ng is needed we will contact your patient directly. REPORT SIGNED IN OTHER VENDOR SYSTEM 11/03/2017 Reported By: Bolivar Escobar MD CC: Transcribed Date/Time: 11/03/2017 (8984 ) Clearance Representative: Printed Date/Time: 09/19/2018 (7713) PAGE 1 Signed Report Performing Organization Address City/State/ZIP Code Phon e Number [facility] documented in this encounter Visit Diagnoses Not on filedocumented in this encounter Care Teams Senior Sales Manager Relationship Specialty Start Date End Date Herminio Hernandez ND PCP - General 08/19/16 [facility] [place], [place] [address] Zaira Rodriguez MD Referring Provider Gynecology 07/29/16 [address] [facility] [address], [address] [place] [address] Charo Finn MD Medical Oncology 07/29/16 [address] [facility], [address] [place] [phone] documented as of this encounter
--- OUTSIDE RECORDS SUMMARY | 2021-10-16 02:02 | XMS_ITS | Encounter Summary ---
:1965 Author Organization [facility] Address [address] [place] [address] Care Team Providers Name Role Phone Zaira Rodriguez MD Unavailable Charo Finn MD Unavailable Herminio Hernandez ND Primary Care Provider Encounter Details Date Type Department Care Team Description 01/28/2018 Hospital Encounter [facility]- Herminio Hernandez ND [place] [id number] [place], [place] [id number] [place] [phone] Social History Tobacco Use Types Packs/Day Years [...] Discharge Diagnoses Diagnosis E03.9 Hypothyroidism, unspecified-E03.9[ ICD-10-CM] documented in this encounter Medications at Time [...] mouth 2 0 01/13/20 20 times daily. epch-[id number]-C-biot-Zn- Take by mouth 0 01/13/2020 dss 160 [...] on filedocumented in this encounter Care Teams Digital Engineer Relationship Specialty Start Date End Date Herminio Hernandez ND PCP - General 08/19/16 [facility] [place] [address] Zaira Rodriguez MD Referring Provider Gynecology 07/29/[address] [place] [address] [address], [address] [place] [address] Charo Finn MD Medical Oncology 07/29/[address] [place] [address], [address] [place] [address] documented as of this encounter
--- OUTSIDE RECORDS SUMMARY | 2021-10-16 02:02 | XMS_ITS | Encounter Summary ---
:1965 Author Organization [facility] Address [address] [place] [address] Care Team Providers Name Role Phone Zaira Rodriguez MD Unavailable Charo Finn MD Unavailable Herminio Hernandez ND Primary Care Provider Encounter Details Date Type Department Care Team Description 10/25/2016 Historical Results [facility] - Breezy Orellana Only [facility] [place]iology Resul ts MD John [address] [place], [place] [address] [place] [address] [phone] Social History Tobacco Use Types Packs/Day [...] Associated Diagnosis Comme nts MA BREAST SCREENING 10/25/2016 12:28 Resu lts for this CLINT BILATERAL EDT procedure are in the results section. documented in this encounter Results MA BREAST SCREENING CLINT BILATERAL (10/25/2016 12:28 EDT) Specimen Narrative [facility] RAD[facility] - 10/25/2016 12:28 EDT ? EXAM: MAMMOGRAM/MAMMO BILATERAL SCREEN W ??EX. D/ (1746) ? CLINICAL INFORMATION: ? Z12.31 SCREENING MAMMO ? TECHNIQUE: ??Full field digital w hole breast 2D (C-view) and 3D CC and ? MLO views of both breasts were ob tained. CAD technology was utilized. ? FINDINGS: ??The fibroglandular pa tterns of the breasts are normal. ? There has been no change when com pared to previous mammograms and ? there is no mammographic evidence of cancer. There are ? post-therapeutic changes in the ( right, left, bilateral) breast(s). ? The breast tissue is of scattered density. ? FINAL ASSESSMENT: ??BILATERAL YANETH AST - Category 1 - Negative. Routine ? mammographic follow-up is recomme nded. ? These results will be communicate d to your patient via a lay letter ? from Radiology. ??If any addition al imaging is needed we will contact ? your patient directly. ? REPORT SIGNED IN OTHER VENDOR SYSTEM 10/25/2016 ?Reported B y: Master Ding MD ? CC: ? Transcribed Date/Time: 10/25/2016 (1228) ? Oncology Navigator: ? Printed Date/Time: 09/14/2018 (17 40) ? PAGE 1 ? Addie d Report ? Procedure Note Master Ding E - 02/03/2019 EXAM: MAMMOGRAM/MAMMO BILATERAL SCREEN W EX. D/ (5219) CLINICAL INFORMATION: Z12.31 SCREENING MAMMO TECHNIQUE: Full field digital whole yaneth ast 2D (C-view) and 3D CC and MLO views of both breasts were obtained . CAD technology was utilized. FINDINGS: The fibroglandular patterns o f the breasts are normal. There has been no change when compared to previous mammograms and there is no mammographic evidence of ca ncer. There are post-therapeutic changes in the (right, left, bilateral) breast(s). The breast tissue is of scattered densi ty. FINAL ASSESSMENT: BILATERAL BREAST - Ca tegory 1 - Negative. Routine mammographic follow-up is recommended. These results will be communicated to y our patient via a lay letter from Radiology. If any additional imagi ng is needed we will contact your patient directly. REPORT SIGNED IN OTHER VENDOR SYSTEM 10/25/2016 Reported By: Msater Ding MD CC: Transcribed Date/Time: 10/25/2016 (1228 ) Oncology Navigator: Printed Date/Time: 09/14/2018 (2976) PAGE 1 Signed Report Performing Organization Address City/State/ZIP Code Phon e Number [facility] RAD[facility] documented in this encounter Visit Diagnoses Not on filedocumented in this encounter Care Teams Rim Technician Relationship Specialty Start Date End Date Herminio Hernanedz ND PCP - General 08/19/[address] [place] [address] Zaira Rodriguez MD Referring Provider Gynecology 07/29/[address] [place], [place] [address]A, [address] [place] [address] Charo Finn MD Medical Oncology 07/29/[address] [place] [address], [facility] [address] [place] [address] documented as of this encounter
--- OUTSIDE RECORDS SUMMARY | 2021-10-16 02:02 | XMS_ITS | Encounter Summary ---
:1965 Author Organization [facility] Address [address] [place] [address] Care Team Providers Name Role Phone Sasha Arvizu MD Primary Care Provider Unavailable Zaira Rodriguez MD Unavailable Charo Finn MD Unavailable Herminio Hernandez ND Primary Care Provider Encounter Details Date Type Department Care Team Description 07/10/[address] [facility] - Lico Finn ar, Only [facility] Lab - [place] [address] [place] [address] [facility] [phone] [address] [place] [phone] Social History Tobacco Use Types Packs/Day Years [...] Procedure Name Priority Date/Time Associated Comments Diagnosis ESTRADIOL, ADULTS Routine 07/10/2016 16:48 Result s for this EDT procedure are i n the results section. MAGNESIUM Routine 07/10/2016 16:48 Results for this EDT procedure are i n the results section. FSH Routine 07/10/2016 16:48 Results for this EDT procedure are i n the results section. COMPREHENSIVE Routine 07/10/2016 16:48 Results fo r this METABOLIC PANEL (CMP) EDT proced ure are in the results section. CBC W/PLT & DIFF,POINT Routine 07/10/2016 16:11 R esults for this [facility] EDT procedure are in the results section. documented in this encounter Results MAGNESIUM (07/10/2016 16:48 EDT) Pathologist Sig nature Magnesium 2.00 1.6 - 2.6 mg/dL [facility] Comment: CENTER LAB 24 Hour urine magnesium is a better indicator of magne sium stores. Specimen Narrative [facility] - 017 11:36 EDT AOT: 07/11/16 1120: COMP.MG Performing Organization Address City/State/ZIP Code Phon e Number [facility] [address] [place], [place] [id number] [place] [address] LAB FSH (07/10/2016 16:48 EDT) Pathologist Sig nature FSH 4.25 mIU/mL [facility] Comment: CENTER LAB RESULT COMMENTS/INTERPRETATION OF RESULTS Follicular Phase: ??2.5 ??- 10.2 mIU/mL Midcycle Phase: ?3.4 ??- 33.4 mIU/mL Luteal phase: ?1.5 ??- 9.1 ??mIU/mL : ?<0.3 mIU/mL Postmenopausal: ?23.0 - 116.3 mIU/mL Specimen Narrative [facility] - 017 11:36 EDT AOT: 07/11/16 1120: COMP.MG Performing Organization Address City/State/ZIP Code Phon e Number [facility] [address] LAB (ABNORMAL) COMPREHENSIVE METABOLIC PANEL (CMP) (07/10/2016 16:48 EDT) ALBUMIN - [facility] 4.1 3.4 - 5.0 [facility] g/dL [facility] ALKALINE 57 41 - 126 U/L [facility] PHOSPHATASE - [facility] BILIRUBIN TOTAL 0.3 0.0 - 1.0 [facility] mg/dL [facility] BUN - [facility] 14 7 - 18 mg/dL [facility] CALCIUM - [facility] 8.3 (L) 8.5 - 10.1 [facility] mg/dL [facility] Chloride 108 (H) 98 - 107 [facility] mEq/L [facility] CO2 Total 20 (L) 21 - 32 mEq/L [facility] CREATININE 0.86 0.5 - 1.3 [facility] mg/dL [facility] LAB eGFR >60 [facility] Comment: [facility] LAB Chronic renal impairment is defined as GFR <60 Multiply result by 1.210 for patients . eGFR calculated using the IDMS-traceable MDRD Study Equation. ??(effective 01/31/2014) Anion Gap 12 5 - 15 [facility] GLUCOSE - [facility] 96 70 - 100 [facility] mg/dL [facility] LAB Potassium 4.0 3.5 - 5.0 [facility] mEq/L [facility] Sodium 139 135 - 145 [facility] mEq/L [facility] LAB TOTAL PROTEIN - 6.8 6.4 - 8.2 [facility] gm/dl [facility] SGOT/AST - [facility] 14 10 - 37 U/L [facility] SGPT/ALT - [facility] 24 12 - 78 U/L [facility] Specimen Narrative [facility] - 017 11:36 EDT AOT: 04/13/17 1120: COMP.MG Performing Organization Address City/[facility]/ZIP Code Phon e Number [facility] [address] [place] [address] [facility] ESTRADIOL, ADULTS (07/10/2016 16:48 EDT) Pathologist Sig nature Estradiol 88 () pg/ml [facility] Comment: CENTER LAB By day in cycle relative to LH peak: Follicular Phase (-12 to -4 days): ??20-144 Midcycle (-3 to +2 days): ? 64-357 Luteal Phase (+4 to +12 days): ??56-214 Postmenopausal: ??0 - 32 ?? Cross reactivity with fulvestrant could lead to falsely elevated estradiol results in patients treated with this drug. Test Performed by: [place] [address] Mechanical Expert: Jewel Hoffman MD , Ph D Specimen Performing Organization Address [facility] Phon e Number [facility] [address] [place] [id number] [facility] (ABNORMAL) CBC W/PLT & DIFF,POINT OF CARE - [facility] (07/10/2016 16:11 EDT) Pathologist Sig nature ABSOLUTE NEUTROPHIL 1.7 1.7 - 7.0 [facility] COUN - [facility] 10e3/uL [facility] BASO # - [facility] 0.03 0.0 - 0.3 [facility] 10e3/uL [facility] BASO % - [facility] 1 0 - 2 % [facility] EOS # - [facility] 0.10 0.05 - 0.5 [facility] 10e3/uL [facility] EOS % - [facility] 3 0 - 5 % [facility] GRAN % - [facility] 48.1 40 - 80 % [facility] HEMATOCRIT - [facility] 36.2 34.0 - 47.0 % [facility] HEMOGLOBIN - [facility] 12.3 11.2 - 15.7 [facility] g/dl [facility] LYMPH # - [facility] 1.3 0.9 - 2.9 [facility] 10e3/ul [facility] LYMPH% - [facility] 37.9 20 - 40 % [facility] MEAN CORPUSCULAR HGB - 30.9 26 - [address] [facility] D [facility] CENTER LAB MEAN CORPUSCULAR HGB 34.0 31 - 36 g/dL [facility] CONC - [facility]ENTER LAB MEAN CELL VOLUME - 91.0 77 - 100 fl [facility] MONO # - [facility] 0.4 0.3 - 0.9 [facility] 10e3/uL [facility] MONO% - [facility] 10.3 0 - 12 % [facility] PLATELET COUNT 124 (L) 150 - 400 [facility] 10e3/ul [facility] RED BLOOD COUNT - [facility] 3.98 3.8 - 5.2 [facility] 10e6/ul [facility] RED CELL DISTRI WIDTH 13.5 11.8 - 15.6 % [facility] D - [facility] CENTER LAB WHITE BLOOD COUNT - 3.5 3.5 - 10.5 [facility] 10e3/ul CENTER LAB Specimen Performing Organization Address City/State/ZIP Code Phon e Number [facility] [address] [place] [address] [facility] documented in this encounter Visit Diagnoses Not on filedocumented in this encounter Care Teams Direct Support Professional Home Health Relationship Specialty Start Date End Date Sasha Arvizu MD PCP - General 10/20/13 08/18/16 Herminio Hernandez ND PCP - General 08/19/[address] [place] [address] Zaira Rodriguez MD Referring Provider Gynecology 07/29/[address] [place] [address] [address], [address] [place] [phone] Charo Finn MD Medical Oncology 07/29/16 [address] [facility], [address] [place] [address] documented as of this encounter
--- OUTSIDE RECORDS SUMMARY | 2021-10-16 02:02 | XMS_ITS | Encounter Summary ---
:1965 Author Organization [facility] Address [address] [place] [address] Care Team Providers Name Role Phone Sasha Arvizu MD Primary Care Provider Unavailable Zaira Rodriguez MD Unavailable Charo Finn MD Unavailable Encounter Details Date Type Department Care Team Description 07/29/2016 Documentation Visit [facility] Marice Baumann , Gynecologic Oncology - [address] [place], [place] [phone] Social History Tobacco Use Types Packs/Day Years [...] documented as of this encounter Progress Notes Marcie Baumann, RN - 07/29/2016 1113 EDT Director Digital Sales onc referral triaged Dr Rodriguez referring pt for 2nd opinion Hx breast cancer, bleeding on tamoxifen, s/p D&C, polypectomy with benign path Discuss BSO documented in this encounter Plan of Treatment Upcoming Encounters Date Type Specialty Care Team Description 10/18/2021 Nurse Only Infusion Therapy documented as of this encounter Visit Diagnoses Not on filedocumented in this encounter Care Teams Transition Teacher Relationship Specialty Start Date End Date Sasha Arvizu MD PCP - General 10/20/13 08/18/16 Zaira Rodriguez MD Referring Provider Gynecology 07/29/16 130 [facility] [address] [place] [address] Charo Finn MD Medical Oncology 07/29/16 [address] [facility], [address] [place] [address] documented as of this encounter
--- OUTSIDE RECORDS SUMMARY | 2021-10-16 02:02 | XMS_ITS | Encounter Summary ---
:1965 Author Organization [facility] Address [address] [place] [address] Care Team Providers Name Role Phone Zaira Rodriguez MD Unavailable Charo Finn MD Unavailable Herminio Hernandez ND Primary Care Provider Encounter Details Date Type Department Care Team Description 11/28/2017 Historical Results [facility] - Ihsan Huerta, CAD CAM PROGRAMMER Only [facility] Lab - Main Camp us [address] [facility], 130 [facility] [place] [address] [address] [place] [address] Social History Tobacco Use Types [...] Associated Comments Diagnosis COMPLETE BLOOD COUNT Routine 11/28/2017 7:44 Resu lts for this WITH DIFFERENTIAL EDT procedure are in (AUTO) the results section. TRANSFERRIN Routine 11/28/2017 7:44 Results for this SATURATION EDT procedure are i n the results section. FERRITIN Routine 11/28/2017 7:44 Results for this EDT procedure are i n the results section. documented in this encounter Results TRANSFERRIN SATURATION (11/28/2017 7:44 EDT) Pathologist Sig nature SERUM IRON - [facility] 136 37 - 170 ug/dL [facility] LAB IRON BINDING CAPACITY 320 261 - 462 ug/dL [facility] LAB TRANSFERRIN SATURATION 43 20 - 55 % [facility] D [facility] CENTER LAB Specimen Narrative [facility] LAB - 018 9:53 EDT Does PT Have a Latex Allergy? YES Enter/Edit CPT and ICD codes? N Performing Organization Address [facility] Phon e Number [facility] [address] LAB FERRITIN (11/28/2017 7:44 EDT) FERRITIN - [facility] 65 11.1 - 264.0 [facility] Comment: ng/mL [facility] LAB The results of this assay can be falsely lowered due t o the consumption of Biotin. Specimen Narrative [facility] LAB - 018 10:20 EDT Does PT Have a Latex Allergy? YES Performing Organization Address [facility] Code Phon e Number [facility] [address] LAB COMPLETE BLOOD COUNT WITH DIFFERENTIAL (AUTO) (11/28/2017 7:44 EDT) Pathologist Sig nature ABSOLUTE NEUTROPHIL 2.03 1.7 - 7.0 [facility] COUN - [facility] 10e3/ul CENTER LAB BASO # - [facility] 0.03 0.0 - 0.3 [facility] 10e3/uL CENTER LAB BASO % - [facility] 1 0 - 2 % [facility] EOS # - [facility] 0.08 0.05 - 0.5 [facility] 10e3/uL CENTER LAB EOS % - [facility] 2 0 - 5 % [facility] GRAN % - [facility] 58 40 - 80 % [facility] LAB HEMATOCRIT - [facility] 41.9 34.0 - 47.0 % [facility] LAB HEMOGLOBIN - [facility] 13.8 11.2 - 15.7 g/dl [facility] IG# - [facility] 0.01 0 - 0.07 10e3/uL [facility] IG% - [facility] 0.3 0 - 0.9 % [facility] LYMPH # - [facility] 1.02 0.9 - 2.9 [facility] 10e3/uL [place] [facility] LYMPH% - [facility] 29 20 - 40 % [facility] MEAN CORPUSCULAR HGB - 30.4 26 - 34 pg [facility] D [facility] CENTER LAB MEAN CORPUSCULAR HGB 32.9 31 - 36 g/dL [facility] CONC - [facility] CENTER LAB MEAN CELL VOLUME - 92.3 77 - 100 fl [facility] CENTER LAB MONO # - [facility] 0.33 0.3 - 0.9 [facility] 10e3/uL [place] [facility] MONO% - [facility] 9 0 - 12 % [facility] LAB PLATELET COUNT 159 150 - 400 [facility] 10e3/ul [place] [facility] RED BLOOD COUNT - [facility] 4.54 3.8 - 5.2 [facility] D 10e6/ul [place] LAB RED CELL DISTRI WIDTH 13.3 11.8 - 15.6 % [facility] D - [facility] CENTER LAB WHITE BLOOD COUNT - 3.5 3.5 - 10.5 [facility] 10e3/ul [place] LAB Specimen Narrative [facility] - 018 9:03 EDT Does PT Have a Latex Allergy? YES Performing Organization Address City/State/ZIP Code Phon e Number [facility] [address] [place] [address] [facility] CENTER LAB documented in this encounter Visit Diagnoses Not on filedocumented in this encounter Care Teams Retinal Surgeon Relationship Specialty Start Date End Date Herminio Hernandez ND PCP - General 08/19/16 2004 [place], [place] [address] Zaira Rodriguez MD Referring Provider Gynecology 07/29/16 [address] [facility] [address], [address] [place] [address] Charo Finn MD Medical Oncology 07/29/16 130 [facility], [address] [place] [address] documented as of this encounter
--- OUTSIDE RECORDS SUMMARY | 2021-10-16 02:02 | XMS_ITS | Encounter Summary ---
:1965 Author Organization [facility] Address [address] [place] [address] Care Team Providers Name Role Phone Zaira Rodriguez MD Unavailable Charo Finn MD Unavailable Herminio Hernandez ND Primary Care Provider Encounter Details Date Type Department Care Team Description 07/06/2018 Historical Results [facility] - Lico Finn ar, Only [facility] Lab - Main [place] [address] [place] [address] [facility] [phone] [address] [place] [address] Social History Tobacco Use Types [...] Associated Comments Diagnosis COMPLETE BLOOD COUNT Routine 07/06/2018 8:12 Resu lts for this WITH DIFFERENTIAL EDT procedure are in (AUTO) the results section. FERRITIN Routine 07/06/2018 8:12 Results for this EDT procedure are i n the results section. documented in this encounter Results FERRITIN (07/06/2018 8:12 EDT) FERRITIN - [facility] 46 11.1 - 264.0 [facility] Comment: ng/mL [facility] LAB The results of this assay can be falsely lowered due t o the consumption of Biotin. Specimen Narrative [facility] LAB - 019 9:42 EDT Does PT Have a Latex Allergy? YES Performing Organization Address City/State/ZIP Code Phon e Number [facility] [address] LAB (ABNORMAL) COMPLETE BLOOD COUNT WITH DIFFERENTIAL (AUTO) (07/06/2018 8:12 EDT) Pathologist Sig nature ABSOLUTE NEUTROPHIL 1.7 (L) 2.2 - 8.85 [facility] MED COUN - [facility] 10e3/uL CENTER LAB BASO # - [facility] 0.05 0.01 - 0.11 [facility] MED 10e/uL CENTER LAB BASO % - [facility] 2 0 - 2 % [facility] LAB EOS # - [facility] 0.05 0.03 - 0.61 [facility] MED 10e3/ul CENTER LAB EOS % - [facility] 2 0 - 5 % [facility] LAB GRAN % - [facility] 51.9 40 - 80 % [facility] LAB HEMATOCRIT - [facility] 42.0 34.9 - 44.4 % [facility] LAB HEMOGLOBIN - [facility] 13.4 11.6 - 15.2 [facility] g/dl CENTER LAB IG# - [facility] 0 0 - 0.7 10e3/uL [facility] LAB IG% - [facility] 0 0 - 0.9 % [facility] LAB LYMPH # - [facility] 1.1 1.09 - 3.3 [facility] 10e3/ul CENTER LAB LYMPH% - [facility] 34.6 20 - 40 % [facility] LAB MEAN CORPUSCULAR HGB 29.9 26.7 - 33.3 pg [facility] ME D - [facility] CENTER LAB MEAN CORPUSCULAR HGB 31.9 (L) 32.1 - 35.9 [facility] CONC - [facility] g/dL CENTER LAB MEAN CELL VOLUME - 93.8 81 - 98 fl [facility] CENTER LAB MONO # - [facility] 0.3 0.1 - 0.8 [facility] 10e3/uL [place] [facility] MONO% - [facility] 10.3 0 - 12 % [facility] LAB PLATELET COUNT 157 141 - 377 [facility] 10e3/ul [place] LAB RED BLOOD COUNT - 4.48 3.86 - 5.04 [facility] 10e3/ul [place] LAB RED CELL DISTRI WIDTH 13.0 <14.7 % [facility] CENTER LAB WHITE BLOOD COUNT - 3.2 (L) 4.0 - 12.4 [facility] 10e3/ul [place] LAB Specimen Narrative [facility] LAB - 019 8:41 EDT Does PT Have a Latex Allergy? YES Performing Organization Address City/State/ZIP Code Phon e Number [facility] [address] [place] [address] [facility] documented in this encounter Visit Diagnoses Not on filedocumented in this encounter Care Teams Mural Painter Relationship Specialty Start Date End Date Herminio Hernandez ND PCP - General 08/19/16 [address] [place], [place] [address] Zaira Rodriguez MD Referring Provider Gynecology 07/29/16 130 [facility] [address], [address] [place] [phone] Charo Finn MD Medical Oncology 07/29/16 130 [facility], [facility]-B [address] [place] [address] documented as of this encounter
--- OUTSIDE RECORDS SUMMARY | 2021-10-16 02:02 | XMS_ITS | Encounter Summary ---
:1965 Author Organization [facility] Address [address] [place] [address] Care Team Providers Name Role Phone Zaira Rodriguez MD Unavailable Charo Finn MD Unavailable Herminio Hernandez ND Primary Care Provider Encounter Details Date Type Department Care Team Description 08/01/[address] [facility] - Herminio Hernandez ND Only [facility] Lab - Main [address] [place] [address] [place] [address] [place], [place] [address] [phone] Social History Tobacco Use Types Packs/Day Years [...] Associated Comments Diagnosis COMPLETE BLOOD COUNT Routine 08/01/2017 8:38 Resu lts for this WITH DIFFERENTIAL EDT procedure are in (AUTO) the results section. T3 FREE Routine 08/01/2017 8:38 Results for this EDT procedure are i n the results section. TSH Routine 08/01/2017 8:38 Results for this EDT procedure are i n the results section. T4 Routine 08/01/2017 8:38 Results for this EDT procedure are i n the results section. FERRITIN Routine 08/01/2017 8:38 Results for this EDT procedure are i n the results section. documented in this encounter Results FERRITIN (08/01/2017 8:38 EDT) Pathologist Sig nature FERRITIN - [facility] 41 11.1 - 264.0 ng/mL [facility] LAB Specimen Narrative [facility] LAB - 018 10:37 EDT Does PT Have a Latex Allergy? YES Performing Organization Address City/[facility]/ZIP Code Phon e Number [facility] [address] [place] [address] LAB TSH (08/01/2017 8:38 EDT) Pathologist Sig nature THYROID STIM HORMONE 1.54 0.46 - 4.68 [facility] uIU/ml CENTER LAB Specimen Narrative [facility] LAB - 018 10:33 EDT Does PT Have a Latex Allergy? YES Performing Organization Address City/[facility]/ZIP Code Phon e Number [facility] [address] [place] [address] LAB T4 (08/01/2017 8:38 EDT) Pathologist Sig nature THYROXINE (T4) - [facility] 8.765 5.530 - 11.000 [facility] ED ug/dl CENTER LAB Specimen Narrative [facility] LAB - 018 10:33 EDT Does PT Have a Latex Allergy? YES Performing Organization Address City/State/ZIP Code Phon e Number [facility] [address] [place] [address] [facility] LAB (ABNORMAL) COMPLETE BLOOD COUNT WITH DIFFERENTIAL (AUTO) (08/01/2017 8:38 EDT) Pathologist Sig nature ABSOLUTE NEUTROPHIL 1.26 (L) 1.7 - 7.0 [facility] COUN - [facility] 10e3/ul CENTER LAB BASO # - [facility] 0.03 0.0 - 0.3 [facility] 10e3/uL [place] [facility] BASO % - [facility] 1 0 - 2 % [facility] LAB EOS # - [facility] 0.08 0.05 - 0.5 [facility] 10e3/uL [place] LAB EOS % - [facility] 3 0 - 5 % [facility] LAB GRAN % - [facility] 46 40 - 80 % [facility] LAB HEMATOCRIT - [facility] 39.7 34.0 - 47.0 % [facility] LAB HEMOGLOBIN - [facility] 13.1 11.2 - 15.7 [facility] g/dl [place] LAB IG# - [facility] 0 0 - 0.07 [facility] 10e3/uL [place] LAB IG% - [facility] 0 0 - 0.9 % [facility] LAB LYMPH # - [facility] 1.08 0.9 - 2.9 [facility] 10e3/uL [place] LAB LYMPH% - [facility] 40 20 - 40 % [facility] LAB MEAN CORPUSCULAR HGB 30.3 26 - 34 pg [facility] MED [facility] MEAN CORPUSCULAR HGB 33.0 31 - 36 g/dL [facility] CONC [facility] CENTER LAB MEAN CELL VOLUME - 91.9 77 - 100 fl [facility] LAB MONO # - [facility] 0.28 (L) 0.3 - 0.9 [facility] 10e3/uL [place] LAB MONO% - [facility] 10 0 - 12 % [facility] LAB PLATELET COUNT 150 150 - 400 [facility] 10e3/ul [place] LAB RED BLOOD COUNT - 4.32 3.8 - 5.2 [facility] 10e6/ul [place] LAB RED CELL DISTRI WIDTH 13.6 11.8 - 15.6 % [facility] ME D - [facility] CENTER LAB WHITE BLOOD COUNT - 2.7 (L) 3.5 - 10.5 [facility] 10e3/ul CENTER LAB Specimen Narrative [facility] LAB - 018 9:23 EDT Does PT Have a Latex Allergy? YES Performing Organization Address City/[facility]/ZIP Code Phon e Number [facility] [address] [place] [address] [facility] LAB (ABNORMAL) T3 FREE (08/01/2017 8:38 EDT) T3,FREE - [facility] 4.5 (A) 2.8 - 4.4 [facility] Comment: pg/mL [facility] LAB Test Performed by: [facility] - [facility] [address] [place] [address] Specimen Narrative [facility] LAB - 018 12:08 EDT Does PT Have a Latex Allergy? YES Performing Organization Address City/[facility] Code Phon e Number [facility] [address] [place] [address] [facility] LAB documented in this encounter Visit Diagnoses Not on filedocumented in this encounter Care Teams Sorter/Assay Tech Relationship Specialty Start Date End Date Herminio Hernandez ND PCP - General 08/19/16 [facility] [place] [address] Zaira Rodriguez MD Referring Provider Gynecology 07/29/[address] [place] [address] [address], [address] [place] [address] Charo iFnn MD Medical Oncology 07/29/[address] [place] [address], [address]OB[address] [place] [address] documented as of this encounter
--- OUTSIDE RECORDS SUMMARY | 2021-10-16 02:02 | XMS_ITS | Encounter Summary ---
:1965 Author Organization [facility] Address [address] [place] [address] Care Team Providers Name Role Phone Zaira Rodriguez MD Unavailable Charo Finn MD Unavailable Herminio Hernandez ND Primary Care Provider Encounter Details Date Type Department Care Team Description 10/10/2017 Historical Results [facility] - Lico Finn ar, Only [facility] Lab - Main [place] [address] [place] [address] [facility] [phone] [address] [place] [address] Social History Tobacco Use Types [...] Associated Comments Diagnosis COMPLETE BLOOD COUNT Routine 10/10/2017 18:03 Res ults for this WITH DIFFERENTIAL EDT procedure are in (AUTO) the results section. TRANSFERRIN Routine 10/10/2017 18:03 Results for this SATURATION EDT procedure are i n the results section. FERRITIN Routine 10/10/2017 18:03 Results for this EDT procedure are i n the results section. documented in this encounter Results TRANSFERRIN SATURATION (10/10/2017 18:03 EDT) Pathologist Sig [employer] [facility] 94 37 - 170 ug/dL [facility] LAB IRON BINDING CAPACITY 312 261 - 462 ug/dL [facility] LAB TRANSFERRIN SATURATION 30 20 - 55 % [facility] D [facility] CENTER LAB Specimen Narrative [facility] LAB - 018 18:31 EDT Does PT Have a Latex Allergy? YES Enter/Edit CPT and ICD codes? N Performing Organization Address City/[facility] Phon e Number [facility] [address] LAB FERRITIN (10/10/2017 18:03 EDT) Pathologist Sig [employer] FERRITIN [facility] 62 11.1 - 264.0 ng/mL [facility] LAB Specimen Narrative [facility] LAB - 018 18:58 EDT Does PT Have a Latex Allergy? YES Performing Organization Address [facility] Code Phon e Number [facility] [address] LAB (ABNORMAL) COMPLETE BLOOD COUNT WITH DIFFERENTIAL (AUTO) (10/10/2017 18:03 EDT) Pathologist Sig [employer] [facility] ABSOLUTE NEUTROPHIL 2.25 1.7 - 7.0 [facility] COUN [facility] 10e3/ul CENTER LAB BASO # - [facility] 0.05 0.0 - 0.3 [facility] 10e3/uL CENTER LAB BASO % - [facility] 1 0 - 2 % [facility] LAB EOS # - [facility] 0.11 0.05 - 0.5 [facility] 10e3/uL [place] [facility] EOS % - [facility] 3 0 - 5 % [facility] GRAN % - [facility] 51 40 - 80 % [facility] LAB HEMATOCRIT - [facility] 38.9 34.0 - 47.0 % [facility] LAB HEMOGLOBIN - [facility] 13.0 11.2 - 15.7 [facility] g/dl [place] [facility] IG# - CV 0 0 - 0.07 [facility] 10e3/uL [place] [facility] IG% - [facility] 0 0 - 0.9 % [facility] LAB LYMPH # - [facility] 1.51 0.9 - 2.9 [facility] 10e3/uL [place] [facility] LYMPH% - [facility] 35 20 - 40 % [facility] LAB MEAN CORPUSCULAR HGB - 30.6 26 - [address] [facility] D [facility] LAB MEAN CORPUSCULAR HGB 33.4 31 - 36 g/dL [facility] CONC - [facility] CENTER LAB MEAN CELL VOLUME - 91.5 77 - [address] [facility] CENTER LAB MONO # - [facility] 0.46 0.3 - 0.9 [facility] 10e3/uL [place] [facility] MONO% - [facility] 11 0 - 12 % [facility] LAB PLATELET COUNT 137 (L) 150 - 400 [facility] 10e3/ul [place] [facility] RED BLOOD COUNT - [facility] 4.25 3.8 - 5.2 [facility] D 10e6/ul [place] [facility] RED CELL DISTRI WIDTH 13.8 11.8 - 15.6 % [facility] D [facility] LAB WHITE BLOOD COUNT - 4.4 3.5 - 10.5 [facility] 10e3/ul [place] LAB Specimen Narrative [facility] LAB - 018 18:09 EDT Does PT Have a Latex Allergy? YES Performing Organization Address City/State/ZIP Code Phon e Number [facility] [address] [place] [address] [facility] documented in this encounter Visit Diagnoses Not on filedocumented in this encounter Care Teams Lead Care Manager Relationship Specialty Start Date End Date Herminio Hernandez ND PCP - General 08/19/16 [address] [place], [place] [id number] Zaira Rodriguez MD Referring Provider Gynecology 07/29/16 130 [facility] [address], [address] [place] [address] Charo Finn MD Medical Oncology 07/29/16 130 [facility], [address] [place] [address] documented as of this encounter
--- OUTSIDE RECORDS SUMMARY | 2021-10-16 02:02 | XMS_ITS | Encounter Summary ---
:1965 Author Organization [facility] Address [address] [place] [address] Care Team Providers Name Role Phone Zaira Rodriguez MD Unavailable Charo Finn MD Unavailable Herminio Hernandez ND Primary Care Provider Encounter Details Date Type Department Care Team Description 01/16/2017 Historical Results [facility] - Herminio Hernandez ND Only [facility] Lab - Main [address] [place] [address] [place] [address] [place], [place] [address] [phone] Social History Tobacco Use Types Packs/Day Years [...] Procedure Name Priority Date/Time Associated Comments Diagnosis TEST CANCELLED - Routine 01/16/2017 7:52 EDT Resu lts for this [facility] procedure are i n the results section. T3 FREE Routine 01/16/2017 7:52 EDT Results for this procedure are i n the results section. TSH Routine 01/16/2017 7:52 EDT Results for this procedure are i n the results section. T4 Routine 01/16/2017 7:52 EDT Results for this procedure are i n the results section. FERRITIN Routine 01/16/2017 7:52 EDT Results for this procedure are i n the results section. HEPATIC FUNCTION Routine 01/16/2017 7:52 EDT Resu lts for this PANEL (ALB,ALK procedure are in PHOS,ALT,AST,DBIL,TO the res ults T KELSEY,TOT PROT) section. HEMOGLOBIN A1C Routine 01/16/2017 7:51 EDT Result s for this procedure are i n the results section. LIPID PROFILE Routine 01/16/2017 7:51 EDT Results for this (INCLUDES procedure are i n CHOLESTEROL, the results TRIGLYCERIDES, HDL, section. LDL) documented in this encounter Results TSH (01/16/2017 7:52 EDT) Pathologist Sig nature THYROID STIM HORMONE 2.78 0.46 - 4.68 [facility] uIU/ml CENTER LAB Specimen Narrative [facility] - 017 11:00 EDT Does PT Have a Latex Allergy? YES Performing Organization Address City/State/ZIP Code Phon e Number [facility] [address] [place], [place] [id number] [place] [address] LAB T4 (01/16/2017 7:52 EDT) Pathologist Sig nature THYROXINE (T4) - [facility] 8.604 5.530 - 11.000 [facility] ED ug/dl CENTER LAB Specimen Narrative [facility] - 11:00 EDT Does PT Have a Latex Allergy? YES Performing Organization Address [facility]/ZIP Code Phon e Number [facility] [address] LAB (ABNORMAL) HEPATIC FUNCTION PANEL (ALB,ALK PHOS,ALT,AST,DBIL,TOT KELSEY,TOT PROT) (01/16/2017 7:52 EDT) Pathologist Sig nature ALBUMIN - [facility] 4.4 3.4 - 4.9 g/dL [facility] ALKALINE PHOSPHATASE - 38 - 126 U/L [facility] D [facility] CENTER LAB BILIRUBIN DIRECT CALC 0.5 (H) 0.0 - 0.3 mg/dL [facility] LAB BILIRUBIN TOTAL 0.5 0.2 - 1.3 mg/dL [facility] Unconjugated Bilirubin 0 (L) 0.6 - 10.5 [facility] mg/dL [place] [facility] TOTAL PROTEIN - [facility] 6.7 6.2 - 8.2 gm/dL [facility] SGOT/AST - [facility] 31 14 - 36 U/L [facility] SGPT/ALT - [facility] 42 9 - 52 U/L [facility] Specimen Narrative [facility] - 10:41 EDT Does PT Have a Latex Allergy? YES Performing Organization Address [facility] Code Phon e Number [facility] [address] LAB TEST CANCELLED - [facility] (01/16/2017 7:52 EDT) TEST CANCELLED - SEE NOTE [facility] Comment: [facility] LAB The following test(s) have been cancelled: TEST: ??HEMOCHROMATOSIS REASON FOR CANCELLATION: ??SAMPLE STABILITY BEFORE PA OBTAINED OFFICE/MD NOTIFIED ??CRISPIN 01-21-17 Specimen Narrative [facility] - 10:41 EDT Does PT Have a Latex Allergy? YES Performing Organization Address [facility]/ZIP Code Phon e Number [facility] [address] [place] [phone] [facility] LAB (ABNORMAL) FERRITIN (01/16/2017 7:52 EDT) Pathologist Sig nature FERRITIN - [facility] 344 (H) 6.2 - 137.0 ng/mL [facility] Specimen Narrative [facility] - 017 11:04 EDT Does PT Have a Latex Allergy? YES Performing Organization Address [facility] Phon e Number [facility] [address] [place] [address] [facility] [place] LAB T3 FREE (01/16/2017 7:52 EDT) T3,FREE - [facility] 4.3 2.8 - 4.4 [facility] Comment: pg/mL MED CENTER LAB Test Performed by: [facility] - [facility] [address] [place] [address] Specimen Narrative [facility] - 017 17:16 EDT Does PT Have a Latex Allergy? YES Performing Organization Address [facility] Phon e Number [facility] [address] [place] [address] [facility] (ABNORMAL) LIPID PROFILE (INCLUDES CHOLESTEROL, TRIGLYCERIDES, HDL, LDL) (01/16/2017 7:51 EDT) Triglyceride 55 <150 mg/dL [facility] Comment: MED CENTER LAB Adult: Normal: ?<150 mg/dl ? Borderline High: 150-199 mg/dl ? High: ?200-499 mg/dl ? Very High: >[id number] Cholesterol 140 <200 mg/dL [facility] Comment: MED CENTER LAB Acceptable: ??<200 Borderline: ??200-239 High: ?> or = 240 Chol/HDL Ratio 2.0 0 - 4.5 [facility] Comment: MED CENTER LAB DESIRABLE RATIO IS LESS THAN 4.1 PATIENTS ARE CONSIDERED AT RISK: WOMEN RATIO >5 MEN RATIO >6 FASTING? - [facility] Yes [facility]ENTER LAB HDL 68 (H) 40 - 60 mg/dL [facility] Comment: MED CENTER LAB ?? Reference Range Low: ? < 40 ??mg/dL Normal: ??40-60 mg/dL High: ?>= 60 mg/dL LDL CHOLESTEROL - 61 60 - 100 [facility] mg/dL MED CENTER LAB Non HDL Cholesterol 72 mg/dl [facility] Comment: MED CENTER LAB Desirable: ?Less than 130 Borderline High: ??130-159 High: ? 160-189 Very High: ?Greater than or equal to 190 Specimen Narrative [facility] - 017 10:38 EDT Does PT Have a Latex Allergy? YES Performing Organization Address City/[facility]/ZIP Code Phon e Number [facility] [address] [place] [address] [facility] HEMOGLOBIN A1C (01/16/2017 7:51 EDT) Pathologist Sig nature Hemoglobin A1c 5.4 4.0 - 6.0 % [facility] Est Avg Glucose 108 mg/dL [facility] R LAB Specimen Narrative [facility] - 017 13:41 EDT Does PT Have a Latex Allergy? YES Performing Organization Address City/[facility]/ZIP Code Phon e Number [facility] [address] [place] [address] [facility] documented in this encounter Visit Diagnoses Not on filedocumented in this encounter Care Teams Bank Note Designer Relationship Specialty Start Date End Date Herminio Hernandez ND PCP - General 08/19/16 [facility] [place], [place] [address] Zaira Rodriguez MD Referring Provider Gynecology 07/29/[address] [place] [address] [address], [address] [place] [phone] Charo Finn MD Medical Oncology 07/29/[address] [place] [address], [address] [place] [address] documented as of this encounter
--- OUTSIDE RECORDS SUMMARY | 2021-10-16 02:02 | XMS_ITS | Encounter Summary ---
:1965 Author Organization [facility] Address [address] [place] [address] Care Team Providers Name Role Phone Zaira Rodriguez MD Unavailable Charo Finn MD Unavailable Herminio Hernandez ND Primary Care Provider Encounter Details Date Type Department Care Team Description 10/24/2017 Hospital Encounter [phone] [place] [address] (Work) [place] [address] Social History Tobacco Use Types Packs/Day Years [...] 9:27 EDT documented as of this encounter Medications at [...] mouth 2 0 01/13/20 20 times daily. [id number]- Take by mouth 0 01/13/2020 dss 160 [...] Code Departure Means Destination Home or Self Senior Care documented in this encounter Plan of Treatment Upcoming Encounters Date Type Specialty Care Team Description 10/18/2021 Nurse Only Infusion Therapy documented as of this encounter Visit Diagnoses Not on filedocumented in this encounter Care Teams Head Filter Tank Tender Helper Relationship Specialty Start Date End Date Herminio Hernandez ND PCP - General 08/19/16 [address] [place], [place] [address] Zaira Rodriguez MD Referring Provider Gynecology 07/29/16 130 [facility] [address], [address] [place] [phone] Charo Finn MD Medical Oncology 07/29/16 130 [facility], [address] [place] [phone] documented as of this encounter
--- OUTSIDE RECORDS SUMMARY | 2021-10-16 02:02 | XMS_ITS | Encounter Summary ---
:1965 Author Organization [facility] Address [address] [place] [address] Care Team Providers Name Role Phone Zaira Rodriguez MD Unavailable Charo Finn MD Unavailable Herminio Hernandez ND Primary Care Provider Encounter Details Date Type Department Care Team Description 01/16/2018 Historical Results [facility] - Herminio Hernandez ND Only [facility] Lab - Main [address] [place] [address] [place] [address] [place], [place] [address] [phone] Social History Tobacco Use Types Packs/Day Years [...] Date/Time Associated Comments Diagnosis HEMOGLOBIN A1C Routine 01/16/2018 7:43 EDT Result s for this procedure are i n the results section. LIPID PROFILE Routine 01/16/2018 7:43 EDT Results for this (INCLUDES procedure are i n CHOLESTEROL, the results TRIGLYCERIDES, HDL, section. LDL) documented in this encounter Results (ABNORMAL) LIPID PROFILE (INCLUDES CHOLESTEROL, TRIGLYCERIDES, HDL, LDL) (01/16/2018 7:43 EDT) Triglyceride 58 <150 mg/dL [facility] Comment: MED CENTER LAB Adult: Normal: ?<150 mg/dl ? Borderline High: 150-199 mg/dl ? High: ?200-499 mg/dl ? Very High: >[id number] Cholesterol 155 <200 mg/dL [facility] Comment: MED CENTER LAB Acceptable: ??<200 Borderline: ??200-239 High: ?> or = 240 Chol/HDL Ratio 2.0 0 - 4.5 [facility] Comment: MED CENTER LAB DESIRABLE RATIO IS LESS THAN 4.1 PATIENTS ARE CONSIDERED AT RISK: WOMEN RATIO >5 MEN RATIO >6 FASTING? - [facility] Yes [facility] MED CENTER LAB HDL 76 (H) 40 - 60 mg/dL [facility] Comment: MED CENTER LAB ?? Reference Range Low: ? < 40 ??mg/dL Normal: ??40-60 mg/dL High: ?>= 60 mg/dL LDL CHOLESTEROL - 67 60 - 100 [facility] mg/dL MED CENTER LAB Non HDL Cholesterol 79 mg/dl [facility] Comment: MED CENTER LAB Desirable: ?Less than 130 Borderline High: ??130-159 High: ? 160-189 Very High: ?Greater than or equal to 190 Specimen Narrative [facility] - 018 9:28 EDT Does PT Have a Latex Allergy? YES Performing Organization Address City/[facility] Code Phon e Number [facility] [address] [place] [address] [facility] LAB HEMOGLOBIN A1C (01/16/2018 7:43 EDT) Pathologist Sig nature Hemoglobin A1c 5.3 4.0 - 6.0 % [facility] LAB Est Avg Glucose 105 mg/dL [facility] R LAB Specimen Narrative [facility] LAB - 018 11:56 EDT Does PT Have a Latex Allergy? YES Performing Organization Address [facility] Code Phon e Number [facility] [address] [place] [phone] [place] [address] LAB documented in this encounter Visit Diagnoses Not on filedocumented in this encounter Care Teams Wooden Fence Erector Relationship Specialty Start Date End Date Herminio Hernandez ND PCP - General 08/19/[address] [place] [address] Zaira Rodriguez MD Referring Provider Gynecology 07/29/[address] [place] [address] [address], [address] [place] [phone] Charo Finn MD Medical Oncology 07/29/[address] [place] [address], [address] [place] [phone] documented as of this encounter
--- OUTSIDE RECORDS SUMMARY | 2021-10-16 02:02 | XMS_ITS | Encounter Summary ---
:1965 Author Organization [facility] Address [address] [place] [address] Care Team Providers Name Role Phone Zaira Rodriguez MD Unavailable Charo Finn MD Unavailable Herminio Hernandez ND Primary Care Provider Encounter Details Date Type Department Care Team Description 01/28/2018 Results Only [facility] Herminio Hernandez ND [phone] [address] [place] [address] (Wo rk) Social History Tobacco [...] Name Priority Date/Time Associated Diagnosis Comme nts T3 FREE Routine 01/28/2018 9:19 EDT Results for this procedure are i n the results section . TSH Routine 01/28/2018 9:19 EDT Results for this procedure are i n the results section . T4 Routine 01/28/2018 9:19 EDT Results for this procedure are i n the results section . documented in this encounter Results TSH (01/28/2018 9:19 EDT) TSH 1.95 0.47 - 4.68 [facility] Comment: uIU/ml LABORATORY SERVICES The results of this assay can be falsely lowered due to the consumption of Biotin. Specimen Blood Performing Organization Address City/[facility]/ZIP Code Phon e Number [facility] LABORATORY [address] [place] [address] SERVICES T3 FREE (01/28/2018 9:19 EDT) Pathologist Sig nature T3, Free 4.3 2.8 - 5.3 pg/ml [facility] LABORA TORY SERVICES Specimen Blood Performing Organization Address City/[facility]/ZIP Code Phon e Number [facility] LABORATORY [address] [place] [address] SERVICES T4 (01/28/2018 9:19 EDT) Pathologist Sig nature T4 7.9 5.5 - 11.0 ug/dl [facility] LABOR ATORY SERVICES Specimen Blood Performing Organization Address City/[facility]/ZIP Code Phon e Number [facility] LABORATORY [address] [place] [address] SERVICES documented in this encounter Visit Diagnoses Not on filedocumented in this encounter Care Teams Sign Painter Relationship Specialty Start Date End Date Herminio Hernandez ND PCP - General 08/19/16 [address] [place], [place] [address] Zaira Rodriguez MD Referring Provider Gynecology 07/29/[address] [place] [address] [address], [address] [place] [address] Charo Finn MD Medical Oncology 07/29/16 130 [facility], [address] [place] [phone] documented as of this encounter
--- OUTSIDE RECORDS SUMMARY | 2021-10-16 02:02 | XMS_ITS | Encounter Summary ---
:1965 Author Organization [facility] Address [address] [place] [address] Care Team Providers Name Role Phone Zaira Rodriguez MD Unavailable Charo Finn MD Unavailable Herminio Hernandez ND Primary Care Provider Encounter Details Date Type Department Care Team Description 11/18/2018 Historical Results [facility] - Lico Finn ar, Only [facility] Lab - [place] [address] [place] [address] [facility] [phone] [address] [place] [address] Social History Tobacco Use Types [...] Associated Comments Diagnosis COMPLETE BLOOD COUNT Routine 11/18/2018 14:48 Res ults for this WITH DIFFERENTIAL EDT procedure are in (AUTO) the results section. FERRITIN Routine 11/18/2018 14:48 Results for this EDT procedure are i n the results section. documented in this encounter Results FERRITIN (11/18/2018 14:48 EDT) FERRITIN - [facility] 63 11.1 - 264.0 [facility] Comment: ng/mL [facility] LAB The results of this assay can be falsely lowered due t o the consumption of Biotin. Specimen Performing Organization Address City/State/ZIP Code Phon e Number [facility] [address] [place] [address] LAB (ABNORMAL) COMPLETE BLOOD COUNT WITH DIFFERENTIAL (AUTO) (11/18/2018 14:48 EDT) Pathologist Sig nature ABSOLUTE NEUTROPHIL 1.8 (L) 2.2 - 8.85 [facility] COUN - [facility] 10e3/uL CENTER LAB BASO # - [facility] 0.04 0.01 - 0.11 [facility] 10e/uL [place] [facility] BASO % - [facility] 1 0 - 2 % [facility] EOS # - [facility] 0.18 0.03 - 0.61 [facility] 10e3/ul CENTER LAB EOS % - [facility] 6 (H) 0 - 5 % [facility] GRAN % - [facility] 55.1 40 - 80 % [facility] HEMATOCRIT - [facility] 39.8 34.9 - 44.4 % [facility] HEMOGLOBIN - [facility] 13.1 11.6 - 15.2 [facility] g/dl [place] IG# - [facility] 0 0 - 0.7 10e3/uL [facility] IG% - [facility] 0 0 - 0.9 % [facility] LYMPH # - [facility] 0.9 (L) 1.09 - 3.3 [facility] 10e3/ul [place] [facility] LYMPH% - [facility] 28.4 20 - 40 % [facility] MEAN CORPUSCULAR HGB - 30.6 26.7 - 33.3 pg [facility] CENTER LAB MEAN CORPUSCULAR HGB 32.9 32.1 - 35.9 [facility] CONC - [facility] g/dL CENTER LAB MEAN CELL VOLUME - 93.0 81 - 98 fl [facility] MONO # - [facility] 0.3 0.1 - 0.8 [facility] 10e3/uL [place] MONO% - [facility] 9.8 0 - 12 % [facility] PLATELET COUNT 163 141 - 377 [facility] 10e3/ul [place] [facility] RED BLOOD COUNT - [facility] 4.28 3.86 - 5.04 [facility] D 10e3/ul [place] [facility] RED CELL DISTRI WIDTH 13.4 <14.7 % [facility] LAB WHITE BLOOD COUNT - 3.3 (L) 4.0 - 12.4 [facility] 10e3/ul [place] Specimen Performing Organization Address City/State/ZIP Code Phon e Number [facility] [address] [place] [address] [facility] documented in this encounter Visit Diagnoses Not on filedocumented in this encounter Care Teams Picker Tender Helper Relationship Specialty Start Date End Date Herminio Hernandez ND PCP - General 08/19/16 [facility] [place], [place] [address] Zaira Rodriguez MD Referring Provider Gynecology 07/29/16 130 [facility] [address], [address] [place] [address] Charo Finn MD Medical Oncology 07/29/16 130 [facility], [address] [place] [address] documented as of this encounter
--- OUTSIDE RECORDS SUMMARY | 2021-10-16 02:02 | XMS_ITS | Encounter Summary ---
:1965 Author Organization [facility] Address [address] [place] [address] Care Team Providers Name Role Phone Zaira Rodriguez MD Unavailable Charo Finn MD Unavailable Herminio Hernandez ND Primary Care Provider Encounter Details Date Type Department Care Team Description 08/25/2018 Historical Results [facility] - Lico Finn ar, Only [facility] Lab - [place] [address] [place] [address] [facility] [phone] [address] [place] [address] Social History Tobacco Use Types [...] Associated Comments Diagnosis COMPLETE BLOOD COUNT Routine 08/25/2018 9:39 Resu lts for this WITH DIFFERENTIAL EDT procedure are in (AUTO) the results section. FERRITIN Routine 08/25/2018 9:39 Results for this EDT procedure are i n the results section. documented in this encounter Results FERRITIN (08/25/2018 9:39 EDT) FERRITIN - [facility] 33 11.1 - 264.0 [facility] Comment: ng/mL [facility] LAB The results of this assay can be falsely lowered due t o the consumption of Biotin. Specimen Narrative [facility] - 019 11:32 EDT Does PT Have a Latex Allergy? YES Performing Organization Address City/State/ZIP Code Phon e Number [facility] [address] [place], [place] [id number] [place] [address] LAB (ABNORMAL) COMPLETE BLOOD COUNT WITH DIFFERENTIAL (AUTO) (08/25/2018 9:39 EDT) Pathologist Sig nature ABSOLUTE NEUTROPHIL 2.2 2.2 - 8.85 [facility] COUN - [facility] 10e3/uL CENTER LAB BASO # - [facility] 0.04 0.01 - 0.11 [facility] MED 10e/uL CENTER LAB BASO % - [facility] 1 0 - 2 % [facility] EOS # - [facility] 0.06 0.03 - 0.61 [facility] MED 10e3/ul CENTER LAB EOS % - [facility] 2 0 - 5 % [facility] GRAN % - [facility] 58.8 40 - 80 % [facility] HEMATOCRIT - [facility] 40.1 34.9 - 44.4 % [facility] HEMOGLOBIN - [facility] 13.5 11.6 - 15.2 [facility] g/dl CENTER LAB IG# - [facility] 0.01 0 - 0.7 10e3/uL [facility] IG% - [facility] 0.3 0 - 0.9 % [facility] LYMPH # - [facility] 1.0 (L) 1.09 - 3.3 [facility] 10e3/ul [place] [facility] LYMPH% - [facility] 26.9 20 - 40 % [facility] MEAN CORPUSCULAR HGB - 31.0 26.7 - 33.[address] [facility] C[facility] LAB MEAN CORPUSCULAR HGB 33.7 32.1 - 35.9 [facility] CONC [facility] g/dL CENTER LAB MEAN CELL VOLUME - 92.2 81 - [address] [facility] C[facility] LAB MONO # - [facility] 0.4 0.1 - 0.8 [facility] 10e3/uL [place] [facility] MONO% - [facility] 11.3 0 - 12 % [facility] PLATELET COUNT 149 141 - 377 [facility] 10e3/ul [place] [facility] RED BLOOD COUNT - [facility] 4.35 3.86 - 5.04 [facility] ME D 10e3/ul [place] [facility] RED CELL DISTRI WIDTH 13.0 <14.7 % [facility] CENTER LAB WHITE BLOOD COUNT - 3.7 (L) 4.0 - 12.4 [facility] 10e3/ul [place] [facility] Specimen Narrative [facility] - 019 10:55 EDT Does PT Have a Latex Allergy? YES Performing Organization Address City/State/ZIP Code Phon e Number [facility] [address] [place] [address] [facility] documented in this encounter Visit Diagnoses Not on filedocumented in this encounter Care Teams Belt Puncher Relationship Specialty Start Date End Date Herminio Hernandez ND PCP - General 08/19/16 [address] [place], [place] [address] Zaira Rodriguez MD Referring Provider Gynecology 07/29/16 130 [facility] [address], [address] [place] [phone] Charo Finn MD Medical Oncology 07/29/16 [address] [facility], [facility] [address] [place] [phone] documented as of this encounter
--- OUTSIDE RECORDS SUMMARY | 2021-10-16 02:02 | XMS_ITS | Encounter Summary ---
:1965 Author Organization [facility] Address [address] [place] [address] Care Team Providers Name Role Phone Zaira Rodriguez MD Unavailable Charo Finn MD Unavailable Herminio Hernandez ND Primary Care Provider Encounter Details Date Type Department Care Team Description 10/22/2016 Historical Results [facility] - Breezy Orellana Only [facility] Resul ts MD John [address] [place], [place] [address] [place] [address] [phone] Social History Tobacco Use Types Packs/Day [...] on filedocumented in this encounter Care Teams Java Solutions Architect Relationship Specialty Start Date End Date Herminio Hernandez ND PCP - General 08/19/16 [address] [place] [address] Zaira Rodriguez MD Referring Provider Gynecology 07/29/[address] [place] [address] [address], [address] [place] [phone] Charo Finn MD Medical Oncology 07/29/[address] [place] [address], [address] [place] [phone] documented as of this encounter
--- OUTSIDE RECORDS SUMMARY | 2021-10-16 02:02 | XMS_ITS | Encounter Summary ---
:1965 Author Organization [facility] Address [address] [place] [address] Care Team Providers Name Role Phone Zaira Rodriguez MD Unavailable Charo Finn MD Unavailable Herminio Hernandez ND Primary Care Provider Encounter Details Date Type Department Care Team Description 10/22/2016 Hospital Encounter [facility] [phone] [place] [address] (Work) [place] [address] Social History Tobacco Use Types Packs/Day Years [...] mouth 2 0 01/13/20 20 times daily. [id number]-[id number]-C-biot-Zn- Take by mouth 0 01/13/2020 dss 160 [...] 3 times daily as needed for Nausea. tamoxifen (NOLVADEX) 20 mg Take 20 mg by 0 01/13/2020 tablet mouth daily. UNABLE TO FIND Med Name: Vitamin 0 ADK UNABLE TO FIND 2,025 mg. Med 0 020 Name:zinc chelate documented as of this encounter Discharge Disposition Disposition Code Departure Means Destination Home or Self [place] documented in this encounter Plan of Treatment Upcoming Encounters Date Type Specialty Care Team Description 10/18/2021 Nurse Only Infusion Therapy documented as of this encounter Visit Diagnoses Not on filedocumented in this encounter Care Teams Bridges Supervisor Relationship Specialty Start Date End Date Herminio Hernandez ND PCP - General 08/19/16 [address] [place] [address] Zaira Rodriguez MD Referring Provider Gynecology 07/29/[address] [place] [address]-A, [address] [place] [phone] Charo Finn MD Medical Oncology 07/29/[address] [place] [address], [address] [place] [phone] documented as of this encounter
--- OUTSIDE RECORDS SUMMARY | 2021-10-16 02:02 | XMS_ITS | Encounter Summary ---
:1965 Author Organization [facility] Address [address] [place] [address] Care Team Providers Name Role Phone Zaira Rodriguez MD Unavailable Charo Finn MD Unavailable Herminio Hernandez ND Primary Care Provider Encounter Details Date Type Department Care Team Description 11/10/2018 Hospital En[facility] [phone] [place] [address] (Work) [place] [address] Social History Tobacco Use Types Packs/Day Years [...] mouth 2 0 01/13/20 20 times daily. [id number]-C-biot-Zn- Take by mouth 0 01/13/2020 dss 160 [...] Code Departure Means Destination Home or Self Residential documented in this encounter Plan of Treatment Upcoming Encounters Date Type Specialty Care Team Description 10/18/2021 Nurse Only Infusion Therapy documented as of this encounter Visit Diagnoses Not on filedocumented in this encounter Care Teams Dry Chain Operator Relationship Specialty Start Date End Date Herminio Hernandez ND PCP - General 08/19/16 [address] [place], [place] [address] Zaira Rodriguez MD Referring Provider Gynecology 07/29/16 130 [facility] [address]A, [address] [place] [phone] Charo Finn MD Medical Oncology 07/29/16 130 [facility], [address] [place] [phone] documented as of this encounter
--- OUTSIDE RECORDS SUMMARY | 2021-10-16 02:02 | XMS_ITS | Encounter Summary ---
:1965 Author Organization [facility] Address [address] [place] [address] Care Team Providers Name Role Phone Zaira Rodriguez MD Unavailable Charo Finn MD Unavailable Herminio Hernandez ND Primary Care Provider Encounter Details Date Type Department Care Team Description 12/21/2018 Results Only [facility]- PRISM Livier Romero ND [phone] [place], [place] [phone] Social History Tobacco Use [...] Procedure Name Priority Date/Time Associated Comments Diagnosis THYROID-STIMULATING Routine 12/21/2018 14:11 Resu lts for this IMMUNOGLOBULIN (TSI), EDT proced ure are in SERUM the results section. TROPONIN I Routine 12/21/2018 14:11 Results for this EDT procedure are i n the results section. T3 FREE Routine 12/21/2018 14:11 Results for this EDT procedure are i n the results section. TSH Routine 12/21/2018 14:11 Results for this EDT procedure are i n the results section. T4 Routine 12/21/2018 14:11 Results for this EDT procedure are i n the results section. documented in this encounter Results TROPONIN I (12/21/2018 14:11 EDT) Troponin I <0.034 <0.034 ng/ml [facility] (ng/mL) Comment: LABORATORY The results of this assay can be falsely SERVICES lowered due to the consumption of Biotin. Specimen Blood Performing Organization Address City/[facility] Phon e Number [facility] LABORATORY [address] [place] [address] SERVICES THYROID-STIMULATING IMMUNOGLOBULIN (TSI), SERUM (12/21/2018 14:11 EDT) Thyroid Stimulating <1.0 <=1.3 TSI [facility]ICAL Immunoglobulin Comment: index CENTER LABORATORY Performed or Referred by: [facility] Nicolette Banner [facility], [address] [place] [address] Specimen Blood Performing Organization Address City/State/ZIP [facility] Phon e Number [facility] LABORATORY [address] [place] [address] SERVICES TSH (12/21/2018 14:11 EDT) TSH 1.88 0.47 - 4.68 [facility] Comment: uIU/ml LABORATORY SERVICES The results of this assay can be falsely lowered due to the consumption of Biotin. Specimen Blood Performing Organization Address City/[facility]/ZIP [facility] Phon e Number [facility]OR[facility]ORY [address] [place] [address] SERVICES T4 (12/21/2018 14:11 EDT) Pathologist Sig nature T4 7.7 5.5 - 11.0 ug/dl [facility] LABOR ATORY SERVICES Specimen Blood Performing Organization Address City/State/ZIP Code Phon e Number [facility] LABOR[facility]ORY [address] [place] [address] SERVICES T3 FREE (12/21/2018 14:11 EDT) Pathologist Sig nature T3, Free 4.8 2.8 - 5.3 pg/ml [facility] LABORA TORY SERVICES Specimen Blood Performing Organization Address City/State/ZIP Code Phon e Number [facility] [address] [place] [address] SERVICES documented in this encounter Visit Diagnoses Not on filedocumented in this encounter Care Teams Inserter Relationship Specialty Start Date End Date Herminio Hernandez ND PCP - General 08/19/16 [address] [place], [place] [address] Zaira Rodriguez MD Referring Provider Gynecology 07/29/[address] [place] [address]-A, [address] [place] [address] Charo Finn MD Medical Oncology 07/29/[address] [place] [address], [address] [place] [phone] documented as of this encounter
--- OUTSIDE RECORDS SUMMARY | 2021-10-16 02:02 | XMS_ITS | Encounter Summary ---
:1965 Author Organization [facility] Address [address] [place] [address] Care Team Providers Name Role Phone Zaira Rodriguez MD Unavailable Charo Finn MD Unavailable Herminio Hernandez ND Primary Care Provider Encounter Details Date Type Department Care Team Description 10/24/2017 Historical Results [facility] - Breezy Orellana Only [facility] Radiology Resul ts MD John [address] [place], [place] [address] [place] [address] [phone] Social History Tobacco Use Types Packs/Day [...] on filedocumented in this encounter Care Teams Plate Mill Hand Relationship Specialty Start Date End Date Herminio Hernandez ND PCP - General 08/19/16 [address] [place] [address] Zaira Rodriguez MD Referring Provider Gynecology 07/29/[address] [place] [address] [address]OB[address]A, [address] [place] [phone] Charo Finn MD Medical Oncology 07/29/[address] [place] [address], [address] [place] [phone] documented as of this encounter
--- OUTSIDE RECORDS SUMMARY | 2021-10-16 02:02 | XMS_ITS | Encounter Summary ---
:1965 Author Organization [facility] Address [address] [place] [address] Care Team Providers Name Role Phone Zaira Rodriguez MD Unavailable Charo Finn MD Unavailable Herminio Hernandez ND Primary Care Provider Encounter Details Date Type Department Care Team Description 01/29/2018 Hospital Encounter [facility] [phone] [place] [address] (Work) [place] [address] Social History Tobacco Use Types Packs/Day Years [...] mouth 2 0 01/13/20 20 times daily. [id number]-C-biot-Zn- Take by mouth 0 01/13/2020 dss 160 [...] Code Departure Means Destination Home or Self [facility] documented in this encounter Plan of Treatment Upcoming Encounters Date Type Specialty Care Team Description 10/18/2021 Nurse Only Infusion Therapy documented as of this encounter Visit Diagnoses Not on filedocumented in this encounter Care Teams Polytechnic Teacher Relationship Specialty Start Date End Date Herminio Hernandez ND PCP - General 08/19/16 [address] [place], [place] [address] Zaira Rodriguez MD Referring Provider Gynecology 07/29/16 130 [facility] [address]OB[address]A, [address] [place] [phone] Charo Finn MD Medical Oncology 07/29/16 130 [facility], [address] [place] [phone] documented as of this encounter
--- OUTSIDE RECORDS SUMMARY | 2021-10-16 02:02 | XMS_ITS | Encounter Summary ---
:1965 Author Organization [facility] Address [address] [place] [address] Care Team Providers Name Role Phone Zaira Rodriguez MD Unavailable Charo Finn MD Unavailable Herminio Hernandez ND Primary Care Provider Encounter Details Date Type Department Care Team Description 08/26/2017 Historical Results [facility] - Ihsan Huerta, MOTIVATIONAL SPEAKER Only [facility] Lab - [place] us [address] [facility], 130 [facility] [place] [address] [address] [place] [address] Social History Tobacco Use Types [...] Associated Comments Diagnosis COMPLETE BLOOD COUNT Routine 08/26/2017 15:33 Res ults for this WITH DIFFERENTIAL EDT procedure are in (AUTO) the results section. TRANSFERRIN Routine 08/26/2017 15:33 Results for this SATURATION EDT procedure are i n the results section. FERRITIN Routine 08/26/2017 15:33 Results for this EDT procedure are i n the results section. documented in this encounter Results TRANSFERRIN SATURATION (08/26/2017 15:33 EDT) Pathologist Sig nature SERUM IRON - [facility] 98 37 - 170 ug/dL [facility] IRON BINDING CAPACITY 307 261 - 462 ug/dL [facility] CENTER LAB TRANSFERRIN SATURATION 32 20 - 55 % [facility] D [facility] LAB Specimen Narrative [facility] - 018 16:41 EDT Does PT Have a Latex Allergy? YES Enter/Edit CPT and ICD codes? N Performing Organization Address [facility] Phon e Number [facility] [address] LAB FERRITIN (08/26/2017 15:33 EDT) Pathologist Sig nature FERRITIN - [facility] 58 11.1 - 264.0 ng/mL [facility] Specimen Narrative [facility] - 018 17:07 EDT Does PT Have a Latex Allergy? YES Performing Organization Address City/[facility]/ZIP Code Phon e Number [facility] [address] LAB COMPLETE BLOOD COUNT WITH DIFFERENTIAL (AUTO) (08/26/2017 15:33 EDT) Pathologist Sig nature ABSOLUTE NEUTROPHIL 2.33 1.7 - 7.0 [facility] COUN [facility] 10e3/ul CENTER LAB BASO # - [facility] 0.04 0.0 - 0.3 [facility] 10e3/uL CENTER LAB BASO % - [facility] 1 0 - 2 % [facility] EOS # - [facility] 0.10 0.05 - 0.5 [facility] 10e3/uL CENTER LAB EOS % - [facility] 2 0 - 5 % [facility] GRAN % - [facility] 55 40 - 80 % [facility] HEMATOCRIT - [facility] 41.5 34.0 - 47.0 % [facility] HEMOGLOBIN - [facility] 13.9 11.2 - 15.7 g/dl [facility] IG# - [facility] 0 0 - 0.07 10e3/uL [facility] IG% - [facility] 0 0 - 0.9 % [facility] LYMPH # - [facility] 1.38 0.9 - 2.9 [facility] 10e3/uL [place] [facility] LYMPH% - [facility] 33 20 - 40 % [facility] MEAN CORPUSCULAR HGB - 30.2 26 - 34 pg [facility] D [facility] LAB MEAN CORPUSCULAR HGB 33.5 31 - 36 g/dL [facility] CONC [facility] CENTER LAB MEAN CELL VOLUME - 90.2 77 - 100 fl [facility] LAB MONO # - [facility] 0.35 0.3 - 0.9 [facility] 10e3/uL [place] [facility] MONO% - [facility] 8 0 - 12 % [facility] PLATELET COUNT 156 150 - 400 [facility] 10e3/ul [place] [facility] RED BLOOD COUNT - [facility] 4.60 3.8 - 5.2 [facility] D 10e6/ul [place] LAB RED CELL DISTRI WIDTH 13.4 11.8 - 15.6 % [facility] D - [facility] LAB WHITE BLOOD COUNT - 4.2 3.5 - 10.5 [facility] 10e3/ul [place] LAB Specimen Narrative [facility] - 018 16:05 EDT Does PT Have a Latex Allergy? YES Performing Organization Address City/State/ZIP Code Phon e Number [facility] [address] [place] [address] [facility] documented in this encounter Visit Diagnoses Not on filedocumented in this encounter Care Teams Machine Bobbin Winder Relationship Specialty Start Date End Date Mary REBEL Durham PCP - General 08/19/16 [address] [place], [place] [phone] Zaira Rodriguez MD Referring Provider Gynecology 07/29/16 130 [facility] [address]OB[address]A, [address] [place] [address] Charo Finn MD Medical Oncology 07/29/16 130 [facility], [address] [place] [address] documented as of this encounter
--- OUTSIDE RECORDS SUMMARY | 2021-10-16 02:02 | XMS_ITS | Encounter Summary ---
:1965 Author Organization [facility] Address [address] [place] [address] Care Team Providers Name Role Phone Sasha Arvizu MD Primary Care Provider Unavailable Zaira Rodriguez MD Unavailable Charo Finn MD Unavailable Encounter Details Date Type Department Care Team Description 08/06/[address] [facility] Dianne De Paz RN Gynecologic Oncology - Main [address] [place] [address] [address] [place] [address] Social History Tobacco Use Types Packs/Day Years [...] Diagnoses Not on filedocumented in this encounter Discontinued Medications Medication Sig Discontinue Reason Start Date End Date tamoxifen (NOLVADEX) 10 Take 20 mg by mouth Dose adjustment 08/06/2016 mg tablet 2 times daily. documented as of this encounter Historical Medications This list may reflect changes made after this encounter. Medication Sig Dispensed Refills Start Date End Date IODINE ORAL Take by mouth 2 times 0 daily. WARFARIN SODIUM Take by mouth. 0 08/20 (COUMADIN ORAL) Reported on 08/20/2016 tamoxifen (NOLVADEX) 20 Take 20 mg by mouth 0 01/13/2020 mg tablet daily. added in this encounter Care Teams Product Marketing Director Relationship Specialty Start Date End Date Sasha Arvizu MD PCP - General 10/20/13 08/18/16 Zaira Rodriguez MD Referring Provider Gynecology 07/29/[address] [place] [address] [address], [address] [place] [address] Charo Finn MD Medical Oncology 07/29/[address] [place] [address], [address] [place] [phone] documented as of this encounter
--- OUTSIDE RECORDS SUMMARY | 2021-10-16 02:02 | XMS_ITS | Encounter Summary ---
:1965 Author Organization [facility] Address [address] [place] [address] Care Team Providers Name Role Phone Zaira Rodriguez MD Unavailable Charo Finn MD Unavailable Herminio Hernandez ND Primary Care Provider Encounter Details Date Type Department Care Team Description 01/29/2018 Historical Results [facility] - Herminio Hernandez ND Only [facility] Radiology [address] [place] [address] 130 [facility] [place], [place] [address] [phone] Social History Tobacco Use Types Packs/Day Years [...] Procedure Name Priority Date/Time Associated Comments Diagnosis XR CERVICAL SPINE 6 01/29/2018 21:20 Resu lts for this OR MORE VIEWS EDT procedure are in the results section. COMPLETE BLOOD COUNT Routine 01/29/2018 17:01 Res ults for this WITH DIFFERENTIAL EDT procedure are in (AUTO) the results section. FERRITIN Routine 01/29/2018 17:01 Results for this EDT procedure are i n the results section. documented in this encounter Results XR CERVICAL SPINE 6 OR MORE VIEWS (01/29/2018 21:20 EDT) Specimen Narrative [facility] RADIOLOGY - 01/29/2018 21:20 EDT ? EXAM: RADIOLOGY/CERVICAL SPINE + FLEX ?? E EX. D/ (1735) ? CLINICAL INFORMATION: ? M54.2 CHRONIC NECK PAIN ? EXAM: ?XR Cervical Spine, 6 or More Vi ews ? EXAM DATE/TIME: ?01/29/2018 5:07 PM ? CLINICAL HISTORY: ?52 years old, female; Neck pain ; Additional info: M54.2 chronic ? neck pain ? TECHNIQUE: ?XR of the cervical spine, 6 or more views. ? COMPARISON: ?No relevant prior studies avail able. ? FINDINGS: ?Vertebrae: ??Mild narrowing of the C5-6 and C6-7 disc spaces. ? Mild narrowing of each neural for amen at C3-4. Mild narrowing of ? the left neural foramen at C6-7. No fracture. No dislocation. ?Soft tissues: Normal. ? IMPRESSION: ? 1. Mild narrowing of the C5-6 and C6-7 disc spaces. ? 2. Mild narrowing of each neural foramen at C3-4. Mild narrowing ? of the left neural foramen at C6- 7. ? REPORT SIGNED IN OTHER VENDOR SYSTEM 01/29/2018 ?Reported B y: Colten Marrufo MD ? CC: ? Transcribed Date/Time: 01/29/2018 (2119) ? Technology Trainer: [email or web address] ? Printed Date/Time: 09/20/2018 (17 04) ? PAGE 1 ? Addie d Report ? Procedure Note Colten Marrufo P - 02/04/2019 EXAM: RADIOLOGY/CERVICAL SPINE + FLEX E EX. D/ (1735) CLINICAL INFORMATION: M54.2 CHRONIC NECK PAIN EXAM: XR Cervical Spine, 6 or More Views EXAM DATE/TIME: 01/29/2018 5:07 PM CLINICAL HISTORY: 52 years old, female; Neck pain; Additi onal info: M54.2 chronic neck pain TECHNIQUE: XR of the cervical spine, 6 or more vie ws. COMPARISON: No relevant prior studies available. FINDINGS: Vertebrae: Mild narrowing of the C5-6 a nd C6-7 disc spaces. Mild narrowing of each neural foramen a t C3-4. Mild narrowing of the left neural foramen at C6-7. No fra cture. No dislocation. Soft tissues: Normal. IMPRESSION: 1. Mild narrowing of the C5-6 and C6-7 disc spaces. 2. Mild narrowing of each neural forame n at C3-4. Mild narrowing of the left neural foramen at C6-7. REPORT SIGNED IN OTHER VENDOR SYSTEM 01/29/2018 Reported By: Colten Marrufo MD CC: Transcribed Date/Time: 01/29/2018 (2119 ) Technology Trainer: Printed Date/Time: 09/20/2018 (5372) PAGE 1 Signed Report Performing Organization Address City/State/ZIP Code Phon e Number [facility] RADIOLOGY FERRITIN (01/29/2018 17:01 EDT) FERRITIN - [facility] 73 11.1 - 264.0 [facility] Comment: ng/mL [facility] LAB The results of this assay can be falsely lowered due t o the consumption of Biotin. Specimen Performing Organization Address City/[facility]/ZIP Code Phon e Number [facility] [address] LAB COMPLETE BLOOD COUNT WITH DIFFERENTIAL (AUTO) (01/29/2018 17:01 EDT) Pathologist Sig nature ABSOLUTE NEUTROPHIL 2.65 1.7 - 7.0 [facility] COUN - [facility] 10e3/ul CENTER LAB BASO # - [facility] 0.04 0.0 - 0.3 [facility] 10e3/uL [place] [facility] BASO % - [facility] 1 0 - 2 % [facility] EOS # - [facility] 0.09 0.05 - 0.5 [facility] 10e3/uL [place] [facility] EOS % - [facility] 2 0 - 5 % [facility] GRAN % - [facility] 55 40 - 80 % [facility] HEMATOCRIT - [facility] 42.4 34.0 - 47.0 % [facility] HEMOGLOBIN - [facility] 13.8 11.2 - 15.7 g/dl [facility] IG# - [facility] 0.01 0 - 0.07 10e3/uL [facility] IG% - [facility] 0.2 0 - 0.9 % [facility] LYMPH # - [facility] 1.62 0.9 - 2.9 [facility] 10e3/uL [place] [facility] LYMPH% - [facility] 34 20 - 40 % [facility] LAB MEAN CORPUSCULAR HGB - 30.0 26 - 34 pg [facility] ME D [facility] CENTER LAB MEAN CORPUSCULAR HGB 32.5 31 - 36 g/dL [facility] CONC - [facility] CENTER LAB MEAN CELL VOLUME - 92.2 77 - 100 fl [facility] CENTER LAB MONO # - [facility] 0.43 0.3 - 0.9 [facility] 10e3/uL CENTER LAB MONO% - [facility] 9 0 - 12 % [facility] LAB PLATELET COUNT 197 150 - 400 [facility] 10e3/ul [place] [facility] RED BLOOD COUNT - [facility] 4.60 3.8 - 5.2 [facility] D 10e6/ul CENTER LAB RED CELL DISTRI WIDTH 13.3 11.8 - 15.6 % [facility] D - [facility] CENTER LAB WHITE BLOOD COUNT - 4.8 3.5 - 10.5 [facility] 10e3/ul [place] [facility] Specimen Performing Organization Address City/State/ZIP Code Phon e Number [facility] [address] [place] [address] [facility] documented in this encounter Visit Diagnoses Not on filedocumented in this encounter Care Teams Fiber Locking Supervisor Relationship Specialty Start Date End Date Herminio Hernandez ND PCP - General 08/19/16 [facility] [place] [address] Zaira Rodriguez MD Referring Provider Gynecology 07/29/[address] [place] [address] [address], [address] [place] [phone] Charo Finn MD Medical Oncology 07/29/[address] [place] [address], [address] [place] [address] documented as of this encounter
--- OUTSIDE RECORDS SUMMARY | 2021-10-16 02:02 | XMS_ITS | Encounter Summary ---
:1965 Author Organization [facility] Address [address] [place] [address] Care Team Providers Name Role Phone Zaira Rodriguez MD Unavailable Charo Finn MD Unavailable Herminio Hernandez ND Primary Care Provider Encounter Details Date Type Department Care Team Description 11/17/2018 Historical Results [facility] Breezy Orellana Only [facility] Radiology Resul ts MD John [address] [place], [place] [id number] [place] [address] [phone] Social History Tobacco Use Types Packs/Day [...] Date/Time Associated Comments Diagnosis MA BREAST DIAGNOSTIC 11/17/2018 11:44 Res ults for this UNILATERAL CLINT EDT procedure ar e in the results section. US BREAST LIMITED 11/17/2018 11:44 Result s for this UNILATERAL EDT procedure are i n the results section. documented in this encounter Results US BREAST LIMITED UNILATERAL (11/17/2018 11:44 EDT) Specimen Narrative [facility] - 11/17/2018 11:44 EDT ? EXAM: ULTRASOUND/UNILAT BREAST CALL BACK ??EX. D/ (0939) ? CLINICAL INFORMATION: ? LEFT BREAST CYSTIC VS SOLID ? UNILAT BREAST CALL BACK LTD, MAMM O DX CALL BACK UNI W/CLINT ? SIGNS AND SYMPTOMS/COMMENTS: ??LE FT BREAST CYSTIC VS SOLID ? COMPARISONS: 11/10/2018, 11/04/19 18, 10/24/2017, 10/22/2016, ? 04/26/2016, 10/20/2015. ? FINDINGS: ? LEFT BREAST: ? MAMMOGRAPHY: Full field digital w hole breast 2D (C-view) and 3D ML ? and spot compression CC and MLO v iews of the left breast were ? obtained. CAD technology was util ized. ? The breast tissue is of heterogen eous density, which may obscure ? small masses. The one view asymme try described on the screening ? examination completely effaces wi th additional views. There is no ? suspicious mass, distortion or damon spicious microcalcification is ? detected within the left breast. ? LEFT BREAST ULTRASOUND: The outer half of the left breast was scanned ? from the 12 o'clock position to t he 6 clock position. ? No suspicious sonographic abnorma lity was detected. Incidental note ? was made of an oval circumscribed 6-mm simple cyst at the 3 clock ? position, 4 cm from the nipple. ? LEFT BREAST IMPRESSION: Negative. No suspicious mammographic or ? sonographic abnormality detected. Incidental note was made of a 6-mm ? simple cyst in the outer left ho ast.. ? FINAL ASSESSMENT LEFT BREAST: BI- RADS Category 1: Negative ? RECOMMENDATION: Recommend continu ed annual bilateral screening ? mammography which is next due in October 2019. ? Dr Master Ding discussed the fi ndings and recommendations directly ? with the patient at the time of t he examination. ? These results will be communicate d to your patient via a lay letter ? from Radiology. If any additional imaging is needed we will contact ? your patient directly. ? REPORT SIGNED IN OTHER VENDOR SYSTEM 11/17/2018 ?Reported B y: Master Ding MD ? CC: ? Transcribed Date/Time: 11/17/2018 (1144) ? Project Structural Engineer: ? Printed Date/Time: 12/17/2018 (06 16) ? PAGE 1 ? Addie d Report ? Procedure Note Master Ding E - 02/02/2019 EXAM: ULTRASOUND/UNILAT BREAST CALL ENRIQUE K EX. D/ (0939) CLINICAL INFORMATION: LEFT BREAST CYSTIC VS SOLID UNILAT BREAST CALL BACK LTD, MAMMO DX C ALL BACK UNI W/CLINT SIGNS AND SYMPTOMS/COMMENTS: LEFT BREAS T CYSTIC VS SOLID COMPARISONS: 11/10/2018, 11/03/2017, , 10/22/2016, 04/26/2016, 10/20/2015. FINDINGS: LEFT BREAST: MAMMOGRAPHY: Full field digital whole b reast 2D (C-view) and 3D ML and spot compression CC and MLO views o f the left breast were obtained. CAD technology was utilized. The breast tissue is of heterogeneous d ensity, which may obscure small masses. The one view asymmetry de scribed on the screening examination completely effaces with add itional views. There is no suspicious mass, distortion or suspicio us microcalcification is detected within the left breast. LEFT BREAST ULTRASOUND: The outer half of the left breast was scanned from the 12 o'clock position to the 6 c lock position. No suspicious sonographic abnormality w as detected. Incidental note was made of an oval circumscribed 6-mm simple cyst at the 3 clock position, 4 cm from the nipple. LEFT BREAST IMPRESSION: Negative. No damon spicious mammographic or sonographic abnormality detected. Incid ental note was made of a 6-mm simple cyst in the outer left breast.. FINAL ASSESSMENT LEFT BREAST: BI-RADS C ategory 1: Negative RECOMMENDATION: Recommend continued kuldip ual bilateral screening mammography which is next due in October 2019. Dr Msater Ding discussed the findings and recommendations directly with the patient at the time of the exa mination. These results will be communicated to y our patient via a lay letter from Radiology. If any additional imagi ng is needed we will contact your patient directly. REPORT SIGNED IN OTHER VENDOR SYSTEM 11/17/2018 Reported By: Master Ding MD CC: Transcribed Date/Time: 11/17/2018 (1144 ) Project Structural Engineer: Printed Date/Time: 12/17/2018 (3644) PAGE 1 Signed Report Performing Organization Address City/State/ZIP Code Phon e Number [facility] MA BREAST DIAGNOSTIC UNILATERAL CLINT (11/17/2018 11:44 EDT) Specimen Narrative [facility] - 11/17/2018 11:44 EDT ? EXAM: MAMMOGRAM/MAMMO DX CALL BACK UNI W/ EX. D/ ([id number]) ? CLINICAL INFORMATION: ? LEFT BREAST SUSPICIOUS AREA NOTED ON INITIAL EXAM ? UNILAT BREAST CALL BACK LTD, MAMM O DX CALL BACK UNI W/CLINT ? SIGNS AND SYMPTOMS/COMMENTS: ??LE FT BREAST CYSTIC VS SOLID ? COMPARISONS: 11/10/2018, 11/04/19 18, 10/24/2017, 10/22/2016, ? 04/26/2016, 10/20/2015. ? FINDINGS: ? LEFT BREAST: ? MAMMOGRAPHY: Full field digital w hole breast 2D (C-view) and 3D ML ? and spot compression CC and MLO v iews of the left breast were ? obtained. CAD technology was util ized. ? The breast tissue is of heterogen eous density, which may obscure ? small masses. The one view asymme try described on the screening ? examination completely effaces wi th additional views. There is no ? suspicious mass, distortion or damon spicious microcalcification is ? detected within the left breast. ? LEFT BREAST ULTRASOUND: The outer half of the left breast was scanned ? from the 12 o'clock position to t he 6 clock position. ? No suspicious sonographic abnorma lity was detected. Incidental note ? was made of an oval circumscribed 6-mm simple cyst at the 3 clock ? position, 4 cm from the nipple. ? LEFT BREAST IMPRESSION: Negative. No suspicious mammographic or ? sonographic abnormality detected. Incidental note was made of a 6-mm ? simple cyst in the outer left ho ast.. ? FINAL ASSESSMENT LEFT BREAST: BI- RADS Category 1: Negative ? RECOMMENDATION: Recommend continu ed annual bilateral screening ? mammography which is next due in October 2019. ? Dr Master Ding discussed the fi ndings and recommendations directly ? with the patient at the time of t he examination. ? These results will be communicate d to your patient via a lay letter ? from Radiology. If any additional imaging is needed we will contact ? your patient directly. ? REPORT SIGNED IN OTHER VENDOR SYSTEM 11/17/2018 ?Reported B y: Master Ding MD ? CC: ? Transcribed Date/Time: 11/17/2018 (1144) ? Project Structural Engineer: ? Printed Date/Time: 12/17/2018 (06 16) ? PAGE 1 ? Addie d Report ? Procedure Note Master Ding E - 02/02/2019 EXAM: MAMMOGRAM/MAMMO DX CALL BACK UNI W/ EX. D/ (0918) CLINICAL INFORMATION: LEFT BREAST SUSPICIOUS AREA NOTED ON IN ITIAL EXAM UNILAT BREAST CALL BACK LTD, MAMMO DX C ALL BACK UNI W/CLINT SIGNS AND SYMPTOMS/COMMENTS: LEFT BREAS T CYSTIC VS SOLID COMPARISONS: 11/10/2018, 11/03/2017, , 10/22/2016, 04/26/2016, 10/20/2015. FINDINGS: LEFT BREAST: MAMMOGRAPHY: Full field digital whole b reast 2D (C-view) and 3D ML and spot compression CC and MLO views o f the left breast were obtained. CAD technology was utilized. The breast tissue is of heterogeneous d ensity, which may obscure small masses. The one view asymmetry de scribed on the screening examination completely effaces with add itional views. There is no suspicious mass, distortion or suspicio us microcalcification is detected within the left breast. LEFT BREAST ULTRASOUND: The outer half of the left breast was scanned from the 12 o'clock position to the 6 c lock position. No suspicious sonographic abnormality w as detected. Incidental note was made of an oval circumscribed 6-mm simple cyst at the 3 clock position, 4 cm from the nipple. LEFT BREAST IMPRESSION: Negative. No damon spicious mammographic or sonographic abnormality detected. Incid ental note was made of a 6-mm simple cyst in the outer left breast.. FINAL ASSESSMENT LEFT BREAST: BI-RADS C ategory 1: Negative RECOMMENDATION: Recommend continued kuldip ual bilateral screening mammography which is next due in October 2019. Dr Master Ding discussed the findings and recommendations directly with the patient at the time of the exa mination. These results will be communicated to y our patient via a lay letter from Radiology. If any additional imagi ng is needed we will contact your patient directly. REPORT SIGNED IN OTHER VENDOR SYSTEM 11/17/2018 Reported By: Master Ding MD CC: Transcribed Date/Time: 11/17/2018 (1144 ) Project Structural Engineer: Printed Date/Time: 12/17/2018 (0313) PAGE 1 Signed Report Performing Organization Address City/State/ZIP Code Phon e Number [facility] documented in this encounter Visit Diagnoses Not on filedocumented in this encounter Care Teams Brokerage Coordinator Relationship Specialty Start Date End Date Herminio Hernandez ND PCP - General 08/19/16 [address] [place] [address] Zaira Rodriguez MD Referring Provider Gynecology 07/29/[address] [place] [address] [address] [place] [phone] Charo Finn MD Medical Oncology 07/29/[address] [place] [address], [address] [place] [phone] documented as of this encounter
--- OUTSIDE RECORDS SUMMARY | 2021-10-16 02:02 | XMS_ITS | Encounter Summary ---
:1965 Author Organization [facility] Address [address] [place] [address] Care Team Providers Name Role Phone Zaira Rodriguez MD Unavailable Charo Finn MD Unavailable Herminio Hernandez ND Primary Care Provider Encounter Details Date Type Department Care Team Description 05/25/2018 Historical Results [facility] - Herminio Hernandez ND Only [facility] - Main [address] [place] [address] [place] [address] [place] [address] [phone] Social History Tobacco Use Types Packs/Day Years [...] Associated Comments Diagnosis COMPLETE BLOOD COUNT Routine 05/25/2018 17:03 Res ults for this AND DIFFERENTIAL EST procedure a re in the results section. FERRITIN Routine 05/25/2018 17:03 Results for this EST procedure are i n the results section. documented in this encounter Results FERRITIN (05/25/2018 17:03 EST) [place]ITIN - [facility] 55 11.1 - 264.0 [facility] Comment: ng/mL [facility] The results of this assay can be falsely lowered due t o the consumption of Biotin. Specimen Performing Organization Address City/State/ZIP Code Phon e Number [facility] [address] LAB COMPLETE BLOOD COUNT AND DIFFERENTIAL (05/25/2018 17:03 EST) Pathologist Sig nature ABSOLUTE NEUTROPHIL 2.45 1.7 - 7.0 [facility] COUN - [facility] 10e3/ul CENTER LAB ATYPICAL LYMPHOCYTES - 2 % [facility] ME D [facility] LAB EOS # - [facility] 0.10 0.05 - 0.5 [facility] 10e3/uL [place] [facility] EOSINOPHILS - [facility] 2 0 - 5 % [facility] HEMATOCRIT - [facility] 41.4 34.9 - 44.4 % [facility] HEMOGLOBIN - [facility] 13.6 11.6 - 15.2 g/dl [facility] LYMPH # - [facility] 1.95 0.9 - 2.9 [facility] 10e3/uL CENTER LAB LYMPHOCYTES - [facility] 37 20 - 40 % [facility] MEAN CORPUSCULAR HGB - 30.2 26.7 - 33.3 pg [facility] MEAN CORPUSCULAR HGB 32.9 32.1 - 35.9 g/dL [facility] CONC [facility] CENTER LAB MEAN CELL VOLUME - 92.0 81 - 98 fl [facility] CENTER LAB MONO # - [facility] 0.50 0.3 - 0.9 [facility] 10e3/uL CENTER LAB MONOCYTE - [facility] 10 0 - 12 % [facility] PLATELET COUNT 165 141 - 377 [facility] 10e3/ul CENTER LAB NEUTROPHILS - [facility] 49 40 - 80 % [facility] RED BLOOD COUNT - [facility] 4.50 3.86 - 5.04 [facility] ME D 10e3/ul CENTER LAB RED CELL DISTRI WIDTH 13.2 <14.7 % [facility] - [facility] LAB WHITE BLOOD COUNT - 5.0 4.0 - 12.4 [facility] 10e3/ul [place] Specimen Performing Organization Address City/State/ZIP Code Phon e Number [facility] [address] [place] [address] [facility] documented in this encounter Visit Diagnoses Not on filedocumented in this encounter Care Teams Saddle And Side Wire Stitcher Relationship Specialty Start Date End Date Herminio Hernandez ND PCP - General 08/19/16 [facility] [place] [address] Zaira Rodriguez MD Referring Provider Gynecology 07/29/[address] [place] [address] [address] [place] [phone] Charo Finn MD Medical Oncology 07/29/[address] [place] [address], [address] [place] [phone] documented as of this encounter
--- OUTSIDE RECORDS SUMMARY | 2021-10-16 02:02 | XMS_ITS | Encounter Summary ---
:1965 Author Organization [facility] Address [address] [place] [address] Care Team Providers Name Role Phone Zaira Rodriguez MD Unavailable Charo Finn MD Unavailable Herminio Hernandez ND Primary Care Provider Encounter Details Date Type Department Care Team Description 05/15/2018 Historical Results [facility] - Lico Finn ar, Only [facility] [place] [address] [place] [address] [facility] [phone] [address] [place] [phone] Social History Tobacco Use Types [...] Associated Comments Diagnosis COMPLETE BLOOD COUNT Routine 05/15/2018 7:41 Resu lts for this WITH DIFFERENTIAL EST procedure are in (AUTO) the results section. FERRITIN Routine 05/15/2018 7:41 Results for this EST procedure are i n the results section. documented in this encounter Results FERRITIN (05/15/2018 7:41 EST) FERRITIN - [facility] 45 11.1 - 264.0 [facility] Comment: ng/mL [facility] The results of this assay can be falsely lowered due t o the consumption of Biotin. Specimen Narrative [facility] - 019 10:06 EST Does PT Have a Latex Allergy? YES Performing Organization Address City/State/ZIP Code Phon e Number [facility] [address] LAB (ABNORMAL) COMPLETE BLOOD COUNT WITH DIFFERENTIAL (AUTO) (05/15/2018 7:41 EST) Pathologist Sig nature ABSOLUTE NEUTROPHIL 1.8 (L) 2.2 - 8.85 [facility] MED COUN - [facility] 10e3/uL CENTER LAB BASO # - [facility] 0.04 0.01 - 0.11 [facility] MED 10e/uL CENTER LAB BASO % - [facility] 1 0 - 2 % [facility] EOS # - [facility] 0.07 0.03 - 0.61 [facility] 10e3/ul CENTER LAB EOS % - [facility] 2 0 - 5 % [facility] GRAN % - [facility] 54.6 40 - 80 % [facility] HEMATOCRIT - [facility] 40.5 34.9 - 44.4 % [facility] HEMOGLOBIN - [facility] 13.1 11.6 - 15.2 [facility] g/dl [place] [facility] IG# - [facility] 0.01 0 - 0.7 10e3/uL [facility] IG% - [facility] 0.3 0 - 0.9 % [facility] LYMPH # - [facility] 1.1 1.09 - 3.3 [facility] 10e3/ul CENTER LAB LYMPH% - [facility] 32.7 20 - 40 % [facility] MEAN CORPUSCULAR HGB - 29.8 26.7 - 33.3 pg [facility] LAB MEAN CORPUSCULAR HGB 32.3 32.1 - 35.9 [facility] CONC - [facility] g/dL CENTER LAB MEAN CELL VOLUME - 92.0 81 - 98 fl [facility] LAB MONO # - [facility] 0.3 0.1 - 0.8 [facility] 10e3/uL [place] [facility] MONO% - [facility] 9.1 0 - 12 % [facility] PLATELET COUNT 152 141 - 377 [facility] 10e3/ul [place] [facility] RED BLOOD COUNT - [facility] 4.40 3.86 - 5.04 [facility] ME D 10e3/ul [place] [facility] RED CELL DISTRI WIDTH 13.1 <14.7 % [facility] LAB WHITE BLOOD COUNT - 3.3 (L) 4.0 - 12.4 [facility] 10e3/ul [place] [facility] Specimen Narrative [facility] - 019 8:32 EST Does PT Have a Latex Allergy? YES Performing Organization Address City/State/ZIP Code Phon e Number [facility] [address] [place] [id number] [facility] documented in this encounter Visit Diagnoses Not on filedocumented in this encounter Care Teams Can Machine Operator Relationship Specialty Start Date End Date Herminio Hernandez ND PCP - General 08/19/16 [address] [place], [place] [phone] Zaira Rodriguez MD Referring Provider Gynecology 07/29/[address] [place] [address] [address] [place] [phone] Charo Finn MD Medical Oncology 07/29/[address] [place] [address] [facility]-B [address] [place] [address] documented as of this encounter
--- OUTSIDE RECORDS SUMMARY | 2021-10-16 02:02 | XMS_ITS | Encounter Summary ---
:1965 Author Organization [facility] Address [address] [place] [address] Care Team Providers Name Role Phone Zaira Rodriguez MD Unavailable Charo Finn MD Unavailable Herminio Hernandez ND Primary Care Provider Reason for Visit Reason Comments Advice Only H/O breast cancer; bleeding on Tamoxifen Encounter Details Date Type Department Care Team Description 08/20/2016 Office Visit [facility] Jaun Clifford MD Endometrial polyp Gynecologic Oncology [address] (Prim nagi Dx) - [facility] [address] [place], [place] [id number] [place] [address], [place] [address] (Wo rk) Social History Tobacco [...] Reading Time Taken Comments Blood Pressure 104/60 08/20/2016 0908 EDT Pulse - - Temperature - - Respiratory Rate - - Oxygen Saturation - - Inhaled Oxygen Concentration - - Weight 84.8 kg (187 lb) 08/20/2016 0858 EDT Height 172.7 cm (5' 7.99) 08/20/2016 0858 EDT Body Mass Index 28.44 08/20/2016 0858 EDT documented in this encounter Progress Notes Jaun Clifford MD - 08/20/2016 0900 EDT Subjective: Thank you very much for requesting a consult on your patient, Nabila Evans, because of bleeding while ontamoxifen. As you recall, Nabila is a 51-year-old female who back in 2013 was diagnosed with breast cancer. At that time she underwent chemotherapy, lumpectomy and radiation therapy and she is currently on tamoxifen. She is on her second year of tamoxifen and it is expected that she will be using tamoxifen anywhere for a full 5 to 10 years. Recently Nabila had a couple episodes of spotting and she has had 2 evaluations of the endometrial cavity. Both times it demonstrated that she had benign endometrial polyps. She presents today for evaluation. PAST OB HISTORY: Para 0. PAST LEGAL OPERATIONS MANAGER HISTORY: As described above. It should be noted that she has undergone genetic evaluation and she is negative for any mutations on the BRCA gene. Menstrual History: OB History Para Term AB TAB SAB Ectopic Multiple Living 1 1 1 No LMP recorded. Past Medical History: Diagnosis Date ??? Breast cancer invasive ductal carcinoma - right breast ??? H/O seasonal allergies ??? Insomnia ??? Migraine headache Past Surgical History: Procedure Laterality Date ??? DILATION AND CURETTAGE OF UTERUS 1988 ??? DILATION AND CURETTAGE OF UTERUS 05/2016 hysteroscopy D&C ??? KNEE SURGERY 1993 No family history on file. Current Outpatient Prescriptions Medication Sig Dispense Refill ??? ascorbic acid (VITAMIN C) 500 mg tablet Take 500 mg by mouth daily. ??? HELEN ROOT EXTRACT,BULK, MISC by misc (non-drug; combo route) route. ??? B Complex Vitamins (B COMPLEX 1) tablet Take by mouth daily. ??? BERB MCCLOUD/HERBAL COMPLEX NO.18 (BERBERINE-HERBAL COMB NO.18 ORAL) Take by mouth. ??? gabapentin (NEURONTIN) 300 mg capsule Take 300 mg by mouth at bedtime. Reported on 08/20/2016 ??? GOTU BERNADINE HERB ORAL Take by mouth. ??? IODINE ORAL Take by mouth 2 times daily. ??? dyhe-[id number]-[id number]-Mm-ong 160 mg iron-1 mg-60 mcg tablet Take by mouth daily. ??? LORazepam (ATIVAN) 1 mg tablet Take 1 mg by mouth 3 times daily. ??? MAGNESIUM GLYCINATE ORAL Take by mouth. ??? melatonin 10 mg tablet Take 20 mg by mouth. ??? OMEGA-3S/DHA/EPA/FISH OIL (OMEGA 3 ORAL) Take by mouth. ??? tamoxifen (NOLVADEX) 20 mg tablet Take 20 mg by mouth daily. ??? thyroid, Pork, (ARMOUR THYROID) 30 mg tablet Take 45 mg by mouth daily. Reported on 08/20/2016 ??? TURMERIC (CURCUMIN MISC) by misc (non-drug; combo route) route. ??? UNABLE TO FIND Med Name: Vitamin ADK ??? UNABLE TO FIND 2,025 mg. Med Name:zinc chelate No current facility-administered medications for this visit. Allergies Allergen Reactions ??? Ampicillin ??? Latex Rash ??? Nsaids (Non-Steroidal Anti-Inflammatory Drug) Doesn't take d/- lymphocytic colitis ??? Other - See Comments Environmental - grass - itchiness - un raised pink area on skin ??? Protein In Dairy Social History Social History ??? Marital status: Spouse name: N/A ??? Number of children: N/A ??? Years of education: N/A Occupational History ??? Not on file. Social History Main Topics ??? Smoking status: Never Smoker ??? Smokeless tobacco: Not on file ??? Alcohol use Not on file ??? Drug use: Not on file ??? Sexual activity: Not on file Other Topics Concern ??? Not on file Social History Narrative Review of Systems: Pertinent items are noted in Subjective/HPI Objective: BP 104/60 Ht 172.7 cm (67.99) Wt 84.8 kg (187 lb) BMI 28.44 kg/m2 Physical exam is deferred Assessment/Plan: Today, I had a discussion with Nabila with regards to her current situation. I explained to Nabila that inabout 15% to 20% of the patients who are on tamoxifen, they can develop benign changes to the endometrial lining, such as cystic appearance of the endometrium or benign polyps. It should be noted that Nabila has had several episodes of endometrial polyps. Nabila did inform me that she has a polyp that is inthe endometrial cavity that was difficult to get to. I explained to Nabila that for those endometrialpolyps that may be difficult to get to, one may need to consider operative hysteroscopy to remove this and I have asked Nabila to ask Dr Rodriguez whether or not she performs operative hysteroscopies but it is my understanding that Dr Rodriguez does do operative hysteroscopies and is not unreasonable for her to have one done. Nabila at this time has stated to me that she has no interest in having a hysterectomy atthis time. With regards to her ovaries, I explained to Nabila that if her medical oncologist feels that she shouldhave her ovaries removed and start her on an aromatase inhibitor that could be something that we could consider. Risks and benefits of oophorectomy was reviewed with her. After answering all of her questions, Nabila states that she would like to maintain the current course and be conservative, but if shehas any further bleeding, she will give our office a call. As mentioned, at this time, Nabila is not interested in undergoing a hysterectomy, but would rather be managed more conservatively. As always, I thank you very much for allowing me to participate in the care of your patient. I will keep you informed of her progress. Sincerely and Respectfully, Jaun Clifford MD Director of the Gynecologic Oncology Program [facility] My time with Nabila consisted of10 mins of face to face time today and 10 mins of visit time was spent counseling her on issues as described above. documented in this encounter Plan of Treatment Upcoming Encounters Date Type Specialty Care Team Description 10/18/2021 Nurse Only Infusion Therapy documented as of this encounter Visit Diagnoses Diagnosis Endometrial polyp - Primary Polyp of corpus uteri documented in this encounter Discontinued Medications Medication Sig Discontinue Reason Start Date End Date cholecalciferol, Take 1,000 Units by Alternate therapy 08/20/2016 Vitamin D3, 1,000 unit mouth daily. tablet ibuprofen Take 200 mg by mouth Therapy completed (ADVIL;MOTRIN) 100 mg/5 as needed. mL suspension pyridoxine, vitamin B6, Take 50 mg by mouth Alternate therapy 08/20/2016 (VITAMIN B6) 50 mg daily. tablet UNABLE TO FIND Med Name:Vit K2 Alternate therapy 08/20 WARFARIN SODIUM Take by mouth. Error 08/20/2016 (COUMADIN ORAL) Reported on 08/20/2016 documented as of this encounter Historical Medications This list may reflect changes made after this encounter. Medication Sig Dispensed Refills Start Date End Date TURMERIC (CURCUMIN MISC) by misc (non-drug; 0 combo route) route. ASHWAGANDHA ROOT by misc (non-drug; 0 01/13/2020 EXTRACT,BULK, MISC combo route) route. GOTU BERNADINE HERB ORAL Take by mouth. 0 0 07/19/2019 [id number]-Z Take by mouth daily. 0 01/13/2020 n-dss 160 mg iron-1 mg-60 mcg tablet MAGNESIUM GLYCINATE ORAL Take 400 mg by 0 01/13/2020 mouth. OMEGA-3S/DHA/EPA/FISH OIL Take by mouth. 0 01/13/2020 (OMEGA 3 ORAL) BERB MCCLOUD/HERBAL COMPLEX Take by mouth. 0 01/13/2020 NO.18 (BERBERINE-HERBAL COMB NO.18 ORAL) B Complex Vitamins (B Take by mouth daily. 0 01/13/2020 COMPLEX 1) tablet UNABLE TO FIND Med Name: Vitamin 0 ADK added in this encounter Care Teams State Director Relationship Specialty Start Date End Date Herminio Hernandez ND PCP - General 08/19/[address] [place] [id number] Zaira Rodriguez MD Referring Provider Gynecology 07/29/16 [address] [facility] [address], [address] [place] [address] Charo Finn MD Medical Oncology 07/29/16 [address] [facility], [address] [place] [address] documented as of this encounter
--- OUTSIDE RECORDS SUMMARY | 2021-10-16 02:02 | XMS_ITS | Encounter Summary ---
:1965 Author Organization [facility] Address [address] [place] [address] Care Team Providers Name Role Phone Zaira Rodriguez MD Unavailable Charo Finn MD Unavailable Herminio Hernandez ND Primary Care Provider Encounter Details Date Type Department Care Team Description 01/22/2017 Historical Results [facility] - Lico Finn ar, Only [facility] Lab - [place] [address] [place] [address] [facility] [phone] [address] [place] [address] Social History Tobacco Use Types [...] Procedure Name Priority Date/Time Associated Comments Diagnosis TRANSFERRIN SATURATION Routine 01/22/2017 7:01 Re sults for this EDT procedure are i n the results section. HEMOCHROMATOSIS HFE GENE Routine 01/22/2017 7:01 Results for this ANALYSIS, BLOOD EDT procedure ar e in the results section. documented in this encounter Results TRANSFERRIN SATURATION (01/22/2017 7:01 EDT) Pathologist Sig nature SERUM IRON - [facility] 149 37 - 170 ug/dL [facility] IRON BINDING CAPACITY 283 261 - 462 ug/dL [facility] TRANSFERRIN SATURATION 53 20 - 55 % [facility] Specimen Narrative [facility] - 017 7:58 EDT Does PT Have a Latex Allergy? YES Enter/Edit CPT and ICD codes? N Performing Organization Address City/State/ZIP Code Phon e Number [facility] [address] LAB HEMOCHROMATOSIS HFE GENE ANALYSIS, BLOOD (01/22/2017 7:01 EDT) HFE INTERPRETATION - SEE BELOW () [facility] Comment: [facility] This result may be consistent with, but does not confi rm a diagnosis of hereditary hemochromatosis (HH). This genotype is found in approximately 3 to 7% of HH patients in the [place] population. However, this genotype has a similar prevalence in the general population and has a penetrance of approximate ly 1%. For other ethnicities, the frequency and penetranc e of this genotype may differ. This assay does not rule out the presence of other disease-causing mutations in the HFE gene or in other genes associated with hemochromatosis. Genotyping results should be interpreted in the contex t of clinical findings, family history, and other laborator y testing (e.g. serum transferrin-iron saturation and se rum ferritin). Genetic testing and other laboratory testin g of an affected family member can determine if this result is of predictive value for this individual. Since mutations have been identified, genetic testing and clinical evaluation of at risk family members could be considered. A genetic consultation may be of benefit. ADDITIONAL INFORMATION ------ An online research opportunity called [employer] a project of [employer], is availabl e for the recipient of this genetic test. This patient so hoskins collects de-identified genetic and health information to advance the knowledge of genetic variants. [facility] is a collaborator of [employer]. This may not be applicable fo r all tests. Test results should be interpreted in the context of clinical findings, family history, and other laborator y data. Misinterpretation of results may occur if the information provided is inaccurate or incomplete. Rare polymorphisms exist that could lead to false-nega tive or false-positive results. If results obtained do not match the clinical findings, additional testing should be considered. Bone Marrow transplants from allogenic donors will interfere with testing. Call [facility] for instructions for testing patients who have received a bone marrow transplant. Multiple in-silico evaluation tools may have been used to assist in the interpretation of these results. Of note , the sensitivity and specificity of these tools for the determination of pathogenicity is currently unvalidate d. This test was developed and its performance characteri stics determined by [facility] in a manner consistent with CLIA requirements. This test has not been cleared or approv ed by the U.S. Food and Drug Administration. HFE METHOD - [facility] SEE BELOW () [facility] Comment: [facility] A multiplex PCR based assay utilizing the [employer] platform was used to test for the following three muta tions in the HFE gene; C282Y, H63D, and S65C. Because of the minimal effect on iron metabolism associated with the S65C mutation, it is only reported when it is found with th e C282Y mutation (i.e. if the patient has the C282Y/S65C genotype). HFE RELEASED BY - SEE BELOW () [facility] Comment: [facility] RESULT: Noble Villalpando M.D., Ph.D. Test Performed by: [facility] - [address] [address] HFE RESULT - [facility] SEE BELOW () [facility] Comment: [facility] CENTER LAB C282Y: One copy of the C282Y mutation was identified. H63D: One copy of the H63D mutation was identified. S65C: Not detected. HFE RESULT SUMMARY - SEE BELOWComment: () [facility] RESULT: COMPLEX (SEE [facility] RESULT AND INTERPRETATION) HFE SPECIMEN - [facility] WB Whole Blood () [facility] Specimen Narrative [facility] - 017 14:07 EDT BS APPROVED #[id number] Does PT Have a Latex Allergy? YES Performing Organization Address City/State/ZIP Code Phon e Number [facility] [address] [place] [address] [facility] documented in this encounter Visit Diagnoses Not on filedocumented in this encounter Care Teams Model Builder Relationship Specialty Start Date End Date Herminio Hernandez ND PCP - General 08/19/16 [facility] [place] [address] Zaira Rodriguez MD Referring Provider Gynecology 07/29/[address] [place] [address] [address], [address] [place] [phone] Charo Finn MD Medical Oncology 07/29/[address] [place] [address], [address] [place] [phone] documented as of this encounter
--- OUTSIDE RECORDS SUMMARY | 2021-10-16 02:02 | XMS_ITS | Encounter Summary ---
:1965 Author Organization [facility] Address [address] [place] [address] Care Team Providers Name Role Phone Sasha Arvizu MD Primary Care Provider Unavailable Zaira Rodriguez MD Unavailable Charo Finn MD Unavailable Herminio Hernandez ND Primary Care Provider Encounter Details Date Type Department Care Team Description 07/15/2016 Historical Results [facility] - Zaira Rodriguez, Only [facility] Radiology Resul ts [address] [place], [place] [id number] [place] [address], [address] [place] [address] Social History Tobacco Use Types [...] Procedure Name Priority Date/Time Associated Comments Diagnosis FUNGAL CULTURE - Routine 07/15/2016 10:14 Results for this OTHER SITES - [facility] EDT procedure are in the results section. US PELVIS 07/15/2016 10:00 Results for this TRANSVAGINAL EDT procedure are i n the results section. documented in this encounter Results FUNGAL CULTURE - OTHER SITES - [facility] (07/15/2016 10:14 EDT) FUNGUS ISOLATED? - NO FUNGI ISOLATED, [facility] FIRST READING [facility] FUNGUS ISOLATED? - NO FUNGI ISOLATED AT 4 WEEKS [facility] Comment: [facility] ?* This is a corrected result. * ? A prior result that was reported as final has been kori nged. Specimen Performing Organization Address City/State/ZIP Code Phon e Number [facility] [address] [place], [place] [id number] [place] [address] LAB US PELVIS TRANSVAGINAL (07/15/2016 10:00 EDT) Specimen Narrative [facility] - 07/15/2016 10:05 EDT ? EXAM: ULTRASOUND/TRANSVAGINAL W/ PELVIC L EX. D/ (0859) ? CLINICAL INFORMATION: ? N83.209 OVARIAN CYST ? INDICATION: N83.209 OVARIAN CYST US TRAVELING [place] REEVALUATE OVARIAN CYST/TO ? SEE CH FOLLOWIN ? TECHNIQUE: Transvaginal pelvic ul trasound. Arterial and venous ? spectral waveforms along with col or imaging of the ovaries. ? COMPARISON: None. ? FINDINGS: ? The uterus measures 6.7 x 4.9 x 5 .6 cm and is retroverted. The ? endometrial double wall thickness measures 1.9 mm. Multiple uterine ? fibroids are present. The largest fibroid measures 2.7 x 2.2 x 2.6 ? cm. ? No free fluid was identified with in the pelvis. ? The right ovary measures 3.1 x 1. 2 x 2.1 cm, is normal in appearance ? and demonstrate normal Doppler fl ow. ? The left ovary was not identified . ? IMPRESSION: ? 1. ??Fibroid uterus. ? 2. Left ovary not identified. ? REPORT SIGNED IN OTHER VENDOR SYSTEM 07/15/2016 ?Reported B y: Master Ding MD ? CC: ? Transcribed Date/Time: 07/15/2016 (1005) ? Housing Project Manager: ? Printed Date/Time: 09/12/2018 (18 08) ? PAGE 1 ? Addie d Report ? Procedure Note Master Ding E - 02/03/2019 EXAM: ULTRASOUND/TRANSVAGINAL W/ PELVIC L EX. D/ (0859) CLINICAL INFORMATION: N83.209 OVARIAN CYST INDICATION: N83.209 OVARIAN CYST US TRAVELING [place]ION[place] REEVALUATE OVARIAN CYST/TO SEE CH FOLLOWIN TECHNIQUE: Transvaginal pelvic ultrasou nd. Arterial and venous spectral waveforms along with color desire ging of the ovaries. COMPARISON: None. FINDINGS: The uterus measures 6.7 x 4.9 x 5.6 cm and is retroverted. The endometrial double wall thickness measu res 1.9 mm. Multiple uterine fibroids are present. The largest fibro id measures 2.7 x 2.2 x 2.6 cm. No free fluid was identified within the pelvis. The right ovary measures 3.1 x 1.2 x 2. 1 cm, is normal in appearance and demonstrate normal Doppler flow. The left ovary was not identified. IMPRESSION: 1. Fibroid uterus. 2. Left ovary not identified. REPORT SIGNED IN OTHER VENDOR SYSTEM 07/15/2016 Reported By: Master Ding MD CC: Transcribed Date/Time: 07/15/2016 (1005 ) Housing Project Manager: Printed Date/Time: 09/12/2018 (5391) PAGE 1 Signed Report Performing Organization Address City/State/ZIP Code Phon e Number [facility] documented in this encounter Visit Diagnoses Not on filedocumented in this encounter Care Teams Ross Lift Operator Relationship Specialty Start Date End Date Sasha Arvizu MD PCP - General 10/20/13 08/18/16 Herminio Hernandez ND PCP - General 08/19/[address] [place] [id number] Zaira Rodriguez MD Referring Provider Gynecology 07/29/16 [address] [facility] [address], [address] [place] [address] Charo Finn MD Medical Oncology 07/29/16 [address] [facility], [address] [place] [address] documented as of this encounter
--- OUTSIDE RECORDS SUMMARY | 2021-10-16 02:03 | XMS_ITS | Encounter Summary ---
:1965 Author Organization [facility] Address [address] [place] [address] Care Team Providers Name Role Phone Sasha Arvizu MD Primary Care Provider Unavailable Encounter Details Date Type Department Care Team Description 09/19/2015 [facility] Gates MD [phone] [facility], [address] [place] [address] (Wo rk) Social History Tobacco Use Types [...] as of this encounter Discharge Diagnoses Diagnosis N39.46 Mixed incontinence-N39.46[ICD-10- CM] R35.1 Nocturia-R35.1[ICD-10-CM] documented in this encounter Medications at Time of Discharge Medication Sig Dispensed Refills Start Date End Date thyroid, Pork, (ARMOUR Take 45 mg by 0 THYROID) 30 mg tablet mouth daily. Reported on 08/20/2016 ascorbic acid (VITAMIN C) Take 500 mg by 0 01/13/2020 500 mg tablet mouth daily. cholecalciferol, Vitamin Take 1,000 Units 0 08/20/2016 D3, 1,000 unit tablet by mouth daily. gabapentin (NEURONTIN) 300 Take 300 mg by 0 01/13/2020 mg capsule mouth at bedtime. Reported on 08/20/2016 heparin sodium,porcine . 0 12/27/2014 (HEPARIN LOCK FLUSH INTRAVENOUS) ibuprofen (ADVIL;MOTRIN) Take 200 mg by 0 08/20/2016 100 mg/5 mL suspension mouth as needed. LORazepam (ATIVAN) 1 mg Take 1 mg by mouth 0 01/13/2020 tablet 3 times daily. melatonin 10 mg tablet Take 20 mg by 0 01/13/2020 mouth. ondansetron (ZOFRAN) 4 mg Take 4 mg by mouth 0 01/13/2020 tablet 2 times daily. For three days after chemo to prevent nausea prochlorperazine Take 10 mg by 0 12/28/201301/12 (COMPAZINE) 10 mg tablet mouth 3 times daily as needed for Nausea. pyridoxine, vitamin B6, Take 50 mg by 0 08/20/2016 (VITAMIN B6) 50 mg tablet mouth daily. tamoxifen (NOLVADEX) 10 mg Take 20 mg by 0 08/06/2016 tablet mouth 2 times daily. UNABLE TO FIND Med Name:Vit K2 0 08/20 UNABLE TO FIND 2,025 mg. Med 0 020 Name:zinc chelate documented as of this encounter Discharge Disposition Disposition Code Departure Means Destination Home or Self [facility] documented in this encounter Plan of Treatment Upcoming Encounters Date Type Specialty Care Team Description 10/18/2021 Nurse Only Infusion Therapy documented as of this encounter Visit Diagnoses Not on filedocumented in this encounter Care Teams Showroom Sales Consultant Relationship Specialty Start Date End Date Sasha Arvizu MD PCP - General 10/20/13 08/18/16 documented as of this encounter
--- OUTSIDE RECORDS SUMMARY | 2021-10-16 02:03 | XMS_ITS | Encounter Summary ---
:1965 Author Organization [facility] Address [address] [place] [address] Care Team Providers Name Role Phone Sasha Arvizu MD Primary Care Provider Unavailable Zaira Rodriguez MD Unavailable Charo Finn MD Unavailable Herminio Hernandez ND Primary Care Provider Encounter Details Date Type Department Care Team Description 06/11/2016 Historical Results [facility] - Zaira Rodriguez, Only [facility] [place] [facility] [address] [place], [place] [id number] [place] [address]-, [address] [place] [address] Social History Tobacco Use Types [...] Procedure Name Priority Date/Time Associated Diagnosis Comme [facility] SURGICAL PATHOLOGY Routine 06/11/2016 15:36 Resul ts for this EDT procedure are i n the results section. documented in this encounter Results SURGICAL PATHOLOGY (06/11/2016 15:36 EDT) Specimen Narrative [facility] - 017 11:29 EDT Name: KIRSTIE ALEJO ? : 69 ?Age/Sex: 53/F ?Unit#: [id number] ? Loc: SDS ? Status: DEP SDC ?? Reg Date: 06/11/16 ? Pt.Phone Number : ? Specimen: [id number] ?ST ATUS: SOUT ?Spec Date:06/11/16 ? Physician Copies: ?Zaira Rodriguez MD ?? Tissues: A ?? Endometrium, biopsy ?Sasha Arvizu MD ? B ?? Endometrium, curetting s ? CPT: 93736 ?? Units: ??2 ?FINAL DIAGNOSIS ? A. ENDOMETRIUM, POLYPECTOMY; ? - Benign endometrial polyp. ? B. ENDOMETRIUM, CURETTAGE; ? - Scant inactive endometrial glan ds and condensed stroma. ? GROSS DESCRIPTION ? A. ??Received in formalin labeled with the patient's name and Endometrial ? polyp is a single pink-garcia polyp oid piece of tissue measuring 0.8 x 0.4 x 0.2 ? cm entirely submitted in 1 casset te. ??es 1 ? B. ??Received in formalin labeled with the patient's name and Endometrial ? curettings is a less than 0.1 x less than 0.1 x less 0.1 cm aggregate of ? tannish-pink tissue. ??These frag ments may not survive processing. ??The specimen ? is filtered and entirely submitte d in 1 cassette. es 1 MW ?? PREOP DX/CLINICAL HISTORY ?POSTMENO BLEEDING Signed ____(signature on file)____ Selam Cespedes M.D. 06/12/16 By the signature above, the attending ph ysician certifies that he/she has personally conducted a gross and/or microscopic exa mination of the described specimens and rendered or confirmed the above diagnosi s. Test Performed by [facility], [address] [place] [id number] [employer] Operator: Selam Almeida MD PHD Performing Organization Address City/State/ZIP Code Phon e Number [facility] [address] [place] [address] [facility] documented in this encounter Visit Diagnoses Not on filedocumented in this encounter Care Teams Telemetry Technician Relationship Specialty Start Date End Date Sasha Arvizu MD PCP - General 10/20/13 08/18/16 Herminio Hernandez ND PCP - General 08/19/[address] [place] [address] Zaira Rodriguez MD Referring Provider Gynecology 07/29/[address] [place] [address] [address], [address] [place] [address] Charo Finn MD Medical Oncology 07/29/[address] [place] [address], [address] [place] [address] documented as of this encounter
--- OUTSIDE RECORDS SUMMARY | 2021-10-16 02:03 | XMS_ITS | Encounter Summary ---
:1965 Author Organization [facility] Address [address] [place] [address] Care Team Providers Name Role Phone Sasha Arvizu MD Primary Care Provider Unavailable Zaira Rodriguez MD Unavailable Charo Finn MD Unavailable Herminio Hernandez ND Primary Care Provider Encounter Details Date Type Department Care Team Description 02/15/2016 Historical Results [facility] - Herminio Hernandez ND Only [facility] Lab - Main [address] [place], [place] [id number] [place] [address] [place] [address] [phone] Social History Tobacco Use Types Packs/Day Years [...] Associated Comments Diagnosis COMPLETE BLOOD COUNT Routine 02/15/2016 8:06 Resu lts for this WITH DIFFERENTIAL EST procedure are in (AUTO) the results section. HOMOCYSTEINE Routine 02/15/2016 8:06 Results for this EST procedure are i n the results section. TSH Routine 02/15/2016 8:05 Results for this EST procedure are i n the results section. T4 Routine 02/15/2016 8:05 Results for this EST procedure are i n the results section. HEMOGLOBIN A1C Routine 02/15/2016 8:05 Results fo r this EST procedure are i n the results section. LIPID PROFILE Routine 02/15/2016 8:05 Results for this (INCLUDES CHOLESTEROL, EST proce dure are in TRIGLYCERIDES, HDL, the resu lts LDL) section. COMPREHENSIVE Routine 02/15/2016 8:05 Results for this METABOLIC PANEL (CMP) EST proced ure are in the results section. documented in this encounter Results (ABNORMAL) COMPLETE BLOOD COUNT WITH DIFFERENTIAL (AUTO) (02/15/2016 8:06 EST) Pathologist Sig nature ABSOLUTE NEUTROPHIL 1.54 (L) 1.7 - 7.0 [facility] COUN - [facility] 10e3/ul [facility]ENTER [facility] BASO # - [facility] 0.04 0.0 - 0.3 [facility] MED 10e3/uL CENTER LAB BASO % - [facility] 1 0 - 2 % [facility] EOS # - [facility] 0.07 0.05 - 0.5 [facility] 10e3/uL [facility]ENTER LAB EOS % - [facility] 2 0 - 5 % [facility] LAB GRAN % - [facility] 52 40 - 80 % [facility] LAB HEMATOCRIT - [facility] 38.7 34.0 - 47.0 % [facility] LAB HEMOGLOBIN - [facility] 12.9 11.2 - 15.7 [facility] g/dl CENTER LAB IG# - [facility] 0 0 - 0.07 [facility] 10e3/uL [place] [facility] IG% - [facility] 0 0 - 0.9 % [facility] LYMPH # - CV 1.00 0.9 - 2.9 [facility] 10e3/uL [place] [facility] LYMPH% - [facility] 34 20 - 40 % [facility] LAB MEAN CORPUSCULAR HGB 29.8 26 - 34 pg [facility] MED [facility] LAB MEAN CORPUSCULAR HGB 33.3 31 - 36 g/dL [facility] CONC - [facility] LAB MEAN CELL VOLUME - 89.4 77 - 100 fl [facility] LAB MONO # - [facility] 0.29 (L) 0.3 - 0.9 [facility] 10e3/uL [place] [facility] MONO% - [facility] 10 0 - 12 % [facility] LAB PLATELET COUNT 142 (L) 150 - 400 [facility] 10e3/ul [place] [facility] RED BLOOD COUNT - 4.33 3.8 - 5.2 [facility] 10e6/ul [place] [facility] RED CELL DISTRI WIDTH 13.3 11.8 - 15.6 % [facility] ME D - [facility] CENTER LAB WHITE BLOOD COUNT - 2.9 (L) 3.5 - 10.5 [facility] 10e3/ul [place] [facility] Specimen Narrative [facility] - 016 8:24 EST Does PT Have a Latex Allergy? YES Performing Organization Address City/State/ZIP Code Phon e Number [facility] [address] LAB HOMOCYSTEINE (02/15/2016 8:06 EST) Homocysteine 10.0 4.5 - 12.4 [facility] Comment: umol/L [facility] LAB Reference range may not apply to non-fasting samples. It is not recommended that EDTA and serum from the same patient be used interchangeably. Serum concentrations have been observed to be up to 10% higher than EDTA plasma. ??Reference range may not apply to serum results. Test Performed by: [place] [address] Soda Maker: Jewel Hoffman MD , Ph D Specimen Narrative [facility] - 016 13:12 EST Does PT Have a Latex Allergy? YES Performing Organization Address [facility]/ZIP Code Phon e Number [facility] [address] [place] [id number] [place] [address] LAB (ABNORMAL) TSH (02/15/2016 8:05 EST) Pathologist Sig nature THYROID STIM HORMONE 5.79 (H) 0.35 - 5.50 [facility] uIU/mL CENTER LAB Specimen Narrative [facility] - 016 9:55 EST Does PT Have a Latex Allergy? YES Performing Organization Address City/[facility] Phon e Number [facility] [address] [place] [address] [facility] LAB T4 (02/15/2016 8:05 EST) THYROXINE (T4) - 8.4 4.5 - 10.9 [facility] Comment: ug/dl MED CENTER LAB ? --RESULT COMMENTS/INTERPRETATION OF RESULTS- - Apparently healthy individuals: ??4.5 - 10.9 ??g/dL Hypothyroid: ? 0.0 - 5.5 ? ? g/dL Hyperthyroid: ?10.8 - 19.1 g/dL euthyroid: ?6.4 - 10.7 ??g /dL Sick euthyroid: ?1.9 - 13.3 ? ?g/dL Specimen Narrative [facility] - 016 9:55 EST Does PT Have a Latex Allergy? YES Performing Organization Address City/[facility]/ZIP Code Phon e Number [facility] [address] [place], [place] [id number] [place] [address] LAB (ABNORMAL) LIPID PROFILE (INCLUDES CHOLESTEROL, TRIGLYCERIDES, HDL, LDL) (02/15/2016 8:05 EST) Triglyceride 54 35 - 150 [facility] mg/dL [facility] LAB Cholesterol 143 120 - 200 [facility] mg/dL MED CENTER LAB Chol/HDL Ratio 2.0 0 - 4.5 [facility] Comment: [facility] LAB DESIRABLE RATIO IS LESS THAN 4.1 PATIENTS ARE CONSIDERED AT RISK: WOMEN RATIO >5 MEN RATIO >6 FASTING? - [facility] Yes [facility] LAB HDL 71 (H) 40 - 60 mg/dL [facility] LAB LDL CHOLESTEROL - 61 60 - 100 [facility] mg/dL [facility] LAB Non HDL Cholesterol 72 mg/dl [facility] Comment: [facility] LAB Desirable: ?Less than 130 Borderline High: ??130-159 High: ? 160-189 Very High: ?Greater than or equal to 190 Specimen Narrative [facility] - 016 9:55 EST Does PT Have a Latex Allergy? YES Performing Organization Address City/State/ZIP Code Phon e Number [facility] [address] LAB (ABNORMAL) COMPREHENSIVE METABOLIC PANEL (CMP) (02/15/2016 8:05 EST) ALBUMIN - [facility] 3.9 3.4 - 5.0 [facility] g/dL [facility] LAB ALKALINE 123 41 - 126 U/L [facility] PHOSPHATASE - [facility] LAB BILIRUBIN TOTAL 0.5 0.0 - 1.0 [facility] mg/dL [facility] LAB BUN - [facility] 24 (H) 7 - 18 mg/dL [facility] LAB CALCIUM - [facility] 8.5 8.5 - 10.1 [facility] mg/dL [facility] LAB Chloride 105 98 - 107 [facility] mEq/L [facility] LAB CO2 Total 28 21 - 32 mEq/L [facility] LAB CREATININE 0.65 0.5 - 1.3 [facility] mg/dL [facility] LAB eGFR >60 [facility] Comment: MED CENTER LAB Chronic renal impairment is defined as GFR <60 Multiply result by 1.210 for patients . eGFR calculated using the IDMS-traceable MDRD Study Equation. ??(effective 01/31/2014) Anion Gap 6 5 - 15 [facility] LAB GLUCOSE - [facility] 102 (H) 70 - 100 [facility] mg/dL [facility] LAB Potassium 4.2 3.5 - 5.0 [facility] mEq/L [facility] LAB Sodium 139 135 - 145 [facility] mEq/L [facility] LAB TOTAL PROTEIN - 6.7 6.4 - 8.2 [facility] gm/dl [facility] LAB SGOT/AST - [facility] 14 10 - 37 U/L [facility] LAB SGPT/ALT - [facility] 23 12 - 78 U/L [facility] LAB Specimen Narrative [facility] - 016 9:55 EST Does PT Have a Latex Allergy? YES Performing Organization Address City/State/[facility] Code Phon e Number [facility] [address] [place] [address] [facility] LAB HEMOGLOBIN A1C (02/15/2016 8:05 EST) Pathologist Sig nature Hemoglobin A1c 5.3 4.0 - 6.0 % [facility] LAB Est Avg Glucose 105 mg/dL [facility] R LAB Specimen Narrative [facility] - 016 11:35 EST Does PT Have a Latex Allergy? YES Performing Organization Address City/[facility] Code Phon e Number [facility] [address] [place] [address] [facility] documented in this encounter Visit Diagnoses Not on filedocumented in this encounter Care Teams Mixer Tender Relationship Specialty Start Date End Date Sasha Arvizu MD PCP - General 10/20/13 08/18/16 Herminio Hernandez ND PCP - General 08/19/16 [facility] [place], [place] [id number] Zaira Rodriguez MD Referring Provider Gynecology 07/29/[address] [place] [address] [address], [address] [place] [address] Charo Finn MD Medical Oncology 07/29/[address] [place] [address], [address] [place] [address] documented as of this encounter
--- OUTSIDE RECORDS SUMMARY | 2021-10-16 02:03 | XMS_ITS | Encounter Summary ---
:1965 Author Organization [facility] Address [address] [place] [address] Care Team Providers Name Role Phone Sasha Arvizu MD Primary Care Provider Unavailable Encounter Details Date Type Department Care Team Description 01/18/2015 Results Only [facility] Herminio Hernandez ND [phone] [place] [id number] [phone] (Wo rk) Social History Tobacco Use Types [...] Date/Time Associated Comments Diagnosis HIGH SENSITIVITY Routine 01/18/2015 11:59 Results for this C-REACTIVE PROTEIN EDT procedure are in (CARDIOVASCULAR the results DISEASE) section. T3 FREE Routine 01/18/2015 11:59 Results for this EDT procedure are i n the results section. TSH Routine 01/18/2015 11:59 Results for this EDT procedure are i n the results section. T4 Routine 01/18/2015 11:59 Results for this EDT procedure are i n the results section. HOMOCYSTEINE Routine 01/18/2015 11:59 Results for this EDT procedure are i n the results section. FOLATE Routine 01/18/2015 11:59 Results for this EDT procedure are i n the results section. VITAMIN B12 Routine 01/18/2015 11:59 Results for this EDT procedure are i n the results section. LIPID PROFILE Routine 01/18/2015 11:59 Results fo r this (INCLUDES CHOLESTEROL, EDT proce dure are in TRIGLYCERIDES, HDL, the resu lts LDL) section. COMPREHENSIVE Routine 01/18/2015 11:59 Results fo r this METABOLIC PANEL (CMP) EDT proced ure are in the results section. documented in this encounter Results (ABNORMAL) HOMOCYSTEINE (01/18/2015 11:59 EDT) Homocysteine 13.5 (H) 4.5 - 12.4 [facility] Comment: umol/L LABORATORY Reference range may not apply to non-fasting samples. SERVICES It is not recommended that EDTA and serum from the same patient be used interchangeably. Serum concentrations have been observed to be up to 10% higher than EDTA plasma. ??Reference range may not apply to serum results. Specimen Blood Performing Organization Address City/State/ZIP Code Phon e Number [facility] LABORATORY [address] [place] [address] SERVICES (ABNORMAL) TSH (01/18/2015 11:59 EDT) Pathologist Sig nature TSH 5.66 (H) 0.55 - 4.78 uIU/ml [facility] LABORATORY SERVICES Specimen Blood Performing Organization Address City/[facility]/ZIP Code Phon e Number [facility] LABORATORY [address] [place] [address] SERVICES T4 (01/18/2015 11:59 EDT) Pathologist Sig nature T4, Total 8.3 4.5 - 10.9 ug/dl [facility] LABOR ATORY SERVICES Specimen Blood Performing Organization Address [facility] Phon e Number [facility] LABORATORY [address] [place] [address] SERVICES C-REACTIVE PROTEIN HIGH SENSITIVITY (01/18/2015 11:59 EDT) High Sensitivity 1.6 mg/L [facility] CRP Comment: LABORATORY Reference Range: SERVICES <1.0 mg/L Low risk 1.0-3.0 mg/L Average risk >3.0 mg/L High risk >10.0 mg/L Acute inflammation Specimen Blood Performing Organization Address [facility] Phon e Number [facility]ORATORY [address] [place] [address] SERVICES LIPID PROFILE (INCLUDES CHOLESTEROL, TRIGLYCERIDES, HDL, LDL) (01/18/2015 11:59 EDT) Cholesterol 188 mg/dl [facility] Comment: LABORATORY Desirable:<200 SERVICES Borderline High:200-239 High:>zs=451 Triglycerides 53 mg/dl [facility] Comment: LABORATORY Normal:<150 SERVICES Borderline High:150-199 High:200-499 Very High:>lw=586 HDL 61 mg/dl [facility] Comment: LABORATORY Low:<40 SERVICES Normal:40-60 Desirable: >60 LDL, Calculated 116 mg/dl [facility] Comment: LABORATORY Optimal:<100 SERVICES Near Optimal:100-129 Borderline High:130-159 High:160-189 Very High:>di=463 Chol/HDL Ratio 3.1 [facility] LABORATORY SERVICES Fasting? YES [facility] LABORATORY SERVICES Non HDL Cholesterol 127 mg/dl [facility] Comment: LABORATORY Desirable:<130 SERVICES Borderline:130-159 High: 160-189 Very High: >xp=550 Specimen Blood Performing Organization Address [facility] Phon e Number [facility]ORATORY [address] [place] [address] SERVICES T3 FREE (01/18/2015 11:59 EDT) Pathologist Sig nature T3, Free 3.3 2.3 - 4.2 pg/mL [facility] LABORA TORY SERVICES Specimen Blood Performing Organization Address [facility] Phon e Number [facility]ORY [address] [place] [address] SERVICES (ABNORMAL) FOLATE (01/18/2015 11:59 EDT) Pathologist Sig nature Folate 18.2 (H) 2.8 - 18.0 ng/ml [facility] Comment: LABORATORY SERVICES Deficient: ??Less than 3.4 ng/mL Indeterminate: ??3.4-5.4 ng/mL Normal: ??Greater than 5.4 ng/mL Specimen Blood Performing Organization Address [facility] Phon e Number [facility]ORATORY [address] [place] [address] SERVICES COMPREHENSIVE METABOLIC PANEL (CMP) (01/18/2015 11:59 EDT) Potassium 4.6 3.5 - 5.0 [facility] mEq/L [facility] Sodium 142 136 - 145 [facility] mEq/L [facility] Chloride 103 96 - 110 [facility] mEq/L [facility] CO2 28 24 - 32 mEq/L [facility]ORATORY SERVICES Total Alkaline 108 38 - 126 U/L [facility] Phosphatase [facility] Bilirubin, Total 0.5 <1.4 mg/dl [facility] LABORATORY SERVICES AST 42 15 - 46 U/L [facility]ORATORY SERVICES ALT 50 <53 U/L [facility]ORATORY SERVICES Albumin 4.6 3.4 - 4.9 [facility] g/dl [facility] Total Protein 7.4 6.3 - 8.2 [facility] g/dl [facility] Creatinine 0.70 0.52 - 1.04 [facility] mg/dl [facility] GFR, Calculated 104 >60 [facility] Comment: ml/min/1.73m2 CENTER LABORATORY eGFR calculated using CKD-EPI equation for SERVICES non Americans. Multiply eGFR by 1.16 for Americans. BUN 14 10 - 26 mg/dl [facility] LABORATORY SERVICES Calcium 9.8 8.5 - 10.5 [facility] mg/dl [facility] SERVICES Calculated Calcium 9.6 8.5 - 10.5 [facility] mg/dl [facility] Glucose, Serum 94 70 - 100 [facility] mg/dl [facility] LABORATORY SERVICES Fasting? YES [facility] LABORATORY SERVICES Specimen Blood Performing Organization Address [facility] Phon e Number [facility]ORATORY [address] [place] [address] SERVICES VITAMIN B12 (01/18/2015 11:59 EDT) Pathologist Sig nature Vitamin B-12 386 211 - 911 pg/ml [facility] LABORATORY SERVICES Specimen Blood Performing Organization Address City/State/ZIP Code Phon e Number [facility]ORY [address] [place] [address] SERVICES documented in this encounter Visit Diagnoses Not on filedocumented in this encounter Care Teams Food Counter Attendant Relationship Specialty Start Date End Date Sasha Arvizu MD PCP - General 10/20/13 08/18/16 documented as of this encounter
--- OUTSIDE RECORDS SUMMARY | 2021-10-16 02:03 | XMS_ITS | Encounter Summary ---
:1965 Author Organization [facility] Address [address] [place] [address] Care Team Providers Name Role Phone Sasha Arvizu MD Primary Care Provider Unavailable Zaira Rodriguez MD Unavailable Charo Finn MD Unavailable Herminio Hernandez ND Primary Care Provider Encounter Details Date Type Department Care Team Description 03/14/2015 Historical Results [facility] - Joelle Cardona MD Only [facility] - Main [address] [place] [address] [address] [place] [phone] (Wo rk) Social History Tobacco Use Types [...] Procedure Name Priority Date/Time Associated Diagnosis Comme [facility] SURGICAL PATHOLOGY Routine 03/14/2015 Results f or this procedure are i n the results section . documented in this encounter Results SURGICAL PATHOLOGY (03/14/2015) Specimen Narrative [facility] - 015 12:30 EST Name: KIRSTIE ALEJO ? : [birth year] ?Age/Sex: 53/F ?Unit#: [id number] ? Loc: END ? Status: DEP CLI ?? Reg Date: 03/14/15 ? Pt.Phone Number : ? Specimen: [id number] ? STA TUS: SOUT ?Spec Date:03/14/15 ? Physician Copies: ?Silvano Cardona MD ? Tissues: A ?? Endoscopy specimen (RANDOM COLON) ?Sasha Arvizu MD ?? CPT: 93446 ?? Units: ??1 ?FINAL DIAGNOSIS ? Colon, random, biopsy; ? - Colonic mucosa with intraepithe lial lymphocytosis. See comment. ? - No evidence of dysplasia. ?COMMENT ? Intraepithelial lymphocytosis is associ ated with surface epithelial damage and expansion of lamina propria; there is n o evidence of chronicity. Features are compatible with microscopic colitis, sp ecifically, lymphocytic colitis, in the appropriate clinical and endoscopic set ting. Correlation is required. ? GROSS DESCRIPTION ? Received in formalin labeled with the patient's name and random colon bx are ? six mucosal tissue fragments rang ing in size from 0.3 to 1.0 cm, e.s. 2. ??KF ?? PREOP DX/CLINICAL HISTORY ?DIARRHEA Signed ____(signature on file)____ Joanei Mcdonald MD 03/15/15 By the signature above, the attending ph ysician certifies that he/she has personally conducted a gross and/or microscopic exa mination of the described specimens and rendered or confirmed the above diagnosi s. Test Performed by [facility], [address] [place] [id number] Lamp Shade Assembler: Selam Almeida MD PHD Performing Organization Address City/State/ZIP Code Phon e Number [facility] [address] [place] [id number] [facility] documented in this encounter Visit Diagnoses Not on filedocumented in this encounter Care Teams Film Archivist Relationship Specialty Start Date End Date Sasha Arvizu MD PCP - General 10/20/13 08/18/16 Herminio Hernandez ND PCP - General 08/19/[address] [place] [phone] Zaira Rodriguez MD Referring Provider Gynecology 07/29/[address] [place] [address] [address], [address] [place] [address] Charo Finn MD Medical Oncology 07/29/[address] [place] [address], [address] [place] [address] documented as of this encounter
--- OUTSIDE RECORDS SUMMARY | 2021-10-16 02:03 | XMS_ITS | Encounter Summary ---
:1965 Author Organization [facility] Address [address] [place] [address] Care Team Providers Name Role Phone Sasha Arvizu MD Primary Care Provider Unavailable Encounter Details Date Type Department Care Team Description 06/07/2015 [facility] [address] [phone] Social History Tobacco Use Types Packs/Day Years [...] as of this encounter Discharge Diagnoses Diagnosis Z85.3 Personal history of malignant neop lasm of breast-Z85.3[ICD-10-CM] E03.9 Hypothyroidism, unspecified-E03.9[ ICD-10-CM] documented in this encounter Medications at Time of Discharge Medication Sig Dispensed Refills Start Date End Date heparin sodium,porcine . 0 12/27/2014 (HEPARIN LOCK FLUSH INTRAVENOUS) ibuprofen (ADVIL;MOTRIN) Take 200 mg by 0 08/20/2016 100 mg/5 mL suspension mouth as needed. LORazepam (ATIVAN) 1 mg Take 1 mg by mouth 0 01/13/2020 tablet 3 times daily. ondansetron (ZOFRAN) 4 mg Take 4 mg by mouth 0 01/13/2020 tablet 2 times daily. For three days after chemo to prevent nausea prochlorperazine Take 10 mg by 0 12/28/201301/12 (COMPAZINE) 10 mg tablet mouth 3 times daily as needed for Nausea. documented as of this encounter Discharge Disposition Disposition Code Departure Means Destination Home or Self Care documented in this encounter Plan of Treatment Upcoming Encounters Date Type Specialty Care Team Description 10/18/2021 Nurse Only Infusion Therapy documented as of this encounter Visit Diagnoses Not on filedocumented in this encounter Care Teams Pre Coder Relationship Specialty Start Date End Date Sasha Arvizu MD PCP - General 10/20/13 08/18/16 documented as of this encounter
--- OUTSIDE RECORDS SUMMARY | 2021-10-16 02:03 | XMS_ITS | Encounter Summary ---
:[address] [facility] Address [address] [place] [address] Care Team Providers Name Role Phone Sasha Arvizu MD Primary Care Provider Unavailable Reason for Visit Reason Comments Urinary Incontinence Consult (Routine) - Closed Specialty Diagnoses / Procedures Referred By Contact Refer red To Contact Pelvic Medicine Diagnoses Urinary incontinence Sheila Larios MD Charland, Diane [address] [facility] MD Yajaira [address], [address] [place] [phone] [facility] Office Building, [address] [place] [phone] Phone: Fax: Referral ID Status Reason Start Date Expiration Date Visits Requ ested Visits Authorized [id number] Closed 1 1 Encounter Details Date Type Department Care Team Description 08/08/2015 Office Visit [facility] Eileen Earl (Primary Pelvic Medicine and MD Yajaira Dx) Reconstructive Surgery - [address] [place] [address] Medical Office [facility] [address] [place] [address] [address] [place] [address], [place] [address] [address] [place] [address] Social History Tobacco Use Types Packs/Day Years [...] Sign Reading Time Taken Comments Blood Pressure 110/64 08/08/2015 1055 EDT Pulse 70 08/08/2015 1055 EDT Temperature - - Respiratory Rate - - Oxygen Saturation - - Inhaled Oxygen Concentration - - Weight 84.8 kg (187 lb) 08/08/2015 1055 EDT Height 172.7 cm (5' 7.99) 08/08/2015 1055 EDT Body Mass Index 28.44 08/08/2015 1055 EDT documented in this encounter Progress Notes Eileen Earl MD - 08/08/2015 1101 EDT [facility] FEMALE EXAMINATION Patient: Nabila Evans is an 50 y.o. female seen for consultation at the request of Sheila Larios MD for Urinary Incontinence. HPI 50 yo P0 with worsening urinary incontinence for months. Started Tamoxifen 05/15. Leaks with cough, standing, laughing. Now wearing large pad. Denies rectal incontinence. ROS Pelvic pain: No Dyspareunia: not sexually active; lack of interest Recurrent UTI: No Hematuria: No A review of the patient's medical, social, and family history along with medications and allergies was performed. OB History No data available No past medical history on file. No past surgical history on file. No family history on file. History Social History ??? Marital Status: Spouse Name: N/A ??? Number of Children: N/A ??? Years of Education: N/A Social History Main Topics ??? Smoking status: Never Smoker ??? Smokeless tobacco: Not on file ??? Alcohol Use: Not on file ??? Drug Use: Not on file ??? Sexual Activity: Not on file Other Topics Concern ??? Not on file Social History Narrative ??? No narrative on file Current Outpatient Prescriptions Medication Sig Dispense Refill ??? ibuprofen (ADVIL;MOTRIN) 100 mg/5 mL suspension Take 200 mg by mouth as needed. ??? LORazepam (ATIVAN) 1 mg tablet Take 1 mg by mouth 3 times daily. No current facility-administered medications for this visit. Allergies Allergen Reactions ??? Ampicillin A 15 point Review of Systems was performed. Positives related to the patient???s complaint are listed below; all others are either negative or documented in the patient???s scanned Review of Systems. PELVIC EXAM External Genitalia: Normal Vaginal Examination: Vaginal atrophy mild Cervix Had polyp removed this am with Dr. Larios Uterus: Normal Pelvic Floor Relaxation: absent Adnexa: Normal Urethra mobile Bladder Normal Rectal prolapse: Absent Rectal hemorrhoids: Absent Perineum Normal Vitals BP 110/64 mmHg Pulse 70 Ht 172.7 cm (67.99) Wt 84.823 kg (187 lb) BMI 28.44 kg/m2 General Physical Exam Constitutional/General: Oriented to person, place, and time. Appears well- developed and well-nourished. HEENT: Head: normocephalic and atraumatic Eyes: conjunctivae and EOM normal Nose: nose normal Throat/mouth: oropharynx clear and moist Neck: normal range of motion Pulmonary: effort normal Abdomen: abdomen soft Musculoskeletal: normal range of motion Skin: warm and dry Neuro/Psych: alert and oriented to person, place, and time Labs Assessment Nabila Evans is a 50 y.o. female with urinary incontinence. Plan Pelvic Floor Physical Therapy Urodynamic testing if no improvement. Eileen Earl MD documented in this encounter Plan of Treatment Upcoming Encounters Date Type Specialty Care Team Description 10/18/2021 Nurse Only Infusion Therapy documented as of this encounter Visit Diagnoses Diagnosis Incontinence - Primary Unspecified urinary incontinence documented in this encounter Historical Medications This list may reflect changes made after this encounter. Medication Sig Dispensed Refills Start Date End Date thyroid, Pork, (ARMOUR Take 45 mg by mouth 0 THYROID) 30 mg tablet daily. Reported on 08/20/2016 melatonin 10 mg tablet Take 20 mg by mouth. 0 01/13/2020 gabapentin (NEURONTIN) Take 300 mg by mouth 0 01/13/2020 300 mg capsule at bedtime. Reported on 08/20/2016 UNABLE TO FIND 2,025 mg. Med 0 020 Name:zinc chelate tamoxifen (NOLVADEX) 10 Take 20 mg by mouth 2 0 08/06/2016 mg tablet times daily. UNABLE TO FIND Med Name:Vit K2 0 08/20 pyridoxine, vitamin B6, Take 50 mg by mouth 0 08/20/2016 (VITAMIN B6) 50 mg daily. tablet cholecalciferol, Vitamin Take 1,000 Units by 0 08/20/2016 D3, 1,000 unit tablet mouth daily. ascorbic acid (VITAMIN Take 500 mg by mouth 0 01/13/2020 C) 500 mg tablet daily. added in this encounter Care Teams Medical Technologist Chemistry Relationship Specialty Start Date End Date Sasha Arvizu MD PCP - General 10/20/13 08/18/16 documented as of this encounter
--- OUTSIDE RECORDS SUMMARY | 2021-10-16 02:03 | XMS_ITS | Encounter Summary ---
:1965 Author Organization [facility] Address [address] [place] [address] Care Team Providers Name Role Phone Sasha Arvizu MD Primary Care Provider Unavailable Zaira Rodriguez MD Unavailable Charo Finn MD Unavailable Herminio Hernandez ND Primary Care Provider Encounter Details Date Type Department Care Team Description 05/25/2015 Historical Results [facility] - Ihsan Huerta, DOCK SUPERINTENDENT Only [facility]iology Resul ts [address] [facility], [address] [facility] [place] [address] [address] [place] [address] Social History Tobacco Use Types [...] Date/Time Associated Comments Diagnosis MA BREAST DIAGNOSTIC 05/25/2015 9:17 EST Results for this RIGHT procedure are i n the results section. documented in this encounter Results MA BREAST DIAGNOSTIC RIGHT (05/25/2015 9:17 EST) Specimen Narrative [facility] - 05/26/2015 9:12 EST ? AN ADDENDUM IS INCLUDED ON THIS REPORT ? ADDENDUM ? ADDENDUM: ??[id number] PEDRO/AQUILES RCA ? ADDENDUM: ? In addition to standard screening views of both breasts, please add ? spot CC and spot ML view of right breast. ? BBL:kad ??NCA ?Reported B y: Jarred Woodruff MD ?Transcribe d: 05/26/2015 (6057) LEXY ?REPORT ? EXAM: MAMMOGRAM/DIGITAL MAMMO ALBA G UNI RT EX. D/ (0917) ? CLINICAL INFORMATION: ? C50.411 SHORT INTERVAL F/U HX RT BREAST CANCER, S/P ? CHEMO AND RADIATION. ? INDICATION: ??Six-month follow-up of BI-RADS 3 calcifications in the ? right breast. History of right-si ded breast cancer statuspost ? chemoradiation. ? COMPARISON: ??Prior mammograms in cluding 10/17/2014; 10/15/2013; ? 06/19/2010. ? TECHNIQUE: ??Spot magnification C C, ML and MLO views of the right ? breast were performed. CAD techno logy was utilized. ? A few loosely clustered calcifica tions are again identified in the ? retroareolar, slightly upper wilfr[address]. These are stable from September 2014. ? No associated mass or architectur al distortion is identified. The ? remainder of the visualized porti on of the breast is unremarkable. ? IMPRESSION: ??Right breast, BI-RA DS 3, probably benign. ? 1. ? A few loosely cluster ed calcifications in the retroareolar ?breast are stable f rom six months prior. One additional ?six-month follow-up recommended to assure stability, which ?may be performed at the same time as the contralateral left ?breast screening ma mmogram. ? FINAL ASSESSMENT: ??DIAGNOSTIC RI GHT BREAST MAMMOGRAM - Category 3 - ?Prob ably benign findings; short interval follow up ?sugg ested. ? RECOMMENDATION: ??One additional six-month follow-up of the right ? breast, which may be scheduled at the same time as the left breast ? screening mammogram in September 2015. ? These results will be communicate d to your patient via a lay letter ? from Radiology. ??If any addition al imaging is needed we will contact ? your patient directly. ? PAGE 1 ? Addie d Report ? (CONTINUED) ? AN ADDENDUM IS INC LUDED ON THIS REPORT ? BBL:kad ?Reported B y: Jarred Woodruff MD ? CC: ? Transcribed Date/Time: 05/26/2015 (0912) ? Churn Tender: LEXY ? Printed Date/Time: 09/10/2018 (16 56) ? PAGE 2 ? Addie d Report ? Procedure Note Jarred Woodruff MD - 02/03/2019 AN ADDENDUM IS INCLUDED ON THIS REPO RT ADDENDUM ADDENDUM: [id number] PEDRO/CHASITY ADDENDUM: In addition to standard screening views of both breasts, please add spot CC and spot ML view of right breas t. BBL:kad NCA Reported By: Jarred Woodruff MD Transcribed: 05/26/2015 (1527) JOANIE WALDRON REPORT EXAM: MAMMOGRAM/DIGITAL MAMMO DIAG UNI RT EX. D/ (0917) CLINICAL INFORMATION: C50.411 SHORT INTERVAL F/U HX RT BREAST CANCER, S/P CHEMO AND RADIATION. INDICATION: Six-month follow-up of BI-R ADS 3 calcifications in the right breast. History of right-sided br east cancer statuspost chemoradiation. COMPARISON: Prior mammograms including 10/17/2014; 10/15/2013; 06/19/2010. TECHNIQUE: Spot magnification CC, ML an d MLO views of the right breast were performed. CAD technology w as utilized. A few loosely clustered calcifications are again identified in the retroareolar, slightly upper breast. Th michael are stable from September 2014. No associated mass or architectural dis tortion is identified. The remainder of the visualized portion of the breast is unremarkable. IMPRESSION: Right breast, BI-RADS 3, pr obably benign. 1. A few loosely clustered calcificatio ns in the retroareolar breast are stable from six months prior . One additional six-month follow-up recommended to assu re stability, which may be performed at the same time as th e contralateral left breast screening mammogram. FINAL ASSESSMENT: DIAGNOSTIC RIGHT WILFRIDO ST MAMMOGRAM - Category 3 - Probably benign findings; short interva l follow up suggested. RECOMMENDATION: One additional six-dori h follow-up of the right breast, which may be scheduled at the s denis time as the left breast screening mammogram in September 2015. These results will be communicated to y our patient via a lay letter from Radiology. If any additional imagi ng is needed we will contact your patient directly. PAGE 1 Signed Report (CONTINUED) AN ADDENDUM IS INCLUDED ON THIS REPO RT BBL:kad Reported By: Jarred Woodruff MD CC: Transcribed Date/Time: 05/26/2015 (0912 ) Churn Tender: LEXY Printed Date/Time: 09/10/2018 (1431) PAGE 2 Signed Report Performing Organization Address City/State/ZIP Code Phon e Number [facility] documented in this encounter Visit Diagnoses Not on filedocumented in this encounter Care Teams Sponsorship Manager Relationship Specialty Start Date End Date Sasha Arvizu MD PCP - General 10/20/13 08/18/16 Herminio Hernandez ND PCP - General 08/19/[address] [place] [phone] Zaira Rodriguez MD Referring Provider Gynecology 07/29/[address] [place] [address], [address] [place] [address] Charo Finn MD Medical Oncology 07/29/[address] [place] [address], [address] [place] [address] documented as of this encounter
--- OUTSIDE RECORDS SUMMARY | 2021-10-16 02:03 | XMS_ITS | Encounter Summary ---
:1965 Author Organization [facility] Address [address] [place] [address] Care Team Providers Name Role Phone Sasha Arvizu MD Primary Care Provider Unavailable Zaira Rodriguez MD Unavailable Charo Finn MD Unavailable Herminio Hernandez ND Primary Care Provider Reason for Visit Reason Onset Date Comments Appointment Related 09/06/2015 Encounter Details Date Type Department Care Team Description 09/06/2015 Telephone [facility] Pelvic Yamilka Brown PT Appointment Related Medicine and Reconstructive Surgery - Medical Office [facility] [address] [place] [address] Social History Tobacco Use Types Packs/Day Years [...] / COVID-19? documented as of this encounter Miscellaneous Notes Telephone Encounter - Zane Ayala - 09/06/2015 0724 EDT PAS Message: Appointment on September 06 at 8 am with Yamilka Brown. Needs to cancel. documented in this encounter Plan of Treatment Upcoming Encounters Date Type Specialty Care Team Description 10/18/2021 Nurse Only Infusion Therapy documented as of this encounter Visit Diagnoses Not on filedocumented in this encounter Care Teams Mechanical Cad Designer Relationship Specialty Start Date End Date Sasha Arvizu MD PCP - General 10/20/13 08/18/16 Herminio Hernandez ND PCP - General 08/19/16 [facility] [place], [place] [phone] Zaira Rodriguez MD Referring Provider Gynecology 07/29/[address] [place] [address] [address], [address] [place] [address] Charo Finn MD Medical Oncology 07/29/16 [address] [facility], [address] [place] [address] documented as of this encounter
--- OUTSIDE RECORDS SUMMARY | 2021-10-16 02:03 | XMS_ITS | Encounter Summary ---
:1965 Author Organization [facility] Address [address] [place] [address] Care Team Providers Name Role Phone Sasha Arvizu MD Primary Care Provider Unavailable Reason for Visit Reason Onset Date Comments Appointment Related 02/16/2015 Encounter Details Date Type Department Care Team Description 02/16/2015 Telephone [facility] [place], [place] Appointment Related Hematology & Oncology [address] [place] [address] [address] [facility] [place] [place] [address] [phone] Social History Tobacco Use Types Packs/Day Years [...] this encounter Miscellaneous Notes Telephone Encounter - Jorge Headssica - 02/16/2015 1125 EST I returned Nabila's call and left a voicemail with the following information from Hannah Morfin: Her labs were sent to [facility]. . I let her know if she had further questions to contact Fanny at [phone]. documented in this encounter Plan of Treatment Upcoming Encounters Date Type Specialty Care Team Description 10/18/2021 Nurse Only Infusion Therapy documented as of this encounter Visit Diagnoses Not on filedocumented in this encounter Care Teams Order Management Specialist Relationship Specialty Start Date End Date Sasha Arvizu MD PCP - General 10/20/13 08/18/16 documented as of this encounter
--- OUTSIDE RECORDS SUMMARY | 2021-10-16 02:03 | XMS_ITS | Encounter Summary ---
:1965 Author Organization [facility] Address [address] [place] [address] Care Team Providers Name Role Phone Sasha Arvizu MD Primary Care Provider Unavailable Encounter Details Date Type Department Care Team Description 12/23/2013 Hospital Encounter [facility] - [address] [place], [place], [facility] [address] [facility] 1 [place] [address] [phone] Social History Tobacco Use Types Packs/Day Years [...] as of this encounter Discharge Diagnoses Diagnosis 174.9 MALIGN NEOPL BREAST NOS[ICD-9-CM] V16.3 FAMILY HX-BREAST MALIG[ICD-9-CM] V16.9 FAMILY HX-MALIGNANCY NOS[ICD-9-CM] documented in this encounter Medications at Time of Discharge Medication Sig Dispensed Refills Start Date End Date ibuprofen (ADVIL;MOTRIN) Take 200 mg by mouth 0 08/20/2016 100 mg/5 mL suspension as needed. LORazepam (ATIVAN) 1 mg Take 1 mg by mouth 3 0 01/13/2020 tablet times daily. documented as of this encounter Discharge Disposition Disposition Code Departure Means Destination Home or Self Care documented in this encounter Plan of Treatment Upcoming Encounters Date Type Specialty Care Team Description 10/18/2021 Nurse Only Infusion Therapy documented as of this encounter Visit Diagnoses Not on filedocumented in this encounter Care Teams Wood Barrel Reconditioner Relationship Specialty Start Date End Date Sasha Arvizu MD PCP - General 10/20/13 08/18/16 documented as of this encounter
--- OUTSIDE RECORDS SUMMARY | 2021-10-16 02:03 | XMS_ITS | Encounter Summary ---
:1965 Author Organization [facility] Address [address] [place] [address] Care Team Providers Name Role Phone Sasha Arvizu MD Primary Care Provider Unavailable Reason for Visit Reason Comments Follow-up Encounter Details Date Type Department Care Team Description 12/23/2013 Office Visit [facility] Yajaira Turner MD Breast cancer Hematology & [address] [place] [address] ([facility] ([facility]) [facility], [address] [place], [place] [address] [place] [address] [phone] (Wo rk) Social History Tobacco Use [...] Sign Reading Time Taken Comments Blood Pressure 117/85 12/23/2013 1404 EDT Pulse 81 12/23/2013 1404 EDT Temperature 35.9 ??C (96.7 ??F) 12/23/2013 1404 EDT Respiratory Rate 16 12/23/2013 1404 EDT Oxygen Saturation - - Inhaled Oxygen Concentration - - Weight 80.3 kg (177 lb 1.6 oz) 12/23/2013 1404 EDT Height 172.7 cm (5' 8) 12/23/2013 1404 EDT Body Mass Index 26.93 12/23/2013 1404 EDT documented in this encounter Discharge Diagnoses Diagnosis 174.9 MALIGN NEOPL BREAST NOS[ICD-9-CM] documented in this encounter Discharge Disposition Disposition Code Departure Means Destination Auto Discharge documented in this encounter Progress Notes Yajaira Turner MD - 12/24/2013 0720 EDT DIVISION OF HEMATOLOGY/ONCOLOGY PROGRESS / FOLLOWUP NOTE - 12/23/2013 REASON FOR VISIT: Nabila is a 48-year-old female here to further discuss options for treatment for her newly diagnosed breast cancer. HISTORY OF PRESENT ILLNESS: Nabila had an breast abnormality that she noticed for approximately 6 months and then went to see her primary care provider when she noticed nipple changes. She ultimately underwent a biopsy and then definitive surgery on November 09 which revealed a 9 mm, poorly-differentiated ductal carcinoma, which was ER positive in 85% of the cells, SC positive in 90% of the cells and erbB-2 positive with a ratio was 6.29. Lymphovascular invasion was identified, but 0 of 1 sentinel nodewas positive, DCIS was present, and all margins are negative with the closest DCIS margin of 0.2 mm anteriorly. Nabila's pathology was reviewed here at [facility] and was found to be 1.4 cm poorly-differentiated ductal carcinoma with close but negative margins and there were 2 foci of lymphovascular invasion identified at breast conference today. The tumor was ER positive, SC positive and erbB-2 positive. Zero of 1 sentinel node was positive. Nabila is here to discuss the results of her tumor board discussion with her . She reports that she feels well and offers no new constitutional, cardiovascular, pulmonary, GI, , ESTATE MANAGER, musculoskeletal, psychiatric, neurologic, endocrine or hem symptoms. She is currently having regular menses. FAMILY HISTORY: A 4-generation pedigree was constructed. Nabila has no children. She has 2 siblings. Her sister was diagnosed with AML at 46. There are no other siblings, nieces or nephews with cancer. The patient's mother is alive at 72 and has 3 siblings, one of which had breast cancer diagnosed in her60s. There is potentially a maternal grandfather with renal cell carcinoma. This side of the family is , Citizen Of [place] Iranian and [place] and may be Gnosticist. There are no other cases of cancer on this side of the family. On the paternal side of the family, the patient's father is unaffected bycancer. He had 4 siblings, none of whom are affected by cancer. There is a paternal cousin with cervical cancer under age 40 and a paternal grandmother with breast cancer in her 70s. This side of the family is Citizen Of [place] Iranian. PHYSICAL EXAMINATION: Not performed. IMPRESSION: Nabila is a 48-year-old female with a T1N0M0, poorly-differentiated, ER positive, SC positive, erbB-2 positive ductal carcinoma. We reviewed several issues today. 1. Need for reexcision. Nabila does have a close anterior margin. Her case was presented at breast conference and it was felt not to need surgical reexcision. She will proceed with radiation therapy afterchemotherapy, though. 2. Best adjuvant therapy. This too was reviewed at breast conference and given the increase in size from 0.9 to 1.4 cm the feeling was that Nabila would benefit from chemotherapy combined with Herceptin, and we felt the best chemotherapy for her was 4 cycles of Taxotere and Cytoxan. She will continue Herceptin for 1 year if her ejection fraction stays stable. We did also discuss hormonal therapy with tamoxifen and will review further therapies with her at a later date. 3. Nabila has early onset breast cancer. She does have a sister with acute leukemia and a maternal auntwith breast cancer as well as a paternal grandmother with breast cancer. There is a potential for Gnosticist ethnicity on the maternal side as well. We reviewed the genetics of cancer and the likelihood ofa cancer family syndrome. Current models suggest a low but real likelihood of hereditary cancer. We reviewed the risks, benefits and limitations of genetic testing, and Nabila has agreed to proceed with a21 gene panel. She will have her blood drawn today and we will call her with those results. PLAN: 1. Nabila will follow up with Dr Fonseca to have 4 cycles of Taxotere and Cytoxan with Herceptin every 3 weeks. 2. If she would like, I am happy to give every other Herceptin treatment here, although the logistics of where she lives, where she works and where her doctors are may make this difficult to execute. 3. Nabila should have an echo prior to initiating her chemotherapy and at the completion of this, and every 12 weeks while continuing on Herceptin. 4. We did also talk about a port placement and Nabila will discuss that further with Dr Fonseca. 5. I discussed with Nabila that I would be happy to see her after completion of chemotherapy and beforeradiation therapy. Yajaira Turner MD 05 54 PM - Yajaira Turner MD mn Dictation ID: [id number] cc: Sasha Arvizu MD, [address] [place] [address] Triston Fonseca MD, [address], [address] [id number] Jewle Enriquez MD, [address], [address] [id number] signed by Yajaira Turner MD at 02/14/2014 22:16 Yajaira Henao MD - 12/23/2013 1821 EDT This office note has been dictated. documented in this encounter Plan of Treatment Upcoming Encounters Date Type Specialty Care Team Description 10/18/2021 Nurse Only Infusion Therapy documented as of this encounter Procedures Procedure Name Priority Date/Time Associated Diagnosis Comme nts PATHOLOGY - SCANNED 01/04/2014 12:13 EDT documented in this encounter Results PATHOLOGY - SCANNED (01/04/2014 12:13 EDT) Specimen Narrative This result has an attachment that is no t available. documented in this encounter Visit Diagnoses Diagnosis Breast cancer (HCC-CMS) (HCC) - Primary Malignant neoplasm of breast (female), u nspecified site documented in this encounter Care Teams Senior Contracts Manager Relationship Specialty Start Date End Date Sasha Arvizu MD PCP - General 10/20/13 08/18/16 documented as of this encounter
--- OUTSIDE RECORDS SUMMARY | 2021-10-16 02:03 | XMS_ITS | Encounter Summary ---
:1965 Author Organization [facility] Address [address] [place] [address] Care Team Providers Name Role Phone Sasha Arvizu MD Primary Care Provider Unavailable Reason for Visit Reason Onset Date Comments Billing Question 02/13/2015 Genetic testing Encounter Details Date Type Department Care Team Description 02/13/2015 Telephone [facility] Aziza Morfin, [place] Billing Question Hematology & Oncology [address] [facility] (Genetic testing) [place] [address] [address] [facility] [place] [address] [phone] Social History Tobacco Use Types Packs/Day Years [...] this encounter Miscellaneous Notes Telephone Encounter - Melba Morris V. - 02/13/2015 1033 EST Reason for Call: Billing Question Summary/Symptoms: Patient had Genetic Testing done . Patients insurance states that no PA wasdone for the lab. Patient needs to where the lab was sent. Melba Morris 02/13/2015 10:33 documented in this encounter Plan of Treatment Upcoming Encounters Date Type Specialty Care Team Description 10/18/2021 Nurse Only Infusion Therapy documented as of this encounter Visit Diagnoses Not on filedocumented in this encounter Care Teams Mechanical Ordnance Assembler Relationship Specialty Start Date End Date Sasha Arvizu MD PCP - General 10/20/13 08/18/16 documented as of this encounter
--- OUTSIDE RECORDS SUMMARY | 2021-10-16 02:03 | XMS_ITS | Encounter Summary ---
:1965 Author Organization [facility] Address [address] [place] [address] Care Team Providers Name Role Phone Sasha Arvizu MD Primary Care Provider Unavailable Reason for Visit Reason Onset Date Comments Appointment Related 09/15/2015 Encounter Details Date Type Department Care Team Description 09/15/2015 Telephone [facility] Medical Center Therapy, Physical Appo intment Related Rehabilitation Therapy - Medical Office [address] [phone] Social History Tobacco Use Types Packs/Day Years [...] this encounter Miscellaneous Notes Telephone Encounter - Cassidy Giron - 09/15/[address] [facility]ER[facility] - MEDICAL OFFICE BUILDING [address] [place] [address] A confirmation call was made to patient regarding 09/19/2015 physical therapy appointment. A message was left with date/time/location of appointment and phone number to the [facility]. documented in this encounter Plan of Treatment Upcoming Encounters Date Type Specialty Care Team Description 10/18/2021 Nurse Only Infusion Therapy documented as of this encounter Visit Diagnoses Not on filedocumented in this encounter Care Teams Supervisor Enrobing Relationship Specialty Start Date End Date Sasha Arvizu MD PCP - General 10/20/13 08/18/16 documented as of this encounter
--- OUTSIDE RECORDS SUMMARY | 2021-10-16 02:03 | XMS_ITS | Encounter Summary ---
:1965 Author Organization [facility] Address [address] [place] [address] Care Team Providers Name Role Phone Sasha Arvizu MD Primary Care Provider Unavailable Encounter Details Date Type Department Care Team Description 08/09/2015 Hospital Encounter [facility] [place] [place] [facility] reshma Gates MD [phone] [address] [facility] Medical Office Building, [address] [place] [address] (Wo rk) Social History Tobacco [...] Code Departure Means Destination Home or Self Long-Term documented in this encounter Plan of Treatment Upcoming Encounters Date Type Specialty Care Team Description 10/18/2021 Nurse Only Infusion Therapy documented as of this encounter Visit Diagnoses Not on filedocumented in this encounter Care Teams Recruiter Specialist Relationship Specialty Start Date End Date Sasha Arvizu MD PCP - General 10/20/13 08/18/16 documented as of this encounter
--- OUTSIDE RECORDS SUMMARY | 2021-10-16 02:03 | XMS_ITS | Encounter Summary ---
:1965 Author Organization [facility] Address [address] [place] [address] Care Team Providers Name Role Phone Sasha Arvizu MD Primary Care Provider Unavailable Zaira Rodriguez MD Unavailable Charo Finn MD Unavailable Herminio Hernandez ND Primary Care Provider Encounter Details Date Type Department Care Team Description 07/31/2015 Historical Results [facility] - Sehila Larios, Only [facility] Radiology Resul ts [address] [place], [place] [phone] [place] [address], [address] [place] [address] Social History Tobacco Use Types [...] Procedure Name Priority Date/Time Associated Comments Diagnosis US PELVIS 07/31/2015 17:16 Results for this TRANSVAGINAL EDT procedure are i n the results section. documented in this encounter Results US PELVIS TRANSVAGINAL (07/31/2015 17:16 EDT) Specimen Narrative [facility] - 07/31/2015 17:22 EDT ? EXAM: ULTRASOUND/TRANSVAGINAL - RESIDENTIAL DOOR INSTALLER ? EX. D/ (1618) ? CLINICAL INFORMATION: ? N93.8 DUB ? TRANSVAGINAL - RESIDENTIAL DOOR INSTALLER ? Signs and Symptoms/Comments: ??N9 3.8 DYSFUNCTIONAL UTERINE BLEEDING ? Comparison: None ? Technique: Pelvic ultrasound was performed with color Doppler ? imaging. ? FINDINGS: ? Uterus: ? Orientation: Retroverted. ? Size: 7.4 x 4.9 x 5.9 cm ? Findings: Multiple heterogeneous intramural fibroids are identified, ? the largest measuring 2.3 cm ? Cervix: Nabothian cyst(s). ? Endometrium: ? Echotexture: Heterogeneously and abnormally thickened for a ? postmenopausal female, with scatt ered cystic spaces. ? Thickness: 12 mm ? Ovaries: ? Right ovary: ? Size: 2.0 x 1.7 x 1.1 cm. ? Doppler flow: Color Doppler flow is present. ? Findings: None. ? Left ovary: ? Size: 1.7 x 1.1 x 1.1 cm. ? Doppler flow: Color Doppler flow is present. ? Findings: None. ? Cul-de-sac: No free fluid. ? IMPRESSION: ? 1. Endometrium heterogeneous and abnormally thickened for a ? postmenopausal female. Further ev aluation warranted. ? 2. Fibroid uterus. ? PAGE 1 ? Addie d Report ? (CONTINUED) ? 3. Unremarkable ovaries. ? REPORT SIGNED IN OTHER VENDOR SYSTEM 07/31/2015 ?Reported B y: Jarred Woodruff MD ? CC: ? Transcribed Date/Time: 07/31/2015 (1722) ? Face Hardener: ? Printed Date/Time: 09/11/2018 (05 15) ? PAGE 2 ? Addie d Report ? Procedure Note Jarred Woodruff MD - 02/03/2019 EXAM: ULTRASOUND/TRANSVAGINAL - RESIDENTIAL DOOR INSTALLER EX. D/ (1618) CLINICAL INFORMATION: N93.8 DUB TRANSVAGINAL - RESIDENTIAL DOOR INSTALLER Signs and Symptoms/Comments: N93.8 DYSF UNCTIONAL UTERINE BLEEDING Comparison: None Technique: Pelvic ultrasound was perfor med with color Doppler imaging. FINDINGS: Uterus: Orientation: Retroverted. Size: 7.4 x 4.9 x 5.9 cm Findings: Multiple heterogeneous intram ural fibroids are identified, the largest measuring 2.3 cm Cervix: Nabothian cyst(s). Endometrium: Echotexture: Heterogeneously and abnorm ally thickened for a postmenopausal female, with scattered c ystic spaces. Thickness: 12 mm Ovaries: Right ovary: Size: 2.0 x 1.7 x 1.1 cm. Doppler flow: Color Doppler flow is pre sent. Findings: None. Left ovary: Size: 1.7 x 1.1 x 1.1 cm. Doppler flow: Color Doppler flow is pre sent. Findings: None. Cul-de-sac: No free fluid. IMPRESSION: 1. Endometrium heterogeneous and abnorm ally thickened for a postmenopausal female. Further evaluati on warranted. 2. Fibroid uterus. PAGE 1 Signed Report (CONTINUED) 3. Unremarkable ovaries. REPORT SIGNED IN OTHER VENDOR SYSTEM 07/31/2015 Reported By: Jarred Woodruff MD CC: Transcribed Date/Time: 07/31/2015 (2746 ) Face Hardener: Printed Date/Time: 09/11/2018 (6021) PAGE 2 Signed Report Performing Organization Address City/State/ZIP Code Phon e Number [facility] documented in this encounter Visit Diagnoses Not on filedocumented in this encounter Care Teams Radiation Technician Relationship Specialty Start Date End Date Sasha Arvizu MD PCP - General 10/20/13 08/18/16 Herminio Hernandez ND PCP - General 08/19/[address] [place] [phone] Zaira Rodriguez MD Referring Provider Gynecology 07/29/[address] [place] [address] [facility], [address] [place] [address] Charo Finn MD Medical Oncology 07/29/[address] [place] [address], [facility] [place] [address] documented as of this encounter
--- OUTSIDE RECORDS SUMMARY | 2021-10-16 02:03 | XMS_ITS | Encounter Summary ---
:1965 Author Organization [facility] Address [address] [place] [address] Care Team Providers Name Role Phone Sasha Arvizu MD Primary Care Provider Unavailable Encounter Details Date Type Department Care Team Description 04/25/2015 [facility] [address] [phone] Social History Tobacco Use Types Packs/Day Years [...] as of this encounter Discharge Diagnoses Diagnosis Z13.29 Encounter for screening for other suspected endocrine disorder-Z13.29[ICD-10-CM] documented in this encounter Medications at Time [...] on filedocumented in this encounter Care Teams Railroad Car Painter Relationship Specialty Start Date End Date Sasha Arvizu MD PCP - General 10/20/13 08/18/16 documented as of this encounter
--- OUTSIDE RECORDS SUMMARY | 2021-10-16 02:03 | XMS_ITS | Encounter Summary ---
:[address] [facility] Address [address] [place] [address] Care Team Providers Name Role Phone Sasha Arvizu MD Primary Care Provider Unavailable Zaira Rodriguez MD Unavailable Charo Finn MD Unavailable Herminio Hernandez ND Primary Care Provider Encounter Details Date Type Department Care Team Description 05/16/2016 Historical Results [facility] - Zaira Rodriguez, Only [facility] Radiology Resul ts [address] [place], [place] [phone] [place] [address]A, [address] [place] [address] Social History Tobacco Use Types [...] Priority Date/Time Associated Comments Diagnosis US PELVIS 05/16/2016 11:09 Results for this TRANSVAGINAL EST procedure are i n the results section. documented in this encounter Results US PELVIS TRANSVAGINAL (05/16/2016 11:09 EST) Specimen Narrative [facility] - 05/16/2016 11:13 EST ? AN ADDENDUM IS INCLUDED ON THIS REPORT ? ADDENDUM ? Addendum: ? Contacted by Pat TEMPLETON (Dr. Kiel Rodriguez's nurse). On review of the ? prior report by Dr. Bui, a tra nscription error is noted. The first ? 2 sentences of the findings secti on should read as follows: ? The uterus measures 6.7 x 4.2 x 5.1 cm. The endometrium measures 1.2 ? mm in thickness. ? The impression is unchanged. Spec ifically, the endometrium is within ? normal thickness for a postmenopa usal female. ? Dr. Jarred Woodruff discussed this addendum with Pat TEMPLETON on 06/04/2016 ? 10:32 AM. ? ADDEND UM SIGNED IN OTHER VENDOR SYSTEM 06/04/2016 ?Reported B y: Jarred Woodruff MD ?Transcribe d: 06/04/2016 (1037) HIS.POWSCR ?REPORT ? EXAM: ULTRASOUND/TRANSVAGINAL - G YN ? EX. D/ (0903) ? CLINICAL INFORMATION: ? N95.0 PMB ? INDICATION: N95.0 PMB TV US ? TECHNIQUE: ?Transvaginal pelv ic ultrasound. Arterial and venous ? spectral waveforms along with col or imaging of the ovaries. ? COMPARISON: 07/31/2015. ? FINDINGS: ?The uterus measure s 6.7 x 4.2 x 5.1 field Endobutton 1.2 ? centimeters. The endometrium sidney ures ? mm in thickness. Multiple ? hypoechoic uterine fibroids are s een. The largest of which is present ? within the posterior fundus measu ring approximately 1.9 x 1.5 x 1.8 ? cm. Additional intramural and sub serosal fibroids are noted. No free ? fluid is seen in the cul-de-sac. The right ovary measures 2.3 x 1 ? 0.4, 1.6 cm. ?The left ovary measures 2.3 x 2.3 x 0.9 cm. ? There ? is a 9 mm left ovarian cyst, whic h may contain a small amount of ? debris. The right ovarian parench yma is normal in appearance. ? IMPRESSION: ? 1. Fibroid uterus. No abnormal th ickening of the endometrium ? PAGE 1 ? Addie d Report ? (CONTINUED) ? AN ADDENDUM IS INC LUDED ON THIS REPORT ? currently detected. ? 2. 9 mm left ovarian cyst, which may contain debris. ? REPORT SIGNED IN OTHER VENDOR SYSTEM 05/16/2016 ?Reported B y: Chuckie Bui MD ? CC: ? Transcribed Date/Time: 05/16/2016 (1113) ? Ticket Taker Ferryboat: ? Printed Date/Time: 09/12/2018 (18 08) ? PAGE 2 ? Addie d Report ? Procedure Note Chuckie Bui MD - 02/03/2019 AN ADDENDUM IS INCLUDED ON THIS REPO RT ADDENDUM Addendum: Contacted by Pat TEMPLETON (Dr. Zaira simms's nurse). On review of the prior report by Dr. Bui, a transcrip tion error is noted. The first 2 sentences of the findings section mariel uld read as follows: The uterus measures 6.7 x 4.2 x 5.1 cm . The endometrium measures 1.2 mm in thickness. The impression is unchanged. Specifical ly, the endometrium is within normal thickness for a postmenopausal f emale. Dr. Jarred Woodruff discussed this adden dum with Pat TEMPLETON on 06/04/2016 10:32 AM. ADDENDUM SIGNED IN OTHER VENDOR SYS TEM 06/04/2016 Reported By: Jarred Woodruff MD Transcribed: 06/04/2016 (1037) CR REPORT EXAM: ULTRASOUND/TRANSVAGINAL - AIRCRAFT STRESS ANALYST EX. D/ (0903) CLINICAL INFORMATION: N95.0 PMB INDICATION: N95.0 PMB TV US TECHNIQUE: Transvaginal pelvic ultrasou nd. Arterial and venous spectral waveforms along with color desire ging of the ovaries. COMPARISON: 07/31/2015. FINDINGS: The uterus measures 6.7 x 4.2 x 5.1 field Endobutton 1.2 centimeters. The endometrium measures m m in thickness. Multiple hypoechoic uterine fibroids are seen. T he largest of which is present within the posterior fundus measuring a pproximately 1.9 x 1.5 x 1.8 cm. Additional intramural and subserosa l fibroids are noted. No free fluid is seen in the cul-de-sac. The ri ght ovary measures 2.3 x 1 0.4, 1.6 cm. The left ovary measures 2. 3 x 2.3 x 0.9 cm. There is a 9 mm left ovarian cyst, which may contain a small amount of debris. The right ovarian parenchyma is normal in appearance. IMPRESSION: 1. Fibroid uterus. No abnormal thickeni ng of the endometrium PAGE 1 Signed Report (CONTINUED) AN ADDENDUM IS INCLUDED ON THIS REPO RT currently detected. 2. 9 mm left ovarian cyst, which may co ntain debris. REPORT SIGNED IN OTHER VENDOR SYSTEM 05/16/2016 Reported By: Chuckie Bui MD CC: Transcribed Date/Time: 05/16/2016 (1113 ) Ticket Taker Ferryboat: Printed Date/Time: 09/12/2018 (4524) PAGE 2 Signed Report Performing Organization Address City/State/ZIP Code Phon e Number [facility] documented in this encounter Visit Diagnoses Not on filedocumented in this encounter Care Teams Painter And Decorator Relationship Specialty Start Date End Date Sasha Arvizu MD PCP - General 10/20/13 08/18/16 Herminio Hernandez ND PCP - General 08/19/16 [address] [place], [place] [id number] Zaira Rodriguez MD Referring Provider Gynecology 07/29/16 [address] [facility], [address] [place] [address] Charo Finn MD Medical Oncology 07/29/[address] [place] [address], [facility] [address] [place] [address] documented as of this encounter
--- OUTSIDE RECORDS SUMMARY | 2021-10-16 02:03 | XMS_ITS | Encounter Summary ---
:1965 Author Organization [facility] Address [address] [place] [address] Care Team Providers Name Role Phone Sasha Arvizu MD Primary Care Provider Unavailable Zaira Rodriguez MD Unavailable Charo Finn MD Unavailable Herminio Hernandez ND Primary Care Provider Encounter Details Date Type Department Care Team Description 12/19/2014 Historical Results Only [facility] - Unknown, [facility] Cardiology Clin ic Provider, MD [phone] [place] [address] (Work) [phone] Social History Tobacco Use Types Packs/Day Years [...] Procedure Name Priority Date/Time Associated Comments Diagnosis TRANSTHORACIC ECHO 12/19/2014 13:03 Resul ts for this (TTE) COMPLETE EDT procedure are in the results section. documented in this encounter Results TRANSTHORACIC ECHO (TTE) COMPLETE (12/19/2014 13:03 EDT) Specimen Narrative [facility] - 12/19/2014 13:03 EDT ?[facility] ?[facility] [address] [place] [address] ?( [phone] [id number] ? E C H O C A R D I O G R A M ? R E P O R T NAME: RASMarcie,NABILA ? : 69 ? LOCATION: CARD ? TELEPHONE: [phone] ?MR#: [id number] ? *[facility]* *[facility]* [address] [place] [address] ?? Date of study: 12/19/2014 ?? Transthoracic Echocardiography M-mode, complete 2D, complete spectral D oppler, and color Doppler *STUDY CONCLUSIONS* Impressions: ??Compared to the prior [facility] dy, there has been no significant interval change. Summary: 1. Left ventricle: The cavity size was n ormal. Wall thickness was normal. ?? Systolic function was normal. The es timated ejection fraction was 60-65%. ?? Wall motion was normal; there were n o regional wall motion abnormalities. ?? Some findings suggest diastolic dysf unction. 2. Right ventricle: The cavity size was normal. Wall thickness was normal. ?? Systolic function was normal. *PATIENT PRESENTATION* Height: ? 172.7cm (68in ) S/D Pressure: 130 / 60 Weight: ? 93kg (204.6lb ) BSA: ?2.14m 2 Test start time: ??01:00 PM. Test stop time: ??01:40 PM. ORDERING ? Triston Fonseca REFERRING ?Triston Fonseca WASTEWATER PROJECT MANAGER ??Xochitl Freeman PERFORMING ?? [facility] *PROCEDURE DATA* Procedure information: ??This study was interpreted by [facility] enter Cardiology. Pertinent images and digital data are archived for permanent storage and are available for subsequent review. Comparison was made to the study of July 2014. ??Study status: ??Routine. Transthoracic echocardiography. ??M-mode , complete 2D, complete spectral Doppler, and color Doppler. A Transthoracic Echoc ardiogram was performed. Scanning was performed from the parasternal, apical, subcostal, and suprasternal notch ?[facility] ?[facility] [address] [place] [address] ?( [phone] [id number] ? E C H O C A R D I O G R A M ? R E P O R T NAME: NABILA ALEJO ? : 69 ? LOCATION: CARD ? TELEPHONE: [phone] ?MR#: [id number] ? acoustic windows. Images were obtained u sing a [facility] IE33 1 cardiac ultrasound machine. Image quality was fair. ??Study completion: ??The patient tolerated the procedure well. *INDICATIONS AND HISTORY* Indications: ?? BREAST CA. *CARDIAC ANATOMY* Left ventricle: ??The cavity size was no rmal. Wall thickness was normal. Systolic function was normal. The estimated eject ion fraction was 60-65%. Wall motion was normal; there were no regional wall eddie on abnormalities. Some findings suggest diastolic dysfunction. Aortic valve: ?? Trileaflet; normal thic kness leaflets. Mobility was not restricted. ??Doppler: ??Transvalvular v elocity was within the normal range. There was no stenosis. ??No regurgitation. Aorta: ??Aortic root: The aortic root wa s normal in size. Ascending aorta: The ascending aorta was normal in size. Mitral valve: ?? Structurally normal tunde ve. ?? Mobility was not restricted. Doppler: ??Transvalvular velocity was wi thin the normal range. There was no evidence for stenosis. ??Trivial regurgi tation. Left atrium: ??The atrium was at the upp er limits of normal in size. Right ventricle: ??The cavity size was n ormal. Wall thickness was normal. Systolic function was normal. Pulmonic valve: ?? Poorly visualized. ?? Doppler: ??Transvalvular velocity was within the normal range. There was no ev idence for stenosis. ??No regurgitation. Tricuspid valve: ?? Structurally normal valve. ?Doppler: ??Transvalvular velocity was within the normal range. Th ere was no evidence for stenosis. Trivial regurgitation. Pulmonary artery: ?? Poorly visualized. ??Systolic pressure could not be accurately estimated. Right atrium: ??The atrium was normal in size. Pericardium: ??There was no pericardial effusion. Systemic veins: Inferior vena cava: Poorly visualized. Baseline ECG: ?? Normal sinus rhythm. *MEASUREMENT TABLES* 2D measurements ?Normal Left ventricle LV internal dimension, ED, chordal level , PLAX 47.4 mm ? 43-52 LV internal dimension, ES, chordal level , PLAX 29.5 mm ? 23-38 Fractional shortening, chordal level, PL AX ? 38 % ?>29 LV posterior wall thickness, ED ?10.9 mm ? -------- IVS/LVPW ratio, ED ?0.8 ?<1.3 Ejection fraction ?67.7 % ?-------- ?[facility] ? [address] [place], [place] [address] ? [id number] ? E C H O C A R D I O G R A M ? R E P O R T NAME: NABILA ALEJO ? : 69 ? LOCATION: CARD ? TELEPHONE: [phone] ?MR#: [id number] ? Stroke volume ?70.4 ml ? -------- Stroke index ? 32.9 ml/m 2 -------- Ventricular septum Septal thickness, ED ?9.2 mm ? -------- Aorta Ascending aorta anterior-posterior diame ter, S ?? 28 mm ? -------- Left atrium Area ES, A4C ? 20 cm 2 ?? 8.8-23.4 Right atrium Area, ES ? 15 cm 2 ?? -------- ?? Doppler measurements ? Normal Left ventricle IVRT ? 99 ms ? 60-100 Ea, lateral annulus, tissue Doppler ?6.33 cm/s ?? -------- E/Ea, lateral annulus, tissue Doppler ? 9.8 ?-------- Mitral valve Peak E-wave velocity ? 62.2 cm/s ?? -------- Peak A-wave velocity ? 64.2 cm/s ?? -------- Deceleration time ? 225 ms ? 150-230 Peak E/A ratio ?1 ?-------- Legend: Mean values are shown as u=mean value. Asterisk (*) queen values outside specif ied normal range. I have personally reviewed the images an d have reviewed and edited the reported findings. Electronically signed by Vincent Sherman 12/19/2014 23:00 Procedure Note Vincent Sherman MD - 01/17/2019 [facility] [address] [place], [place] [address] [id number] E C H O C A R D I O G R A M R E P O R T NAME: NABILA ALEJO : 69 LOCATION: Junior VERA TELEPHONE: [phone] MR#: [id number] [facility] T#: [id number] *[facility]* *[facility]* [address] [place] [address] Date of study: 12/19/2014 Transthoracic Echocardiography M-mode, complete 2D, complete spectral D oppler, and color Doppler *STUDY CONCLUSIONS* Impressions: Compared to the prior study , there has been no significant interval change. Summary: 1. Left ventricle: The cavity size was n ormal. Wall thickness was normal. Systolic function was normal. The estim ated ejection fraction was 60-65%. Wall motion was normal; there were no r egional wall motion abnormalities. Some findings suggest diastolic dysfunc tion. 2. Right ventricle: The cavity size was normal. Wall thickness was normal. Systolic function was normal. *PATIENT PRESENTATION* Height: 172.7cm (68in ) S/D Pressure: 130 / 60 Weight: 93kg (204.6lb ) BSA: 2.14m 2 Test start time: 01:00 PM. Test stop time: 01:40 PM. ORDERING Triston Fonseca REFERRING Triston Fonseca WASTEWATER PROJECT MANAGER Xochitl Freeman PERFORMING [facility] *PROCEDURE DATA* Procedure information: This study was in terpreted by [facility] enter Cardiology. Pertinent images and digital data are archived for permanent storage and are available for subsequent review. Comparison was made to the study of July 2014. Study status: Routine. Transthoracic echocardiography. M-mode, complete 2D, complete spectral Doppler, and color Doppler. A Transthoracic Echoc ardiogram was performed. Scanning was performed from the parasternal, apical, subcostal, and suprasternal notch [facility] [address] [place] [id number] E C H O C A R D I O G R A M R E P O R T NAME: NABILA ALEJO : 69 LOCATION: Junior BACKD TELEPHONE: [phone] MR#: [id number] [facility] T#: [id number] acoustic windows. Images were obtained u sing a [facility] IE33 1 cardiac ultrasound machine. Image quality was fair. Study c ompletion: The patient tolerated the procedure well. *INDICATIONS AND HISTORY* Indications: BREAST CA. *CARDIAC ANATOMY* Left ventricle: The cavity size was norm al. Wall thickness was normal. Systolic function was normal. The estimated eject ion fraction was 60-65%. Wall motion was normal; there were no regional wall eddie on abnormalities. Some findings suggest diastolic dysfunction. Aortic valve: Trileaflet; normal thickne ss leaflets. Mobility was not restricted. Doppler: Transvalvular veloc ity was within the normal range. There was no stenosis. No regurgitation. Aorta: Aortic root: The aortic root was normal in size. Ascending aorta: The ascending aorta was normal in size. Mitral valve: Structurally normal valve. Mobility was not restricted. Doppler: Transvalvular velocity was with in the normal range. There was no evidence for stenosis. Trivial regurgita tion. Left atrium: The atrium was at the upper limits of normal in size. Right ventricle: The cavity size was nor mal. Wall thickness was normal. Systolic function was normal. Pulmonic valve: Poorly visualized. Doppl er: Transvalvular velocity was within the normal range. There was no ev idence for stenosis. No regurgitation. Tricuspid valve: Structurally normal tunde ve. Doppler: Transvalvular velocity was within the normal range. Th ere was no evidence for stenosis. Trivial regurgitation. Pulmonary artery: Poorly visualized. Sys tolic pressure could not be accurately estimated. Right atrium: The atrium was normal in s ize. Pericardium: There was no pericardial ef fusion. Systemic veins: Inferior vena cava: Poorly visualized. Baseline ECG: Normal sinus rhythm. *MEASUREMENT TABLES* 2D measurements Normal Left ventricle LV internal dimension, ED, chordal level , PLAX 47.4 mm 43-52 LV internal dimension, ES, chordal level , PLAX 29.5 mm 23-38 Fractional shortening, chordal level, PL AX 38 % >29 LV posterior wall thickness, ED 10.9 mm -------- IVS/LVPW ratio, ED 0.8 <1.3 Ejection fraction 67.7 % -------- [facility] [address] [place] [address] [id number] E C H O C A R D I O G R A M R E P O R T NAME: NABILA ALEJO : 69 LOCATION: Junior VERA TELEPHONE: [phone] MR#: [id number] [facility] T#: [id number] Stroke volume 70.4 ml -------- Stroke index 32.9 ml/m 2 -------- Ventricular septum Septal thickness, ED 9.2 mm -------- Aorta Ascending aorta anterior-posterior diame ter, S 28 mm -------- Left atrium Area ES, A4C 20 cm 2 8.8-23.4 Right atrium Area, ES 15 cm 2 -------- Doppler measurements Normal Left ventricle IVRT 99 ms 60-100 Ea, lateral annulus, tissue Doppler 6.33 cm/s -------- E/Ea, lateral annulus, tissue Doppler 9. 8 -------- Mitral valve Peak E-wave velocity 62.2 cm/s -------- Peak A-wave velocity 64.2 cm/s -------- Deceleration time 225 ms 150-230 Peak E/A ratio 1 -------- Legend: Mean values are shown as u=mean value. Asterisk (*) queen values outside specif ied normal range. I have personally reviewed the images an d have reviewed and edited the reported findings. Electronically signed by Vincent Sherman 12/19/2014 23:00 Performing Organization Address City/State/ZIP Code Phon e Number [facility] documented in this encounter Visit Diagnoses Not on filedocumented in this encounter Care Teams Medical And Scientific Illustrator Relationship Specialty Start Date End Date Sasha Arvizu MD PCP - General 10/20/13 08/18/16 Herminio Hernandez ND PCP - General 08/19/16 [address] [place], [place] [id number] Zaira Rodriguez MD Referring Provider Gynecology 07/29/16 [address] [facility] [place] [address] Charo Finn MD Medical Oncology 07/29/[address] [place] [address], [address] [place] [id number] documented as of this encounter
--- OUTSIDE RECORDS SUMMARY | 2021-10-16 02:03 | XMS_ITS | Encounter Summary ---
:1965 Author Organization [facility] Address [address] [place] [address] Care Team Providers Name Role Phone Sasha Arvizu MD Primary Care Provider Unavailable Zaira Rodriguez MD Unavailable Charo Finn MD Unavailable Herminio Hernandez ND Primary Care Provider Encounter Details Date Type Department Care Team Description 10/17/2014 Historical Results [facility] O[facility] [place] Radiology Resul ts MD John [address] [place], [place] [id number] [place] [address] [phone] Social History Tobacco Use Types Packs/Day [...] Name Priority Date/Time Associated Comments Diagnosis US BREAST LIMITED 10/17/2014 12:25 Result s for this UNILATERAL EDT procedure are i n the results section. MA BREAST DIAGNOSTIC 10/17/2014 12:25 Res ults for this CLINT BILATERAL EDT procedure are in the results section. documented in this encounter Results US BREAST LIMITED UNILATERAL (10/17/2014 12:25 EDT) Specimen Narrative [facility] - 10/18/2014 9:29 EDT ? AN ADDENDUM IS INCLUDED ON THIS REPORT ? ADDENDUM ? ADDENDUM: ??[id number] PEDRO/BTMDXO KELSEY [id number] US/BRST ? Spot CC and ML magnification view s of the right breast confirm the ? aforementioned calcifications. ? AMD:kad ?? NCA ?Reported B y: Blake Phillips MD ?Transcribe d: 10/20/2014 (0945) LEXY ?REPORT ? EXAM: MAMMOGRAM/MAMMO BILATERAL D X W CLINT EX. D/ (1056) ? CLINICAL INFORMATION: ? LEFT BREAST SCREENING ? DUCTAL CA OF RIGHT UIQ BREAST ? EXAM: ULTRASOUND/UNILATERAL BREAS T LIMITE EX. D/ (1225) ? CLINICAL INFORMATION: ? RIGHT PALPABLE LUMP, PLEASE EVAL CYSTIC VS SOLID ? COMPARISON: ??RIGHT BREAST ULTRAS OUND - 10/15/2013 ?DIGITAL MAMMO GRAPHY - 10/15/2013; 06/19/2010; 06/15/2009 ? TECHNIQUE: ??Diagnostic right ho ast mammogram and ultrasound, left ? breast screening. ? INDICATION: ??Patient with a hist ory of invasive ductal carcinoma ? involving the upper inner quadran t of the right breast. Palpable ? finding with tenderness in the up per outer quadrant of the right ? breast. ? RIGHT BREAST MAMMOGRAM: Full fiel d digital whole breast 2D and 3D CC ? and MLO views of the right breast were obtained. CAD technology was ? utilized. ? A skin marker was placed denoting the palpable finding within the ? upper outer quadrant. There are s cattered areas of fibroglandular ? density. Post-lumpectomy changes are seen within the upper inner ? quadrant. There is a small area o f developing retroareolar ? calcifications, demonstrating a s omewhat linear distribution on the CC ? view. Spot CC and ML magnificatio n views are recommended. ? A spot CC and ML magnification vi ews of the right breast confirm the ? aforementioned calcifications. Th ey are small in number and somewhat ? linear in distribution on the CC view. However, they do not appear ? clearly linear in distribution on the spot ML view. ? RIGHT BREAST ULTRASOUND: ??Camargo-s alli and ultrasound imaging of the ? upper outer quadrant of the right breast was obtained in the area of ? reported tenderness and palpable finding. ? No sonographic abnormality is kimberly ntified within the upper outer ? PAGE 1 ? Addie d Report ? (CONTINUED) ? AN ADDENDUM IS INC LUDED ON THIS REPORT ? quadrant. No abnormalities are se en in the retroareolar region. A ? shadowing scar relating to prior lumpectomy is identified within the ? upper inner quadrant at the 1 o'c lock position. ? LEFT BREAST MAMMOGRAM: Full field digital whole breast 2D and 3D CC ? and MLO views of the left breast were obtained. CAD technology was ? utilized. ? There are scattered areas of fibr oglandular density. No suspicious ? masses or calcifications are seen . A left chest port projects over the ? posterior aspect of the pectorali s musculature. ? IMPRESSION: ? 1. ? Right breast, BI-RADS category 3. Small group of developing, ?slightly heterogene ous calcifications within the retroareolar ?region of the right breast. Although these appear somewhat ?linear on the CC vi ews, this is not the case on the ML spot ?magnification view. ? 2. ? Left breast, BI-RADS category 2. ? FINAL ASSESSMENT: ??DIAGNOSTIC RI GHT BREAST MAMMOGRAM/ULTRASOUND - ?Irasema sprague 3 - Probably benign findings; short ?inte rval follow up suggested. ? FINAL ASSESSMENT: ??SCREENING LEF T BREAST MAMMOGRAM - ?Irasema sprague 2 - Benign findings. ? These results will be communicate d to your patient via a lay letter ? from Radiology. ??If any addition al imaging is needed we will contact ? your patient directly. ? RECOMMENDATIONS: ??Small group of slightly heterogeneous retroareolar ? calcifications in the right breas t, as described above. Follow-up CC ? and ML spot magnification views a re recommended in 6 months. ? These findings and need for follo w-up in 6 months were discussed with ? the patient shortly after complet ion of the examination. ? AMD:kad ?Reported B y: Blake Phillips MD ? CC: Jewel Enriquez MD; Triston Fonseca MD; Sasha Arvizu MD ? Transcribed Date/Time: 10/18/2014 (0929) ? Hogshead Liner: LEXY ? Printed Date/Time: 09/08/2018 (00 29) ? PAGE 2 ? Addie d Report ? Procedure Note Blake Phillips MD - 02/02/2019 AN ADDENDUM IS INCLUDED ON THIS REPO RT ADDENDUM ADDENDUM: [id number] PEDRO/BTMDXOBIL [id number] [id number] US/BRST Spot CC and ML magnification views of t he right breast confirm the aforementioned calcifications. AMD:kaanirudh NCA Reported By: Blake Phillips MD Transcribed: 10/20/2014 (0945) JOANIE WALDRON REPORT EXAM: MAMMOGRAM/MAMMO BILATERAL DX W TO MO EX. D/ (1056) CLINICAL INFORMATION: LEFT BREAST SCREENING DUCTAL CA OF RIGHT UIQ BREAST EXAM: ULTRASOUND/UNILATERAL BREAST LIMI TE EX. D/ (1225) CLINICAL INFORMATION: RIGHT PALPABLE LUMP, PLEASE EVAL CYSTIC VS SOLID COMPARISON: RIGHT BREAST ULTRASOUND - 0 10/15/2013 DIGITAL MAMMOGRAPHY - 10/15/2013; 06/19; 06/15/2009 TECHNIQUE: Diagnostic right breast mamm ogram and ultrasound, left breast screening. INDICATION: Patient with a history of i nvasive ductal carcinoma involving the upper inner quadrant of t he right breast. Palpable finding with tenderness in the upper ou ter quadrant of the right breast. RIGHT BREAST MAMMOGRAM: Full field digi mayur whole breast 2D and 3D CC and MLO views of the right breast were obtained. CAD technology was utilized. A skin marker was placed denoting the p alpable finding within the upper outer quadrant. There are scatter ed areas of fibroglandular density. Post-lumpectomy changes are se en within the upper inner quadrant. There is a small area of deve loping retroareolar calcifications, demonstrating a somewha t linear distribution on the CC view. Spot CC and ML magnification view s are recommended. A spot CC and ML magnification views of the right breast confirm the aforementioned calcifications. They are small in number and somewhat linear in distribution on the CC view. However, they do not appear clearly linear in distribution on the s pot ML view. RIGHT BREAST ULTRASOUND: Camargo-scale and ultrasound imaging of the upper outer quadrant of the right breas t was obtained in the area of reported tenderness and palpable findin g. No sonographic abnormality is identifie d within the upper outer PAGE 1 Signed Report (CONTINUED) AN ADDENDUM IS INCLUDED ON THIS REPO RT quadrant. No abnormalities are seen in the retroareolar region. A shadowing scar relating to prior lumpec ayla is identified within the upper inner quadrant at the 1 o'clock p osition. LEFT BREAST MAMMOGRAM: Full field digit al whole breast 2D and 3D CC and MLO views of the left breast were o btained. CAD technology was utilized. There are scattered areas of fibrogland ular density. No suspicious masses or calcifications are seen. A le ft chest port projects over the posterior aspect of the pectoralis musc ulature. IMPRESSION: 1. Right breast, BI-RADS category 3. Sm all group of developing, slightly heterogeneous calcifications w ithin the retroareolar region of the right breast. Although th michael appear somewhat linear on the CC views, this is not the case on the ML spot magnification view. 2. Left breast, BI-RADS category 2. FINAL ASSESSMENT: DIAGNOSTIC RIGHT WILFRIDO ST MAMMOGRAM/ULTRASOUND - Category 3 - Probably benign findings; short interval follow up suggested. FINAL ASSESSMENT: SCREENING LEFT BREAST MAMMOGRAM - Category 2 - Benign findings. These results will be communicated to y our patient via a lay letter from Radiology. If any additional imagi ng is needed we will contact your patient directly. RECOMMENDATIONS: Small group of slightl y heterogeneous retroareolar calcifications in the right breast, as described above. Follow-up CC and ML spot magnification views are rec ommended in 6 months. These findings and need for follow-up i n 6 months were discussed with the patient shortly after completion of the examination. AMD:kad Reported By: Blake Phillips MD CC: Jewel Enriquez MD; Triston Fonseca MD; Sasha Funk MD Transcribed Date/Time: 10/18/2014 (0929 ) Hogshead Liner: LEXY Printed Date/Time: 09/08/2018 (0029) PAGE 2 Signed Report Performing Organization Address City/State/ZIP Code Phon e Number [facility] MA BREAST DIAGNOSTIC CLINT BILATERAL (10/17/2014 12:25 EDT) Specimen Narrative [facility] - 10/18/2014 9:29 EDT ? AN ADDENDUM IS INCLUDED ON THIS REPORT ? ADDENDUM ? ADDENDUM: ??[id number] PEDRO/BTMDXO KELSEY [id number] [facility] ? Spot CC and ML magnification view s of the right breast confirm the ? aforementioned calcifications. ? AMD:kad ?? NCA ?Reported B y: Blake Phillips MD ?Transcribe d: 10/20/2014 (0945) LEXY ?REPORT ? EXAM: MAMMOGRAM/MAMMO BILATERAL D X W CLINT EX. D/ (1056) ? CLINICAL INFORMATION: ? LEFT BREAST SCREENING ? DUCTAL CA OF RIGHT UIQ BREAST ? EXAM: ULTRASOUND/UNILATERAL BREAS T LIMITE EX. D/ (1225) ? CLINICAL INFORMATION: ? RIGHT PALPABLE LUMP, PLEASE EVAL CYSTIC VS SOLID ? COMPARISON: ??RIGHT BREAST ULTRAS OUND - 10/15/2013 ?DIGITAL MAMMO GRAPHY - 10/15/2013; 06/19/2010; 06/15/2009 ? TECHNIQUE: ??Diagnostic right ho ast mammogram and ultrasound, left ? breast screening. ? INDICATION: ??Patient with a hist ory of invasive ductal carcinoma ? involving the upper inner quadran t of the right breast. Palpable ? finding with tenderness in the up per outer quadrant of the right ? breast. ? RIGHT BREAST MAMMOGRAM: Full fiel d digital whole breast 2D and 3D CC ? and MLO views of the right breast were obtained. CAD technology was ? utilized. ? A skin marker was placed denoting the palpable finding within the ? upper outer quadrant. There are s cattered areas of fibroglandular ? density. Post-lumpectomy changes are seen within the upper inner ? quadrant. There is a small area o f developing retroareolar ? calcifications, demonstrating a s omewhat linear distribution on the CC ? view. Spot CC and ML magnificatio n views are recommended. ? A spot CC and ML magnification vi ews of the right breast confirm the ? aforementioned calcifications. Th ey are small in number and somewhat ? linear in distribution on the CC view. However, they do not appear ? clearly linear in distribution on the spot ML view. ? RIGHT BREAST ULTRASOUND: ??Camargo-s alli and ultrasound imaging of the ? upper outer quadrant of the right breast was obtained in the area of ? reported tenderness and palpable finding. ? No sonographic abnormality is kimberly ntified within the upper outer ? PAGE 1 ? Addie d Report ? (CONTINUED) ? AN ADDENDUM IS INC LUDED ON THIS REPORT ? quadrant. No abnormalities are se en in the retroareolar region. A ? shadowing scar relating to prior lumpectomy is identified within the ? upper inner quadrant at the 1 o'c lock position. ? LEFT BREAST MAMMOGRAM: Full field digital whole breast 2D and 3D CC ? and MLO views of the left breast were obtained. CAD technology was ? utilized. ? There are scattered areas of fibr oglandular density. No suspicious ? masses or calcifications are seen . A left chest port projects over the ? posterior aspect of the pectorali s musculature. ? IMPRESSION: ? 1. ? Right breast, BI-RADS category 3. Small group of developing, ?slightly heterogene ous calcifications within the retroareolar ?region of the right breast. Although these appear somewhat ?linear on the CC vi ews, this is not the case on the ML spot ?magnification view. ? 2. ? Left breast, BI-RADS category 2. ? FINAL ASSESSMENT: ??DIAGNOSTIC RI GHT BREAST MAMMOGRAM/ULTRASOUND - ?Irasema sprague 3 - Probably benign findings; short ?inte rval follow up suggested. ? FINAL ASSESSMENT: ??SCREENING LEF T BREAST MAMMOGRAM - ?Irasema sprague 2 - Benign findings. ? These results will be communicate d to your patient via a lay letter ? from Radiology. ??If any addition al imaging is needed we will contact ? your patient directly. ? RECOMMENDATIONS: ??Small group of slightly heterogeneous retroareolar ? calcifications in the right breas t, as described above. Follow-up CC ? and ML spot magnification views a re recommended in 6 months. ? These findings and need for follo w-up in 6 months were discussed with ? the patient shortly after complet ion of the examination. ? AMD:kad ?Reported B y: Blake Phillips MD ? CC: Jewel Enriquez MD; Triston Fonseca MD; Sasha Arvizu MD ? Transcribed Date/Time: 10/18/2014 (29) ? Hogshead Liner: LEXY ? Printed Date/Time: 09/08/2018 () ? PAGE 2 ? Addie d Report ? Procedure Note Blake Phillips MD - 02/02/2019 AN ADDENDUM IS INCLUDED ON THIS REPO RT ADDENDUM ADDENDUM: [id number] PEDRO/BTMDXOBIL 0011 [id number] [facility] and ML magnification views of t he right breast confirm the aforementioned calcifications. AMD:matilda NCA Reported By: Blake Phillips MD Transcribed: 10/20/2014 (0945) JOANIE WALDRON REPORT EXAM: MAMMOGRAM/MAMMO BILATERAL DX W TO MO EX. D/ (6636) CLINICAL INFORMATION: LEFT BREAST SCREENING DUCTAL CA OF RIGHT UIQ BREAST EXAM: ULTRASOUND/UNILATERAL BREAST LIMI TE EX. D/ (5095) CLINICAL INFORMATION: RIGHT PALPABLE LUMP, PLEASE EVAL CYSTIC VS SOLID COMPARISON: RIGHT BREAST ULTRASOUND - 0 10/15/2013 DIGITAL MAMMOGRAPHY - 10/15/2013; 06/19; 06/15/2009 TECHNIQUE: Diagnostic right breast mamm ogram and ultrasound, left breast screening. INDICATION: Patient with a history of i nvasive ductal carcinoma involving the upper inner quadrant of t he right breast. Palpable finding with tenderness in the upper ou ter quadrant of the right breast. RIGHT BREAST MAMMOGRAM: Full field digi mayur whole breast 2D and 3D CC and MLO views of the right breast were obtained. CAD technology was utilized. A skin marker was placed denoting the p alpable finding within the upper outer quadrant. There are scatter ed areas of fibroglandular density. Post-lumpectomy changes are se en within the upper inner quadrant. There is a small area of deve loping retroareolar calcifications, demonstrating a somewha t linear distribution on the CC view. Spot CC and ML magnification view s are recommended. A spot CC and ML magnification views of the right breast confirm the aforementioned calcifications. They are small in number and somewhat linear in distribution on the CC view. However, they do not appear clearly linear in distribution on the s pot ML view. RIGHT BREAST ULTRASOUND: Camargo-scale and ultrasound imaging of the upper outer quadrant of the right breas t was obtained in the area of reported tenderness and palpable findin g. No sonographic abnormality is identifie d within the upper outer PAGE 1 Signed Report (CONTINUED) AN ADDENDUM IS INCLUDED ON THIS REPO RT quadrant. No abnormalities are seen in the retroareolar region. A shadowing scar relating to prior lumpec ayla is identified within the upper inner quadrant at the 1 o'clock p osition. LEFT BREAST MAMMOGRAM: Full field digit al whole breast 2D and 3D CC and MLO views of the left breast were o btained. CAD technology was utilized. There are scattered areas of fibrogland ular density. No suspicious masses or calcifications are seen. A le ft chest port projects over the posterior aspect of the pectoralis musc ulature. IMPRESSION: 1. Right breast, BI-RADS category 3. Sm all group of developing, slightly heterogeneous calcifications w ithin the retroareolar region of the right breast. Although th michael appear somewhat linear on the CC views, this is not the case on the ML spot magnification view. 2. Left breast, BI-RADS category 2. FINAL ASSESSMENT: DIAGNOSTIC RIGHT WILFRIDO ST MAMMOGRAM/ULTRASOUND - Category 3 - Probably benign findings; short interval follow up suggested. FINAL ASSESSMENT: SCREENING LEFT BREAST MAMMOGRAM - Category 2 - Benign findings. These results will be communicated to y our patient via a lay letter from Radiology. If any additional imagi ng is needed we will contact your patient directly. RECOMMENDATIONS: Small group of slightl y heterogeneous retroareolar calcifications in the right breast, as described above. Follow-up CC and ML spot magnification views are rec ommended in 6 months. These findings and need for follow-up i n 6 months were discussed with the patient shortly after completion of the examination. AMD:kad Reported By: Blake Phillips MD CC: Jewel Enriquez MD; Triston Fonseca MD; Sasha Funk MD Transcribed Date/Time: 10/18/2014 (0929 ) Hogshead Liner: LEXY Printed Date/Time: 09/08/2018 (0029) PAGE 2 Signed Report Performing Organization Address City/State/ZIP Code Phon e Number [facility] documented in this encounter Visit Diagnoses Not on filedocumented in this encounter Care Teams Information Security Director Relationship Specialty Start Date End Date Sasha Arvizu MD PCP - General 10/20/13 08/18/16 Herminio Hernandez ND PCP - General 08/19/16 [facility] [place], [place] [address] Zaira Rodriguez MD Referring Provider Gynecology 07/29/[address] [place] [address] [address], [address] [place] [address] Charo Finn MD Medical Oncology 07/29/16 [address] [facility], [address] [place] [address] documented as of this encounter
--- OUTSIDE RECORDS SUMMARY | 2021-10-16 02:03 | XMS_ITS | Encounter Summary ---
:1965 Author Organization [facility] Address [address] [place] [address] Care Team Providers Name Role Phone Sasha Arvizu MD Primary Care Provider Unavailable Zaira Rodriguez MD Unavailable Charo Finn MD Unavailable Herminio Hernandez ND Primary Care Provider Encounter Details Date Type Department Care Team Description 10/20/2015 Historical Results [facility] Orell[facility] [place] Radiology Resul ts MD John [address] [place], [place] [address] [place] [address] [phone] Social History Tobacco Use Types Packs/Day [...] Date/Time Associated Comments Diagnosis MA BREAST DIAGNOSTIC 10/20/2015 13:55 Res ults for this CLINT BILATERAL EDT procedure are in the results section. documented in this encounter Results MA BREAST DIAGNOSTIC CLINT BILATERAL (10/20/2015 13:55 EDT) Specimen Narrative [facility] - 10/24/2015 16:01 EDT ? EXAM: MAMMOGRAM/MAMMO BILATERAL DX W CLINT EX. D/ (1355) ? CLINICAL INFORMATION: ? 3-6 MONTH F/U ? COMPARISON: ??RIGHT BREAST MAMMOG ANIL - 05/25/2015 ?BILATERAL AG MOGRAM - 2015; 2014; 2010; 2009; 2009 ? INDICATION: ??3-6 month follow-up ? TECHNIQUE: ??Full field digital w hole breast 2D (C-view) and 3D CC and ? MLO views of both breasts were ob tained. CAD technology was utilized. ? ADDITIONAL VIEWS: 2D (C-view) who le breast exaggerated CC and cone ? compression spot magnification CC and ML views of the right breast ? were obtained. ? LEFT BREAST: ??The breast tissue is heterogeneously dense which limits ? sensitivity of mammography. No do minant mass or suspicious ? microcalcification is seen. ? RIGHT BREAST: ??The breast tissue is heterogeneously dense which limits ? sensitivity of mammography. The m icrocalcifications within the ? retroareolar aspect of the right breast are unchanged. These are ? likely benign. A follow-up mammog anil is recommended in six months. ? There are linear radiating densit ies in the superior aspect of the ? right breast seen on tomographic views. Further assessment with ? ultrasound is recommended at this time. This area corresponds to an ? area of palpable concern that has been marked on the skin with a skin ? marker. ? The decision to biopsy any clinic ally suspicious palpable abnormality ? should not be altered by the resu lts of this examination. ? FINAL ASSESSMENT: ??DIAGNOSTIC RI GHT BREAST MAMMOGRAM - Category 0 - ?Inco mplete; additional imaging evaluation needed. ? FINAL ASSESSMENT: ??SCREENING LEF T BREAST MAMMOGRAM - Category 1 - ?Nega tive. ? These results will be communicate d to your patient via a lay letter ? from Radiology. ??If any addition al imaging is needed we will contact ? your patient directly. ? HABITAT MANAGEMENT COORDINATOR:kad ?Reported B y: Bolivar Escobar MD ? CC: Jewel Enriquez MD; Gordon Finn; Sasha Arvizu MD ? Transcribed Date/Time: 10/24/2015 (1601) ? Crop Puller: LEXY ? Printed Date/Time: 09/11/2018 (05 15) ? PAGE 1 ? Addie d Report ? Procedure Note Bolivar Escobar MD - 02/03/2019 EXAM: MAMMOGRAM/MAMMO BILATERAL DX W TO MO EX. D/ (1355) CLINICAL INFORMATION: 3-6 MONTH F/U COMPARISON: RIGHT BREAST MAMMOGRAM - BILATERAL MAMMOGRAM - 2014; 2013; 2010; 2009; 2008 INDICATION: 3-6 month follow-up TECHNIQUE: Full field digital whole ho ast 2D (C-view) and 3D CC and MLO views of both breasts were obtained . CAD technology was utilized. ADDITIONAL VIEWS: 2D (C-view) whole ho ast exaggerated CC and cone compression spot magnification CC and M L views of the right breast were obtained. LEFT BREAST: The breast tissue is heter ogeneously dense which limits sensitivity of mammography. No dominant mass or suspicious microcalcification is seen. RIGHT BREAST: The breast tissue is hete rogeneously dense which limits sensitivity of mammography. The microca lcifications within the retroareolar aspect of the right breast are unchanged. These are likely benign. A follow-up mammogram is recommended in six months. There are linear radiating densities in the superior aspect of the right breast seen on tomographic views. Further assessment with ultrasound is recommended at this time. This area corresponds to an area of palpable concern that has been marked on the skin with a skin marker. The decision to biopsy any clinically s uspicious palpable abnormality should not be altered by the results of this examination. FINAL ASSESSMENT: DIAGNOSTIC RIGHT WILFRIDO ST MAMMOGRAM - Category 0 - Incomplete; additional imaging evaluati on needed. FINAL ASSESSMENT: SCREENING LEFT BREAST MAMMOGRAM - Category 1 - Negative. These results will be communicated to y our patient via a lay letter from Radiology. If any additional imagi ng is needed we will contact your patient directly. HABITAT MANAGEMENT COORDINATOR:matilda Reported By: Bolivar Escobar MD CC: Jewel Enriquez MD; Charo Finn; Sasha Lakhani MD Transcribed Date/Time: 10/24/2015 (1608 ) Crop Puller: LEXY Printed Date/Time: 09/11/2018 (3891) PAGE 1 Signed Report Performing Organization Address City/State/ZIP Code Phon e Number [facility] documented in this encounter Visit Diagnoses Not on filedocumented in this encounter Care Teams Measurement And Verification Engineer Relationship Specialty Start Date End Date Sasha Arvizu MD PCP - General 10/20/13 08/18/16 Herminio Hernandez ND PCP - General 08/19/[address] [place] [address] [phone] Zaira Rodriguez MD Referring Provider Gynecology 07/29/16 [address] [facility], [address] [place] [address] Charo Finn MD Medical Oncology 07/29/[address] [place] [address], [address] [place] [phone] documented as of this encounter
--- OUTSIDE RECORDS SUMMARY | 2021-10-16 02:03 | XMS_ITS | Encounter Summary ---
:1965 Author Organization [facility] Address [address] [place] [address] Care Team Providers Name Role Phone Sasha Arvizu MD Primary Care Provider Unavailable Zaira Rodriguez MD Unavailable Charo Finn MD Unavailable Herminio Hernandez ND Primary Care Provider Encounter Details Date Type Department Care Team Description 10/26/2015 Historical Results [facility]reezy Orellana [facility] [place] Radiology Resul ts MD John [address] [place], [place] [address] [place] [address] [phone] Social History Tobacco Use Types Packs/Day [...] Date/Time Associated Comments Diagnosis US BREAST LIMITED 10/26/2015 11:38 Result s for this UNILATERAL EDT procedure are i n the results section. documented in this encounter Results US BREAST LIMITED UNILATERAL (10/26/2015 11:38 EDT) Specimen Narrative [facility] - 10/26/2015 15:42 EDT ? EXAM: ULTRASOUND/UNILAT BREAST CALL BACK ??EX. D/ (1138) ? CLINICAL INFORMATION: ? RIGHT BREAST,CYSTIC VS SOLID ? INDICATION: Callback. History of lumpectomy with a palpable area of ? concern, right breast. ? TECHNIQUE: ??The upper right wilfrido st was scanned, covering from the 11-1 ? o'clock position. The patient rep orts a palpable area of concern at ? approximately the 12 o'clock posi tion, and this area was assessed. ? Also, the region of the scar at t he 1 o'clock position was assessed. ? FINDINGS: ??Deep to this, postpro cedural change is noted with linear ? scarring noted. No suspicious mas s is visible. The breast tissue is ? otherwise unremarkable. ? IMPRESSION: ??This is a right ho ast ultrasound with benign findings ? (ACR category 2). However, please note that on the 10/20/2015 ? mammogram, short-term follow-up kerwin ramirez was recommended. Specifically, ? a follow-up mammogram is recommen ded in 6 months to follow up ? mammographic findings seen on roderick t study. ? These findings and the recommenda tion for a 6-month follow-up ? mammogram was discussed directly with the patient by the ultrasound ? technologist at 11:34 AM on 10/25. ? FINAL ASSESSMENT: ??DIAGNOSTIC RI GHT BREAST ULTRASOUND - Category 2 - ?Bg gn findings. ? JSP:kad ?Reported B y: Chuckie Bui MD ? CC: ? Transcribed Date/Time: 10/26/2015 (1542) ? Manager Food Beverage: LEXY ? Printed Date/Time: 09/11/2018 (05 15) ? PAGE 1 ? Addie d Report ? Procedure Note Chuckie Bui MD - 02/03/2019 EXAM: ULTRASOUND/UNILAT BREAST CALL ENRIQUE K EX. D/ (1138) CLINICAL INFORMATION: RIGHT BREAST,CYSTIC VS SOLID INDICATION: Callback. History of lumpec ayla with a palpable area of concern, right breast. TECHNIQUE: The upper right breast was s canned, covering from the 11-1 o'clock position. The patient reports a palpable area of concern at approximately the 12 o'clock position, and this area was assessed. Also, the region of the scar at the 1 o 'clock position was assessed. FINDINGS: Deep to this, postprocedural change is noted with linear scarring noted. No suspicious mass is v isible. The breast tissue is otherwise unremarkable. IMPRESSION: This is a right breast ultr asound with benign findings (ACR category 2). However, please note that on the 10/20/2015 mammogram, short-term follow-up imaging was recommended. Specifically, a follow-up mammogram is recommended in 6 months to follow up mammographic findings seen on that stud y. These findings and the recommendation f or a 6-month follow-up mammogram was discussed directly with t he patient by the cytopathology technologist at 11:34 AM on 10/26/2015. FINAL ASSESSMENT: DIAGNOSTIC RIGHT WILFRID[address] ST ULTRASOUND - Category 2 - Benign findings. JSP:[email or web address] Reported By: Chuckie Bui MD CC: Transcribed Date/Time: 10/26/2015 (1542 ) Manager Food Beverage: LEXY Printed Date/Time: 09/11/2018 (0016) PAGE 1 Signed Report Performing Organization Address City/State/ZIP Code Phon e Number [facility] documented in this encounter Visit Diagnoses Not on filedocumented in this encounter Care Teams Animation Producer Relationship Specialty Start Date End Date Sasha Arvizu MD PCP - General 10/20/13 08/18/16 Herminio Hernandez ND PCP - General 08/19/[address] [place] [address] [phone] Zaira Rodriguez MD Referring Provider Gynecology 07/29/[address] [place] [address] [address], [address] [place] [address] Charo Finn MD Medical Oncology 07/29/16 [address] [facility], [address] [place] [address] documented as of this encounter
--- OUTSIDE RECORDS SUMMARY | 2021-10-16 02:03 | XMS_ITS | Encounter Summary ---
:1965 Author Organization [facility] Address [address] [place] [address] Care Team Providers Name Role Phone Sasha Arvizu MD Primary Care Provider Unavailable Zaira Rodriguez MD Unavailable Charo Finn MD Unavailable Herminio Hernandez ND Primary Care Provider Encounter Details Date Type Department Care Team Description 04/26/2016 Historical Results [facility] - Breezy Orellana [facility] [place] Radiology Resul ts MD John [address] [place], [place] [address] [place] [address] [phone] Social History Tobacco Use Types Packs/Day [...] Date/Time Associated Comments Diagnosis MA BREAST DIAGNOSTIC 04/26/2016 11:44 Res ults for this CLINT RIGHT EST procedure are i n the results section. documented in this encounter Results MA BREAST DIAGNOSTIC CLINT RIGHT (04/26/2016 11:44 EST) Specimen Narrative [facility] - 04/29/2016 11:57 EST ? EXAM: MAMMOGRAM/MAMMO RIGHT DX W CLINT ? EX. D/ (1144) ? CLINICAL INFORMATION: ? 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 S/P RADIATION THERAPY,SHORT TERM F/U ? COMPARISON: ??2009, 2010, 2011, 2 014, 2015, 2016 ? TECHNIQUE: ??Full field digital w hole breast 2D (C-view) and 3D CC and ? MLO views of the right breast wer e obtained. CAD technology was ? utilized. ? INDICATION: ??Ductal CA in right UIG breast satus post radiation ? therapy , short term follow-up. ? FINDINGS: ??The fibroglandular pa ttern of the right breast is normal. ? There has been no change when com pared to previous mammograms and ? there is no mammographic evidence of cancer. The breast tissue is of ? scattered density. ? FINAL ASSESSMENT: ??RIGHT BREAST - Category 1 - Negative. Routine ?mamm ographic follow-up is recommended. ? These results will be communicate d to your patient via a lay letter ? from Radiology. ??If any addition al imaging is needed we will contact ? your patient directly. ? PRESS OPERATOR HELPER:kad ?Reported B y: Bolivar Escobar MD ? CC: Jewel Enriquez MD; Gordon Finn; Sasha Arvizu MD ? Transcribed Date/Time: 04/29/2016 (1157) ? Salvage Worker: LEXY ? Printed Date/Time: 09/12/2018 (04 40) ? PAGE 1 ? Addie d Report ? Procedure Note Bolivar Escobar MD - 02/03/2019 EXAM: MAMMOGRAM/MAMMO RIGHT DX W CLINT E X. 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 CAD technology was utilized. INDICATION: Ductal CA in right UIG yang st satus post radiation therapy , short term follow-up. FINDINGS: The fibroglandular pattern of the right breast is normal. There has been no change when compared to previous mammograms and there is no mammographic evidence of ca ncer. The breast tissue is of scattered density. FINAL ASSESSMENT: RIGHT BREAST - Catego ry 1 - Negative. Routine mammographic follow-up is recommended. These results will be communicated to y our patient via a lay letter from Radiology. If any additional imagi ng is needed we will contact your patient directly. PRESS OPERATOR HELPER:matilda Reported By: Bolivar Escobar MD CC: Jewel Enriquez MD; Charo Finn; Sasha Lakhani MD Transcribed Date/Time: 04/29/2016 (1157 ) Salvage Worker: LEXY Printed Date/Time: 09/12/2018 (4112) PAGE 1 Signed Report Performing Organization Address City/State/ZIP Code Phon e Number [facility] documented in this encounter Visit Diagnoses Not on filedocumented in this encounter Care Teams Sales And Merchandising Associate Relationship Specialty Start Date End Date Sasha Arvizu MD PCP - General 10/20/13 08/18/16 Herminio Hernandez ND PCP - General 08/19/[address] [place] [address] [phone] Zaira Rodriguez MD Referring Provider Gynecology 07/29/[address] [place] [address], [address] [place] [address] Charo Finn MD Medical Oncology 07/29/[address] [place] [address], [address] [place] [address] documented as of this encounter
--- OUTSIDE RECORDS SUMMARY | 2021-10-16 02:03 | XMS_ITS | Encounter Summary ---
:1965 Author Organization [facility] Address [address] [place] [address] Care Team Providers Name Role Phone Sasha Arvizu MD Primary Care Provider Unavailable Reason for Visit Reason Onset Date Comments New Patient Visit 12/06/2013 Called [facility] Radiology/ Pathology New Patient Visit 12/06/2013 Spoke with Nabila/frederic mcmahon Encounter Details Date Type Department Care Team Description 12/06/2013 Telephone [facility] Triston Fonseca New Pa tient Visit Hematology & Oncology - MD (Called [facility] [address] Radiology/ Pathology); [address] [facility] [address] New Patient Visit [place], [place] [id number] [place] [address] (Spoke with [phone] Nabila/alex) (Work) Social History Tobacco Use Types Packs/Day Years Used Date Never Assessed Alcohol Habits Answer Date Recorded How often [...] this encounter Miscellaneous Notes Telephone Encounter - Rachel Barlow - 12/06/2013 1316 EDT Spoke with Nabila and scheduled the appointment with Dr.Marie Turner on Friday, 12/14 at 11:00am. New patient paperwork to be sent out today via email. I called the referring office, but they were currentlytaking a lunch and I will need to call back. elephone Encounter - Rachel Barlow - 12/06/2013 1304 EDT I called to have Nabila's breast imaging pushed over for the appointment. I called to have Nabila's breast related pathology slides sent over for the appointment. documented in this encounter Plan of Treatment Upcoming Encounters Date Type Specialty Care Team Description 10/18/2021 Nurse Only Infusion Therapy documented as of this encounter Visit Diagnoses Not on filedocumented in this encounter Care Teams Metal Worker Relationship Specialty Start Date End Date Sasha Arvizu MD PCP - General 10/20/13 08/18/16 documented as of this encounter
--- OUTSIDE RECORDS SUMMARY | 2021-10-16 02:03 | XMS_ITS | Encounter Summary ---
:1965 Author Organization [facility] Address [address] [place] [address] Care Team Providers Name Role Phone Sasha Arvizu MD Primary Care Provider Unavailable Zaira Rodriguez MD Unavailable Charo Finn MD Unavailable Herminio Hernandez ND Primary Care Provider Reason for Visit Reason Onset Date Comments Billing Question 06/06/2015 [facility] nee ded for 12/24/13 Encounter Details Date Type Department Care Team Description 06/06/2015 Telephone [facility] Aziza Morfin, [place] Billing Question Hematology & Oncology [facility] (appeal/[place] [address] needed for 12/24/13) [address] [place] [address] [phone] Social History Tobacco Use Types Packs/Day Years [...] this encounter Miscellaneous Notes Telephone Encounter - Caryn Scanlon - 06/06/2015 0915 EST Reason for Call: Billing Question Summary/Symptoms: Nabila still needing clinicals to support the appeal of this DOS that was denied, [phone] Caryn Scanlon 06/06/2015 9:15 documented in this encounter Plan of Treatment Upcoming Encounters Date Type Specialty Care Team Description 10/18/2021 Nurse Only Infusion Therapy documented as of this encounter Visit Diagnoses Not on filedocumented in this encounter Care Teams Manager Test Relationship Specialty Start Date End Date Sasha Arvizu MD PCP - General 10/20/13 08/18/16 Herminio Hernandez ND PCP - General 08/19/16 [facility] [place], [place] [address] Zaira Rodriguez MD Referring Provider Gynecology 07/29/[address] [place] [address] [address], [address] [place] [phone] Charo Finn MD Medical Oncology 07/29/[address] [place] [address], [address] [place] [phone] documented as of this encounter
--- OUTSIDE RECORDS SUMMARY | 2021-10-16 02:03 | XMS_ITS | Encounter Summary ---
:1965 Author Organization [facility] Address [address] [place] [address] Care Team Providers Name Role Phone Sasha Arvizu MD Primary Care Provider Unavailable Reason for Referral Consult (Routine) - Specialty Report Received Specialty Diagnoses / Procedures Referred By Contact Refer red To Contact Cancer Genetics Diagnoses Breast cancer ([facility]) ([facility]) Yajaira Turner MD [address] [facility] 2 [place] [address] Referral ID Status Reason Start Expiration Visits Visits Date Date Requested Authorized [id number] Specialty Specialty 12/14/2013 1 1 Report Services Received Required Question Answer Reason for Request: breast cancer Reason for Visit Reason Comments New Patient Visit Consult (Routine) - Closed Specialty Diagnoses / Procedures Referred By Contact Refer red To Contact Hematology and Diagnoses Breast cancer ([facility]) ([facility]) Triston Fonseca MD Wood, Marie E, MD Oncology [address] [facility] venue [address] [place], [place] [address] [place] [address] 2 [place] [address] Phone: Fax: Referral ID Status Reason Start Date Expiration Date Visits Requ ested Visits Authorized [id number] Closed 1 1 Encounter Details Date Type Department Care Team Description 12/14/2013 Office Visit [facility] Yajaira Turner MD Breast cancer Hematology & [address] [place] [address] ([facility] (Pr imary Oncology - [facility] D[facility]) [facility], [address] [place], [address] [place] [address] [place] [phone] (Wo rk) Social History Tobacco Use [...] Sign Reading Time Taken Comments Blood Pressure 127/79 12/14/2013 1150 EDT Pulse 64 12/14/2013 1150 EDT Temperature 36.3 ??C (97.3 ??F) 12/14/2013 1150 EDT Respiratory Rate 16 12/14/2013 1150 EDT Oxygen Saturation - - Inhaled Oxygen Concentration - - Weight 80.6 kg (177 lb 9.6 oz) 12/14/2013 1150 EDT Height - - Body Mass Index - - documented in this encounter Progress Notes Yajaira Turner MD - 12/15/2013 0860 EDT DIVISION OF HEMATOLOGY/ONCOLOGY NEW PATIENT EVALUATION - 12/14/2013 REASON FOR VISIT: Nabila is a 48-year-old female here for an opinion about treatment of her newly identified breast cancer. HISTORY OF PRESENT ILLNESS: Nabila had an breast abnormality that she noticed for approximately 6 months and then went to see her primary care provider when she noticed nipple changes. She ultimately underwent a biopsy and then definitive surgery on November 09 which revealed a 9 mm, poorly-differentiated ductal carcinoma, which was ER positive in 85% of the cells, CA positive in 90% of the cells and erbB-2 positive with a ratio was 6.29. Lymphovascular invasion was identified, but 0 of 1 sentinel nodewas positive, DCIS was present, and all margins are negative with the closest DCIS margin of 0.2 mm anteriorly. Nabila is dealing well with this information. She is struggling a bit with all of her options and expresses some tearfulness about her diagnosis. REVIEW OF SYSTEMS: Remarkable for some mild fatigue, which she thinks is due to insomnia, but yomaira has no other new constitutional, cardiovascular, pulmonary, GI, , ULTRASONIC SEAMING MACHINE OPERATOR, musculoskeletal, psychiatric, neurologic, endocrine or hem symptoms. PAST MEDICAL HISTORY: 1. History of sleep apnea. 2. Hypotension with an episode of fainting. 3. Seasonal headaches and allergies. 4. Insomnia. CURRENT MEDICATIONS: Include Motrin p.r.n., Valium p.r.n. and Benadryl p.r.n. ALLERGIES: Include AMPICILLIN. MENSTRUAL HISTORY: Nabila experienced menarche at age 12. with regular menses. SOCIAL HISTORY: Nabila is . 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 She does not smoke and has 2 to 4 glasses of alcohol per week. FAMILY HISTORY: Nabila has no children. She has 2 siblings. Her sister was diagnosed with acute myelogenous leukemia at 46. Her brother is unaffected She has no nieces or nephews with cancer. Nabila's motheris unaffected. She has 4 siblings, one of which had breast cancer in her 60s. Another had hemochromat osis. The maternal grandfather was reported to have primary liver cancer in his 80s. He was [place] and and his was [place]. On the paternal side of the family, the patient's father had 4 siblings, none of these individuals are affected by malignancy. The paternal grandmother had breast cancer later in life and there is 1 paternal cousin with cervical cancer, age at diagnosis is unclear. This side of the family is [place]. PHYSICAL EXAMINATION: Nabila looks well. She is afebrile with a temperature of 36.3, a pulse of 64, a blood pressure of 127/79. Her weight is 80.6 kg. Her skin is warm and dry without jaundice, purpura orpetechiae. HEENT exam is benign. Neck is supple without adenopathy or thyromegaly. Node exam is negative. Lungs are clear to auscultation and percussion. Back is without spinous or CVA tenderness. Her cardiovascular exam is benign with a regular rate and rhythm. Abdomen is soft and nontender without hepatosplenomegaly. Extremities reveal no clubbing, cyanosis or edema. Breast exam reveals an intact left breast without dominant or discrete mass. Right breast reveals a well-healed scar in the upper portion of the breast without nodularity or erythema or induration. IMPRESSION: This is a 48-year-old female with a T1N0M0, ER positive, CA positive, erbB-2 positive ductal carcinoma. She does have lymphovascular invasion and a close anterior margin. We discussed several issues. 1. Adjuvant hormonal therapy. For Nabila, I would recommend at least 5 years of tamoxifen. There is newer data exploring the addition of an LH-RH agonist to tamoxifen or an AI for premenopausal women and I will review that data again for Nabila's case. I do not know that ovarian ablation clearly adds to tamoxifen, but it will certainly add symptoms for her. 2. We discussed the importance of adjuvant chemotherapy and biologic therapy. Nabila has HER-2 positivebut small, but poorly-differentiated tumor and I would definitely use chemotherapy and Herceptin. Whether to use 12 weeks of Taxol or 4 cycles of Taxotere and Cytoxan or force to 6 cycles of Taxotere and carboplatinum, I will need to investigate a bit. 3. Nabila has early onset breast cancer, a sister with acute myelogenous leukemia, a maternal aunt withbreast cancer in her 60s and a paternal grandmother with breast cancer in her 80s. There is not a high likelihood of a hereditary cancer syndrome here; however, clearly identification of a germline mutation in a cancer causing gene would change Nabila's risk for subsequent cancers. We spent some time talking about the risks and benefits and limitations of genetic testing, and Nabila would like to proceed forward with genetic testing. PLAN: 1. Nabila was given some print information regarding her risk of recurrence and reduction in that risk based on hormonal therapy and chemotherapy. 2. We will have Nabila's case presented at tumor board next week to review her pathology and best adjuvant treatment. 3. Nabila will return next week to discuss the results of the breast conference and also to initiate genetic testing. 4. Nabila was seen for 1 hour and counseled for 55 minutes. Yajaira Turner MD 03 20 PM - Yajaira Turner MD mn Dictation ID: [id number] cc: Sasha Arvizu MD, [address] [place] [address] Triston Fonseca MD, [address], [address], [place] [address] Jewel Enriquez MD, [address], [address], [place], [place] [id number] signed by Yajaira Turner MD at 01/09/2014 21:26 ROBTYajaira Turner MD - 12/14/2013 1516 EDT This office note has been dictated. documented in this encounter Plan of Treatment Upcoming Encounters Date Type Specialty Care Team Description 10/18/2021 Nurse Only Infusion Therapy Scheduled Referrals Name Type Priority Associated Diagnoses Order S chedule AMB CONS/FOLLOW UP Outpatient Referral Routine Breast cancer O rdered: FAMILIAL CANCER (CMS-HCC) 12/14/2013 PROGRAM documented as of this encounter Visit Diagnoses Diagnosis Breast cancer ([facility]) (HCC) - Primary Malignant neoplasm of breast (female), u nspecified site documented in this encounter Historical Medications This list may reflect changes made after this encounter. Medication Sig Dispensed Refills Start Date End Date LORazepam (ATIVAN) 1 mg Take 1 mg by mouth 3 0 01/13/2020 tablet times daily. ibuprofen (ADVIL;MOTRIN) Take 200 mg by mouth 0 08/20/2016 100 mg/5 mL suspension as needed. added in this encounter Care Teams Credit Union Field Examiner Relationship Specialty Start Date End Date Sasha Arvizu MD PCP - General 10/20/13 08/18/16 documented as of this encounter
--- OUTSIDE RECORDS SUMMARY | 2021-10-16 02:03 | XMS_ITS | Encounter Summary ---
:1965 Author Organization [facility] Address [address] [place] [address] Care Team Providers Name Role Phone Sasha Arvizu MD Primary Care Provider Unavailable Encounter Details Date Type Department Care Team Description 10/20/2015 Hospital Encounter [facility] - Unknown, [facility] [phone] [place] [address] (Work) [place] [address] Social History Tobacco Use Types Packs/Day Years [...] Code Departure Means Destination Home or Self Detention documented in this encounter Plan of Treatment Upcoming Encounters Date Type Specialty Care Team Description 10/18/2021 Nurse Only Infusion Therapy documented as of this encounter Visit Diagnoses Not on filedocumented in this encounter Care Teams Block Saw Operator Relationship Specialty Start Date End Date Sasha Arvizu MD PCP - General 10/20/13 08/18/16 documented as of this encounter
--- OUTSIDE RECORDS SUMMARY | 2021-10-16 02:03 | XMS_ITS | Encounter Summary ---
:1965 Author Organization [facility] Address [address] [place] [address] Care Team Providers Name Role Phone Sasha Arvizu MD Primary Care Provider Unavailable Encounter Details Date Type Department Care Team Description 01/18/2014 Hospital Encounter [facility] - Unknown, [facility] [phone] [place] [address] (Work) [place] [address] Social History Tobacco Use Types Packs/Day Years [...] Date ibuprofen (ADVIL;MOTRIN) Take 200 mg by 0 [...] on filedocumented in this encounter Care Teams Co Founder And Chief Strategy Officer Relationship Specialty Start Date End Date Sasha Arvizu MD PCP - General 10/20/13 08/18/16 documented as of this encounter
--- OUTSIDE RECORDS SUMMARY | 2021-10-16 02:03 | XMS_ITS | Encounter Summary ---
:1965 Author Organization [facility] Address [address] [place] [address] Care Team Providers Name Role Phone Sasha Arvizu MD Primary Care Provider Unavailable Encounter Details Date Type Department Care Team Description 05/25/2015 Hospital Encounter [facility] - Unknown, [facility] [phone] [place] [address] (Work) [place] [address] Social History Tobacco Use Types Packs/Day Years [...] on filedocumented in this encounter Care Teams Assembly Machine Tender Relationship Specialty Start Date End Date Sasha Arvizu MD PCP - General 10/20/13 08/18/16 documented as of this encounter
--- OUTSIDE RECORDS SUMMARY | 2021-10-16 02:03 | XMS_ITS | Encounter Summary ---
:1965 Author Organization [facility] Address [address] [place] [address] Care Team Providers Name Role Phone Sasha Arvizu MD Primary Care Provider Unavailable Zaira Rodriguez MD Unavailable Charo Finn MD Unavailable Herminio Hernandez ND Primary Care Provider Encounter Details Date Type Department Care Team Description 08/08/2015 Historical Results [facility] - Sheila Larios, Only [facility] - [place] [address] [place], [place] [id number] [place] [address]-, [address] [place] [address] Social History Tobacco Use Types [...] Procedure Name Priority Date/Time Associated Diagnosis Comme [facility] SURGICAL PATHOLOGY Routine 08/08/2015 Results f or this procedure are i n the results section . documented in this encounter Results SURGICAL PATHOLOGY (08/08/2015) Specimen Narrative [facility] - 016 11:55 EDT PREOP 1.ENDOCERVICAL POLYP 2.ABN.UTERINE BLEEDING Procedure: POLYPECTOMY AND EMB Tissue Removed 1)ENDOCX POLYP 2) ENDOCER VICAL TISSUE LMP: Prev.Abn Pap: 11/2013 Name: KIRSTIE ALEJO ? : [birth year] ?Age/Sex: 53/F ?Unit#: [id number] ? Loc: AGO ? Status: REG POV ?? Reg Date: 08/08/15 ? Pt.Phone Number : ? Specimen: [id number] ? ERA MASSIEL: SOUT ?Spec Date:08/08/15 ? Physician Copies: ?Glalu,Sheila MADRIGAL ?? Tissues: A ?? Endocervix, polyp ?Sasha Arvizu MD ? B ?? Endocervix, curettings ? CPT: 78911 ?? Units: ??2 ?FINAL DIAGNOSIS ? A. Endocervix, polyp, biopsy; ? - Endometrial polyp. ? B. Endocervix, curettage; ? - Scant fragments of inactive darren face and glandular endometrial epithelium. ? GROSS DESCRIPTION ? A. ??Received in formalin labeled with the patient's name and Cx polyp is a 9 ? gram elongated polypoid structure without pedicle, pink-garcia and focally ? hemorrhagic and measuring 6.1 x 1 .6 x 1.5 cm. ?? The base is inked black. ? specimen totally submitted: ? A1, perpendicular sections throug h base; ? A2-5, cross sections; ? A6, longitudinal sections through tip ??es 6 ? B. ??Received in formalin labeled with the patient's name and Endometrial ? biopsy ??red-garcia soft tissue fra gments, 2.5 x 2.5 x 0.2 cm in the aggregate. ? filtered es 1 RM ?? PREOP DX/CLINICAL HISTORY ?Endocervical polyp, abnor mal uterine bleeding Signed ____(signature on file)____ Kenroy Carter M.D. 08/09/15 By the signature above, the attending ph ysician certifies that he/she has personally conducted a gross and/or microscopic exa mination of the described specimens and rendered or confirmed the above diagnosi s. Test Performed by [facility], [address] [place] [address] Snack Bar Cashier: Sealm Almeida MD PHD Performing Organization Address City/State/ZIP Code Phon e Number [facility] [address] [place] [address] LAB documented in this encounter Visit Diagnoses Not on filedocumented in this encounter Care Teams Geothermal Heat Pump Machinist Relationship Specialty Start Date End Date Sasha Arvizu MD PCP - General 10/20/13 08/18/16 Herminio Hernandez ND PCP - General 08/19/16 [facility] [place] [address] Zaira Rodriguez MD Referring Provider Gynecology 07/29/16 [address] [facility], [address] [place] [address] Charo Finn MD Medical Oncology 07/29/16 130 [facility], [facility] [address] [place] [address] documented as of this encounter
--- OUTSIDE RECORDS SUMMARY | 2021-10-16 02:03 | XMS_ITS | Encounter Summary ---
:1965 Author Organization [facility] Address [address] [place] [address] Care Team Providers Name Role Phone Sasha Arvizu MD Primary Care Provider Unavailable Zaira Rodriguez MD Unavailable Charo Finn MD Unavailable Herminio Hernandez ND Primary Care Provider Encounter Details Date Type Department Care Team Description 02/15/[address] [facility] - Herminio Hernandez ND Only [facility] Lab - Main [address] [place], [place] [id number] [place] [address] [place] [address] [phone] Social History Tobacco Use Types Packs/Day Years [...] Associated Diagnosis Comme nts T3 FREE Routine 02/15/2016 8:06 EST Results for this procedure are i n the results section . documented in this encounter Results T3 FREE (02/15/2016 8:06 EST) T3,FREE - [facility] 4.1 2.8 - 4.4 [facility] Comment: pg/mL [facility] Test Performed by: [place] [address] Speech Therapy Assistant: Herminio Roberto II, M.D., Ph.D . Specimen Narrative [facility] - 016 13:12 EST Does PT Have a Latex Allergy? YES Performing Organization Address City/State/ZIP Code Phon e Number [facility] [address] [place] [address] [facility] documented in this encounter Visit Diagnoses Not on filedocumented in this encounter Care Teams Smocking Machine Operator Relationship Specialty Start Date End Date Sasha Arvizu MD PCP - General 10/20/13 08/18/16 Herminio Hernandez ND PCP - General 08/19/[address] [place] [phone] Zaira Rodriguez MD Referring Provider Gynecology 07/29/16 [address] [facility], [address] [place] [address] Charo Finn MD Medical Oncology 07/29/16 [address] [facility], [facility] [address] [place] [address] documented as of this encounter
--- OUTSIDE RECORDS SUMMARY | 2021-10-16 02:03 | XMS_ITS | Encounter Summary ---
:1965 Author Organization [facility] Address [address] [place] [address] Care Team Providers Name Role Phone Sasha Arvizu MD Primary Care Provider Unavailable Encounter Details Date Type Department Care Team Description 12/07/2013 Results Only [facility] Yajaira Jameson MD Hematology & Oncology - [address] [facility], [address], [address] [place], [place] [phone] [place] [phone] (Wo rk) Social History Tobacco Use Types [...] Name Priority Date/Time Associated Diagnosis Comme nts SURGICAL PATHOLOGY Routine 12/07/2013 11:56 Resul ts for this EDT procedure are i n the results section. documented in this encounter Results SURGICAL PATHOLOGY (12/07/2013 11:56 EDT) Pathologist [facility] Pathology SURGICAL PATHOLOGY REPORT JIGAR MATOS Report: Reports generated via electronic interface contain brayan ginal data; LAB however they are lacking the format of the original re port. Caution should be taken when reading/interpreting unfo rmatted reports. Name: ? KIRSTIE ALEJO ? Accession #: ? [id number] ? : ? 1965 (Age: 48) ??F ? Collect Date: ? 12/07/2013 ? Location: ? [facility] ? Receive Date: ? 12/07/2013 ? Provider: YAJAIRA JAMESON MD Copy to: MARIO ARVIZU MD ? Final Pathologic Diagnosis: SUMMARY DIAGNOSIS FOR MALIGNANT BREAST TUMORS ? AJCC (7th edition): pT1c pN0(sn) Laterality: ?Right ? Specimen: ?Partial mastectomy with sentinel lymph node biopsy Tumor Type: ?Invasive ductal Tumor Size: ?1.4 cm maximum dimension Tumor Location: ? Upper inner quadrant; 1 o'clock Benji Combined Histologic Scores: ? Tubules: ?2 ? Nuclei: ?3 ? Mitotic Rate: ? 3 (actual count 21/10 HPF with field diameter of 0.54 mm) ? Total: ?8 Differentiation: ? Poor Margins: ?Negative (4 mm from closest margin , anterior) DCIS: ? Crib riform pattern, with extensive necrosis, nuclear grade III % DCIS: ?Not applicable; DCIS present outsid e of main tumor mass DCIS margins: ? Negative (0.2 mm from closest m argin, anterior) LVI: ? Not identified Lymph nodes: ? 0/1 (positive/total count) ER/ID: ?ER positive (85%); ID positive (90%) ([id number], [facility]) Her2/joy: ? Positive (3+ by immunohistochemistry) ([id number]); Amplified (by In Situ Hybridization; ? Her2/Chr17 ratio: 6.29) ([id number]) ?Final Pathologic Diagnosis: OUTSIDE SLIDES [facility] [id number] (5), PROCEDURE DATE 10/25/2013 [facility] [id number] (21), PROCEDUR E DATE 11/09/2013 A. ??BREAST, RIGHT, 1 O'CLOCK, ULTRASOUND GUIDED CORE BIOPSY: - Adenocarcinoma, invasive, ductal type, nuclear grade III. ??See comment. - Ductal carcinoma in situ (DCIS), cribriform pattern, with focal necrosis, nuclear grade III. - Microcalcifications associated with carcinoma. B. ??LYMPH NODE, AXILLA, RIGHT, SENTINEL #1, EXCISION: - One lymph node negative for malignancy (0/1). C. ??BREAST, RIGHT, PARTIAL MASTECTOMY: - Adenocarcinoma, invasive, ductal type, poorly differ entiated. - Specimen integrity: ??Intact. - Tumor location: ??Upper inner quadrant. - Tumor position: ??1 o'clock. - Tumor measures 1.4 cm in greatest dimension (AJCC: pT1c, pN0(sn)). - Surgical resection margins negative; invasive tumor present: ??- 0.5 mm from superior margin. ??See specimen C for final margin status. ??- 3.5 mm from lateral margin. See specimen E for fi nal margin status. ??- 4.0 mm from anterior margin. ??- 5.0 mm from posterior margin. ??- Greater than 1.0 cm from medial and inferior esteban ins. - Lymphovascular invasion is not identified. - Extensive perineural invasion present. - Ductal carcinoma in situ ( DCIS), cribriform pattern, with extensive necrosis, high (III) nuclear grade. ??- DCIS is present within and adjacent to invasive t umor mass. - Area of involvement by DCIS is approximately 1.6 cm . - Surgical resection margins negative; DCIS present: ?- 0.2 mm from anterior margin. ??- 2.0 mm from medial margin. ??- 6.0 mm from posterior margin. ??- Greater than 1.0 cm from remaining margins. - Fibrocystic changes, including: - Adenosis. - Microcysts. - Interlobular fibrosis. - Microcalcifications associated with invasive tumor a nd DCIS. D. ??BREAST, RIGHT SUPERIOR MARGIN, RE-EXCISION: - Benign breast tissue. - New to old superior margin measures 0.7 cm. E. ??BREAST, RIGHT, INFERIOR MARGIN, RE-EXCISION: - Benign breast tissue. - New to old inferior margin measures 0.6 cm. F. ??BREAST, RIGHT, LATERAL MARGIN, RE-EXCISION: - Benign breast tissue. - New to old lateral margin measures 0.7 cm. Comment: The resection shows invasive ductal carc inoma with admixed ductal carcinoma in situ that extends beyond the invasive component (secti ons B5 and B7). The invasive component demonstrates a small focus of mucin ous differentiation. Although definitive lymphovascular invasion is not kimberly ntified, there is extensive perineural invasion which exte nds outside the main tumor mass (B8),. (Dr. Oneil)/ljn Document reviewed and electronically signed by: KASIA POWELL MD Report ??Date: 12/10/2013 16:51 By the signature above, the attending physician certif ies that he/she has personally conducted a gross and/or microscopic examin ation of the described specimens and rendered or confirmed the above diagnosi s. Specimen(s) Received: [facility] [id number] (21), [id number] (5) Clinical History: Breast cancer Gross Description: ? Twenty-six slides are received for review from [facility], one each labelled [id number] A1, [id number] A2, [id number] B1, [id number] B2, [id number] B3, P14-337 8 B4, [id number] B5, [id number] B6, [id number] B7, [id number] B8, [id number] B9, [id number] B10, P [id number] B11, [id number] B12, W32-0564 B13, [id number] C1, [id number] C2, P14-337 8 D1, [id number] D2, C52-0898 E1, [id number] E2, D84-3811 D1, Z04-2912 D2, [id number] D3, [id number] ER, [id number] ID. ?? End of Report Specimen Performing Organization Address City/State/ZIP Code Phon e Number [facility] [address] [place] [address] [facility] [address] [place] [address] documented in this encounter Visit Diagnoses Not on filedocumented in this encounter Care Teams Extension Forester Relationship Specialty Start Date End Date Sasha Arvizu MD PCP - General 10/20/13 08/18/16 documented as of this encounter
--- OUTSIDE RECORDS SUMMARY | 2021-10-16 02:03 | XMS_ITS | Encounter Summary ---
:1965 Author Organization [facility] Address [address] [place] [address] Care Team Providers Name Role Phone Sasha Arvizu MD Primary Care Provider Unavailable Reason for Visit Reason Onset Date Comments Appointment Related 09/05/2015 Encounter Details Date Type Department Care Team Description 09/05/2015 Telephone [facility] Therapy, Physical Appo intment Related Rehabilitation Therapy - Medical Office [address] [phone] Social History Tobacco Use Types Packs/Day Years [...] Notes Telephone Encounter - Cassidy Giron - 09/05/2015 6354 EDT [facility] - MEDICAL OFFICE BUILDING [address] [place] [address] A confirmation call was made to patient regarding 09/07/2015 physical therapy appointment. A message was left with date/time/location of appointment and phone number to the [facility]. documented in this encounter Plan of Treatment Upcoming Encounters Date Type Specialty Care Team Description 10/18/2021 Nurse Only Infusion Therapy documented as of this encounter Visit Diagnoses Not on filedocumented in this encounter Care Teams Parachute Folder Relationship Specialty Start Date End Date Sasha Arvizu MD PCP - General 10/20/13 08/18/16 documented as of this encounter
--- OUTSIDE RECORDS SUMMARY | 2021-10-16 02:03 | XMS_ITS | Encounter Summary ---
:1965 Author Organization [facility] Address [address] [place] [address] Care Team Providers Name Role Phone Sasha Arvizu MD Primary Care Provider Unavailable Encounter Details Date Type Department Care Team Description 01/18/2015 Hospital Encounter [facility] [address] [address] [phone] Social History Tobacco Use Types Packs/Day Years [...] as of this encounter Discharge Diagnoses Diagnosis Z13.220 Encounter for screening for lipo id disorders-Z13.220[ICD-10-CM] Z13.9 Encounter for screening, unspecifi ed-Z13.9[ICD-10-CM] Z85.3 Personal history of malignant neop lasm of breast-Z85.3[ICD-10-CM] E07.9 Disorder of thyroid, unspecified-E 07.9[ICD-10-CM] M25.50 Pain in unspecified joint-M25.50[ ICD-10-CM] documented in this encounter Medications at [...] on filedocumented in this encounter Care Teams Physician Extender Relationship Specialty Start Date End Date Sasha Arvizu MD PCP - General 10/20/13 08/18/16 documented as of this encounter
--- OUTSIDE RECORDS SUMMARY | 2021-10-16 02:03 | XMS_ITS | Encounter Summary ---
:[address] [facility] Address [address] [place] [address] Care Team Providers Name Role Phone Sasha Arvizu MD Primary Care Provider Unavailable Zaira Rodriguez MD Unavailable Charo Finn MD Unavailable Herminio Hernandez ND Primary Care Provider Encounter Details Date Type Department Care Team Description 11/09/2013 Historical Results [facility] - Justine Enriquez MD Only [facility] Lab - Main [address] [place] [address] [address] [place] [phone] (Wo rk) Social History Tobacco Use Types [...] Procedure Name Priority Date/Time Associated Diagnosis Comme [facility] SURGICAL PATHOLOGY Routine 11/09/2013 Results f or this procedure are i n the results section . documented in this encounter Results SURGICAL PATHOLOGY (11/09/2013) Specimen Narrative [facility] - 014 17:19 EDT Name: NABILA ALEJO ? : [birth year] ?Age/Sex: 53/F ?Unit#: [id number] ? Loc: SDS ? Status: DEP SDC ?? Reg Date: 11/09/13 ? Pt.Phone Number : ? This is an Amended or Addendum report. Any previous versions are stored [facility] and are available if necessary by calling the [facility] Pathology Dept at Specimen: [id number] ? EAR RANKIN: SOUT ?Spec Date:11/09/13 ? Physician Copies: ?Jewel Enriquez MD ? Tissues: A ?? Lymph Node, regional resec tion (SENTINEL NODE #1) ?Sasha Arvizu MD ? B ?? Breast Biopsy (RIGHT B REAST) ? C ?? Breast Biopsy (RIGHT B REAST SUPERIOR MARGIN) ? D ?? Breast Biopsy (RIGHT B REAST INFERIOR MARGIN) ? E ?? Breast Biopsy (RIGHT B REAST LATERAL MARGIN) ? CPT: 79234 ?? Units: ??5 ?SYNOPTIC REPORT ? Laterality: ?R ight ?AJCC: pT1c, pN0(sn) ? Specimen: ? Partial mastectomy ? Tumor type: ?I nvasive ductal ? Tumor size: ?1 .4 x 0.9 cm ? Tumor location: ?Upp er inner quadrant; 1 o'clock ? [place] Combined Histologic Sc ores: ?Tubules: 2 ?Nuclei: 3 ?Mitotic rate: ??3 (actual count 17/10 HPF) ?Total: 8 ? Differentiation: ? Poor ? Lymphovascular invasion: Present ? DCIS: ?Cribiform pattern, extensive necrosis, nuclear grade 3 ? % DCIS: ?Not applicable (DCIS present outside invasive tumor ?mass) ? Margins: ?Invasive Margin: ?Neg ative (4 mm from closest margin, anterior) ?DCIS Margin: ?N egative (0.2 mm from closest margin, anterior) ? Lymph nodes: ? 0/ 1 (positive/total count) ? ER/NV: ? ER positive (85%); NV positive (90%) ([id number]) ? Her2/joy: ? 3+ (positive)([id number]) ?FINAL DIAGNOSIS ? A. Lymph node, axilla, right, sen tinel node #1, excision: ? - One lymph node negative for mal ignancy (0/). ? B. Breast, right, partial mastect onofre: Patient: NABILA ALEJO ? #[id number] ? (Continued) Specimen: [id number] ? Rec eived: 11/09/13-1403 ?(Continued) ?FINAL DIAGNOSIS ? (Continued) ? - Adenocarcinoma, invasive, ducta l type with focal mucinous features, poorly ?differentiated. SEE COMMENT. ?- Specimen integrity: Int act. ?- Tumor location: Upper i nner quadrant. ?- Tumor position: 1 o'quinton ck. ?- Tumor measures 1.4cm in greatest histologic dimension (AJCC: pT1c pN0sn) ?- Surgical margins negati ve; invasive tumor present: ?- 0.5 mm from superior margin. SEE COMMENT. ?- 3.5 mm from lateral margin. ?- 4 mm from anterior m argin. ?- 5 mm from posterior margin. ?- Greater than 1.0 cm from remaining margins. ?- Lymphovascular invasion is identified. ?- Perineural invasion is identified. ? - Ductal carcinoma in situ (DCIS) , cribiform pattern, with central ?comedo-type necrosis, high (III) nuclear grade. ?- Area of involvement by DCIS is approximately 1.0cm. ?- Surgical resection esteban ins negative; DCIS present: ?- 0.2 mm from anterior margin. ?- 2 mm from medial mar gin. ?- 6 mm from posterior margin. ?- Greater than 1.0 cm from remaining margins. ? - Fibrocystic changes, including: columnar cell change, adenosis, microcysts, ?interlobular fibrosis. ? - Microcalcifications associated with invasive tumor and DCIS. ? - Skin: Not present. ? - Nipple: Not present. ? - Prior biopsy site: Identified. ? C. Breast, right, superior margin , excision: ? - Benign breast tissue. ? - Minimum distance from old to ne w margin: 0.7 cm. SEE COMMENT. ? D. Breast, right, inferior margin , excision: ? - Benign breast tissue with fibro cystic changes, including: adenosis, apocrine ? metaplasia, microcysts, interl obular fibrosis. ? - Minimum distance from old to ne w margin: 0.6 cm. ? E. Breast, right, lateral margin, excision: ? - Benign breast tissue with fibro cystic changes, including: adenosis, ? microcysts, interlobular fibro sis. ? - Minimum distance from old to ne w margin: 0.7 cm. SEE COMMENT. ? SEE SYNOPTIC REPORT FOR ML Lai SUMMARY Patient: NABILA ALEJO ? #[id number] ? (Continued) Specimen: [id number] ? Rec eived: 11/09/13-3 ?(Continued) ?COMMENT ? The findings are those of invasive poor ly differentiated ductal adenocarcinoma with high grade DCIS within and adjacen t to the main tumor. ??As there is an area of DCIS that extends beyond the in vasive component, the final size of the tumor is smaller than that described in the gross description. Invasive tumor is present 0.5mm to the superior margin , however, this margin increases to 7.5 mm with the additional tissue submitted in (C). Likewise, the lateral margin of 3.5mm increases to >1cm with the additi onal tissue in (E). Therefore, the closest final margin to invasive tumor is anterior at 4 mm. Additionally, there is extensive perineural invasion, with tumor traveling with nerve bundles outside of the main tumor mass. ?? This updated report has been issued to correct the tumor size. The updated size of the invasive tumor is 1.4 cm, and th e updated AJCC stage is pT1c, pN0(sn). The rest of the report remains unchange d. ? GROSS DESCRIPTION ? A. Received in formalin labeled w ith the patient's name and sentinel node #1 ? is a 2.8 x 1.7 x 1.1 cm portion o f fibroadepose tissue. ??Bisecting the specimen ? reveals that it could represent a fatty replaced lymph node. Submitted in A1 ? and A2. ? B. Received in formalin labeled w ith the patient's name and right breast lump ? is a portion of fibroadepose yang st tissue that is oriented per the requisition ? and measures 4 cm from medial to lateral, 4 cm from superior to inferior and ? 2.0 cm from anterior to posterior . ??The specimen is inked in the following ? manner: ??orange-anterior, yellow -lateral, red-medial, blue-superior, ? green-inferior, black-posterior. ??The specimen is sectioned from superior to ? inferior into ten levels. ??There is a garcia-white firm fibrous area in levels two ? through four measuring 1.1 x 1.0 x 0.8 cm. This area grossly measures 0.31cm ? to the anterior, superior, and me dial margins, 0.5 cm from lateral and ? posterior margins, and greater th an 1.0 cm from the inferior margin. There is ? greenish-blue ink in levels 5-8, however no discrete lesion is present around ? this dye. The remaining tissue is garcia yellow and fibroadipose. ??The entire ? specimen is submitted as follows: ? B1. ??Level 1, superior margin, p erpendicular sections. ? B2. ??Level 2. ? B3. ??Level 3. ? B4. ??Level 4, lateral half. ? B5. ??Level 4, medial half. ? B6. ??Level 5, lateral half. ?? Patient: NABILA ALEJO ? #[id number] ? (Continued) Specimen: [id number] ? Rec eived: 11/09/13-3 ?(Continued) ? GROSS DESCRIPTION ?(Continued) ? B7. ??Level 5, medial half. ? B8. ??Level 6, lateral half. ? B9. ??Level 6, medial half. ? B10. Level 7. ? B11. Level 8. ? B12. Level 9. ? B13. Level 10, inferior margin, p erpendicular sections. ? C. Received in formalin labeled w ith the patient's name and #3 superior ? margin is a garcia-yellow portion o f fibroadepose tissue that is oriented per the ? requisition and measures 1.5 x 1. 2 x 0.7 cm. ??The minimum distance between the ? old and new margin is 0.7 cm. ??T he old margin is black inked, the new margin is ? blue inked and the specimen is se rially sectioned and entirely submitted in C1 ? and C2. ? D. Received in formalin labeled w ith the patient's name and #4 inferior ? margin is a portion of garcia-yello w adepose tissue that is oriented per the ? requisition and measures 2.0 x 1. 8 x 0.6 cm. ??The minimum distance between old ? and new margins is 0.6 cm. ??The old margin is black inked, the new margin is ? blue inked, the specimen is seria lly sectioned and entirely submitted in D1 and ? D2. ? E. Received in formalin labeled w ith the patient's name and #5 lateral margin ? is a portion of garcia-yellow adepos e tissue that is oriented per the requisition ? and measures 2.5 x 1.8 x 0.7 cm. ??The minimum distance from new margin to old ? margin is 0.7 cm. ??The old whit n is black inked, the new margin is blue inked, ? the specimen is serially sectione d and entirely submitted in E1 and E2. ??KD ?? PREOP DX/CLINICAL HISTORY ?Right breast cancer. Signed ____(signature on file)____ Joanie Mcdonald MD 12/29/13 By the signature above, the attending ph ysician certifies that he/she has personally conducted a gross and/or microscopic exa mination of the described specimens and rendered or confirmed the above diagnosi s. Test Performed by [facility], [address] [place], [place] [id number] Sport Shoe Spike Assembler: Selam Almeida MD PHD Performing Organization Address City/State/ZIP Code Phon e Number [facility] [address] [place], [place] [id number] [place] [address] LAB documented in this encounter Visit Diagnoses Not on filedocumented in this encounter Care Teams Medical Claims Examiner Relationship Specialty Start Date End Date Sasha Arvizu MD PCP - General 10/20/13 08/18/16 Herminio Hernandez ND PCP - General 08/19/16 [address] [place] [address] Zaira Rodriguez MD Referring Provider Gynecology 07/29/[address] [place] [address] [facility], [address] [place] [address] Charo Finn MD Medical Oncology 07/29/[address] [place] [address], [facility] [address] [place] [address] documented as of this encounter
--- OUTSIDE RECORDS SUMMARY | 2021-10-16 02:03 | XMS_ITS | Encounter Summary ---
:1965 Author Organization [facility] Address [address] [place] [address] Care Team Providers Name Role Phone Sasha Arvizu MD Primary Care Provider Unavailable Encounter Details Date Type Department Care Team Description 10/11/2015 Results Only [facility] Herminio Hernandez ND [phone] [facility] [place] [phone] (Wo rk) Social History Tobacco Use Types [...] Associated Diagnosis Comme nts T3 FREE Routine 10/11/2015 16:22 EDT Results for this procedure are i n the results section . TSH Routine 10/11/2015 16:22 EDT Results for this procedure are i n the results section . T4 Routine 10/11/2015 16:22 EDT Results for this procedure are i n the results section . documented in this encounter Results TSH (10/11/2015 16:22 EDT) Pathologist Sig nature TSH 2.16 0.55 - 4.78 uIU/ml [facility] Specimen Blood Performing Organization Address City/State/ZIP Code Phon e Number [facility] [address] [place] [address] SERVICES T4 (10/11/2015 16:22 EDT) Pathologist Sig nature T4, Total 8.6 4.5 - 10.9 ug/dl [facility] Specimen Blood Performing Organization Address City/[facility]/ZIP Code Phon e Number [facility] [address] [place] [address] SERVICES T3 FREE (10/11/2015 16:22 EDT) Pathologist Sig nature T3, Free 3.2 2.3 - 4.2 pg/mL [facility] Specimen Blood Performing Organization Address City/[facility]/ZIP [facility] Phon e Number [facility] [address] [place] [address] SERVICES documented in this encounter Visit Diagnoses Not on filedocumented in this encounter Care Teams Animal Ecologist Relationship Specialty Start Date End Date Sasha Arvizu MD PCP - General 10/20/13 08/18/16 documented as of this encounter
--- OUTSIDE RECORDS SUMMARY | 2021-10-16 02:03 | XMS_ITS | Encounter Summary ---
:1965 Author Organization [facility] Address [address] [place] [address] Care Team Providers Name Role Phone Sasha Arvizu MD Primary Care Provider Unavailable Encounter Details Date Type Department Care Team Description 12/23/2013 Phlebotomy Only [facility] - Paper Reclaiming Machine Operator, [facility] Outpatient [address] [place] [address] Social History Tobacco Use Types Packs/Day Years [...] on filedocumented in this encounter Care Teams Coagulating Bath Operator Relationship Specialty Start Date End Date Sasha Arvizu MD PCP - General 10/20/13 08/18/16 documented as of this encounter
--- OUTSIDE RECORDS SUMMARY | 2021-10-16 02:03 | XMS_ITS | Encounter Summary ---
:1965 Author Organization [facility] Address [address] [place] [address] Care Team Providers Name Role Phone Sasha Arvizu MD Primary Care Provider Unavailable Encounter Details Date Type Department Care Team Description 10/17/2014 Hospital Encounter [facility] - Unknown, [facility] [phone] [place] [address] (Work) [place] [address] Social History Tobacco Use Types Packs/Day Years [...] Code Departure Means Destination Home or Self Long Term documented in this encounter Plan of Treatment Upcoming Encounters Date Type Specialty Care Team Description 10/18/2021 Nurse Only Infusion Therapy documented as of this encounter Visit Diagnoses Not on filedocumented in this encounter Care Teams Appliances Sample Maker Relationship Specialty Start Date End Date Sasha Arvizu MD PCP - General 10/20/13 08/18/16 documented as of this encounter
--- OUTSIDE RECORDS SUMMARY | 2021-10-16 02:03 | XMS_ITS | Encounter Summary ---
:1965 Author Organization [facility] Address [address] [place] [address] Care Team Providers Name Role Phone Sasha Arvizu MD Primary Care Provider Unavailable Reason for Visit Reason Comments Genetic Evaluation Consult (Routine) - Specialty Report Received Specialty Diagnoses / Procedures Referred By Contact Refer red To Contact Cancer Genetics Diagnoses Breast cancer ([facility]) ([facility]) Yajaira Turner MD [address] [place] [address] [address] [place] [address] Referral ID Status Reason Start Expiration Visits Visits Date Date Requested Authorized [id number] Specialty Specialty 12/14/2013 1 1 Report Services Received Required Encounter Details Date Type Department Care Team Description 12/23/2013 Office Visit [facility] Unknown, Natalie mancnii MD Genetic counseling and testing (Primary Dx); Hematology & Hannah Morfin, [place] [address] [place] [address] Family history of breast cancer; Oncology - [facility] Breast cance r ([facility]) [place] [address] [place] [address] Social History Tobacco Use Types Packs/Day Years [...] documented as of this encounter Progress Notes Hannah Morfin, - 12/23/2013 1413 EDT I saw Nabila in conjunction with her oncology appt with Dr. Turner to discuss options for genetic testing. Due to her age at dx (48) and family hx of 2 second degree relatives with breast cancer (mat aunt and PGM), sister with leukemia, MGF with renal cancer, we discussed BRCA1/2 testing as well as multigene panel. Nabila was interested in gene panel and her blood was drawn and sent to [facility] for 21 breast/ovary gene panel. I will call Nabila with results and she will [facility] to [facility] to discuss any variantsidentified. documented in this encounter Plan of Treatment Upcoming Encounters Date Type Specialty Care Team Description 10/18/2021 Nurse Only Infusion Therapy documented as of this encounter Visit Diagnoses Diagnosis Genetic counseling and testing - Primary Genetic counseling Family history of breast cancer Family history of malignant neoplasm of breast Breast cancer (HCC-CMS) (HCC) Malignant neoplasm of breast (female), u nspecified site documented in this encounter Care Teams Fretted Instruments Inspector Relationship Specialty Start Date End Date Sasha Arvizu MD PCP - General 10/20/13 08/18/16 documented as of this encounter
--- OUTSIDE RECORDS SUMMARY | 2021-10-16 02:03 | XMS_ITS | Encounter Summary ---
:1965 Author Organization [facility] Address [address] [place] [address] Care Team Providers Name Role Phone Sasha Arvizu MD Primary Care Provider Unavailable Encounter Details Date Type Department Care Team Description 12/23/2013 Results Only [facility] Yajaira Turner MD Hematology & Oncology - [address], [address] [place], [place] [address] [place] [phone] (Wo rk) Social History Tobacco Use Types [...] Name Priority Date/Time Associated Diagnosis Comme nts REFERRAL TEST 1 Routine 12/23/2013 14:51 EDT Resu lts for this procedure are i n the results section. documented in this encounter Results REFERRAL TEST 1 (12/23/2013 14:51 EDT) Test Name [id number] [facility] BREAST/OVARIAN CANCER PANEL(21 GENES) Result Test performed by Mariana Zhao MD [facility] Comment: See Pathology Scanned Report in PRISM. (Note) Negative See PRISM for complete scanned report Ref Lab GENE DX [facility] Date Sample Shipped 92,514 [facility] Specimen Performing Organization Address City/State/ZIP Code Phon e Number [facility] [address] [place] [address] SERVICES [facility] [address] [place] [address] documented in this encounter Visit Diagnoses Not on filedocumented in this encounter Care Teams Hybrid Car Mechanic Relationship Specialty Start Date End Date Sasha Arvizu MD PCP - General 10/20/13 08/18/16 documented as of this encounter
--- OUTSIDE RECORDS SUMMARY | 2021-10-16 02:03 | XMS_ITS | Encounter Summary ---
:1965 Author Organization [facility] Address [address] [place] [address] Care Team Providers Name Role Phone Sasha Arvizu MD Primary Care Provider Unavailable Encounter Details Date Type Department Care Team Description 04/25/2015 Results Only [facility] Herminio Hernandez ND [phone] [facility] [place] [phone] (Wo rk) Social History Tobacco Use Types [...] Associated Diagnosis Comme nts T3 FREE Routine 04/25/2015 12:23 EST Results for this procedure are i n the results section . TSH Routine 04/25/2015 12:23 EST Results for this procedure are i n the results section . T4 Routine 04/25/2015 12:23 EST Results for this procedure are i n the results section . documented in this encounter Results (ABNORMAL) TSH (04/25/2015 12:23 EST) Pathologist Sig nature TSH 6.52 (H) 0.55 - 4.78 uIU/ml [facility] Specimen Blood Performing Organization Address City/[facility]/ZIP Code Phon e Number [facility] [address] [place] [address] SERVICES T4 (04/25/2015 12:23 EST) Pathologist Sig nature T4, Total 9.5 4.5 - 10.9 ug/dl [facility] Specimen Blood Performing Organization Address City/[facility]/ZIP Code Phon e Number [facility] [address] [place] [address] SERVICES T3 FREE (04/25/2015 12:23 EST) Pathologist Sig nature T3, Free 3.1 2.3 - 4.2 pg/mL [facility] Specimen Blood Performing Organization Address City/[facility]/ZIP [facility] Phon e Number [facility] [address] [place] [address] SERVICES documented in this encounter Visit Diagnoses Not on filedocumented in this encounter Care Teams Heel Caser Relationship Specialty Start Date End Date Sasha Arvizu MD PCP - General 10/20/13 08/18/16 documented as of this encounter
--- OUTSIDE RECORDS SUMMARY | 2021-10-16 02:03 | XMS_ITS | Encounter Summary ---
:1965 Author Organization [facility] Address [address] [place] [address] Care Team Providers Name Role Phone Sasha Arvizu MD Primary Care Provider Unavailable Encounter Details Date Type Department Care Team Description 10/11/2015 [facility] [address] [phone] Social History Tobacco Use Types Packs/Day Years [...] as of this encounter Discharge Diagnoses Diagnosis R79.89 Other specified abnormal findings of blood chemistry-R79.89[ICD-10-CM] documented in this encounter Medications at Time [...] on filedocumented in this encounter Care Teams [employer] Rep Relationship Specialty Start Date End Date Sasha Arvizu MD PCP - General 10/20/13 08/18/16 documented as of this encounter
--- OUTSIDE RECORDS SUMMARY | 2021-10-16 02:03 | XMS_ITS | Encounter Summary ---
:1965 Author Organization [facility] Address [address] [place] [address] Care Team Providers Name Role Phone Sasha Arvizu MD Primary Care Provider Unavailable Encounter Details Date Type Department Care Team Description 12/07/2013 Hospital Encounter [facility] - Yajaira Gordon MD [address] [facility] [address] [place] [phone] [place] Kenroy Dupont PA-C [address] [place] [address] [address] [place], [place] [address] Social History Tobacco Use Types Packs/Day Years [...] filedocumented in this encounter Care Teams Software Development Leader Relationship Specialty Start Date End Date Sasha Arvizu MD PCP - General 10/20/13 08/18/16 documented as of this encounter
--- OUTSIDE RECORDS SUMMARY | 2021-10-16 02:03 | XMS_ITS | Encounter Summary ---
:1965 Author Organization [facility] Address [address] [place] [address] Care Team Providers Name Role Phone Sasha Arvizu MD Primary Care Provider Unavailable Encounter Details Date Type Department Care Team Description 04/26/2016 Hospital Encounter [facility] - Unknown, [facility] [phone] [place] [address] (Work) [place] [address] Social History Tobacco Use Types Packs/Day Years [...] Code Departure Means Destination Home or Self Alf documented in this encounter Plan of Treatment Upcoming Encounters Date Type Specialty Care Team Description 10/18/2021 Nurse Only Infusion Therapy documented as of this encounter Visit Diagnoses Not on filedocumented in this encounter Care Teams Creative Writing Professor Relationship Specialty Start Date End Date Sasha Arvizu MD PCP - General 10/20/13 08/18/16 documented as of this encounter
--- OUTSIDE RECORDS SUMMARY | 2021-10-16 02:03 | XMS_ITS | Encounter Summary ---
:1965 Author Organization [facility] Address [address] [place] [address] Care Team Providers Name Role Phone Sasha Arvizu MD Primary Care Provider Unavailable Zaira Rodriguez MD Unavailable Charo Finn MD Unavailable Herminio Hernandez ND Primary Care Provider Encounter Details Date Type Department Care Team Description 01/10/2014 Documentation Visit [facility] Hannah Morfin MS Hematology & Oncology [address] [place] [address] 111 [facility] [place] [address] [phone] Social History Tobacco Use Types Packs/Day Years [...] of this encounter Progress Notes Hannah Morfin, MS - 01/10/2014 1308 EDT [facility] H[facility]ONCOLOGY January 10, 2014 Nabila Evans [address] [place] [address] : 1965 Dear Nabila: We are writing to summarize the results of your genetic testing. We had previously seen you in the [facility] on 12/23/2013. You were referred for genetic counseling to discuss options forgenetic testing based on your recent diagnosis of breast cancer. Following our discussion, you choseto undergo genetic testing for 21 different genes associated with breast cancer risk, including BRCA1 and BRCA2. These results have been discussed with you by phone. These results, as well as our conclusions and recommendations are summarized below. Results: The results of genetic testing indicate that you did not inherit any abnormalities in any of the 21 genes for which you were tested. The genes evaluated included SHERON, BARD1, BRCA1, BRCA2, BRIP1, CDH1, CHEK2, EPCAM, FANCC, MLH1, MSH2, MSH6, NBN, PALB2, PMS2, PTEN, RAD51C, RAD51D, STK11, TP53, XRCC2. Both sequencing and deletion duplication analysis for these genes was performed through [facility]. To summarize, your personal medical history is of note for the diagnosis of breast cancer in October of this past year, at the age of 48. 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 No lymph nodes were involved. You are currently undergoing chemotherapy with plans for radiation therapy and hormonal therapy to follow. Your family history includes your sister who was diagnosed with leukemia at the age of 46, she is now 49 and doing well. Your maternal family history includes an aunt who was diagnosed with breast cancer in her 60s; she is currently 80 years of age. Your maternal grandfather of renal cancer in his 80s. Your maternal relatives are of , [place] and [place] descent. Your paternal side of the family is of note for a paternal first cousin who had cervical cancer in her late 20s, and your paternal grandmother who had breast cancer in her 70s and in her 80s from metastatic disease. This side of the family is of [place] ancestry. As noted above, the results of genetic testing did not identify any abnormalities in any of the genes for which you were tested. A copy of these results has been sent to you separately. We discussed possible explanations for these results. These include: 1. It is possible you carry a mutation in a different cancer susceptibility gene. While you were tested for 21 different genes associated with breast cancer risk, it is possible that there is a different gene mutation in your family. However, at this time we have no further tests to offer. 2. It is possible that your diagnosis of breast cancer is not due to 1 single gene mutation, but a combination of many factors interacting together. Possible factors include multiple genetic, environmental, hormonal and other biologic factors. As your genetic test results are considered inconclusive, we base future cancer risk on your family history. While you do have a family history of breast cancer, your affected relatives were diagnosed at late ages and are on 2 different sides of the family. Women with a family history of breast cancerhave a risk of a second primary breast cancer in the range of 15 -35% risk. We would consider you stacey at the lower end of this spectrum given the later ages of breast cancer in your family. We recommend that your breast cancer screening include monthly self-breast exams, have twice yearly clinical breast exams and yearly mammograms. With regards to ovarian cancer, we would consider you to be at average risk for ovarian cancer as you have no history of the disease in your family, nor any identifiable mutations in genes associated with increased ovarian risk. No increased screening or prevention is recommended for ovarian cancer atthis time. With regards to other cancers, we would recommend you follow the [employer] recommendations for cancer screening. It was a pleasure to meet with you. We hope our discussions were helpful. Should you have further questions or concerns regarding any of the information we discussed, please do not hesitate to contact our office. Sincerely, Hannah Morfin MS 10 17 AM - Hannah C Navjot, MS mn Dictation ID: [id number] cc: Sasha Arvizu MD, [address] [place] [id number] Triston Fonseca MD, [address], [address], [place] [address] Jewel Enriquez MD, [address], [address], [place] [address] The Patient documented in this encounter Plan of Treatment Upcoming Encounters Date Type Specialty Care Team Description 10/18/2021 Nurse Only Infusion Therapy documented as of this encounter Visit Diagnoses Not on filedocumented in this encounter Care Teams Aircraft Engine Dismantler Relationship Specialty Start Date End Date Sasha Arvizu MD PCP - General 10/20/13 08/18/16 Herminio Hernandez ND PCP - General 08/19/16 [facility] [place], [place] [address] Zaira Rodriguez MD Referring Provider Gynecology 07/29/[address] [place] [address] [address], [address] [place] [address] Charo Finn MD Medical Oncology 07/29/[address] [place] [address], [address] [place] [address] documented as of this encounter
--- OUTSIDE RECORDS SUMMARY | 2021-10-16 02:03 | XMS_ITS | Encounter Summary ---
:1965 Author Organization [facility] Address [address] [place] [address] Care Team Providers Name Role Phone Sasha Arvizu MD Primary Care Provider Unavailable Zaira Rodriguez MD Unavailable Charo Finn MD Unavailable Herminio Hernandez ND Primary Care Provider Encounter Details Date Type Department Care Team Description 05/03/2016 Historical Results [facility] - Zaira Rodriguez, Only [facility] Lab - Main [facility] [address] [place], [place] [id number] [place] [address]-, [address] [place] [address] Social History Tobacco Use Types [...] Procedure Name Priority Date/Time Associated Comments Diagnosis HUMAN PAPILLOMAVIRUS Routine 05/03/2016 11:09 Res ults for this (HPV) DETECTION-HIGH EST procedu re are in RISK TYPES the results section. PAP TEST Routine 05/03/2016 10:53 Results for this EST procedure are i n the results section. documented in this encounter Results HUMAN PAPILLOMAVIRUS (HPV) DETECTION-HIGH RISK TYPES (05/03/2016 11:09 EST) Human Papillomavirus NEG [facility] (HPV) Detection-High Comment: [facility] Types Negative for HPV types 16, 18, 31, 33, 35, 39, 45, 51, 52, 56, 58, 59, 66, 68. Method: Cervista HPV HR (High Risk) DNA test. Specimen Performing Organization Address City/State/ZIP Code Phon e Number [facility] [address] LAB PAP TEST (05/03/2016 10:53 EST) Specimen Narrative [facility] - 017 9:52 EST Name: KIRSTIE ALEJO ? : [birth year] ?Age/Sex: 53/F ?Unit#: [id number] ? Loc: AGO ? Status: REG POV ?? Reg Date: 05/03/16 ? Pt.Phone Number : ? Specimen: [id number] ? STA TUS: SOUT ?Spec Date:05/03/16 ? Physician Copies: ?Zaira Rodriguez MD ?? Tissues: ? Cervical/Endo Pap ?Sasha Arvizu MD ?? CPT: 90532 ?? Units: ??1 ? CYTOLOGY DIAGNOSIS SPECIMEN ADEQUACY: ?Satisfactory for evaluation. Transformation zone component present. GENERAL CATEGORIZATION: ?Negative fo r Intraepithelial Lesion or Malignancy DESCRIPTIVE DIAGNOSIS: ??Reactive cellul ar changes associated with inflammation present (includes typical repair). ?HPV DNA RESULTS ?? 05/03/16 1109 HPV DNA RESULT ??NEG ? Negative for HP V types 16, 18, 31, 33, 35, 39, 45, 51, 52, ? 56, 58, 59, 66, 68. ? Method: Cervist a HPV HR (High Risk) DNA test. ORDER QUERIES: LMP: 11/2013 ??- 11/2013 ? Pregnan t? N Post ? N ??PREVIOUS ATYPICAL: N BCP/HRT? N Rad Rx? N IUD? N ??PAP PLUS HPV? Y ??REFLEX TO HR-HPV IF ASCUS N REFLEX TO HPV 16/18 IF HPV POS/PAP NEG N HPV REGARDLESS? Y ??RFLX HPV IF LSIL ?? Signed ____(signature on file)____ Lorena Noguera M.D. 05/16/16 ? By the signature above, the attending ph ysician certifies that he/she has personally conducted a gross and/or microscopic exa mination of the described specimens and rendered or confirmed the above diagnosi s. Test Performed by [facility], [address] [place] [id number] Wheel Cutter: Selam Almeida MD PHD Performing Organization Address City/State/ZIP Code Phon e Number [facility] [address] [place] [address] [facility] documented in this encounter Visit Diagnoses Not on filedocumented in this encounter Care Teams Principal Software Architect Relationship Specialty Start Date End Date Sasha Arvizu MD PCP - General 10/20/13 08/18/16 Herminio Hernandez ND PCP - General 08/19/[address] [place] [id number] Zaira Rodriguez MD Referring Provider Gynecology 07/29/[address] [place] [address] [address], [address] [place] [address] Charo Finn MD Medical Oncology 07/29/[address] [place] [address], [address] [place] [address] documented as of this encounter
--- OUTSIDE RECORDS SUMMARY | 2021-10-16 02:03 | XMS_ITS | Encounter Summary ---
:1965 Author Organization [facility] Address [address] [place] [address] Care Team Providers Name Role Phone Sasha Arvizu MD Primary Care Provider Unavailable Encounter Details Date Type Department Care Team Description 06/07/2015 Results Only [facility] Herminio Hernandez ND [phone] [address] [facility] [place] [phone] (Wo rk) Social History Tobacco Use Types [...] Procedure Name Priority Date/Time Associated Comments Diagnosis ESTROGENS, ESTRONE Routine 06/07/2015 9:43 Result s for this (E1) AND ESTRADIOL EST procedure are in (E2), FRACTIONATED, the resu lts SERUM section. PROGESTERONE Routine 06/07/2015 9:43 Results for this EST procedure are i n the results section. T3 FREE Routine 06/07/2015 9:43 Results for this EST procedure are i n the results section. TSH Routine 06/07/2015 9:43 Results for this EST procedure are i n the results section. T4 Routine 06/07/2015 9:43 Results for this EST procedure are i n the results section. LH Routine 06/07/2015 9:43 Results for this EST procedure are i n the results section. FSH Routine 06/07/2015 9:43 Results for this EST procedure are i n the results section. documented in this encounter Results (ABNORMAL) TSH (06/07/2015 9:43 EST) Pathologist Sig nature TSH 4.79 (H) 0.55 - 4.78 uIU/ml [facility] Specimen Blood Performing Organization Address City/[facility]/ZIP Code Phon e Number [facility] [address] [place] [address] SERVICES T4 (06/07/2015 9:43 EST) Pathologist Sig nature T4, Total 8.8 4.5 - 10.9 ug/dl [facility] Specimen Blood Performing Organization Address City/[facility]/ZIP [facility] Phon e Number [facility] [address] [place] [address] SERVICES PROGESTERONE (06/07/2015 9:43 EST) Pathologist Sig nature Progesterone <0.2 ng/ml [facility] Comment: LABORATORY SERVICES NON- FEMALES: follicular phase: ??<0.2-1.4 ng/mL luteal phase: 3.3-25.6 ng/ml postmenopausal: ??<0.2-0.7 ng/mL FEMALES: first trimester: 11.2-90.0 ng/ml second trimester: 25.6-89.4 ng/ml third trimester: 48.4-422.5 ng/ml ECTOPIC PREGNANCIES: consult pathologist Specimen Blood Performing Organization Address [facility]/ZIP [facility] Phon e Number [facility] [address] [place] [address] SERVICES LH (06/07/2015 9:43 EST) Pathologist Sig nature LH 12.8 mIU/ml [facility] Comment: LABORATORY SERVICES Follicular: ??1.9-12.5 Midcycle Peak: ??8.7-76.3 Luteal: ??0.5-16.9 Postmenopausal: ??15.9-54.0 Specimen Blood Performing Organization Address [facility]/ZIP Code Phon e Number [facility] [address] [place] [address] SERVICES FSH (06/07/2015 9:43 EST) Pathologist Sig nature FSH 28.6 mIU/ml [facility] Comment: LABORATORY SERVICES Follicular: ??2.5-10.2 Mid-Cycle Peak: ??3.4-33.4 Luteal: ??1.5-9.1 Postmenopausal: ??23.0-116.3 Specimen Blood Performing Organization Address [facility]/ZIP Code Phon e Number [facility] [address] [place] [address] SERVICES T3 FREE (06/07/2015 9:43 EST) Pathologist Sig nature T3, Free 3.6 2.3 - 4.2 pg/mL [facility] Specimen Blood Performing Organization Address [facility] Phon e Number [facility] [address] [place] [address] SERVICES ESTROGENS, ESTRONE (E1) AND ESTRADIOL (E2), FRACTIONATED, SERUM (06/07/2015 9:43 EST) Estrone 31 pg/mL [facility] Comment: LABORATORY (Note) SERVICES REFERENCE VALUE ------ Premenopausal :17-200 Postmenopausal : 7-40 Estradiol, Serum <10 pg/mL [facility] Comment: LABORATORY (Note) SERVICES REFERENCE VALUE ------ Premenopausal: 15-350 (E2 levels vary widely through t he menstrual cycle.) Postmenopausal: <10 Performed by: [facility]: [facility] [address], [place] [address], Lab Dir: Herminio Roberto II, M.D., Ph.D. Specimen Blood Performing Organization Address City/State/ZIP Code Phon e Number [facility] [address] [place] [address] SERVICES documented in this encounter Visit Diagnoses Not on filedocumented in this encounter Care Teams Epitaxial Reactor Technician Relationship Specialty Start Date End Date Sasha Arvizu MD PCP - General 10/20/13 08/18/16 documented as of this encounter
--- OUTSIDE RECORDS SUMMARY | 2021-10-16 02:03 | XMS_ITS | Encounter Summary ---
:[address] [facility] Address [address] [place] [address] Care Team Providers Name Role Phone Sasha Arvizu MD Primary Care Provider Unavailable Zaira Rodriguez MD Unavailable Charo Finn MD Unavailable Herminio Hernandez ND Primary Care Provider Encounter Details Date Type Department Care Team Description 06/10/2016 Historical Results [facility] - Zaira Rodriguez, Only [facility] Lab - Main [facility] [address] [place], [place] [address] [place] [address]-, [address] [place] [address] Social History Tobacco Use Types [...] Procedure Name Priority Date/Time Associated Comments Diagnosis [facility] - CV Routine 06/10/2016 8:22 Result s for this EDT procedure are i n the results section. COMPLETE BLOOD COUNT Routine 06/10/2016 8:22 Resu lts for this WITH DIFFERENTIAL EDT procedure are in (AUTO) the results section. TYPE AND SCREEN Routine 06/10/2016 8:22 Results f or this EDT procedure are i n the results section. documented in this encounter Results [facility] - CV (06/10/2016 8:22 EDT) Pathologist Sig nature [facility] S[facility] CV NEG [facility] CE NTER LAB Specimen Narrative [facility] - 017 9:06 EDT Does PT Have a Latex Allergy? YES Enter/Edit CPT and ICD codes? N Performing Organization Address City/State/[facility] Code Phon e Number [facility] [address] LAB (ABNORMAL) COMPLETE BLOOD COUNT WITH DIFFERENTIAL (AUTO) (06/10/2016 8:22 EDT) Pathologist Sig nature ABSOLUTE NEUTROPHIL 1.99 1.7 - 7.0 [facility] 10e3/ul CENTER LAB BASO # - [facility] 0.06 0.0 - 0.3 [facility] 10e3/uL CENTER LAB BASO % - [facility] 2 0 - 2 % [facility] EOS # - [facility] 0.08 0.05 - 0.5 [facility] 10e3/uL CENTER LAB EOS % - [facility] 2 0 - 5 % [facility] GRAN % - [facility] 55 40 - 80 % [facility] HEMATOCRIT - [facility] 38.2 34.0 - 47.0 % [facility] HEMOGLOBIN - [facility] 12.6 11.2 - 15.7 [facility] g/dl CENTER LAB IG# - [facility] 0 0 - 0.07 [facility] 10e3/uL [place] [facility] IG% - [facility] 0 0 - 0.9 % [facility] LYMPH # - [facility] 1.10 0.9 - 2.9 [facility] 10e3/uL [place] [facility] LYMPH% - [facility] 31 20 - 40 % [facility] LAB MEAN CORPUSCULAR HGB - 30.0 26 - 34 pg [facility] D [facility] LAB MEAN CORPUSCULAR HGB 33.0 31 - 36 g/dL [facility] CONC [facility] CENTER LAB MEAN CELL VOLUME - 91.0 77 - 100 fl [facility] MONO # - [facility] 0.37 0.3 - 0.9 [facility] 10e3/uL [place] [facility] MONO% - [facility] 10 0 - 12 % [facility] LAB PLATELET COUNT 142 (L) 150 - 400 [facility] 10e3/ul [place] [facility] RED BLOOD COUNT - [facility] 4.20 3.8 - 5.2 [facility] 10e6/ul [place] [facility] RED CELL DISTRI WIDTH 13.5 11.8 - 15.6 % [facility] D [facility] CENTER LAB WHITE BLOOD COUNT - 3.6 3.5 - 10.5 [facility] 10e3/ul [place] [facility] Specimen Narrative [facility] - 017 8:38 EDT Does PT Have a Latex Allergy? YES Performing Organization Address City/[facility] Phon e Number [facility] [address] [place] [address] [facility] TYPE AND SCREEN (06/10/2016 8:22 EDT) Pathologist Sig nature BLOOD TYPE - [facility] O Positive [facility] Antibody Screen NEGATIVE [facility] Specimen Expires: 07/01/16 1942 [facility] Specimen Narrative [facility] - 017 8:12 EDT Does PT Have a Latex Allergy? YES IS THIS A PREOPERATIVE PATIENT? Y IF YES, DATE OF SURGERY: 06/11/16 Performing Organization Address City/[facility] Phon e Number [facility] [address] [facility] [place] [address] [facility] documented in this encounter Visit Diagnoses Not on filedocumented in this encounter Care Teams Meter Engineer Relationship Specialty Start Date End Date Sasha Arvizu MD PCP - General 10/20/13 08/18/16 Herminio Hernandez ND PCP - General 08/19/16 [address] [place] [address] Zaira Rodriguez MD Referring Provider Gynecology 07/29/16 [address] [facility] [address], [address] [place] [address] Charo Finn MD Medical Oncology 07/29/16 [address] [facility], [address] [place] [address] documented as of this encounter
--- OUTSIDE RECORDS SUMMARY | 2021-10-16 02:04 | XMS_ITS | Encounter Summary ---
:1965 Author Organization [facility] Address [address] [place] [address] Care Team Providers Name Role Phone Sasha Arvizu MD Primary Care Provider Unavailable Zaira Rodriguez MD Unavailable Charo Finn MD Unavailable Herminio Hernandez ND Primary Care Provider Encounter Details Date Type Department Care Team Description 10/11/2009 Historical Results [facility] - Sheila Larios, Only [facility] [place] [address] [place], [place] [phone] [place] [address]-[address], [address] [place] [address] Social History Tobacco Use Types [...] Name Priority Date/Time Associated Diagnosis Comme nts PAP TEST Routine 10/11/2009 Results for thi s procedure are in the resu lts section. documented in this encounter Results PAP TEST (10/11/2009) Specimen Narrative [facility] - 010 14:40 EDT Name: KIRSTIE ALEJO ? : [birth year] ?Age/Sex: 53/F ?Unit#: [id number] ? Loc: AGO ? Status: REG POV ?? Reg Date: 10/11/09 ? Pt.Phone Number : ? Specimen: [id number] ?ERA RANKIN: SOUT ?Spec Date:10/11/09 ? Physician Copies: ?Sheila Larios MD ?? Tissues: ? Cervical/Endo Pap ?Sasha Arvizu MD ?? CPT: 40679 ?? Units: ??1 ? CYTOLOGY DIAGNOSIS SPECIMEN ADEQUACY: ?Satisfactory for evaluation. Transformation zone component present. GENERAL CATEGORIZATION: ?Negative fo r Intraepithelial Lesion or Malignancy DESCRIPTIVE DIAGNOSIS: ? Negative fo r Intraepithelial Lesion or Malignancy. RECOMMENDATIONS/COMMENTS: ?None. ?HPV DNA RESULTS ?? 10/11/09 0922 HPV DNA RESULT ??NEG ? Negative for HP V types 16, 18, 31, 33, 35, 39, 45, 51, 52, ? 56, 58, 59, 66, 68. ? Method: Cervist a HPV HR (High Risk) DNA test. ORDER QUERIES: LMP: 10/04/09- ?Preg nant? N Post ? N ??PREVIOUS ATYPICAL: N BCP/HRT? N Rad Rx? N IUD? N ??PAP PLUS HPV? Y ??REFLEX TO HR-HPV IF ASCUS ?? REFLEX TO HPV 16/18 IF HPV POS/PAP NEG ?? HPV REGARDLESS?RFLX HPV IF LSIL ?? IF ASCUS DO HPV? N Signed Justine Figueroa CT(ASCP) 10/16/09 By the signature above, the attending ph ysician certifies that he/she has personally conducted a gross and/or microscopic exa mination of the described specimens and rendered or confirmed the above diagnosi s. Test Performed by [facility], [address] [place] [address] Football Pad Repairer: Selam Almeida MD PHD Performing Organization Address City/State/ZIP Code Phon e Number [facility] [address] [place] [address] [facility] documented in this encounter Visit Diagnoses Not on filedocumented in this encounter Care Teams Contracts Attorney Relationship Specialty Start Date End Date Sasha Arvizu MD PCP - General 10/20/13 08/18/16 Herminio Hernandez ND PCP - General 08/19/[address] [place] [phone] Zaira Rodriguez MD Referring Provider Gynecology 07/29/[address] [place] [address] [address], [address] [place] [phone] Charo Finn MD Medical Oncology 07/29/[address] [place] [address], [address] [place] [phone] documented as of this encounter
--- OUTSIDE RECORDS SUMMARY | 2021-10-16 02:04 | XMS_ITS | Encounter Summary ---
:1965 Author Organization [facility] Address [address] [place] [address] Care Team Providers Name Role Phone Sasha Arvizu MD Primary Care Provider Unavailable Encounter Details Date Type Department Care Team Description 11/01/2013 Hospital Encounter [facility] - Kesha Abdullahi MD [place] PhD [address] [phone] [facility] 2 [place] [phone] (Wo rk) Social History Tobacco Use Types [...] Associated Diagnoses Date/Ti me OUTSIDE IMAGES - OTHER Imaging 12/06 15:00 EDT CHEST OUTSIDE IMAGES - US BREAST Imaging 0 11/09/2013 7:07 EDT OUTSIDE IMAGES - US BREAST Imaging 0 10/15/2013 7:07 EDT OUTSIDE IMAGES - MAMMO Imaging 10/15 7:07 EDT BREAST OUTSIDE IMAGES - MAMMO Imaging 06/19 7:07 EDT BREAST OUTSIDE IMAGES - MAMMO Imaging 06/15 7:07 EDT BREAST OUTSIDE IMAGES - MAMMO Imaging 06/14 7:07 EDT BREAST OUTSIDE IMAGES - US BREAST Imaging 0 06/16/2008 7:07 EDT OUTSIDE IMAGES - MAMMO Imaging 06/16 7:07 EDT BREAST OUTSIDE IMAGES - MAMMO Imaging 06/07 7:07 EDT BREAST Scheduled Orders Name Type Priority Associated Diagnoses Order S chedule OUTSIDE IMAGES - OTHER Imaging One T angelica for 1 CHEST Occurrences sta rting 12/06/2013 unti l 12/06/2013 OUTSIDE IMAGES - US Imaging One Time for 1 BREAST Occurrences sta rting 12/07/2013 unti l 12/07/2013 OUTSIDE IMAGES - US Imaging One Time for 1 BREAST Occurrences sta rting 12/07/2013 unti l 12/07/2013 OUTSIDE IMAGES - MAMMO Imaging One T angelica for 1 BREAST Occurrences sta rting 12/07/2013 unti l 12/07/2013 OUTSIDE IMAGES - MAMMO Imaging One T angelica for 1 BREAST Occurrences sta rting 12/07/2013 unti l 12/07/2013 OUTSIDE IMAGES - MAMMO Imaging One T angelica for 1 BREAST Occurrences sta rting 12/07/2013 unti l 12/07/2013 OUTSIDE IMAGES - MAMMO Imaging One T angelica for 1 BREAST Occurrences sta rting 12/07/2013 unti l 12/07/2013 OUTSIDE IMAGES - US Imaging One Time for 1 BREAST Occurrences sta rting 12/07/2013 unti l 12/07/2013 OUTSIDE IMAGES - MAMMO Imaging One T angelica for 1 BREAST Occurrences sta rting 12/07/2013 unti l 12/07/2013 OUTSIDE IMAGES - MAMMO Imaging One T angelica for 1 BREAST Occurrences sta rting 12/07/2013 unti l 12/07/2013 documented as of this encounter Visit Diagnoses Not on filedocumented in this encounter Care Teams Testing Tech Relationship Specialty Start Date End Date Sasha Arvizu MD PCP - General 10/20/13 08/18/16 documented as of this encounter
--- OUTSIDE RECORDS SUMMARY | 2021-10-16 02:04 | XMS_ITS | Encounter Summary ---
:1965 Author Organization [facility] Address [address] [place] [address] Care Team Providers Name Role Phone Unavailable Primary Care Provider Unavailable Encounter Details Date Type Department Care Team Description 01/01/2001 Results Only [facility] - Kaylynn Moy NP conversion [address] [facility] 1 [address] [place] [phone] (Wo rk) Social History Tobacco Use Types [...] Name Priority Date/Time Associated Diagnosis Comme nts CYTOPATHOLOGY Routine 01/01/2001 0:00 EDT Results for this procedure are i n the results section . documented in this encounter Results CYTOPATHOLOGY (01/01/2001 0:00 EDT) Pathology Report: CYTOPATHOLOGY REPORT [facility] Reports generated via electronic interface contain brayan ginal data; however they are lacking the format of the original re port. Caution should be taken when reading/interpreting unfo rmatted reports. Name: ? NABILA ALEJO ? Accession #: ? [id number] : ? 1965 (Age: 35) ??F ?Collect Date: ? 06/2000 Location: ? [facility] ? Receive Date : ? 01/05/2001 Provider: ?KAYLYNN SAHU PUBLIC HEALTH OFFICER Copy to: ? Specimen/Source: ?ThinPrep Pap Test, Cervix/ Endocervix Last Menstrual Period: ? 12/22/00 Treatment History: ? Miscellaneous treatment: Vag wart tx ? SPECIMEN ADEQUACY ? Satisfactory for evaluation. GENERAL CATEGORIZATION ? Epithelial Cell Abnormality DESCRIPTIVE DIAGNOSIS ? Atypical squamous cells of undetermined signifi cance (ASCUS), favor reactive process. RECOMMENDATION ? Recommend repeat Pap test in 3-6 months or further follow up, as clinically indicated. ? Document reviewed and electronically signed by: ? ADONIS MARTÍNEZ MD ? Report Date: ??01/15/2001 11:24 End of Report Specimen Performing Organization Address City/State/ZIP Code Phon e Number [facility] [address] [place] [address] SERVICES [facility] [address] [place] [address] documented in this encounter Visit Diagnoses Not on filedocumented in this encounter
--- OUTSIDE RECORDS SUMMARY | 2021-10-16 02:04 | XMS_ITS | Encounter Summary ---
:1965 Author Organization [facility] Address [address] [place] [address] Care Team Providers Name Role Phone Sasha Arvizu MD Primary Care Provider Unavailable Zaira Rodriguez MD Unavailable Charo Finn MD Unavailable Herminio Hernandez ND Primary Care Provider Encounter Details Date Type Department Care Team Description 04/23/2011 Historical Results Only [facility] - Junior Arvizu, [facility] Lab - Main [facility] [place] [address] Social History Tobacco Use Types [...] Associated Diagnosis Comme nts PAP TEST Routine 04/23/2011 Results for thi s procedure are in the resu lts section. documented in this encounter Results PAP TEST (04/23/2011) Specimen Narrative [facility] - 012 9:08 EST Name: KIRSTIE ALEJO ? : [birth year] ?Age/Sex: 53/F ?Unit#: [id number] ? Loc: LAB.OPX ? Status: REG REF ?? Reg Date: 04/23/11 ? Pt.Phone Number : ? Specimen: [id number] ? STA TUS: SOUT ?Spec Date:04/23/11 ? Physician Copies: ?Sasha Arvizu MD ?? Tissues: ? Cervical/Endo Pap ? CPT: 97853 ?? Units: ??1 ? CYTOLOGY DIAGNOSIS SPECIMEN ADEQUACY: ?Satisfactory for evaluation. Transformation zone component present. GENERAL CATEGORIZATION: ?Negative fo r Intraepithelial Lesion or Malignancy DESCRIPTIVE DIAGNOSIS: ? Negative fo r Intraepithelial Lesion or Malignancy. RECOMMENDATIONS/COMMENTS: ?None. ORDER QUERIES: LMP: 04/09/11- ?Preg nant? N Post ? N ??PREVIOUS ATYPICAL: ?? BCP/HRT? ?? Rad Rx? ?? IUD?PAP PL US HPV?REFLEX TO HR-HPV IF ASCUS ?? REFLEX TO HPV 16/18 IF HPV POS/PAP NEG ?? HPV REGARDLESS?RFLX HPV IF LSIL ?? IF ASCUS DO HPV? Y Signed Hailey Che CT(ASCP) 04/26/11 ? By the signature above, the attending ph ysician certifies that he/she has personally conducted a gross and/or microscopic exa mination of the described specimens and rendered or confirmed the above diagnosi s. Test Performed by [facility], [address] [place] [id number] Teacher Of The Emotionally Disturbed: Selam Almeida MD PHD Performing Organization Address City/State/ZIP Code Phon e Number [facility] [address] [place] [address] [facility] documented in this encounter Visit Diagnoses Not on filedocumented in this encounter Care Teams Boat Designer Relationship Specialty Start Date End Date Sasha Arvizu MD PCP - General 10/20/13 08/18/16 Herminio Hernandez ND PCP - General 08/19/[address] [place] [address] Zaira Rodriguez MD Referring Provider Gynecology 07/29/[address] [place] [address] [address], [address] [place] [address] Charo Finn MD Medical Oncology 07/29/[address] [place] [address], [address] [place] [address] documented as of this encounter
--- OUTSIDE RECORDS SUMMARY | 2021-10-16 02:04 | XMS_ITS | Encounter Summary ---
:1965 Author Organization [facility] Address [address] [place] [address] Care Team Providers Name Role Phone Sasha Arvizu MD Primary Care Provider Unavailable Zaira Rodriguez MD Unavailable Charo Finn MD Unavailable Herminio Hernandez ND Primary Care Provider Encounter Details Date Type Department Care Team Description 07/02/2013 Historical Results Only [facility] - Junior Arvizu, [facility] Lab - Main [facility] [place] [address] Social History Tobacco Use Types [...] Associated Diagnosis Comme nts PAP TEST Routine 07/02/2013 Results for thi s procedure are in the resu lts section. documented in this encounter Results PAP TEST (07/02/2013) Specimen Narrative [facility] - 014 16:07 EDT Name: KIRSTIE ALEJO ? : [birth year] ?Age/Sex: 53/F ?Unit#: [id number] ? Loc: LAB.OPX ? Status: REG REF ?? Reg Date: 07/02/13 ? Pt.Phone Number : ? Specimen: [id number] ?STA TUS: SOUT ?Spec Date:07/02/13 ? Physician Copies: ?Luh,Sasha MADRIGAL ?? Tissues: ? Cervical/Endo Pap ? CPT: 68289 ?? Units: ??1 ? CYTOLOGY DIAGNOSIS SPECIMEN ADEQUACY: ?Satisfactory for evaluation. Transformation zone component present. GENERAL CATEGORIZATION: ?Negative fo r Intraepithelial Lesion or Malignancy DESCRIPTIVE DIAGNOSIS: ? Negative fo r Intraepithelial Lesion or Malignancy. ?HPV DNA RESULTS ?? 04/0414 1552 HPV DNA RESULT ??NEG ? Negative for HP V types 16, 18, 31, 33, 35, 39, 45, 51, 52, ? 56, 58, 59, 66, 68. ? Method: Cervist a HPV HR (High Risk) DNA test. ORDER QUERIES: LMP: 06/21/13- ?Preg nant? ?? Post ?PREVIOUS ATYPICAL: ?? BCP/HRT? ?? Rad Rx? ?? IUD?PAP PL US HPV? Y ??REFLEX TO HR-HPV IF ASCUS ?? REFLEX TO HPV 16/18 IF HPV POS/PAP NEG Y HPV REGARDLESS?RFLX HPV IF LSIL ?? Signed Vikas Kim CT(ASCP) 07/08/13 By the signature above, the attending ph ysician certifies that he/she has personally conducted a gross and/or microscopic exa mination of the described specimens and rendered or confirmed the above diagnosi s. Test Performed by [facility], [address] [place] [address] Suede Cleaner: Selam Almeida MD PHD Performing Organization Address City/State/ZIP Code Phon e Number [facility] [address] [place] [address] [facility] documented in this encounter Visit Diagnoses Not on filedocumented in this encounter Care Teams Simonizer Relationship Specialty Start Date End Date Sasha Arvizu MD PCP - General 10/20/13 08/18/16 Herminio Hernandez ND PCP - General 08/19/16 [address] [place] [address] Zaira Rodriguez MD Referring Provider Gynecology 07/29/[address] [place] [address] [address] [place] [address] Charo Finn MD Medical Oncology 07/29/[address] [place] [address], [address] [place] [address] documented as of this encounter
--- OUTSIDE RECORDS SUMMARY | 2021-10-16 02:04 | XMS_ITS | Encounter Summary ---
:1965 Author Organization [facility] Address [address] [place] [address] Care Team Providers Name Role Phone Unavailable Primary Care Provider Unavailable Encounter Details Date Type Department Care Team Description 10/15/2013 Hospital En[phone] [place] [address] (Work) [place] [address] Social History Tobacco Use Types Packs/Day Years [...] EDT documented as of this encounter Discharge Disposition Disposition Code Departure Means Destination Home or Self Mcfp documented in this encounter Plan of Treatment Upcoming Encounters Date Type Specialty Care Team Description 10/18/2021 Nurse Only Infusion Therapy documented as of this encounter Visit Diagnoses Not on filedocumented in this encounter
--- OUTSIDE RECORDS SUMMARY | 2021-10-16 02:04 | XMS_ITS | Encounter Summary ---
:1965 Author Organization [facility] [place] [address] Care Team Providers Name Role Phone Sasha Arvizu MD Primary Care Provider Encounter Details Date Type Department Care Team Description 05/08/2010 Hospital Encounter Laboratory Sasha Arvizu MD [facility] [address] [place] [address] [place], [place] [phone] (Wo rk) Social History Tobacco Use Types Packs/Day Years Used Date Never Assessed Sex Assigned at Date Recorded Not on file documented as of this encounter Plan of Treatment Not on filedocumented as of this encounter Procedures Procedure Name Priority Date/Time Associated Diagnosis Comme nts DIFFERENTIAL, Routine 05/08/2010 2:20 PM Results for this AUTOMATED EST procedure are i n the results section. CBC (WITH DIFF) Routine 05/08/2010 2:20 PM Result s for this EST procedure are i n the results section. documented in this encounter Results REFLEX LAB-A-DIFF (05/08/2010 2:20 PM EST) P athologist Signature Neutrophils % 65.4 34.0 - CERNER 71.0 % MILLENNIUM Neutr Abs (ANC) 5.27 1.50 - CERNER 6.30 MILLENNIUM x10(3)/mcL Lymphocytes % 23.6 19.0 - CERNER 53.0 % MILLENNIUM Lymphocytes Abs 1.9 1.0 - 3.6 CERNER x10(3)/mcL MILLENNIUM Monocytes % 8.9 4.0 - 13.0 CERNER % MILLENNIUM Monocyte Abs 0.7 0.2 - 1.0 CERNER x10(3)/mcL MILLENNIUM Eosinophils % 1.4 0.0 - 7.0 CERNER % MILLENNIUM Eosinophils Abs 0.1 0.0 - 0.5 CERNER x10(3)/mcL MILLENNIUM Basophils % 0.6 0.0 - 2.0 CERNER % MILLENNIUM Basophils Abs 0.1 0.0 - 0.2 CERNER x10(3)/mcL MILLENNIUM Immature Gran % 0.10 0.00 - CERNER 0.66 % MILLENNIUM Comment: Immature granulocytes(IG's)percentage an d absolute count will include metamyelocytes, myelocytes, and promyelo cytes. Blood smears from CBCs yielding IG's will be scanned manually for concor dance. If this scan disagrees with the automated IG or if promyelocytes are not ed, a manual differential will be performed. Angela Gran Abs 0.01 0.00 - 0.05 x10(3)/mcL CER NER MILLENNIUM Specimen Anatomical Collection Method Collection Time Receive d Time (Source) Location / / Volume Laterality Blood specimen 05/08/2010 2:20 PM 011 2:34 (specimen) EST PM EST Sasha Arvizu MD HEMATOLOGY ORDERABLES Performing Organization Address City/State/ZIP Code Phon e Number [place] [phone] CERNER MILLENNIUM (ABNORMAL) CBC (05/08/2010 2:20 PM EST) P athologist Signature WBC 8.1 4.0 - 10.0 CERNER x10(3)/mcL MILLENNIUM RBC 4.73 3.93 - CERNER 5.22 MILLENNIUM x10(6)/mcL Hemoglobin 13.5 11.2 - CERNER 15.7 gm/dL MILLENNIUM Hematocrit 41.4 34.0 - CERNER 45.0 % MILLENNIUM MCV 87.5 79.0 - CERNER 94.0 fL MILLENNIUM MCH 28.5 26.6 - CERNER 32.2 pg MILLENNIUM MCHC 32.6 32.0 - CERNER 36.5 gm/dL MILLENNIUM Platelets 235 145 - 370 CERNER x10(3)/mcL MILLENNIUM RDWSD 44.7 35.0 - CERNER 46.0 fL MILLENNIUM RDWCV 14.0 10.9 - CERNER 14.4 % MILLENNIUM MPV 12.9 (H) 9.0 - 12.0 CERNER fL MILLENNIUM Specimen Anatomical Collection Method Collection Time Receive d Time (Source) Location / / Volume Laterality Blood specimen 05/08/2010 2:20 PM 011 2:34 (specimen) EST PM EST Sasha Arvizu MD HEMATOLOGY ORDERABLES Performing Organization Address City/State/[place] [address] [facility] documented in this encounter Visit Diagnoses Not on filedocumented in this encounter Care Teams Animal Shelter Manager Relationship Specialty Start Date End Date Sasha Arvizu MD PCP - General 05/08/10 04/29/16 [address] [place] [address] documented as of this encounter
--- OUTSIDE RECORDS SUMMARY | 2021-10-16 02:04 | XMS_ITS | Clinical Summary ---
:1965 Author Organization [facility] [place] [address] Care Team Providers Name Role Phone Unknown Primary Care Provider Unavailable Allergies No known active allergies Medications No known medications Active Problems No known active problems Social History Tobacco Use Types Packs/Day Years Used Date Never Assessed Sex Assigned at Date Recorded Not on file Last Filed Vital Signs Vital Sign Reading Time Taken Comments Blood Pressure 115/70 08/29/2015 2:30 PM EDT Pulse 63 08/29/2015 2:30 PM EDT Temperature 36.6 ??C (97.9 ??F) 08/29/2015 2:30 PM EDT Respiratory Rate 25 08/29/2015 2:30 PM EDT Oxygen Saturation 97% 08/29/2015 2:30 PM EDT Inhaled Oxygen Concentration - - Weight - - Height - - Body Mass Index - - Plan of Treatment Health Maintenance Due Date Last Done Comments Covid-19 Vaccine (#1) 1972 HIV screen 1985 Hepatitis C Screening 1985 Tdap adult 1986 Tetanus vaccine 1986 HPV test 1997 PAP Smear 1997 Breast Cancer Share Decision Needed 2007 Colonoscopy 2012 Breast Cancer screening 2017 Zoster vaccine (1 of 2) 2017 Influenza (Flu) vaccine (1 of 1 - Influenza standard 11/29/2021 series) Care Teams Radio Division Officer Relationship Specialty Start Date End Date Unknown PCP - General 04/30/16 None
--- OUTSIDE RECORDS SUMMARY | 2021-10-16 02:04 | XMS_ITS | Encounter Summary ---
:1965 Author Organization [facility] Address [address] [place] [address] Care Team Providers Name Role Phone Sasha Avrizu MD Primary Care Provider Unavailable Encounter Details Date Type Department Care Team Description 11/01/2013 Results Only [facility] PATHOLOGY Selam Gentile MD [address] [place] [phone] [place] [address] [facility] [address] [place] [address] (Wo rk) Social History Tobacco [...] Procedures Procedure Name Priority Date/Time Associated Diagnosis Commdonell nts SURGICAL PATHOLOGY Routine 11/01/2013 0:00 EDT Re sults for this procedure are i n the results section. documented in this encounter Results SURGICAL PATHOLOGY (11/01/2013 0:00 EDT) Pathologist [facility] Pathology SURGICAL PATHOLOGY REPORT [facility] Report: LAB Reports generated via electronic interface contain brayan ginal data; however they are lacking the format of the original re port. Caution should be taken when reading/interpreting unfo rmatted reports. Name: ? NABILA ALEJO ? Accession #: ? [id number] ? : ? 1965 (Age: 48) ??F ?Collect Da te: ? 11/01/2013 ? Location: ? [facility] ? Receive Date: ? 014 ? Provider: SELAM GENTILE MD PHD Copy to: DANITA LINARES MD ? C-erb-B2 IMMUNOPEROXIDASE STAIN ? Date Ordered: ? 11/01/2013 ? Status: ?? Signed Out ?Date Complete: ? 11/04/2013 ? By: ??Jose Oleary ? Date Reported: ? 11/04/2013 ? Interpretation ASSAY RESULTS Her2 SCORE: ?3+ ? See comment. TUMOR LOCATION: Right breast, 1 o'clock ? CELLS WITH COMPLETE MEMBRANE STAINING: Greater than 90 % MEMBRANE STAINING INTENSITY: Strong PARTIAL MEMBRANE STAINING: Present in 10% of cells CYTOPLASMIC STAINING: Moderate STAINING PATTERN: Homogeneous STAINING IN BENIGN EPITHELIUM: Faint, membrane THE HER2 ASSAY PERFORMED IS INTERPRETED POSITIVE. Comment An additional test for Her2 gene amplification will be performed by in situ hybridization (ROE), the results of whic h will be issued in a separate report. (Dr. Troy)/german Description Tissue submitted: Paraffin e mbedded tissue block labelled [id number] from [facility] ? Fixative: ??Formalin ??(This immunohistochemical assay is intended for paraffin-embedded tissue fix ed in 10% neutral buffered formalin for 6-72 hours; 18-24 hours with maximum tis sharron thickness of 3-4 millimeters is recommended for best assay performance. ??He r2 should not be performed on alcohol fixed tissues.) The assay was performed under appropriate conditions a ccording to the java manager's instructions with appropriate assay and tissue controls using an Anti-Her2 (4B5) Rabbit Monoclonal Antibody ([place]). Her2 IHC Scoring Guidelines (invasive tumor component only) 0 ? negative ?No staining or membrane staining in less than 10% of cells 1+ ? negative ?Faint partial membrane staining in more than 10% of cells 2+ ? weakly positive ?Moderate complete membrane staining in more than 10% of cells 3+ ? positive ? Strong complete membrane staining in more than 10% of cells Reference: ??ASCO-CAP Recomm endations for Her2 Testing. J Clin Oncol 2013; epub (www.[email or web address].org Jan 04, 2013) Document reviewed and electronically signed by: ? CHAN TROY MD ? Report date: 11/04/2013 By the signature above, the attending physician certif ies that he/she has personally conducted a gross and/or microscopic examin ation of the described specimens and rendered or confirmed the above diagnosi s. Her2 GENE AMPLIFICATION BY IN-SITU HYBRIDIZATION (ROE) ? Date Ordered: ? 11/05/2013 ? Status: ?? Signed Out ?Date Complete: ? 11/05/2013 ? By: ??M marina Nagy ? Date Reported: ? 11/07/2013 ? Interpretation Description Tissue submitted: Paraffin e mbedded tissue block labelled [id number] from [facility] ? Specimen type: ??Breast, core biopsy An in-situ hybridization (IS H) assay for Her2 gene amplification status ([employer] INFORM dual ROE DNA probe) was performed on this speci men. ??The assay was performed under appropriate conditions according to [facility] java manager's instructions with appropriate assay and tissue controls. ??A Her2 target probe and a Chromosome 17 control probe are both enumerated in twenty tumor cell nuclei and a Her2/Chr17 rati o is calculated. ??Results are generally reported as amplified (ratio >2.0) or no n-amplified (ratio <2.0). ??When initial results are inconclusive (ratio 1.9 ??2.2), a minimu m additional 20 nuclei are enumerated. Her2 and Chr17 average signa ls per cell and the Her2/Chr17 ratio are considered for the final interpretation . ??The assay is intended for use with formalin-fixed (6-72 hours), paraffin-embedded breast cancer specimen s. Reference: ??ASCO-CAP Recomm endations for Her2 Testing. ??J Clin Oncol 2013; epub (www.[email or web address].org Jan 04, 2013) Results: Her2/Chr17 ratio: 6.29 Average Her2 signals per tumor cell nucleus: ? 17. 6 Average Chr17 signals per tumor cell nucleus: ? 2.8 Tumor location: ?Right breast; 1 o'clock Interpretation: ?Amplified The invasive tumor nuclei exhibit Her2 a mplification. Polysomic cells are also noted. (Dr. Troy)/mpl Document reviewed and electronically signed by: ? CHAN TROY MD ? Report date: 11/07/2013 By the signature above, the attending physician certif ies that he/she has personally conducted a gross and/or microscopic examin ation of the described specimens and rendered or confirmed the above diagnosi s. End of Report Specimen Performing Organization Address City/State/ZIP Code Phon e Number [facility] [address] [place] [address] SERVICES [facility] [address] [place] [address] documented in this encounter Visit Diagnoses Not on filedocumented in this encounter Care Teams Agency Service Coordinator Relationship Specialty Start Date End Date Sasha Arvizu MD PCP - General 10/20/13 08/18/16 documented as of this encounter
--- OUTSIDE RECORDS SUMMARY | 2021-10-16 02:04 | XMS_ITS | Encounter Summary ---
:1965 Author Organization [facility] Address [address] [place] [address] Care Team Providers Name Role Phone Sasha Arvizu MD Primary Care Provider Unavailable Zaira Rodriguez MD Unavailable Charo Finn MD Unavailable Herminio Hernandez ND Primary Care Provider Encounter Details Date Type Department Care Team Description 10/25/2013 Historical Results [facility] - Selam Almeida, Only [facility] - Main MD PhD [place] [address] [place] [address] [facility] [address] [place] [address] (Wo rk) Social History Tobacco [...] Associated Diagnosis Comme nts SURGICAL PATHOLOGY Routine 10/25/2013 Results f or this procedure are i n the results section . PROTEIN S ACTIVITY Routine 10/25/2013 Results f or this procedure are i n the results section . documented in this encounter Results SURGICAL PATHOLOGY (10/25/2013) Specimen Narrative [facility] - 014 13:36 EDT Name: KIRSTIE ALEJO ? : [birth year] ?Age/Sex: 53/F ?Unit#: [id number] ? Loc: LAB.OPX ? Status: REG REF ?? Reg Date: 10/25/13 ? Pt.Phone Number : ? Specimen: [id number] ? ERA MASSIEL: SOUT ?Spec Date:10/25/13 ? Physician Copies: ?Jewel Enriquez MD ? Tissues: A ?? Breast Needle (RIGHT BREAS T, 1 O'CLOCK AREA) ? CPT: 04192 ?? Units: ??1 ? 79920 ? 1 ? 10097 ? 1 ?FINAL DIAGNOSIS ? Breast, right, 1 o'clock, ultraso und guided needle core biopsy; ? - Adenocarcinoma, invasive, ducta l type. ?- Benji combined his tologic score (preliminary): 8. ? - Tubules: 2. ? - Nuclei: 3. ? - Mitoses: 3. ?- All four cores involved by invasive carcinoma. ?- Longest contiguous focu s of invasive carcinoma measures 1 cm. ? - Ductal carcinoma in situ (DCIS) , minor component, micropapillary pattern, ? high nuclear grade, focal necr osis. ? - Microcalcifications associated with carcinoma. ? - ER and NE assays below. ? - Her2 assay to be reported separ ately. ? GROSS DESCRIPTION ? Received in formalin labeled with the patient's name and right breast are ? four needle cores of yellow-brownlee fibrofatty tissue ranging in length from 1 to ? 1.5 cm, each 0.2 cm in diameter, e.s. 1. ??CP ?? PREOP DX/CLINICAL HISTORY ?Right breast mass, catego ry 4 ultrasound. ??SPECIAL STUDY/IMMUNO RESULTS HORMONE RECEPTOR IMMUNOHISTOCHEMISTRY ?? Results Estrogen Receptor - Percentage of tumor cells exhibiting nuclear stainin% - Intensity of staining: STRONG Patient: KIRSTIE ALEJO ? #[id number] ? (Continued) Specimen: [id number] ? Rec eived: 10/26/13 ?(Continued) ??SPECIAL STUDY/IMMUNO RESULTS ?(Co ntinued) ?? Progesterone Receptor - Percentage of tumor cells exhibiting nuclear stainin% - Intensity of staining: STRONG ?? Interpretation Estrogen receptor: ??POSITIVE Progesterone receptor: POSITIVE ?? Internal and external controls: ??Adequ ate Standard assay conditions: ??Met ?? Assay Conditions Fixative: ??10% neutral buffered formal in Time removed from body: ??10/25/13 @ 16 40 Time placed in formalin: ??10/25/13 @ 1 640 Duration of fixation: ?? 27 hours, 20 m inutes ?? Staining method used Primary antibody and vendor: Estrogen R eceptor, Clone SP1, NeoFilmMe ??for [employer] and Progesterone Receptor, Clone [id number], Neomarkers for [employer] [facility] Antigen Retrieval Type: ??EDTA buffer, pH 8.0 Time in Antigen Retrieval: ??20 minutes Detection System Type: ??HRP Polymer Reference: ??IVD data sheet, Revision 0 [id number], Bioc[employer]is ?? Note: ??One or more of the reagents us ed in immunohistochemical testing in this case may not have been cleared or appro lauryn by the U. S. Food and Drug Administration (FDA). ??The FDA has det ermined that such clearance or approval is not necessary. ??These tests are use d for clinical purposes. ??They should not be regarded as investigational or for r esearch. This assay has not been validated on decalcified tissues. Resul ts should be interpreted with caution given the likelihood of false negativit y on decalcified specimens. ??These reagents' performance characteristics h ave been determined by [facility]. ??This laboratory is ce rtified under the Clinical Laboratory Improvement Amendments of 1988 (CLIA-88 ) as qualified to perform high complexity clinical laboratory testing. ??Specimens subject to estrogen and progesterone receptor assay and Her2 sh ould be fixed for at least 6 hours, up to a maximum of 48 hours for HER2 testi ng and 72 hours for estrogen and progesterone receptor testing. Signed ____(signature on file)____ Selam Cespedes M.D. 10/28/13 By the signature above, the attending ph ysician certifies that he/she has personally conducted a gross and/or microscopic exa mination of the described specimens and rendered or confirmed the above diagnosi s. Test Performed by [facility], [address] [facility] [id number] Aviation Program Manager: Selam Almeida MD PHD Performing Organization Address City/State/ZIP Code Phon e Number [facility] [address] [facility] [place] [id number] [place] [address] LAB PROTEIN S ACTIVITY (10/25/2013) Specimen Narrative [facility] - 014 14:42 EDT Name: KIRSTIE ALEJO ? : [birth year] ?Age/Sex: 53/F ?Unit#: [id number] ? Loc: LAB.OPX ? Status: REG REF ?? Reg Date: 10/25/13 ? Pt.Phone Number : ? Specimen: [id number] ? STA MASSIEL: SOUT ?Spec Date:10/25/13 ? Physician Copies: ?Selam Almeida MD ?? Tissues: ? PATHOLOGY SPECIAL STUDIES (HER2, [id number]) ? Jewel Enriquez MD ? CPT: ? Units: ??1 ?? PATHOLOGY SPECIAL STUDIES ?? C-erb-B2 IMMUNOPEROXIDASE STAIN ? Assay Results ? Her2 Score: ??3+ ? Tumor Location: ??Right breast, 1 o' clock ?? Cells with complete membrane stainin g: ??Greater than 90% ?? Membrane staining intensity: ??Stron g ?? Partial membrane staining: ??Present in 10% of cells ?? Cytoplasmic staining: ??Moderate ?? Staining pattern: ??Homogeneous ?? Staining in benign epithelium: ??Venkatesh nt, membrane ? The Her2 assay performed is interpre janine as POSITIVE. ? Her2 GENE AMPLIFICATION BY IN-SITU H YBRIDIZATION (ROE) ? Results ? Her2/Chr17 ratio: ??6.29 ? Average Her2 signals per tumor cell nucleus: ??17.6 ?? Average Chr17 signals per tumor cell nucleus: ??2.8 ? Tumor Location: Right Breast; 1 o'cl ock ? Interpretation: ??AMPLIFIED ? Full report scanned into PCI under M edical Record Forms/Pathology. ? Test performed by [facility] [id number] Signed ____(signature on file)____ Selam Cespedes M.D. 11/08/13 By the signature above, the attending ph ysician certifies that he/she has personally conducted a gross and/or microscopic exa mination of the described specimens and rendered or confirmed the above diagnosi s. Test Performed by [facility], [address] [place] [id number] Aviation Program Manager: Selam Almeida MD PHD Performing Organization Address City/State/ZIP Code Phon e Number [facility] [address] [place] [id number] [facility] documented in this encounter Visit Diagnoses Not on filedocumented in this encounter Care Teams Cylinder Machine Operator Relationship Specialty Start Date End Date Sasha Arvizu MD PCP - General 10/20/13 08/18/16 Herminio Hernandez ND PCP - General 08/19/[address] [place] [address] Zaira Rodriguez MD Referring Provider Gynecology 07/29/[address] [place] [address] [facility], [address] [place] [address] Charo Finn MD Medical Oncology 07/29/[address] [place] [address], [facility] [address] [place] [address] documented as of this encounter
--- OUTSIDE RECORDS SUMMARY | 2021-10-16 02:04 | XMS_ITS | Encounter Summary ---
:1965 Author Organization [facility] Address [address] [place] [address] Care Team Providers Name Role Phone Unavailable Primary Care Provider Unavailable Encounter Details Date Type Department Care Team Description 04/23/2001 Results Only [facility] - Kaylynn Moy NP conversion [address] [facility] [address] [place] [phone] (Wo rk) Social History Tobacco Use Types [...] Date/Time Associated Diagnosis Comme nts CYTOPATHOLOGY Routine 04/23/2001 0:00 EST Results for this procedure are i n the results section . documented in this encounter Results CYTOPATHOLOGY (04/23/2001 0:00 EST) Pathology Report: CYTOPATHOLOGY REPORT [facility] Reports generated via electronic interface contain brayan ginal data; however they are lacking the format of the original re port. Caution should be taken when reading/interpreting unfo rmatted reports. Name: ? NABILA ALEJO ? Accession #: ? [id number] : ? 1965 (Age: 36) ??F ?Collect Date: ? 04/01 Location: ? [facility] ? Receive Date : ? 04/27/2001 Provider: ?KAYLYNN SAHU MANAGER TRADE Copy to: ? Specimen/Source: ?ThinPrep Pap Test, Cervix/ Endocervix Last Menstrual Period: ? 03/31/01 Previous Gynecologic Pathology: ? ASC-US: 12/29 ? SPECIMEN ADEQUACY ? Satisfactory for Evaluation - transformation zone component present GENERAL CATEGORIZATION ? Negative for Intraepithelial Lesion or Malignan cy ? Document reviewed and electronically signed by: ? FRANKI Coronel(ASCP) ? Report Date: ??04/28/2001 11:25 End of Report Specimen Performing Organization Address City/State/ZIP Code Phon e Number [facility] [address] [place] [address] [facility] [address] [place] [address] documented in this encounter Visit Diagnoses Not on filedocumented in this encounter
--- OUTSIDE RECORDS SUMMARY | 2021-10-16 02:04 | XMS_ITS | Encounter Summary ---
:1965 [place] [address] Care Team Providers Name Role Phone Sasha Arvizu MD Primary Care Provider Reason for Visit Reason Comments Chest Pain Encounter Details Date Type Department Care Team Description 08/29/2015 Emergency Emergency Department Kassie Cleaning, Chest pain, unspecified type; Ashlyn Siddiqui MD Substernal discomfort [facility] [address] [place] [address] [phone] (Wo rk) Social History Tobacco Use Types Packs/Day Years Used Date Never Assessed Sex Assigned at Date Recorded Not on file documented as of this encounter Last Filed [...] Index - - documented in this encounter Discharge Instructions Discharge InstructionsRobert Holcomb MD - 08/29/2015 1:48 PM EDT Images from the original note were not included. Please follow-up with your primary care physician in the next 3 days to discuss an outpatient stresstest. Please return to the emergency department for return of chest pain, persistent chest pain, shortness of breath, swelling of your legs, or for any new and concerning symptoms. [facility] Chest Pain: After Your Visit Your Care Instructions There are many things that can cause chest pain. Some are not serious and will get better on their own in a few days. But some kinds of chest pain need more testing and treatment. Your doctor may have recommended a follow-up visit in the next 8 to 12 hours. If you are not getting better, you may need more tests or treatment. Even though your doctor has released you, you still need to watch for any problems. The doctor carefully checked you, but sometimes problems can develop later. If you have new symptoms or if your symptoms do not get better, get medical care right away. If you have worse or different chest pain or pressure that lasts more than 5 minutes or you passed out (lost consciousness), call 911 or seek other emergency help right away. A medical visit is only one step in your treatment. Even if you feel better, you still need to do what your doctor recommends, such as going to all suggested follow-up appointments and taking medicinesexactly as directed. This will help you recover and help prevent future problems. How can you care for yourself at home? ?? Rest until you feel better. ?? Take your medicine exactly as prescribed. Call your doctor if you think you are having a problem with your medicine. ?? Do not drive after taking a prescription pain medicine. When should you call for help? Call 911 if: ?? You passed out (lost consciousness). ?? You have severe difficulty breathing. ?? You have symptoms of a heart attack. These may include: ?? Chest pain or pressure, or a strange feeling in your chest. ?? Sweating. ?? Shortness of breath. ?? Nausea or vomiting. ?? Pain, pressure, or a strange feeling in your back, neck, jaw, or upper belly or in one or both shoulders or arms. ?? Lightheadedness or sudden weakness. ?? A fast or irregular heartbeat. After you call 911, the hook and eye sewing machine operator may tell you to chew 1 adult-strength or 2 to 4 low-dose aspirin. Wait for an ambulance. Do not try to drive yourself. Call your doctor today if: ?? You have any trouble breathing. ?? Your chest pain gets worse. ?? You are dizzy or lightheaded, or you feel like you may faint. ?? You are not getting better as expected. ?? You are having new or different chest pain. Where can you learn more? Visit our health information library at [email or web address] You can also view health information on [employer], your personal patient account. Log in or sign up today. Enter A120 in the search box to learn more about Chest Pain: After Your Visit. ?? [phone] [employer]. Care instructions adapted under license by [facility]. This care instruction is for use with your licensed healthcare professional. If you have questionsabout a medical condition or this instruction, always ask your healthcare professional. [employer] disclaims any warranty or liability for your use of this information. Content Version: 10.4.660302; Current as of: September 01, 2013 documented in this encounter ED Notes Bridger Cowan RN - 08/29/2015 2:57 PM EDT Discharge instructions reviewed with pt, she was given an opportunity to ask questions and none wereoffered before she left the ED. Bridger Cowan RN - 08/29/2015 1:23 PM EDT Resting quietly, waiting to be seen by cardiology. Bridger Cowan RN - 08/29/2015 12:44 PM EDT Eyes closed, RRR, even unlabored, pt appears to be in NAD @ this time. Robert Holcomb MD - 08/29/2015 12:11 PM EDT Nabila Evans is an 50 y.o. female who presents to the ED with: Chief Complaint Patient presents with ??? Chest Pain I saw this patient 08/29/2015 at 12:11 PM HPI Nabila Evans is a 50 y.o. female with PMH sig for breast cancer status post radiation and chemotherapy, currently on tamoxifen, who presents to the Emergency Department with chest pain. Patient was driving to work today, stopped to get gas, when pumping gas had acute onset of substernal chest pain. Painis squeezing, radiates to the back, nonexertional, nonpleuritic, nothing made better, nothing made worse. Resolved on its own after approximately 20 minutes. Patient was concerned about the pain can she has a strong family history of coronary artery disease, however none of the family members who had coronary artery disease were young at the time. No associated nausea, diaphoresis, palpitations, edema. Reports when the pain was present and she felt short of breath, but this has resolved as well. Denies fevers and chills. Denies history of blood clots, recent surgery, recent immobility, and estrogenuse currently. Review of Systems: Review of Systems Constitutional: Negative for chills, diaphoresis and fever. HENT: Negative for congestion, rhinorrhea and sore throat. Respiratory: Positive for shortness of breath. Negative for cough and wheezing. Cardiovascular: Positive for chest pain. Negative for palpitations and leg swelling. Gastrointestinal: Negative for abdominal pain, constipation, diarrhea, nausea and vomiting. Genitourinary: Negative for dysuria, frequency and urgency. Musculoskeletal: Negative for back pain. Skin: Negative for color change and rash. Neurological: Negative for dizziness, light-headedness and headaches. Hematological: Does not bruise/bleed easily. Psychiatric/Behavioral: Negative for agitation and confusion. Physical Exam: Patient Vitals for the past 24 hrs: BP Temp Temp src Pulse Resp SpO2 08/29/15 1145 116/79 - - 60 14 96 % 08/29/15 1130 121/66 - - 64 12 96 % 08/29/15 1115 124/85 - - 61 15 97 % 08/29/15 1105 120/77 36.7 ??C (98.1 ??F) Oral 85 15 96 % Physical Exam Constitutional: She is oriented to person, place, and time. She appears well- developed and well-nourished. No distress. HENT: Head: Normocephalic and atraumatic. Mouth/Throat: Oropharynx is clear and moist. Eyes: Conjunctivae are normal. Pupils are equal, round, and reactive to light. Neck: Normal range of motion. No tracheal deviation present. Cardiovascular: Normal rate, regular rhythm, normal heart sounds and intact distal pulses. Pulmonary/Chest: Effort normal and breath sounds normal. No stridor. No respiratory distress. She has no wheezes. Abdominal: Soft. Bowel sounds are normal. She exhibits no distension. There is no tenderness. Musculoskeletal: Normal range of motion. She exhibits no edema or tenderness. Neurological: She is alert and oriented to person, place, and time. Skin: Skin is warm and dry. No rash noted. She is not diaphoretic. Psychiatric: She has a normal mood and affect. Her behavior is normal. Laboratory Results: CBC and BMP are unremarkable, troponin is negative Imaging Results: none ED Course: - Patient was evaluated and discussed with Dr. Cleaning - Medications, allergies and past medical history reviewed - EKG shows normal sinus rhythm with no acute ST segment or T-wave abnormalities HEART Score: Predicts 6-week risk of major adverse cardiac event. History Slightly suspicious (0) EKG Normal (0) Age 45-65 (+1) Risk Factors Risk factors include: ??? Hypercholesterolemia ??? Hypertension ??? Diabetes Mellitus ??? Cigarette smoking ??? Positive family history ??? Obesity 1-2 risk factors (+1) Troponin Less than or equal to normal limit (0) Total Score: 2 SCORE: Low risk patients have a score 0-3 and have a less than 2% risk of major adverse cardiac event at 6 weeks. I discussed the risk of ACS with the patient, we decided to: Have close follow up with PCP with possible outpatient stress test. Assessment and Plan: Assessment: 50 y.o. female with substernal chest pain with reassuring EKG, labs, and physical exam. Patient is hemodynamically stable in the emergency department and chest pain free. Patient's pain wasconcerning for possibility of acute coronary syndrome, and EKG and troponin were performed. Both EKGand troponin were reassuring from the aspect of myocardial infarction. Patient was offered repeat troponin, repeat EKGs, and possible CDU stay with inpatient stress testing, though after shared decision making with our low risk chest pain decision-making tool, patient decided to be discharged home with close primary care follow-up and outpatient stress testing. Patient understood her risk of major adverse cardiac event in the next 30 days was approximately 2%. Patient was comfortable with this risk and preferred the outpatient follow-up plan. I also considered pulmonary embolism, but patient has few risk factors for pulmonary embolism currently, had no tachycardia or hypoxia, and chest pain was squeezing, nonpleuritic, and resolved on its own. Overall I think this makes pulmonary embolism less likely. I also considered pneumonia, aortic dissection, and pneumothorax, but think these possible as well as later given the overall picture. Patient was counseled on warning signs of pulmonary embolism and acute coronary syndrome and will return to the emergency department immediately if these symptomsbecome present. Patient was discharged from the emergency department stable condition. Return precautions were verbally discussed with the patient. The patient expressed understanding that they could come back to the ED at any time and agreed to the follow-up plan. Robert Holcomb MD Resident 08/29/15 [id number] Associated attestation - Kassie Cleaning MD - 09/02/2015 10:09 PM EDT The patient was seen in conjunction with Dr. Holcomb, the resident physician. I have independently performed the light portions of the history and physical exam. I have reviewed all diagnostic studies personally including labs, imaging studies and EKG's. I have discussed the details of the case with the resident and agree with the assessment and plan as described in the resident note above unless noted otherwise below. Bridger Cowan RN - 08/29/2015 11:20 AM EDT First contact with pt was @ 1104, she states as in triage and adds she is presently chest pain free.At the time of the incident pt was filling her car up with gas, she experienced a tightening of her chest (mid sternal) which increased with pain in her back to the R of her spine. This lasted about 20 minutes. She denies feeling SOB, feels it was difficult to take a breath due to the feeling of the tightness in her chest. She denies diaphoresis, n/v @ the time of the incident. She was light headed. Presently pt is symptom free, skin pwd, RRR, even, unlabored, lungs CTA bi lat, abdomin is soft, non tender with + Bs. Pt denies problems voiding, moving her bowels. Call guzman in reach, NSR on the monitor. Pt aware she should use the call guzman in her symptoms return. documented in this encounter Miscellaneous Notes ED Triage - Denise Brito RN - 08/29/2015 10:52 AM EDT Chest pain about [address] Got out of the care walked around and it has passes. Chest pain was squeezing at midsternal to back with lightheadedness. No heart history but family has one.Denies nausea/vomiting/diaphoresis. Patient is alert and oriented X4 breathing non labored and regular, skin warm pink dry. No apparent distress documented in this encounter Plan of Treatment Not on filedocumented as of this encounter Procedures Procedure Name Priority Date/Time Associated Comments Diagnosis SCAN, PERIPHERAL STAT 08/29/2015 11:25 AM Resu lts for this BLOOD EDT procedure are i n the results section. HEMOGRAM STAT 08/29/2015 11:25 AM Results for this EDT procedure are i n the results section. DIFFERENTIAL, STAT 08/29/2015 11:25 AM Results for this AUTOMATED EDT procedure are i n the results section. BLUE TUBE HOLD STAT 08/29/2015 11:25 AM Result s for this EDT procedure are i n the results section. CBC (WITH DIFF) STAT 08/29/2015 11:25 AM EDT TROPONIN STAT 08/29/2015 11:25 AM Results for this EDT procedure are i n the results section. BASIC METABOLIC STAT 08/29/2015 11:25 AM Resul ts for this PANEL (NON-FASTING) EDT procedur e are in the results section. EKG 12-LEAD STAT 08/29/2015 10:50 AM Results for this EDT procedure are i n the results section. documented in this encounter Results Scan, Peripheral Blood (08/29/2015 11:25 AM EDT) [facility] Method Time Signature Plat Estimate Decreased [facility] RBC Morphology Normal [facility] Specimen Anatomical Collection Method Collection Time Receive d Time (Source) Location / / Volume Laterality Blood specimen 08/29/2015 11:25 6 (specimen) AM EDT 11:36 AM EDT Resulting Agency Comment Spec In Lab Kassie Cleaning MD HEMATOLOGY ORDERABLES Performing Organization Address City/[facility]/ZIP Code Phon e Number [address] Blue Tube HOLD (08/29/2015 11:25 AM EDT) P athologist Signature Blue Hold Sample in [facility] LABORATORY Specimen Anatomical Collection Method Collection Time Receive d Time (Source) Location / / Volume Laterality Blood specimen Venous Draw / 08/29/2015 11:25 08/29/19 16 (specimen) Unknown AM EDT 11:36 AM EDT Kassie Cleaning MD HEMATOLOGY ORDERABLES Performing Organization Address City/[facility]/ZIP Code Phon e Number [address] (ABNORMAL) Differential, Automated (08/29/2015 11:25 AM EDT) [facility] Method Time Signature Neutrophils % 59.0 % [facility] Neutr Abs (ANC) 1.67 1.50 - [facility] 6.30 [facility] x10(3)/[facility] LABORATORY Lymphocytes % 31.4 % [facility] Lymphocytes Abs 0.9 (L) 1.0 - 3.6 [facility] x10(3)/[facility] LABORATORY Monocytes % 7.4 % [facility] Monocyte Abs 0.2 0.2 - 1.0 [facility] x10(3)/[facility] LABORATORY Eosinophils % 1.4 % [facility] Eosinophils Abs 0.0 0.0 - 0.5 [facility] x10(3)/[facility] LABORATORY Basophils % 0.4 % [facility] Basophils Abs 0.0 0.0 - 0.2 [facility] x10(3)/[facility] LABORATORY Immature Gran % 0.40 % [facility] Comment: Immature granulocytes(IG's)percentage an d absolute count will include metamyelocytes, myelocytes, and promyelo cytes. Blood smears from CBCs yielding IG's will be scanned manually for concor dance. If this scan disagrees with the automated IG or if promyelocytes are not ed, a manual differential will be performed. Angela Gran Abs 0.01 0.00 - 0.05 x10(3)/[facility] LABORATORY Specimen Anatomical Collection Method Collection Time Receive d Time (Source) Location / / Volume Laterality Blood specimen 08/29/2015 11:25 6 (specimen) AM EDT 11:36 AM EDT Resulting Agency Comment Spec In Lab Kassie Cleaning MD HEMATOLOGY ORDERABLES Performing Organization Address City/State/[place] [address] (ABNORMAL) Hemogram (08/29/2015 11:25 AM EDT) P athologist Signature WBC 2.8 (L) 4.0 - 10.0 [facility] x10(3)/[facility] LABORATORY RBC 4.22 3.93 - [facility] 5.22 [facility] x10(6)/[facility] LABORATORY Hemoglobin 12.8 11.2 - [facility] 15.7 gm/dL [facility] Hematocrit 38.5 34.0 - [facility] 45.0 % [facility] MCV 91.2 79.0 - [facility] 94.0 fL [facility]ORY MCH 30.3 26.6 - [facility] 32.2 pg [facility] MCHC 33.2 32.0 - [facility] 36.5 gm/dL [facility] Platelets 141 (L) 145 - 370 [facility] x10(3)/[facility] LABORATORY RDWSD 44.3 35.0 - ASHLYN SIDDIQUI 46.0 [facility] LABORATORY RDWCV 13.5 10.9 - [facility] 14.4 % [facility] LABORATORY MPV 13.3 (H) 9.0 - 12.0 [facility] LABORATORY Specimen Anatomical Collection Method Collection Time Receive d Time (Source) Location / / Volume Laterality Blood specimen 08/29/2015 11:25 6 (specimen) AM EDT 11:36 AM EDT Resulting Agency Comment Spec In Lab Kassie Cleaning MD HEMATOLOGY ORDERABLES Performing Organization Address City/State/ZIP Code Phon e Number [address] Troponin T (08/29/2015 11:25 AM EDT) P athologist Signature Troponin-T <0.03 <=0.03 [facility] ng/mL [facility] Comment: 0.03 ng/mL: Represents the 99th percenti le upper reference limit for normals. >0.03 ng/mL: Elevated cardiac troponin T level indicative of myocardial damage. Diagnosis of acute, evolving or recent M I requires a typical rise and gradual fall of cTnT with at least ONE of the fo llowing: a) Ischemic symptoms b) Development of pathologic Q waves on the ECG c) ECG changes indicative of eschemia (S -T segment elevation/depression) d) Coronary artery intervention Serial bloods should be obtained for cathy ting on admission, at 6 to 9 hrs and again at 12 to 24 hrs if earlier samples are negative and the clinical index of suspicion is high. Reference: [Myocardial infarction redefined? a consensus document of the Joint Society of Cardiology/[place] [employer] Committee for the redefinition of myocardial infarction. ? ?Journal of the [place] [employer] 2000; 36: 959-969] Specimen Anatomical Collection Method Collection Time Receive d Time (Source) Location / / Volume Laterality Blood specimen 08/29/2015 11:25 6 (specimen) AM EDT 11:36 AM EDT Resulting Agency Comment Spec In Lab Kassie Cleaning MD CHEMISTRY ORDERABLES Performing Organization Address City/[facility]/ZIP Code Phon e Number [facility] [place] [address] (ABNORMAL) Basic Metabolic Panel (non-fasting) (08/29/2015 11:25 AM EDT) athologist Signature Glucose Lvl 103 65 - 199 [facility] mg/dL [facility] Comment: Diabetes: >=200 mg/dL plus symp toms BUN 20 (H) 8 - 18 mg/dL [facility] Creatinine 0.69 (L) 0.70 - 1.20 mg/dL [facility] Comment: Please note that the pediatric reference intervals supplied above were not validated at [facility]. Results from pediatri c patients should be interpreted in conjunction to the patient's age, height and muscle mass. Sodium 143 135 - 145 mmol/L [facility] Potassium 3.9 3.5 - 5.0 mmol/L [facility] Comment: Please note: ??Patients with WBC >100,00 0 may have falsely elevated Potassium levels. ??For accurate Potassium quantif ication in these patients send serum separator tube (gold top) for subsequent determinations. ??Contact the Clinical Chemistry Laboratory if there are any qu estions. Chloride 103 98 - 107 mmol/L [facility] CO2 26 22 - 31 mmol/L [facility] Anion Gap 14 5 - 15 mmol/L [facility] Calcium 9.2 8.5 - 10.5 mg/dL [facility] Estimated GFR >60 >=60 [facility] Comment: This estimated GFR (eGFR) value was calc ulated using the MDRD equation which has been validated on patients between t he ages of 18 and 70. The MDRD should not be used to assess kidney function in patients < 18 years of age or in patients with extremes of body mass, or in patients with acute kidney failure. This value should be multiplied by 1.2 f or patients. For further information please copy and past e the following links into your internet browser. [email or web address] [email or web address] Specimen Anatomical Collection Method Collection Time Receive d Time (Source) Location / / Volume Laterality Blood specimen 08/29/2015 11:25 6 (specimen) AM EDT 11:36 AM EDT Resulting Agency Comment Spec In Lab Kassie Cleaning MD CHEMISTRY ORDERABLES Performing Organization Address City/[facility]/[place] [address] EKG 12 Lead (08/29/2015 10:50 AM EDT) [facility] gist Method Time Signature Ventricular rate 60 BPM MUSE SYSTEM Atrial Rate 60 BPM MUSE SYSTEM P-R Interval 188 ms MUSE SYSTEM QRS Duration 86 ms MUSE SYSTEM Q-T Interval 448 ms MUSE SYSTEM QTC Calculated 448 ms MUSE SYSTEM (Bezet) Calculated P [place] 38 degrees MUSE SYSTEM Calculated R [place] 32 degrees MUSE SYSTEM Calculated T [place] 35 degrees MUSE SYSTEM INTERPRETATION Normal sinus rhythm MUSE SYSTEM Normal ECG No previous ECGs available Confirmed by MD GEOVANNY, YSABEL ([id number]) on 08/30/2015 5:42:01 A M Specimen Anatomical Collection Method Collection Time Receive d Time (Source) Location / / Volume Laterality 08/29/2015 10:50 08/30/2015 5:42 AM EDT AM EDT Narrative This result has an attachment that is no t available. Kassie Cleaning MD ECG ORDERABLES Performing Organization Address City/State/ZIP Code Phon e Number MUSE SYSTEM documented in this encounter Visit Diagnoses Diagnosis Chest pain, unspecified type Substernal discomfort Precordial pain documented in this encounter Care Teams Beader Tender Relationship Specialty Start Date End Date Sasha Arvizu MD PCP - General 05/08/10 04/29/16 [address] [place] [address] documented as of this encounter
[2021-10-16 11:16] LABS: Abs Immature Grans 0.01 10^3/uL (0.0-0.06); Absolute Basophil Count 0.05 10^3/uL (0.0-0.2); Absolute Eosinophil Count 0.05 10^3/uL (0.0-0.7); Absolute Lymphocyte Count 1.34 10^3/uL (1.2-3.4); Absolute Monocyte Count 0.37 10^3/uL (0.1-0.8); Absolute Neutrophil Count 1.78 10^3/uL (1.2-6.7); Basophils % 1.4; Eosinophils % 1.4; HCT 41.1 % (36.0-46.0); HGB 13.5 g/dL (11.2-15.7); Immature Grans % 0.3; Lymphocytes % 37.2; MCHC 32.8 % (32.0-36.0); MCV 91 fL (80-95); MPV 12.1 fL (8.0-11.0); Monocytes % 10.3; Neutrophils % 49.4; Platelet Count 178 10^3/uL (130-400); RDW 12.3 % (11.7-14.6); RDW-SD 41.1 fL
[2021-10-16 12:43] LABS: Ferritin 59 ng/mL (8-252)
== END 2021-10-16 01:56 | disposition home or self-care (01) ==
PROVIDERS: PCP Naturopath; Referring Provider Internal Medicine Hematology & Oncology; Visit Provider Internal Medicine Hematology & Oncology
DX: E83.110 Hereditary hemochromatosis (principal)
CPT/HCPCS: 36415; 82728; 85025

== ENCOUNTER 2021-12-04 02:12 | Outpatient (CLI) | payer BC, SELFPAY ==
[2021-12-04 07:35] LABS: Abs Immature Grans 0.01 10^3/uL (0.0-0.06); Absolute Basophil Count 0.04 10^3/uL (0.0-0.2); Absolute Eosinophil Count 0.07 10^3/uL (0.0-0.7); Absolute Lymphocyte Count 1.29 10^3/uL (1.2-3.4); Absolute Monocyte Count 0.32 10^3/uL (0.1-0.8); Absolute Neutrophil Count 2.42 10^3/uL (1.2-6.7); Eosinophils % 1.7; HCT 40.1 % (36.0-46.0); HGB 13.5 g/dL (11.2-15.7); Immature Grans % 0.2; Lymphocytes % 31.1; MCHC 33.7 % (32.0-36.0); MCV 89 fL (80-95); MPV 12.3 fL (8.0-11.0); Monocytes % 7.7; Neutrophils % 58.3; Platelet Count 170 10^3/uL (130-400); RDW 13.2 % (11.7-14.6); RDW-SD 43.4 fL; WBC 4.15 10^3/uL (4.4-10.8)
[2021-12-04 08:03] LABS: Ferritin 50 ng/mL (8-252)
== END 2021-12-04 02:13 | disposition home or self-care (01) ==
PROVIDERS: PCP Naturopath; Visit Provider Internal Medicine Hematology & Oncology
DX: E83.110 Hereditary hemochromatosis (principal)
CPT/HCPCS: 36415; 82728; 85025

== ENCOUNTER → 2021-12-31 02:44 | Outpatient (CLI) | payer BC, SELFPAY ==
--- NOTE | 2021-12-31 | DI.MRI_ITS ---
Exam(s) MR UPPER JOINT LT WO EXAM: MR UPPER JOINT LT WO CLINICAL HISTORY: LT SHOULDER PAIN, BURSITIS M25.512 M75.52 M12.812. TECHNIQUE: Multiplanar multisequence MRI was performed. COMPARISON: None. FINDINGS: Bones: There is no fracture or contusion pattern. The acromioclavicular joint shows mild spurring. Glenohumeral joint: Rotator Cuff: The supraspinatus tendon shows some thickening and high signal in the distal anterior portion, consistent with tendinitis.. Infraspinatus tendon is intact. The subscapularis and teres minor are normal. Labrum and biceps anchor: The biceps tendon is located. The anchor is well maintained. The labrum is within normal limits. Soft tissues: Unremarkable. Bursa: Minimal at the fluid in the subacromial subdeltoid bursa. Small amount of fluid in the subcor acoid bursa. IMPRESSION: Supraspinatus tendonitis. DATA REPOSITORY:
== END ==
PROVIDERS: PCP Naturopath; Visit Provider Naturopath
DX: M25.512 Pain in left shoulder (principal); M75.52 Bursitis of left shoulder; M12.812 Other specific arthropathies, not elsewhere classified, left shoulder; M75.82 Other shoulder lesions, left shoulder
CPT/HCPCS: 73221

== ENCOUNTER 2022-01-22 02:36 | Outpatient (CLI) | payer BC, SELFPAY ==
[2022-01-22 12:52] LABS: Abs Immature Grans 0.01 10^3/uL (0.0-0.06); Absolute Basophil Count 0.05 10^3/uL (0.0-0.2); Absolute Eosinophil Count 0.09 10^3/uL (0.0-0.7); Absolute Lymphocyte Count 1.57 10^3/uL (1.2-3.4); Absolute Monocyte Count 0.37 10^3/uL (0.1-0.8); Absolute Neutrophil Count 2.05 10^3/uL (1.2-6.7); Basophils % 1.2; Eosinophils % 2.2; HCT 39.5 % (36.0-46.0); HGB 13.1 g/dL (11.2-15.7); Immature Grans % 0.2; Lymphocytes % 37.9; MCH 30.1 pg (27.0-33.0); MCHC 33.2 % (32.0-36.0); MCV 91 fL (80-95); MPV 11.7 fL (8.0-11.0); Monocytes % 8.9; Neutrophils % 49.6; Platelet Count 203 10^3/uL (130-400); RBC 4.35 10^6/uL (3.93-5.22); RDW 13.3 % (11.7-14.6); WBC 4.14 10^3/uL (4.4-10.8)
[2022-01-22 13:33] LABS: Hemoglobin A1C 5.8 % (<5.7)
[2022-01-22 14:32] LABS: ALT 25 U/L (14-59); AST 23 U/L (15-37); Albumin 4.4 g/dL (3.4-5.0); Alkaline Phosphatase 115 U/L (46-116); Anion Gap 10.3 mmol/L (3-11); BUN 16 mg/dL (7-18); Bilirubin, Total 0.4 mg/dL (0.2-1.0); CO2 28.7 mmol/L (21.0-32.0); CREATININE 0.7 mg/dL (0.55-1.02); Calcium 9.4 mg/dL (8.5-10.1); Calculated LDL 101 mg/dL (<100); Chloride 102 mmol/L (98-107); Cholesterol 203 mg/dL (<200); Estimated GFR 102.71 (mL/min/1.73m2); Ferritin 49 ng/mL (8-252); Glucose 89 mg/dL (74-106); HDL Cholesterol 88 mg/dL (40-60); Potassium 4.3 mmol/L (3.5-5.1); Sodium 141 mmol/L (136-145); T4 8.8 ug/mL (4.7-13.3); TSH 1.74 uIU/mL (0.36-3.74); Total Protein 7.4 g/dL (6.4-8.2); Triglyceride 72 mg/dL (<150)
[2022-01-22 22:09] LABS: Estradiol 17 pg/mL (See Note); Progesterone <0.2 ng/mL (See Table)
[2022-01-22 22:31] LABS: FSH 52.4 mIU/mL (See Note); LH 27.8 mIU/mL (See Note)
[2022-01-23 02:12] LABS: T3,Free 4.3 pg/mL (2.8-5.3)
[2022-01-23 14:30] LABS: ANA Interpretation Positive (Negative); ANA Titer Pattern 1:160 Homogeneous
[2022-01-24 08:52] LABS: Insulin 7.9 uIU/mL (<29.0)
[2022-01-24 13:55] LABS: Estrone 34 pg/mL
== END 2022-01-22 02:37 | disposition home or self-care (01) ==
LOC: LBO 02:36
PROVIDERS: PCP Naturopath; Visit Provider Naturopath
DX: E83.110 Hereditary hemochromatosis (principal); E03.9 Hypothyroidism, unspecified; R61 Generalized hyperhidrosis; E88.81 Metabolic syndrome and other insulin resistance; Z13.1 Encounter for screening for diabetes mellitus; Z13.220 Encounter for screening for lipoid disorders; R76.8 Other specified abnormal immunological findings in serum
CPT/HCPCS: 36415; 80053; 80061; 82670; 82679; 82728; 83001; 83002; 83036; 83525; 84144; 84436; 84443; 84481; 85025; 86038

== ENCOUNTER 2022-03-05 03:42 | Outpatient (CLI) | payer BC, SELFPAY ==
[2022-03-05 16:47] LABS: Abs Immature Grans 0.01 10^3/uL (0.0-0.06); Absolute Basophil Count 0.05 10^3/uL (0.0-0.2); Absolute Eosinophil Count 0.12 10^3/uL (0.0-0.7); Absolute Lymphocyte Count 1.96 10^3/uL (1.2-3.4); Absolute Monocyte Count 0.37 10^3/uL (0.1-0.8); Absolute Neutrophil Count 2.45 10^3/uL (1.2-6.7); Eosinophils % 2.4; HCT 41.1 % (36.0-46.0); HGB 13.5 g/dL (11.2-15.7); Immature Grans % 0.2; Lymphocytes % 39.5; MCH 29.5 pg (27.0-33.0); MCHC 32.8 % (32.0-36.0); MCV 90 fL (80-95); Monocytes % 7.5; Neutrophils % 49.4; Platelet Count 194 10^3/uL (130-400); RBC 4.58 10^6/uL (3.93-5.22); RDW-SD 42.6 fL; WBC 4.96 10^3/uL (4.4-10.8)
[2022-03-05 17:29] LABS: Ferritin 50 ng/mL (8-252)
== END 2022-03-05 03:43 | disposition home or self-care (01) ==
LOC: LBO 03:42
PROVIDERS: Internal Medicine Hematology & Oncology; PCP Naturopath; Visit Provider Naturopath
DX: E83.110 Hereditary hemochromatosis (principal)
CPT/HCPCS: 36415; 82728; 85025

== ENCOUNTER 2022-04-05 02:43 | Outpatient (CLI) | payer BC, SELFPAY ==
[2022-04-05 13:48] LABS: Abs Immature Grans 0.02 10^3/uL (0.0-0.06); Absolute Basophil Count 0.04 10^3/uL (0.0-0.2); Absolute Eosinophil Count 0.06 10^3/uL (0.0-0.7); Absolute Lymphocyte Count 1.34 10^3/uL (1.2-3.4); Absolute Monocyte Count 0.43 10^3/uL (0.1-0.8); Absolute Neutrophil Count 1.78 10^3/uL (1.2-6.7); Basophils % 1.1; Eosinophils % 1.6; HGB 12.6 g/dL (11.2-15.7); Immature Grans % 0.5; Lymphocytes % 36.6; MCH 29.7 pg (27.0-33.0); MCHC 33.2 % (32.0-36.0); MCV 90 fL (80-95); MPV 11.5 fL (8.0-11.0); Monocytes % 11.7; Neutrophils % 48.5; Platelet Count 201 10^3/uL (130-400); RBC 4.24 10^6/uL (3.93-5.22); RDW 12.6 % (11.7-14.6); RDW-SD 41.5 fL; WBC 3.66 10^3/uL (4.4-10.8)
[2022-04-05 14:28] LABS: Ferritin 37 ng/mL (8-252)
== END 2022-04-05 02:44 | disposition home or self-care (01) ==
LOC: LBO 02:43
PROVIDERS: PCP Naturopath; Visit Provider Naturopath
DX: E83.110 Hereditary hemochromatosis (principal)
CPT/HCPCS: 36415; 82728; 85025

== ENCOUNTER 2022-07-02 03:07 | Outpatient (CLI) | payer BC, SELFPAY ==
[2022-07-02 16:23] LABS: Abs Immature Grans 0.01 10^3/uL (0.0-0.06); Absolute Basophil Count 0.06 10^3/uL (0.0-0.2); Absolute Eosinophil Count 0.08 10^3/uL (0.0-0.7); Absolute Lymphocyte Count 1.79 10^3/uL (1.2-3.4); Absolute Monocyte Count 0.41 10^3/uL (0.1-0.8); Absolute Neutrophil Count 2.33 10^3/uL (1.2-6.7); Basophils % 1.3; Eosinophils % 1.7; HCT 42.8 % (36.0-46.0); HGB 14.1 g/dL (11.2-15.7); Immature Grans % 0.2; Lymphocytes % 38.2; MCH 29.2 pg (27.0-33.0); MCHC 32.9 % (32.0-36.0); MCV 89 fL (80-95); MPV 10.3 fL (8.0-11.0); Monocytes % 8.8; Neutrophils % 49.8; Platelet Count 253 10^3/uL (130-400); RBC 4.83 10^6/uL (3.93-5.22); RDW 13.4 % (11.7-14.6); RDW-SD 43.6 fL; WBC 4.68 10^3/uL (4.4-10.8)
[2022-07-02 17:35] LABS: Ferritin 94 ng/mL (8-252)
== END 2022-07-02 03:08 | disposition home or self-care (01) ==
PROVIDERS: PCP Naturopath; Visit Provider Internal Medicine Hematology & Oncology
DX: E83.110 Hereditary hemochromatosis (principal)
CPT/HCPCS: 36415; 82728; 85025

== ENCOUNTER 2022-08-05 03:12 | Outpatient (CLI) | payer BC, SELFPAY ==
[2022-08-05 13:04] LABS: Absolute Basophil Count 0.06 10^3/uL (0.0-0.2); Absolute Lymphocyte Count 1.38 10^3/uL (1.2-3.4); Absolute Monocyte Count 0.38 10^3/uL (0.1-0.8); Absolute Neutrophil Count 1.82 10^3/uL (1.2-6.7); Basophils % 1.6; Eosinophils % 2.7; HCT 39.5 % (36.0-46.0); Lymphocytes % 36.9; MCH 29.4 pg (27.0-33.0); MCHC 32.9 % (32.0-36.0); MCV 89 fL (80-95); MPV 10.8 fL (8.0-11.0); Monocytes % 10.2; Neutrophils % 48.6; Platelet Count 217 10^3/uL (130-400); RBC 4.42 10^6/uL (3.93-5.22); RDW 13.5 % (11.7-14.6); RDW-SD 44.2 fL; WBC 3.74 10^3/uL (4.4-10.8)
[2022-08-05 13:41] LABS: Ferritin 35 ng/mL (8-252)
== END 2022-08-05 03:13 | disposition home or self-care (01) ==
PROVIDERS: PCP Naturopath; Visit Provider Internal Medicine Hematology & Oncology
DX: E83.110 Hereditary hemochromatosis (principal)
CPT/HCPCS: 36415; 82728; 85025

== ENCOUNTER 2022-09-27 01:47 | Outpatient (CLI) | payer BC, SELFPAY ==
[2022-09-27 12:29] LABS: Absolute Basophil Count 0.04 10^3/uL (0.0-0.2); Absolute Eosinophil Count 0.08 10^3/uL (0.0-0.7); Absolute Lymphocyte Count 1.26 10^3/uL (1.2-3.4); Basophils % 1.1; Eosinophils % 2.3; HCT 40.8 % (36.0-46.0); HGB 13.7 g/dL (11.2-15.7); Lymphocytes % 36.2; MCH 29.6 pg (27.0-33.0); MCHC 33.6 % (32.0-36.0); MCV 88 fL (80-95); MPV 11.7 fL (8.0-11.0); Monocytes % 11.5; Neutrophils % 48.9; Platelet Count 203 10^3/uL (130-400); RBC 4.63 10^6/uL (3.93-5.22); RDW 12.8 % (11.7-14.6); RDW-SD 41.2 fL; WBC 3.48 10^3/uL (4.4-10.8)
[2022-09-27 13:16] LABS: Ferritin 41 ng/mL (8-252)
== END 2022-09-27 01:48 | disposition home or self-care (01) ==
PROVIDERS: PCP Naturopath; Visit Provider Internal Medicine Hematology & Oncology
DX: E83.110 Hereditary hemochromatosis (principal)
CPT/HCPCS: 36415; 82728; 85025

== ENCOUNTER 2022-11-27 01:48 | Outpatient (CLI) | payer BC, SELFPAY ==
[2022-11-27 15:24] LABS: Absolute Basophil Count 0.05 10^3/uL (0.0-0.2); Absolute Eosinophil Count 0.08 10^3/uL (0.0-0.7); Absolute Lymphocyte Count 1.52 10^3/uL (1.2-3.4); Absolute Neutrophil Count 2.29 10^3/uL (1.2-6.7); Basophils % 1.1; Eosinophils % 1.8; HCT 41.2 % (36.0-46.0); HGB 13.9 g/dL (11.2-15.7); Lymphocytes % 34.2; MCH 29.4 pg (27.0-33.0); MCHC 33.7 % (32.0-36.0); MCV 87 fL (80-95); MPV 11.1 fL (8.0-11.0); Monocytes % 11.3; Neutrophils % 51.6; Platelet Count 215 10^3/uL (130-400); RBC 4.72 10^6/uL (3.93-5.22); RDW 13.9 % (11.7-14.6); RDW-SD 44.3 fL; WBC 4.44 10^3/uL (4.4-10.8)
[2022-11-27 18:18] LABS: Ferritin 83 ng/mL (8-252)
== END 2022-11-27 01:49 | disposition home or self-care (01) ==
PROVIDERS: PCP Naturopath; Visit Provider Internal Medicine Hematology & Oncology
DX: E83.110 Hereditary hemochromatosis (principal)
CPT/HCPCS: 36415; 82728; 85025

== ENCOUNTER 2023-01-15 04:17 | Outpatient (CLI) | payer BC, SELFPAY ==
[2023-01-15 17:05] LABS: Abs Immature Grans 0.01 10^3/uL (0.0-0.06); Absolute Basophil Count 0.04 10^3/uL (0.0-0.2); Absolute Eosinophil Count 0.09 10^3/uL (0.0-0.7); Absolute Lymphocyte Count 1.43 10^3/uL (1.2-3.4); Absolute Monocyte Count 0.52 10^3/uL (0.1-0.8); Absolute Neutrophil Count 2.63 10^3/uL (1.2-6.7); Basophils % 0.8; Eosinophils % 1.9; HCT 39.9 % (36.0-46.0); HGB 13.5 g/dL (11.2-15.7); Immature Grans % 0.2; Lymphocytes % 30.3; MCH 30.1 pg (27.0-33.0); MCHC 33.8 % (32.0-36.0); MCV 89 fL (80-95); MPV 11.2 fL (8.0-11.0); Neutrophils % 55.8; Platelet Count 224 10^3/uL (130-400); RBC 4.49 10^6/uL (3.93-5.22); RDW 13.4 % (11.7-14.6); WBC 4.72 10^3/uL (4.4-10.8)
[2023-01-15 17:58] LABS: Ferritin 48 ng/mL (8-252)
== END 2023-01-15 04:18 | disposition home or self-care (01) ==
LOC: LBO 04:17
PROVIDERS: PCP Naturopath; Visit Provider Naturopath
DX: E83.110 Hereditary hemochromatosis (principal)
CPT/HCPCS: 36415; 82728; 85025

== ENCOUNTER 2023-02-17 04:37 | Outpatient (CLI) | payer BC, SELFPAY ==
[2023-02-17 10:17] LABS: Abs Immature Grans 0.01 10^3/uL (0.0-0.06); Absolute Basophil Count 0.04 10^3/uL (0.0-0.2); Absolute Eosinophil Count 0.07 10^3/uL (0.0-0.7); Absolute Lymphocyte Count 1.38 10^3/uL (1.2-3.4); Absolute Monocyte Count 0.38 10^3/uL (0.1-0.8); Basophils % 1.2; Eosinophils % 2.1; HCT 41.4 % (36.0-46.0); HGB 13.6 g/dL (11.2-15.7); Immature Grans % 0.3; Lymphocytes % 40.8; MCH 29.6 pg (27.0-33.0); MCHC 32.9 % (32.0-36.0); MCV 90 fL (80-95); MPV 11.3 fL (8.0-11.0); Monocytes % 11.2; Neutrophils % 44.4; Platelet Count 237 10^3/uL (130-400); RDW 12.7 % (11.7-14.6); RDW-SD 41.4 fL; WBC 3.38 10^3/uL (4.4-10.8)
[2023-02-17 10:49] LABS: Hemoglobin A1C 5.3 % (<5.7)
[2023-02-17 10:56] LABS: ALT 75 U/L (14-59); AST 39 U/L (15-37); Albumin 4.1 g/dL (3.4-5.0); Alkaline Phosphatase 121 U/L (46-116); Anion Gap 3.3 mmol/L (3-11); BUN 9 mg/dL (7-18); Bilirubin, Total 0.4 mg/dL (0.2-1.0); CO2 30.7 mmol/L (21.0-32.0); CREATININE 0.9 mg/dL (0.55-1.02); Calcium 9.4 mg/dL (8.5-10.1); Chloride 104 mmol/L (98-107); Glucose 103 mg/dL (74-106); Potassium 4.4 mmol/L (3.5-5.1); Sodium 138 mmol/L (136-145); TSH 1.52 uIU/mL (0.36-3.74); Total Protein 7.8 g/dL (6.4-8.2)
[2023-02-17 11:38] LABS: Calculated LDL 130 mg/dL (<100); Cholesterol 224 mg/dL (<200); Ferritin 33 ng/mL (8-252); HDL Cholesterol 78 mg/dL (40-60); T4 7.6 ug/dL (4.7-13.3); Triglyceride 82 mg/dL (<150); Vitamin B12 458 pg/mL (193-986)
[2023-02-17 18:45] LABS: T3,Free 3.7 pg/mL (2.8-5.3)
[2023-02-18 10:17] LABS: Transferrin 301 mg/dL (201-352)
[2023-02-18 15:06] LABS: ANA Interpretation Negative (Negative)
[2023-02-20 10:16] LABS: Insulin 10.5 uIU/mL (<29.0)
== END 2023-02-17 04:38 | disposition home or self-care (01) ==
PROVIDERS: PCP Naturopath; Visit Provider Nurse Practitioner
DX: E83.110 Hereditary hemochromatosis (principal)
CPT/HCPCS: 36415; 80053; 80061; 82607; 82728; 83036; 83525; 84436; 84443; 84466; 84481; 85025; 86038

== ENCOUNTER 2023-05-09 02:39 | Outpatient (CLI) | payer BC, SELFPAY ==
[2023-05-09 16:51] LABS: Abs Immature Grans 0.01 10^3/uL (0.0-0.06); Absolute Basophil Count 0.06 10^3/uL (0.0-0.2); Absolute Eosinophil Count 0.07 10^3/uL (0.0-0.7); Absolute Lymphocyte Count 1.63 10^3/uL (1.2-3.4); Absolute Monocyte Count 0.49 10^3/uL (0.1-0.8); Basophils % 1.5; Eosinophils % 1.7; HCT 41.4 % (36.0-46.0); HGB 13.7 g/dL (11.2-15.7); Immature Grans % 0.2; Lymphocytes % 40.6; MCH 28.2 pg (27.0-33.0); MCHC 33.1 % (32.0-36.0); MCV 85 fL (80-95); MPV 11.1 fL (8.0-11.0); Monocytes % 12.2; Neutrophils % 43.8; Platelet Count 225 10^3/uL (130-400); RBC 4.86 10^6/uL (3.93-5.22); RDW 13.6 % (11.7-14.6); RDW-SD 42.3 fL; WBC 4.01 10^3/uL (4.4-10.8)
[2023-05-09 17:00] LABS: Absolute Neutrophil Count 1.76 10^3/uL (1.2-6.7)
[2023-05-09 17:59] LABS: Ferritin 111 ng/mL (8-252)
== END 2023-05-09 02:40 | disposition home or self-care (01) ==
PROVIDERS: PCP Naturopath; Visit Provider Nurse Practitioner
DX: E83.110 Hereditary hemochromatosis (principal)
CPT/HCPCS: 36415; 82728; 85025

== ENCOUNTER 2023-07-16 11:32 | Outpatient (CLI) | payer BC, SELFPAY ==
[2023-07-16 08:12] LABS: Abs Immature Grans 0.01 10^3/uL (0.0-0.06); Absolute Basophil Count 0.04 10^3/uL (0.0-0.2); Absolute Eosinophil Count 0.05 10^3/uL (0.0-0.7); Absolute Lymphocyte Count 1.25 10^3/uL (1.2-3.4); Absolute Monocyte Count 0.26 10^3/uL (0.1-0.8); Absolute Neutrophil Count 1.71 10^3/uL (1.2-6.7); Basophils % 1.2; Eosinophils % 1.5; HCT 43.8 % (36.0-46.0); HGB 14.5 g/dL (11.2-15.7); Immature Grans % 0.3; Lymphocytes % 37.7; MCH 28.8 pg (27.0-33.0); MCHC 33.1 % (32.0-36.0); MCV 87 fL (80-95); Monocytes % 7.8; Neutrophils % 51.5; RBC 5.03 10^6/uL (3.93-5.22); RDW-SD 41.3 fL; WBC 3.32 10^3/uL (4.4-10.8)
[2023-07-16 08:30] LABS: Platelet Count 172 10^3/uL (130-400)
[2023-07-16 08:34] LABS: Hemoglobin A1C 5.6 % (<5.7)
[2023-07-16 08:53] LABS: ALT 51 U/L (14-59); AST 26 U/L (15-37); Albumin 4.4 g/dL (3.4-5.0); Alkaline Phosphatase 127 U/L (46-116); Anion Gap 6.9 mmol/L (3-11); BUN 16 mg/dL (7-18); Bilirubin, Total 0.6 mg/dL (0.2-1.0); CO2 31.1 mmol/L (21.0-32.0); CREATININE 0.8 mg/dL (0.55-1.02); Calcium 9.1 mg/dL (8.5-10.1); Chloride 104 mmol/L (98-107); Estimated GFR 86.42 (mL/min/1.73m2); Glucose 95 mg/dL (74-106); Potassium 4.4 mmol/L (3.5-5.1); Sodium 142 mmol/L (136-145); Total Protein 7.6 g/dL (6.4-8.2)
[2023-07-16 16:17] LABS: Calculated LDL 113 mg/dL (<100); Cholesterol 181 mg/dL (<200); Ferritin 79 ng/mL (8-252); HDL Cholesterol 55 mg/dL (40-60); T4 8.9 ug/dL (4.7-13.3); TSH 1.59 uIU/Ml (0.36-3.74); Triglyceride 66 mg/dL (<150); Vitamin B12 416 pg/mL (193-986)
[2023-07-16 18:33] LABS: T3,Free 5.3 pg/mL (2.8-5.3)
[2023-07-17 16:03] LABS: ANA Interpretation Positive (Negative); ANA Titer Pattern 1:320 Homogeneous
[2023-07-18 09:42] LABS: Insulin 9.1 uIU/mL (<29.0)
[2023-07-18 12:12] LABS: Iron 79 ug/dL (50-170); Total Iron Binding Capacity 342 ug/dL (250-450); Transferrin Sat 23 % (15-50)
== END 2023-07-16 11:33 | disposition home or self-care (01) ==
LOC: LBO 11:32
PROVIDERS: PCP Naturopath; Visit Provider Nurse Practitioner
DX: E03.9 Hypothyroidism, unspecified (principal); E88.819 Insulin resistance, unspecified; Z13.220 Encounter for screening for lipoid disorders; E83.110 Hereditary hemochromatosis; Z13.1 Encounter for screening for diabetes mellitus
CPT/HCPCS: 36415; 80053; 80061; 82607; 82728; 83036; 83525; 83540; 83550; 84436; 84443; 84466; 84481; 85025; 86038

== ENCOUNTER 2023-11-12 03:08 | Outpatient (CLI) | payer BC, SELFPAY ==
[2023-11-12 14:37] LABS: Abs Immature Grans 0.01 10^3/uL (0.0-0.06); Absolute Basophil Count 0.07 10^3/uL (0.0-0.2); Absolute Eosinophil Count 0.14 10^3/uL (0.0-0.7); Absolute Lymphocyte Count 1.52 10^3/uL (1.2-3.4); Absolute Monocyte Count 0.32 10^3/uL (0.1-0.8); Absolute Neutrophil Count 2.91 10^3/uL (1.2-6.7); Basophils % 1.4 %; Eosinophils % 2.8 %; HCT 43.7 % (36.0-46.0); HGB 14.9 g/dL (11.2-15.7); Immature Grans % 0.2 %; Lymphocytes % 30.6 %; MCH 29.7 pg (27.0-33.0); MCHC 34.1 % (32.0-36.0); MCV 87 fL (80-95); Monocytes % 6.4 %; Neutrophils % 58.6 %; Platelet Count 209 10^3/uL (130-400); RBC 5.02 10^6/uL (3.93-5.22); RDW 13.5 % (11.7-14.6); RDW-SD 42.6 fL; WBC 4.97 10^3/uL (4.4-10.8)
[2023-11-12 15:34] LABS: Ferritin 82 ng/mL (8-252)
[2023-11-14 08:16] LABS: Transferrin 249 mg/dL (201-352)
== END 2023-11-12 03:09 | disposition home or self-care (01) ==
LOC: LBO 03:08
PROVIDERS: PCP Naturopath; Visit Provider Nurse Practitioner
DX: E83.110 Hereditary hemochromatosis (principal)
CPT/HCPCS: 36415; 82728; 84466; 85025

== ENCOUNTER 2023-12-06 10:10 | Emergency (ER) | payer BC, SELFPAY ==
[2023-12-06] VITALS (8 sets, daily range): BP systolic 158; BP diastolic 88; PULSE 70–77; RESP 20; TEMP 36.7; O2SAT 98–100
--- NOTE | 2023-12-06 10:42 | W.ED.GENAD ---
Discharge Plan Disposition Patient Disposition: Home Condition: Improving Discharge Details Chief Complaint: Fall/Non TraumaCriteria Clinical Impression: Abdominal contusion Primary Care Provider: Herminio Hernandez ED Provider: Keyon Merrill Home Meds and New Rx's Prescriptions: No Action metformin 500 mg tablet extended release 24 hr 500 mg PO BID Patient Comments: START WITH 1 T PO QD AND INCREASE BY 1 TABLET EACH WEEK UNTIL TAKING 2 TS BID magnesium glycinate 100 mg Tablet 100 mg PO DAILY thyroid (pork) [[place] Thyroid] 15 mg tablet 15 mg PO DAILY Patient Comments: TK 1 T PO D thyroid (pork) [[place] Thyroid] 30 mg tablet 30 mg PO DAILY Patient Comments: TK 1 T PO D omega 1-oye-ren-fish oil [Fish Oil] 1,000 mg (120 mg-180 mg) Capsule 2 cap PO DAILY Lumigan 0.01 % drops 1 drp ophthalmic (eye) HS dextroamphetamine-amphetamine [Adderall] 15 mg tablet 15 mg PO DAILY Discharge Instructions Instructions: Blunt Abdominal Trauma ED Additional Instructions: Please follow-up with your primary care physician to discuss findings of your CT scan specifically the right sided lung nodule. Continue with ibuprofen and acetaminophen at home as needed, heat ice and rest. Please return to the emergency department for any worsening symptoms HPI General Date/Time Provider Initiated Documentation: 12/06/23 10:20. HPI Narrative: 58-year-old female presents after falling from an elevated [place] stand while she was mounting her horse fell on her back and flank endorses epigastric discomfort. Denies neck pain or loss of consciousness Related Data Home Medications ?Medication ?Instructions ?Recorded ?Confirmed bimatoprost 0.01 % eye drops 1 drp ophthalmic (eye) HS 11/11/19 12/06/23 (Lumigan) magnesium glycinate 100 mg (as 100 mg PO DAILY 11/11/19 12/06/23 glycinate) tablet metformin 500 mg tablet,extended 500 mg PO BID 11/11/19 12/06/23 release 24 hr omega 8-huh-rij-fish oil 1,000 mg 2 cap PO DAILY 11/11/19 12/06/23 (120 mg-180 mg) capsule (Fish Oil) thyroid (pork) 15 mg tablet 15 mg PO DAILY 11/11/19 12/06/23 ([place] Thyroid) thyroid (pork) 30 mg tablet 30 mg PO DAILY 11/11/19 12/06/23 ([place] Thyroid) dextroamphetamine-amphetamine 15 15 mg PO DAILY ADHD 12/06/23 12/06/23 mg tablet (Adderall) Allergies Allergy/AdvReac Type Severity Reaction Status Date / Time ampicillin (Ampicillin) Allergy Severe Unknown Unverified 12/06/23 10:23 gluten AdvReac Other (See Unverified 12/06/23 10:23 Comment) latex AdvReac Skin Rash Verified 12/06/23 10:23 dairy Allergy Mild Other (See Uncoded 12/06/23 10:23 Comment) General Stated Complaint: Fall/Non TraumaCriteria LEXI: 3 Exam Narrative Exam Narrative: Patient appears uncomfortable alert oriented interactive Moist mucous membranes tongue secretions no craniofacial trauma pupils round reactive to light No otorrhea no rhinorrhea Lungs clear bilaterally no wheezes rales or rhonchi Normal heart sounds no murmurs rubs or gallops Abdomen soft nontender nondistended; discomfort in epigastrium at area of superficial abrasion Pelvis stable moving all extremities with full strength and sensation No midline spinal tenderness step-off crepitus or deformity Patient has abrasion/ecchymosis to left posterior flank as well as abrasion to epigastrium Course Vital Signs Vital signs: Vital Signs Temperature 36.7 C 12/06/23 10:14 Pulse 77 12/06/23 10:14 Respiratory Rate 12/06/23 10:14 Blood Pressure 158/88 H 12/06/23 10:14 Pulse Oximetry 98 12/06/23 10:14 Temperature 36.7 C 12/06/23 10:14 Temperature Source Skin 12/06/23 10:14 Pulse 77 12/06/23 10:14 Respiratory Rate 20 12/06/23 10:14 Blood Pressure 158/88 H 12/06/23 10:14 Blood Pressure Position Sitting 12/06/23 10:14 Pulse Oximetry 98 12/06/23 10:14 Oxygen Delivery Method Room Air 12/06/23 10:14 Oxygen Flow Rate 0 12/06/23 10:14 Pain Level 10 12/06/23 10:14 Medical Decision Making 58-year-old female presents after fall from elevated barn stand while attempting to mount her horse, ecchymosis and abrasion to left posterior flank as well as epigastrium, epigastric discomfort without nausea or vomiting, no head injury or craniofacial trauma no midline spinal tenderness step-off crepitus or deformity, airway breathing and circulation intact hemodynamically stable afebrile nontoxic, bedside FAS T examination negative for anterior peritoneal free fluid, given discomfort epigastrium must consider duodenal bulb injury versus splenic injury versus gastric injury versus muscular contusion versus hematoma muscles consider lower rib fracture versus hemothorax versus pneumothorax lower suspicion for blunt cardiac trauma low suspicion for intracranial or spinal cord injury given history and physical, will obtain CT chest abdomen pelvis with contrast, analgesia anti-inflammatory close reassessment 12: 36 resting comfortably no acute distress. Pain greatly controlled. Hemodynamically stable. CT chest abdomen pelvis negative for acute traumatic process. Incidental right lung nodule noted and relayed to patient. Patient does have remote history of right breast cancer and received radiation to her right chest. Encourage close follow-up with her primary care physician. Home care instructions and strict return precautions given Quality:SDOH Health Related Social Needs: No Data to Display PFSH All Active Problems (Updated 12/06/23 @ 12:37 by Keyon Merrill MD) Abdominal contusion (Acute) Medical History Sleep apnea Social History Smoking/Tobacco Use Status: Former Tobacco Use Smoking risk assessment performed?: Yes Alcohol Intake: current Alcohol Intake frequency: a few times a week Alcohol type: hard liquor Drug use: Occasionally Details: diazapam/clonipine--old rxs Do you feel safe at home: Yes Do you feel safe in your relationship?: Yes
[2023-12-06] MEDS: Ondansetron 4 MG/2 ML VIAL IVP (10:53)
[2023-12-06] MEDS: HYDROmorphone 2 MG/ML SYR 0.5 MG IVP (10:53)
[2023-12-06] MEDS: Normal Saline 1,000 ML 1000 ML IV (10:54)
[2023-12-06 10:59] LABS: Abs Immature Grans 0.05 10^3/uL (0.0-0.06); Absolute Basophil Count 0.04 10^3/uL (0.0-0.2); Absolute Eosinophil Count 0.09 10^3/uL (0.0-0.7); Absolute Monocyte Count 0.33 10^3/uL (0.1-0.8); Absolute Neutrophil Count 2.12 10^3/uL (1.2-6.7); Basophils % 1.2 %; Eosinophils % 2.6 %; HCT 40.9 % (36.0-46.0); HGB 13.6 g/dL (11.2-15.7); Immature Grans % 1.5 %; Lymphocytes % 23.3 %; MCH 29.8 pg (27.0-33.0); MCHC 33.3 % (32.0-36.0); MCV 90 fL (80-95); MPV 11.4 fL (8.0-11.0); Monocytes % 9.6 %; Neutrophils % 61.8 %; Platelet Count 194 10^3/uL (130-400); RBC 4.56 10^6/uL (3.93-5.22); RDW 13.8 % (11.7-14.6); RDW-SD 45.5 fL; WBC 3.43 10^3/uL (4.4-10.8)
[2023-12-06 11:11] LABS: INR 1.1 (0.9-1.1); PTT Activated 26.1 sec (23.6-32.8); Prothrombin Time 10.7 sec (9.1-11.1)
[2023-12-06 11:19] LABS: ALT 27 U/L (14-59); AST 24 U/L (15-37); Albumin 4.2 g/dL (3.4-5.0); Alkaline Phosphatase 129 U/L (46-116); Anion Gap 5.8 mmol/L (3-11); BUN 14 mg/dL (7-18); Bilirubin, Total 0.68 mg/dL (0.2-1.0); CO2 31.2 mmol/L (21.0-32.0); CREATININE 0.7 mg/dL (0.55-1.02); Chloride 102 mmol/L (98-107); Estimated GFR 101.44 (mL/min/1.73m2); Glucose 109 mg/dL (74-106); Lipase 55 U/L (16-77); Potassium 4.2 mmol/L (3.5-5.1); Sodium 139 mmol/L (136-145); Total Protein 7.7 g/dL (6.4-8.2)
[2023-12-06 11:23] LABS: Calcium 9.3 mg/dL (8.5-10.1)
--- NOTE | 2023-12-06 11:48 | DI.CT_ITS ---
Exam(s) CT CHEST/ABD/PEL W EXAM: CT CHEST/ABD/PEL W CLINICAL HISTORY: trauma, fall from horse, epigastric pain TECHNIQUE: Imaging Protocol: Axial computed tomography images with coronal and sagittal reformatted images were created and reviewed CONTRAST MATERIAL: Intravenous: Omnipaque 350 contrast volume:100 mL Oral: No COMPARISON: CT ABD PELVIS WO CONTRAST from 03/13/2009 FINDINGS: CHEST: Tracheobronchial tree: Patent where visualized. Pulmonary parenchyma: No consolidation or dominant measurable mass. Calcified granuloma present. The re is a 7 mm nodule in the left upper lobe (series 4, image 119). There is a 6 mm nodule in the post erior aspect of the right lower lobe (series 4, image 135). Visualized thyroid gland: Unremarkable. Mediastinum and Jany: No dominant adenopathy or fluid collection. The esophagus is unremarkable. Pleura: No effusion or pneumothorax. Heart: The heart is not dilated. No coronary artery calcifications are seen. No pericardial effusion. Pulmonary arteries: Due to the timing of the bolus, evaluation of pulmonary emboli is limited. No la rge central pulmonary embolism is present. Aorta: Thoracic aorta non-dilated. No evidence of dissection. Lymph nodes: Within normal limits. Soft tissues: Unremarkable. Bones:Within normal limits for the patient's age. No acute fracture or subluxation is seen. ABDOMEN: Liver: Normal density. There is a simple hepatic cyst. No suspicious hepatic lesions are seen. Ther e are few tiny densities in the liver. They are too small for further characterization but likely re flect small cysts. No follow-up is recommended. Portal, Superior Mesenteric, and Splenic Veins: Unremarkable. Gallbladder and Biliary Tract: No radiodense calculus or dilation. Pancreas: Normal density, no abnormal calcifications or inflammatory process. Spleen: Normal. Adrenals: No masses seen. Kidneys: Normal size, contour and axis. No radiodense stones or obstructive uropathy. There is a tiny hypodensity in the right kidney. It is too small for further characterization but likely reflects a small cyst. No follow-up is recommended. Abdominal Aorta: Abdominal portion non-dilated. No evidence of dissection. Bowel: No obstruction or bowel wall thickening. No evidence of appendicitis. Peritoneal Cavity: No ascites, collection or mesenteric inflammatory response. No free air. Lymph Nodes: Within normal limits. Bones: Within normal limits for the patient's age. Soft Tissues: There is a small fat containing umbilical hernia. PELVIS: Bladder: Symmetric distention, no gross wall thickening. Reproductive Organs: Unremarkable as visualized. Lymph Nodes: Within normal limits. Bones: Within normal limits. IMPRESSION: 1. No acute pulmonary process. 2. Pulmonary nodules. For solitary solid noncalcified nodules measuring 6???8 mm in patients at high risk, an initial follo w-up examination is recommended at 6???12 months and again at 18???24 months (grade 1B: strong recomm endation, moderate quality evidence). (Earline et al., 2017) Solitary noncalcified solid nodules measuring 6???8 mm in patients with low clinical risk are recomme nded to undergo initial follow-up at 6???12 months depending on size, morphology, and patient prefere nce (grade 1C: strong recommendation, low- or [id number] evidence). (Earline et al., 2017) 3. No acute abdominal or pelvic process. RADIATION DOSE DELIVERED: 390.78mGy.cm Total DLP DATA REPOSITORY: All CT scans at this facility are submitted to the National Radiology Data Registry (NRDR) Dose Index Registry (DIR) with the [employer] (ACR). RADIATION OPTIMIZATION: All CT scans at this facility use at least one of these dose optimization te chniques: automated exposure control; mA and/or kV adjustment per patient size (includes targeted exa ms where dose is matched to clinical indication); or iterative reconstruction.
[2023-12-06] MEDS: Omnipaque 350 MG/ML 100 ML BTL IJ (11:55)
[2023-12-06] MEDS: Normal Saline - Diluent 50 ML VIAL IJ (11:56)
[2023-12-06] MEDS: ACETAMINOPHEN 1,000 MG/100 ML BTL 400 MG IVPB (12:08)
--- NOTE | 2023-12-06 12:22 | DI.VRAD_ITS ---
PROCEDURE INFORMATION: Exam: CT Chest With Contrast; Diagnostic Exam date and time: 12/06/2023 11:45 AM Age: 58 years old Clinical indication: Other: Trauma, fall from horse, epigastric pain TECHNIQUE: Imaging protocol: Diagnostic computed tomography of the chest with contrast. 3D rendering (Not supervised by radiologist): MIP and/or 3D reconstructed images were created by the technologist. Contrast material: OMNIPAQUE; Contrast volume: 100 ml; Contrast route: INTRAVENOUS (IV); COMPARISON: MR UPPER JOINT LT WO 12/31/2021 11:10 AM FINDINGS: Lungs: 7.6 mm pleural-based nodule in the right lower lobe series 4, image 135. Pleural spaces: Unremarkable. No pneumothorax. No pleural effusion. Heart: Unremarkable. No cardiomegaly. No pericardial effusion. Lymph nodes: Unremarkable. No enlarged lymph nodes. Vasculature: No evidence of pulmonary embolus to the segmental level. No aneurysm of the aorta. No dissection of the aorta. Bones/joints: Unremarkable. No acute fracture. Soft tissues: Unremarkable. IMPRESSION: 1. No evidence of pulmonary embolus to the segmental level. 2. No aneurysm of the aorta. 3. No dissection of the aorta. 4 7.6 mm pleural-based nodule in the right lower lobe series 4, image 135. PROCEDURE INFORMATION: Exam: CT Abdomen And Pelvis With Contrast Exam date and time: 12/06/2023 11:45 AM Age: 58 years old Clinical indication: Other: Trauma, fall from horse, epigastric pain TECHNIQUE: Imaging protocol: Computed tomography of the abdomen and pelvis with contrast. 3D rendering (Not supervised by radiologist): MIP and/or 3D reconstructed images were created by the technologist. Contrast material: OMNIPAQUE; Contrast volume: 100 ml; Contrast route: INTRAVENOUS (IV); COMPARISON: No relevant prior studies available. FINDINGS: Liver: 2.7 cm simple cyst in the dome of the liver . No follow-up imaging recommended Gallbladder and biliary ducts: Normal. No calcified stones. No ductal dilation. Pancreas: Normal. No ductal dilation. Spleen: Normal. No splenomegaly. Adrenal glands: Normal. No mass. Kidneys and ureters: Normal. No hydronephrosis. Stomach and bowel: Unremarkable. No obstruction. No mucosal thickening. Appendix: No evidence of appendicitis. Intraperitoneal space: Unremarkable. No free air. No significant fluid collection. Vasculature: Unremarkable. No abdominal aortic aneurysm. Lymph nodes: Unremarkable. No enlarged lymph nodes. Urinary bladder: Unremarkable as visualized. Reproductive: Unremarkable as visualized. Bones/joints: Unremarkable. No acute fracture. Soft tissues: Unremarkable. IMPRESSION: No acute process Dictated and Authenticated by: Landry Garrett MD. Ordering:DRAGAN Ta MD
== END 2023-12-06 12:54 | disposition home or self-care (01) ==
PROVIDERS: Emergency Provider Emergency Medicine; PCP Naturopath
DX: S30.1XXA Contusion of abdominal wall, initial encounter (principal); R10.13 Epigastric pain; V80.010A Animal-rider injured by fall from or being thrown from horse in noncollision accident, initial encounter
CPT/HCPCS: 36415; 74177; 80053; 83690; 86850; 86900; 86901; 96365; 96375; 99285; 71260; 85025; 85610; 85730; 99283; J0131; J1170; J2405; J3490

== ENCOUNTER 2023-12-25 03:01 | Outpatient (CLI) | payer BC, SELFPAY ==
[2023-12-25 17:15] LABS: Absolute Basophil Count 0.05 10^3/uL (0.0-0.2); Absolute Eosinophil Count 0.06 10^3/uL (0.0-0.7); Absolute Lymphocyte Count 1.34 10^3/uL (1.2-3.4); Absolute Monocyte Count 0.28 10^3/uL (0.1-0.8); Absolute Neutrophil Count 1.81 10^3/uL (1.2-6.7); Basophils % 1.4 %; Eosinophils % 1.7 %; HCT 41.1 % (36.0-46.0); HGB 13.7 g/dL (11.2-15.7); Lymphocytes % 37.9 %; MCH 29.7 pg (27.0-33.0); MCHC 33.3 % (32.0-36.0); MCV 89 fL (80-95); Monocytes % 7.9 %; Neutrophils % 51.1 %; Platelet Count 255 10^3/uL (130-400); RBC 4.62 10^6/uL (3.93-5.22); RDW 13.7 % (11.7-14.6); RDW-SD 44.5 fL; WBC 3.54 10^3/uL (4.4-10.8)
[2023-12-25 17:55] LABS: Iron 91 ug/dL (50-170); Total Iron Binding Capacity 365 ug/dL (250-450); Transferrin Sat 25 % (15-50)
[2023-12-25 18:11] LABS: Ferritin 59 ng/mL (8-252)
== END 2023-12-25 03:02 | disposition home or self-care (01) ==
PROVIDERS: PCP Naturopath; Visit Provider Nurse Practitioner
DX: E83.110 Hereditary hemochromatosis (principal)
CPT/HCPCS: 36415; 82728; 83540; 83550; 85025

== ENCOUNTER 2024-01-22 03:53 | Outpatient (CLI) | payer BC, SELFPAY ==
[2024-01-22 15:46] LABS: Abs Immature Grans 0.01 10^3/uL (0.0-0.06); Absolute Basophil Count 0.03 10^3/uL (0.0-0.2); Absolute Eosinophil Count 0.04 10^3/uL (0.0-0.7); Absolute Lymphocyte Count 1.03 10^3/uL (1.2-3.4); Absolute Monocyte Count 0.31 10^3/uL (0.1-0.8); Basophils % 0.8 %; Eosinophils % 1.1 %; HCT 39.6 % (36.0-46.0); HGB 13.1 g/dL (11.2-15.7); Immature Grans % 0.3 %; Lymphocytes % 28.5 %; MCH 29.6 pg (27.0-33.0); MCHC 33.1 % (32.0-36.0); MCV 90 fL (80-95); MPV 11.4 fL (8.0-11.0); Monocytes % 8.6 %; Neutrophils % 60.7 %; Platelet Count 209 10^3/uL (130-400); RBC 4.42 10^6/uL (3.93-5.22); RDW 12.9 % (11.7-14.6); RDW-SD 42.5 fL; WBC 3.62 10^3/uL (4.4-10.8)
[2024-01-23 11:36] LABS: EBNA IgG Positive (Negative); EBV Interpretation (See Note); VCA IgG Positive (Negative); VCA IgM Negative (Negative)
== END 2024-01-22 03:54 | disposition home or self-care (01) ==
LOC: LBO 03:53
PROVIDERS: PCP Naturopath
DX: J31.2 Chronic pharyngitis (principal)
CPT/HCPCS: 36415; 85025; 86664; 86665

== ENCOUNTER 2024-02-10 11:34 | Outpatient (CLI) | payer BC, SELFPAY ==
[2024-02-10 09:34] LABS: Abs Immature Grans 0.01 10^3/uL (0.0-0.06); Absolute Basophil Count 0.05 10^3/uL (0.0-0.2); Absolute Eosinophil Count 0.08 10^3/uL (0.0-0.7); Absolute Lymphocyte Count 1.22 10^3/uL (1.2-3.4); Absolute Monocyte Count 0.28 10^3/uL (0.1-0.8); Absolute Neutrophil Count 1.93 10^3/uL (1.2-6.7); Basophils % 1.4 %; Eosinophils % 2.2 %; HCT 42.7 % (36.0-46.0); HGB 13.9 g/dL (11.2-15.7); Immature Grans % 0.3 %; Lymphocytes % 34.2 %; MCH 29.1 pg (27.0-33.0); MCHC 32.6 % (32.0-36.0); MCV 89 fL (80-95); MPV 11.8 fL (8.0-11.0); Monocytes % 7.8 %; Neutrophils % 54.1 %; Platelet Count 221 10^3/uL (130-400); RBC 4.78 10^6/uL (3.93-5.22); RDW 12.8 % (11.7-14.6); RDW-SD 42.1 fL; WBC 3.57 10^3/uL (4.4-10.8)
[2024-02-10 09:50] LABS: Hemoglobin A1C 5.2 % (<5.7)
[2024-02-10 10:04] LABS: ALT 27 U/L (14-59); AST 18 U/L (15-37); Alkaline Phosphatase 141 U/L (46-116); Anion Gap 7.7 mmol/L (3-11); BUN 14 mg/dL (7-18); CO2 32.3 mmol/L (21.0-32.0); CREATININE 0.8 mg/dL (0.55-1.02); Calcium 9.1 mg/dL (8.5-10.1); Calculated LDL 111 mg/dL (<100); Chloride 104 mmol/L (98-107); Cholesterol 219 mg/dL (<200); Estimated GFR 86.42 (mL/min/1.73m2); Glucose 130 mg/dL (74-106); HDL Cholesterol 94 mg/dL (40-60); Potassium 3.9 mmol/L (3.5-5.1); Sodium 144 mmol/L (136-145); T4 9.5 ug/dL (4.7-13.3); TSH 1.99 uIU/mL (0.36-3.74); Total Protein 7.7 g/dL (6.4-8.2); Triglyceride 71 mg/dL (<150)
[2024-02-10 10:14] LABS: Iron 56 ug/dL (50-170); Total Iron Binding Capacity 373 ug/dL (250-450); Transferrin Sat 15 % (15-50)
[2024-02-10 11:00] LABS: Ferritin 21 ng/mL (8-252)
[2024-02-10 22:03] LABS: T3,Free 5.5 pg/mL (2.8-5.3)
[2024-02-11 09:38] LABS: Insulin 111.7 uIU/mL (<29.0)
== END 2024-02-10 11:35 | disposition home or self-care (01) ==
LOC: LBO 11:34
PROVIDERS: PCP Naturopath; Visit Provider Naturopath
DX: E83.110 Hereditary hemochromatosis (principal); E88.819 Insulin resistance, unspecified; E03.9 Hypothyroidism, unspecified; Z00.00 Encounter for general adult medical examination without abnormal findings
CPT/HCPCS: 36415; 80053; 80061; 82728; 83036; 83525; 83540; 83550; 84436; 84443; 84481; 85025

== ENCOUNTER 2024-04-02 01:24 | Outpatient (CLI) | payer BC, SELFPAY ==
[2024-04-02 13:06] LABS: Abs Immature Grans 0.01 10^3/uL (0.0-0.06); Absolute Basophil Count 0.04 10^3/uL (0.0-0.2); Absolute Eosinophil Count 0.06 10^3/uL (0.0-0.7); Absolute Lymphocyte Count 1.21 10^3/uL (1.2-3.4); Absolute Monocyte Count 0.36 10^3/uL (0.1-0.8); Absolute Neutrophil Count 2.21 10^3/uL (1.2-6.7); Eosinophils % 1.5 %; HCT 43.2 % (36.0-46.0); HGB 14.2 g/dL (11.2-15.7); Immature Grans % 0.3 %; Lymphocytes % 31.1 %; MCH 29.2 pg (27.0-33.0); MCHC 32.9 % (32.0-36.0); MCV 89 fL (80-95); MPV 11.3 fL (8.0-11.0); Monocytes % 9.3 %; Neutrophils % 56.8 %; Platelet Count 209 10^3/uL (130-400); RBC 4.87 10^6/uL (3.93-5.22); RDW 13.7 % (11.7-14.6); RDW-SD 44.2 fL; WBC 3.89 10^3/uL (4.4-10.8)
[2024-04-02 13:37] LABS: Ferritin 38 ng/mL (8-252)
[2024-04-02 14:11] LABS: Iron 145 ug/dL (50-170); Total Iron Binding Capacity 375 ug/dL (250-450); Transferrin Sat 39 % (15-50)
== END 2024-04-02 01:25 | disposition home or self-care (01) ==
PROVIDERS: PCP Naturopath; Visit Provider Nurse Practitioner
DX: E83.110 Hereditary hemochromatosis (principal)
CPT/HCPCS: 36415; 82728; 83540; 83550; 85025

== ENCOUNTER 2024-08-16 04:16 | Outpatient (CLI) | payer BC, SELFPAY ==
[2024-08-16 13:12] LABS: Abs Immature Grans 0.01 10^3/uL (0.0-0.06); Absolute Basophil Count 0.04 10^3/uL (0.0-0.2); Absolute Eosinophil Count 0.09 10^3/uL (0.0-0.7); Absolute Lymphocyte Count 1.44 10^3/uL (1.2-3.4); Absolute Monocyte Count 0.37 10^3/uL (0.1-0.8); Eosinophils % 2.2 %; HCT 41.1 % (36.0-46.0); HGB 13.8 g/dL (11.2-15.7); Immature Grans % 0.2 %; Lymphocytes % 35.6 %; MCH 30.3 pg (27.0-33.0); MCHC 33.6 % (32.0-36.0); MCV 90 fL (80-95); MPV 11.2 fL (8.0-11.0); Monocytes % 9.1 %; Neutrophils % 51.9 %; Platelet Count 193 10^3/uL (130-400); RBC 4.55 10^6/uL (3.93-5.22); RDW 13.1 % (11.7-14.6); RDW-SD 43.1 fL; WBC 4.05 10^3/uL (4.4-10.8)
[2024-08-16 13:49] LABS: Ferritin 83 ng/mL (8-252)
[2024-08-16 14:18] LABS: Iron 110 ug/dL (50-170); Total Iron Binding Capacity 319 ug/dL (250-450); Transferrin Sat 34 % (15-50)
== END 2024-08-16 04:17 | disposition home or self-care (01) ==
PROVIDERS: PCP Naturopath; Visit Provider Nurse Practitioner
DX: E83.110 Hereditary hemochromatosis (principal)
CPT/HCPCS: 36415; 82728; 83540; 83550; 85025

== ENCOUNTER 2024-09-30 02:46 | Outpatient (CLI) | payer BC, SELFPAY ==
[2024-09-30 16:56] LABS: Abs Immature Grans 0.00 10^3/uL (0.0-0.06); HCT 45.5 % (36.0-46.0); HGB 15.2 g/dL (11.2-15.7); Immature Grans % 0.0 %; MCH 29.9 pg (27.0-33.0); MCHC 33.4 % (32.0-36.0); MCV 89 fL (80-95); MPV 11.6 fL (8.0-11.0); Platelet Count 233 10^3/uL (130-400); RBC 5.09 10^6/uL (3.93-5.22); RDW 12.2 % (11.7-14.6); RDW-SD 40.2 fL; WBC 4.59 10^3/uL (4.4-10.8)
[2024-09-30 17:36] LABS: Ferritin 84 ng/mL (8-252)
[2024-09-30 18:39] LABS: Iron 73 ug/dL (50-170); Total Iron Binding Capacity 348 ug/dL (250-450); Transferrin Sat 21 % (15-50)
== END 2024-09-30 02:47 | disposition home or self-care (01) ==
PROVIDERS: PCP Naturopath; Visit Provider Naturopath
DX: E83.110 Hereditary hemochromatosis (principal)
CPT/HCPCS: 36415; 82728; 83540; 83550; 85025

== ENCOUNTER 2024-12-06 07:24 | Outpatient (CLI) | payer BC, SELFPAY ==
[2024-12-06 11:28] LABS: Abs Immature Grans 0.02 10^3/uL (0.0-0.06); HCT 44.9 % (36.0-46.0); HGB 14.6 g/dL (11.2-15.7); Immature Grans % 0.6 %; MCH 28.9 pg (27.0-33.0); MCHC 32.5 % (32.0-36.0); MCV 89 fL (80-95); MPV 12.3 fL (8.0-11.0); Platelet Count 226 10^3/uL (130-400); RBC 5.05 10^6/uL (3.93-5.22); RDW 13.3 % (11.7-14.6); RDW-SD 43.3 fL; WBC 3.54 10^3/uL (4.4-10.8)
[2024-12-06 11:32] LABS: Iron 110 ug/dL (50-170); Total Iron Binding Capacity 369 ug/dL (250-450); Transferrin Sat 30 % (15-50)
[2024-12-06 11:45] LABS: Ferritin 36 ng/mL (8-252)
== END 2024-12-06 07:25 | disposition home or self-care (01) ==
LOC: LBO 12-07 07:25
PROVIDERS: PCP Naturopath; Visit Provider Nurse Practitioner
DX: E83.110 Hereditary hemochromatosis (principal)
CPT/HCPCS: 36415; 82728; 83540; 83550; 85025

== ENCOUNTER 2025-01-28 03:43 | Outpatient (CLI) | payer BC, SELFPAY ==
[2025-01-28 15:56] LABS: Abs Immature Grans 0.00 10^3/uL (0.0-0.06); HCT 42.1 % (36.0-46.0); HGB 14.1 g/dL (11.2-15.7); Immature Grans % 0.0 %; MCH 29.3 pg (27.0-33.0); MCHC 33.5 % (32.0-36.0); MCV 87 fL (80-95); MPV 11.6 fL (8.0-11.0); Platelet Count 217 10^3/uL (130-400); RBC 4.82 10^6/uL (3.93-5.22); RDW 13.2 % (11.7-14.6); RDW-SD 42.4 fL; WBC 3.99 10^3/uL (4.4-10.8)
[2025-01-28 16:36] LABS: Iron 110 ug/dL (50-170); Total Iron Binding Capacity 298 ug/dL (250-450); Transferrin Sat 37 % (15-50)
[2025-01-28 17:28] LABS: Ferritin 80 ng/mL (8-252)
== END 2025-01-28 03:44 | disposition home or self-care (01) ==
PROVIDERS: PCP Naturopath; Visit Provider Nurse Practitioner
DX: E83.110 Hereditary hemochromatosis (principal)
CPT/HCPCS: 36415; 82728; 83540; 83550; 85025

== ENCOUNTER 2025-02-04 02:56 | Outpatient (CLI) | payer BC, SELFPAY ==
[2025-02-04 12:43] LABS: Abs Immature Grans 0.01 10^3/uL (0.0-0.06); HCT 43.7 % (36.0-46.0); HGB 14.3 g/dL (11.2-15.7); Immature Grans % 0.2 %; MCH 28.5 pg (27.0-33.0); MCHC 32.7 % (32.0-36.0); MCV 87 fL (80-95); MPV 11.5 fL (8.0-11.0); Platelet Count 223 10^3/uL (130-400); RBC 5.02 10^6/uL (3.93-5.22); RDW 13.5 % (11.7-14.6); RDW-SD 42.8 fL; WBC 4.45 10^3/uL (4.4-10.8)
[2025-02-04 13:13] LABS: T4 9.0 ug/dL (4.7-13.3); TSH 1.88 uIU/mL (0.36-3.74)
[2025-02-04 22:09] LABS: T3,Free 4.7 pg/mL (2.8-5.3)
== END 2025-02-04 02:57 | disposition home or self-care (01) ==
PROVIDERS: PCP Naturopath; Visit Provider Naturopath
DX: E03.9 Hypothyroidism, unspecified (principal); E83.110 Hereditary hemochromatosis
CPT/HCPCS: 36415; 84436; 84443; 84481; 85025